=== PATIENT | female | born 1960 | race Caucasian/White ===

== ENCOUNTER 2022-11-21 13:12 | Outpatient (OUT) | payer MEDICARE, SELFPAY ==
--- NOTE | 2022-11-21 13:21 | XR_ITS ---
The [address] [address] Patient Name: MATTHEW ROLLINS MRN: [id number] date: 1960 Sex: F Assigned Patient Location: [facility] Current Patient Location: Accession/Order Number: [id number] Exam Date: 11/21/2022 13:35 Report Date: 11/22/2022 07:09 At the request of: EMERY BUCHANAN Procedure: XR cervical spine 2-3V EXAMINATION: XR cervical spine 2-3V HISTORY: CERVICAL PARASPINAL MUSCLE SPASM M62.838 BILAT ARM WEAKNESS COMPARISON: No relevant comparison available. FINDINGS: BONES: Prominent left convex curvature of the upper thoracic spine; no significant curvature of the cervical spine. No visible fracture or spondylolisthesis. Multilevel moderate degenerative facet arthropathy. DISC SPACES: Suspect mild narrowing C5-6, C6-7. PARASPINOUS: Negative. No paraspinous abnormality is seen. OTHER: Negative. XR/XR cervical spine 2-3V IMPRESSION: 1. Very limited evaluation of the C5-C6 through C7-T1 levels which are obscured by shoulder structures on the lateral view. 2. Suspect multilevel mild-moderate degenerative changes of cervical spine. Electronically authenticated by: IRENA LYNCH Date: 11/22/2022 07:09
== END 2022-11-21 13:13 | disposition home or self-care (01) ==
LOC: RAD 13:15
PROVIDERS: PCP Internal Medicine; Visit Provider Internal Medicine
DX: M62.838 Other muscle spasm (principal); R29.898 Other symptoms and signs involving the musculoskeletal system
CPT/HCPCS: 72040

== ENCOUNTER 2023-01-16 10:13 | Outpatient (OUT) | payer MEDICARE, SELFPAY ==
[2023-01-16 11:22] LABS: Estimated Average Glucose 105 mg/dL; Glycohemoglobin A1C 5.3 % (4.5-6.2)
[2023-01-17 11:12] LABS: Rapid Plasma Reagin, Quant Non Reactive titer (NonRea<1:1)
[2023-01-17 12:12] LABS: Ceruloplasmin 27.9 mg/dL (19.0-39.0); Complement C3, Serum 155 mg/dL (82-167); Complement C4, Serum 28 mg/dL (12-38); Homocyst(e)ine 8.7 umol/L (0.0-17.2)
[2023-01-17 14:08] LABS: Angiotensin-Converting Enzyme 43 U/L (14-82); Lyme Total Antibody CIA Negative (Negative)
[2023-01-17 15:08] LABS: Albumin 3.7 g/dL (2.9-4.4); Alpha-1-Globulin 0.2 g/dL (0.0-0.4); Alpha-2-Globulin 0.7 g/dL (0.4-1.0); Gamma Globulin 0.7 g/dL (0.4-1.8); Immunoglobulin A, Qn, Serum 69 mg/dL (87-352); Immunoglobulin G, Qn, Serum 682 mg/dL (586-1602); Immunoglobulin M, Qn, Serum 74 mg/dL (26-217); Protein, Total 6.2 g/dL (6.0-8.5)
[2023-01-18 13:12] LABS: Albumin, U 29.9 % (.); Alpha-1-Globulin, U 2.3 % (.); Beta Globulin, U 33.3 % (.); Gamma Globulin, U 19.5 % (.); M-Spike, % Not Observed % (Not Observed); Protein,Total,Urine 10.8 mg/dL (Not Estab.)
[2023-01-21 15:08] LABS: Methylmalonic Acid, Serum 174 nmol/L (0-378)
[2023-01-22 02:07] LABS: Vitamin B6, Plasma 6.7 ug/L (3.4-65.2)
[2023-01-22 14:10] LABS: West Nile Virus, IgG Negative (Negative); West Nile Virus, IgM Negative (Negative)
[2023-01-25 15:11] LABS: Copper Level 128 ug/dL (80-158); Zinc Level 99 ug/dL (44-115)
--- OUTSIDE RECORDS SUMMARY | 2023-02-26 13:38 | XMS_ITS | CCD ---
Author Name Unknown Address [address] [place] [address] Organization [facility] Care Team Providers Care Inspector Brake Lining Name Role Phone EFRAÍN BUCHANAN Primary Care Physician CECI AMIN Admitting Unavailable CECI AMIN Attending Unavailable CECI AMIN Attending Unavailable CECI AMIN Admitting Unavailable MANFRED ESPINOSA Attending Unavailable MANFRED ESPINOSA Consulting Unavailable MANFRED ESPINOSA Admitting Unavailable DR EFRAÍN BUCHANAN Primary Care Unavailable Robbin Mendez Admitting UnavailRobbin Koehler Attending UnavailEfraín Krishnamurthy Primary Care Unavailable ELINA BRANTLEY Attending Unavailable Medications Current Medications Medication Drug Class(es) Dates Sig (Normalized) Sig (Original) escitalopram 20 mg oral tablet (2 sources) Serotonin Reuptake Inhibitor Start: 05-21-2016 take 1 tablet by mouth once daily Lexapro 20 mg Tab 20 mg = 1 tab(s), Oral, Daily, Refills(s) 0 Start Date: 05/21/16 Status: Ordered haloperidol 5 mg oral tablet (2 sources) Typical Antipsychotic Start: 01-08-2018 take 5 mg by mouth once daily in the evening Haldol 5 mg, Oral, qPM, Refills(s) 0 Start Date: 01/08/18 Status: Ordered Problems Problem Classification Problem Date Documented Da te Episodic/Chronic Mood disorders (2 sources) Depression 01-08-2018 Chronic Results Test Name Value Interpretation Reference Range Facil ity MG MAMM SCREEN 3D MARCEL CADon 08-08-2022 MG MAMM SCREEN 3D MARCEL CAD Patient: MATTHEW ROLLINS. 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 MG MAMM SCREEN MARCEL W CAD, 07/07/2018. MG MAMM MARCEL SCRN W CAD DIG, 11/16/2015. DIGITIZED_MAMMO, 11/18/2008. INDICATIONS: Screening mammography Calculator Name NCI Breast Cancer Risk Assessment Tool 5 Year Breast Cancer Risk 1.30% Lifetime Breast Cancer Risk 5.70% Personal Breast Cancer No Personal Ovarian Cancer No Treatments None Family Cancers None LOCATION: [facility] BREAST COMPOSITION: Extremely dense, which lowers the sensitivity of mammography. FINDINGS: DIAGNOSTIC CATEGORY 1--NEGATIVE. RIGHT BREAST: No significant suspicious finding. No significant change has occurred. LEFT BREAST: No significant suspicious finding. No significant change has occurred. RECOMMENDATIONS: ROUTINE MAMMOGRAM AND CLINICAL EVALUATION IN 12 MONTHS. PLEASE NOTE: A NORMAL MAMMOGRAM DOES NOT EXCLUDE THE POSSIBILITY OF BREAST CANCER. A CLINICALLY SUSPICIOUS PALPABLE LUMP SHOULD BE BIOPSIED. Dictated by: Stevie Whelan M.D. on 08/08/2022 at 14:06 Approved by: Stevie Whelan M.D. on 08/08/2022 at 14:09 Normal [facility] Physician Orderon 07-18-2022 Physician Order [id number]#1.00CD:[address] [facility] Coding Summary.on 07-11-2022 Coding Summary. CD:[id number] [file] [id number] (more content not included)... Normal [facility] Bili Directon 07-06-2022 Bilirubin.direct [Mass/Vol] 0.1 mg/dL Normal 0.1-0.4 [facility] Comment on above: Performed By: #### 2 865161, 326115105, 5828741, 316877380, 7891413, 07968978, 0956384, 6591487 ####[facility] [address] [place] [address] CBC w/Indiceson 07-06-2022 Erythrocyte distribution wid th (RBC) [Ratio] 13.2 % Normal 10.9-14.2 [facility] Comment on above: Performed By: #### 2 316750, 876193658, 6812712, 630906771, 4537827, 67357058, 6869492, 0291216 #### [facility] [address] [place] [address] Hematocrit (Bld) [Volume fraction] 40.1 % Normal 34.0-46.0 [facility] Comment on above: Performed By: #### 2 744044, 689398218, 8898343, 945369733, 9282093, 39671808, 5685825, 8960464 #### [facility] [address] [place] [address] Hemoglobin (Bld) [Mass/Vol] 13.4 g/dL Normal 12.0-16. 0 [facility] Comment on above: Performed By: #### 2 277357, 552141994, 0054219, 161350394, 0945923, 67114169, 5882361, 8270741 #### [facility] [address] [place] [address] MCH (RBC) [Entitic mass] 30.5 pg Normal 27.0-34.0 [facility] Comment on above: Performed By: #### 2 145126, 137705462, 5516465, 658409759, 6840489, 50868572, 5689429, 7479302 #### [facility] [address] [place] [address] MCHC (RBC) [Mass/Vol] 33.4 g/dL Normal 31.4-36.0 [facility] Comment on above: Performed By: #### 2 556509, 821263843, 5470567, 726612359, 3724362, 48045114, 5993955, 7998499 #### [facility] [address] [place] [address] MCV (RBC) [Entitic vol] 91.2 fL Normal 80.0-100.0 F [facility] Comment on above: Performed By: #### 2 917087, 563254649, 0359394, 966745996, 5780492, 20585082, 6735507, 7971210 #### [facility] [address] [place] [address] Platelet mean volume (Bld) [Entitic vol] 9.8 fL Normal 6.4-10.8 [facility] Comment on above: Performed By: #### 2 461204, 627162175, 0114343, 568653970, 0984123, 54489561, 1133137, 1700416 #### [facility] [address] [place] [address] Platelets (Bld) [#/Vol] 201.0 E9/L Normal 150.0-500.0 [facility] Comment on above: Performed By: #### 2 788173, 483334499, 2247938, 366041642, 2396308, 29526229, 8459543, 0227832 #### [facility] [address] [place] [address] RBC (Bld) [#/Vol] 4.4 E12/L Normal 4.3-5.9 [facility] Comment on above: Performed By: #### 2 720778, 511869483, 3989147, 216219241, 7812719, 04165551, 8772809, 6812205 #### [facility] [address] [place] [address] WBC corrected for nucl RBC A uto (Bld) [#/Vol] 6.5 E9/L Normal 4.0-11.0 [facility] Comment on above: Performed By: #### 2 035705, 645152672, 8140087, 338644979, 0932030, 45919490, 6873887, 5162795 #### [facility] [address] [place] [address] CMPon 07-06-2022 Albumin [Mass/Vol] 4.3 g/dL Normal 3.3-5.0 [facility] Comment on above: Performed By: #### 2 552205, 884594961, 4895000, 199031165, 6785063, 76469790, 1829589, 5635889 #### [facility] [address] [place] [address] Albumin/Globulin (S) [Mass conc ratio] 1.5 Normal 1.1-2.2 [facility] Comment on above: Performed By: #### 2 268586, 437609316, 9705095, 737138276, 9907383, 77165140, 0561868, 9737433 #### [facility] [address] [place] [address] ALP [Catalytic activity/Vol] 73 Int._Unit/L Normal 21- 98 [facility] Comment on above: Performed By: #### 2 531740, 139328865, 9112764, 011016339, 1923110, 48197429, 9282832, 3037857 #### [facility] [address] [place] [address] ALT No additional P-5'-P [Catalytic activity/Vol] 15 Int._Unit/L Normal 6-46 [facility] Comment on above: Performed By: #### 2 583142, 757368379, 6861701, 495893686, 0675883, 80627506, 0061029, 2428191 #### [facility] [address] [place] [address] Anion gap [Moles/Vol] 12 mmol/L Normal 6-16 [facility] Comment on above: Performed By: #### 2 051120, 560800282, 5037113, 873404644, 3048189, 33079927, 4145706, 1603741 #### [facility] [address] [place] [address] AST [Catalytic activity/Vol] 15 Int._Unit/L Normal 5-[address] [facility] Comment on above: Performed By: #### 2 278963, 448320262, 2022682, 790173052, 8279754, 64485132, 5141670, 5830710 #### [facility] [address] [place] [address] Bilirubin [Mass/Vol] 1.4 mg/dL High 0.0-1.1 [facility] Comment on above: Performed By: #### 2 971917, 794382193, 8368222, 547640489, 4746610, 16434414, 4427524, 0122244 #### [facility] [address] [place] [address] Calcium [Mass/Vol] 9.4 mg/dL Normal 8.9-11.1 [facility] Comment on above: Performed By: #### 2 445339, 043956669, 3964800, 651972101, 5272461, 72532588, 4196137, 7204323 #### [facility] [address] [place] [address] Chloride [Moles/Vol] 105 mmol/L Normal 101-111 [facility] Comment on above: Performed By: #### 2 750866, 553278409, 8854468, 275331695, 8762160, 94316230, 1439321, 9983915 #### [facility] [address] [place] [address] CO2 [Moles/Vol] 25 mmol/L Normal 21-31 [facility] Comment on above: Performed By: #### 2 088925, 020761034, 0350015, 671068788, 6907826, 92573226, 0891925, 3509061 #### [facility] [address] [place] [address] Creatinine [Mass/Vol] 1.2 mg/dL Normal 0.5-1.3 [facility] Comment on above: Performed By: #### 2 705490, 754541192, 0465822, 580121989, 5969018, 92071700, 7527346, 0231801 #### [facility] [address] [place] [address] Globulin (S) [Mass/Vol] 2.8 g/dL Normal 1.4-4.0 F [facility] Comment on above: Performed By: #### 2 250572, 943075316, 4941416, 619163265, 9784535, 51264018, 4031282, 1098223 #### [facility] [address] [place] [address] Glucose [Mass/Vol] 90 mg/dL Normal 55-199 [facility] Comment on above: Result Comment: If t his glucose result represents a fasting glucose, interpretation should refer to the following reference range: 55-99 mg/dL Performed By: #### 2 359316, 370184132, 4679876, 147597788, 3665061, 73246456, 0603683, 2236773 #### [facility] [address] [place] [address] Potassium [Moles/Vol] 4.2 mmol/L Normal 3.5-5.3 [facility] Comment on above: Performed By: #### 2 680610, 154075933, 6496894, 820138944, 7296280, 65882880, 1579493, 9296565 #### [facility] [address] [place] [address] Protein [Mass/Vol] 7.1 g/dL Normal 6.0-7.8 [facility] Comment on above: Performed By: #### 2 431542, 642138410, 3376047, 899629212, 9111128, 11543023, 1849801, 2829135 #### [facility] [address] [place] [address] Sodium [Moles/Vol] 138 mmol/L Normal 135-145 [facility] Comment on above: Performed By: #### 2 653160, 017471857, 0647784, 135268559, 1358903, 67762285, 2261229, 7321709 #### [facility] [address] [place] [address] Urea nitrogen [Mass/Vol] 20 mg/dL Normal 5-21 [facility] Comment on above: Performed By: #### 2 755034, 760170588, 0407233, 217468550, 7289079, 26145346, 4331487, 6913616 #### [facility] [address] [place] [address] Urea nitrogen/Creatinine [Ma ss ratio] 17 No Units Normal 10-20 [facility] Comment on above: Performed By: #### 2 679808, 974402920, 7669608, 146051183, 2475145, 21920018, 9132777, 0539353 #### [facility] [address] [place] [address] Consent for Treatmenton 06-10 Consent for Treatment [id number]#[id number]:[address] [facility] PtkV7pue 07-06-2022 HbA1c (Bld) [Mass fraction] 5.3 % Normal <=5.9 [facility] Comment on above: Performed By: #### 2 013311, 011065885, 9070034, 356539886, 7840923, 39373617, 0608068, 7748412 ####[facility] [address] [place] [address] Lipid Panelon 07-06-2022 Cholesterol [Mass/Vol] 210 mg/dL High 120-200 [facility] Comment on above: Performed By: #### 2 578864, 946330893, 3341288, 387360558, 9847205, 03045569, 8756505, 9410350 ####[facility] [address] [facility] [place] [address] Cholesterol in HDL [Mass/Vol] 53 mg/dL Invalid Interpretation Code [facility] Comment on above: Result Comment: HDL > or equal to 60 mg/dL: Low cardiovascular risk HDL < 40 mg/dL : High cardiovascular risk Performed By: #### 2 768593, 018952450, 7401819, 962608008, 4746028, 96300279, 3958896, 5699086 ####[facility] [address] [place] [address] Cholesterol in LDL [Mass/Vol] 123 mg/dL Normal <=129 [facility] Comment on above: Performed By: #### 2 969752, 824258927, 5210327, 229574521, 2129003, 18654587, 2230911, 1966156 ####[facility] [address] [place] [address] Cholesterol in VLDL [Mass/Vol] 34 mg/dL Normal 7-40 [facility] Comment on above: Performed By: #### 2 100374, 053070050, 1052279, 799514545, 2220573, 93389325, 7360805, 8330037 ####[facility] [address] [place] [address] Triglyceride [Mass/Vol] 170 mg/dL High <=149 [facility] Comment on above: Performed By: #### 2 139732, 402435899, 0595658, 141674510, 5614466, 75426896, 6188504, 6150267 ####[facility] [address] [place] [address] Physician Orderon 07-06-2022 Physician Order [id number]#[id number]:[address] [facility] TSHon 07-06-2022 TSH Qn 1.50 m[IU]/L Normal 0.34-5.60 [facility] Comment on above: Performed By: #### 2 541886, 698021639, 2441924, 524372706, 1101264, 54459403, 9462477, 0286725 ####[facility] [address] [place] [address] Vitamin D 25 Hydroxyon 07-06 25-hydroxyvitamin D3 [Mass/Vol] 60.9 ng/mL Normal 30.0 -100.0 [facility] Comment on above: Result Comment: Vit ulrich D deficiency has been defined as a level of serum 25-OH vitamin D less than 20 ng/mL (1,2) by the [place] of [employer] and an Endocrine Society practice guideline. The Endocrine Society further defined vitamin D insufficiency as a level between 21 and 29 ng/mL (2). 1. IOM ([place] of [employer]). 2010. Dietary reference intakes for calcium and D. [place]: The National Academies Press. 2. Jacqueline MF, Geraldine NC, Soraida YAO, et al. Evaluation, treatment, and prevention of vitamin D deficiency: an Endocrine Society clinical practice guideline. JCEM. 2010; 96 (7):1911-30. Performed By: #### 2 340048, 120297196, 8664861, 350017299, 2371740, 90082560, 2004625, 4876736 ####[facility] [address] [place] [address] eGFRon 07-06-2022 GFR/1.73 sq M.predicted paul g non-blacks MDRD (S/P/Bld) [Vol rate/Area] 51 mL/min/1.73 m2 Low >=59 [facility] Comment on above: Order Comment: Order added by Discern Expert. Result Comment: Minister Of Religion jie kidney disease could be indicated at eGFR's of less than 60 mL/min/1.73m2. Kidney failure is indicated at less than 15 mL/min/1.73m2. Performed By: #### 2 815655, 885219404, 7830873, 721428270, 0013369, 30167413, 0369950, 3972030 ####[facility] [address] [place] [address] CBC w/Indiceson 02-09-2022 Erythrocyte distribution wid th (RBC) [Ratio] 13.4 % Normal 10.9-14.2 [facility] Comment on above: Performed By: #### 1 0835513, 7672295, 0625079, 585874023, 6790291, 8123932 #### [facility] [address] [place] [address] Hematocrit (Bld) [Volume fraction] 39.4 % Normal 34.0-46.0 [facility] Comment on above: Performed By: #### 1 8069311, 1171899, 8654392, 033959189, 2564384, 7311431 #### [facility] [address] [place] [address] Hemoglobin (Bld) [Mass/Vol] 13.8 g/dL Normal 12.0-16. 0 [facility] Comment on above: Performed By: #### 1 1430726, 7237396, 1272828, 782890583, 6698939, 6219109 #### [facility] [address] [place] [address] MCH (RBC) [Entitic mass] 30.3 pg Normal 27.0-34.0 [facility] Comment on above: Performed By: #### 1 8694603, 8292203, 8736067, 011272561, 2072893, 1672050 #### [facility] [address] [place] [address] MCHC (RBC) [Mass/Vol] 34.9 g/dL Normal 31.4-36.0 [facility] Comment on above: Performed By: #### 1 8832013, 2450897, 0015135, 844764266, 2994858, 5341574 #### [facility] [address] [place] [address] MCV (RBC) [Entitic vol] 86.8 fL Normal 80.0-100.0 [facility] Comment on above: Performed By: #### 1 0345493, 2669705, 1554475, 504926925, 8631605, 2479521 #### [facility] [address] [place] [address] Platelet mean volume (Bld) [Entitic vol] 9.2 fL Normal 6.4-10.8 [facility] Comment on above: Performed By: #### 1 9988531, 2812361, 9932791, 509841427, 5229926, 2291741 #### [facility] [address] [place] [address] Platelets (Bld) [#/Vol] 215.0 E9/L Normal 150.0-500.0 [facility] Comment on above: Performed By: #### 1 1229447, 0042988, 3050866, 548667373, 2083478, 7334020 #### [facility] [address] [place] [address] RBC (Bld) [#/Vol] 4.5 E12/L Normal 4.3-5.9 [facility] Comment on above: Performed By: #### 1 2971084, 8894542, 1298525, 229899088, 4245440, 4772720 #### [facility] [address] [place] [address] WBC corrected for nucl RBC A uto (Bld) [#/Vol] 5.9 E9/L Normal 4.0-11.0 [facility] Comment on above: Performed By: #### 1 2955333, 8689648, 1812154, 438351364, 1000141, 7800082 #### [facility] [address] [place] [address] CHEMISTRYOrdered By: SYSTEM SYSTEM on 02-09-2022 Albumin [Mass/Vol] 4.5 g/dL Normal 3.3 - 5.0 gm/dL [facility] Albumin/Globulin [Mass ratio] 1.7 {ratio} Normal 1.1 - 2.2 [facility] ALP [Catalytic activity/Vol] 59 [iU]/d Normal 21 - 98 Int._Unit/L [facility] ALT No additional P-5'-P [Catalytic activity/Vol] 14 [iU]/d Normal 6 - 46 Int._Unit/L [facility] Anion gap [Moles/Vol] 11 mmol/L Normal 6 - 16 mEq/L [facility] AST [Catalytic activity/Vol] 14 [iU]/d Normal 5 - 43 Int._Unit/L [facility] Bilirubin [Mass/Vol] 1.3 mg/dL High 0.0 - 1 .1 mg/dL [facility] Calcium [Mass/Vol] 9.7 mg/dL Normal 8.9 - 11. 1 mg/dL [facility] Chloride [Moles/Vol] 104 mmol/L Normal 101 - 1 11 mmol/L [facility] Cholesterol [Mass/Vol] 194 mg/dL Normal 120 - 200 mg/dL [facility] Cholesterol in HDL [Mass/Vol] 48 mg/dL Invalid Interpretation Code [facility] Cholesterol in LDL [Mass/Vol] 116 mg/dL Normal <=129mg/dL [facility] Cholesterol in VLDL [Mass/Vol] 23 mg/dL Normal 7 - 40 mg/dL [facility] CO2 [Moles/Vol] 26 mmol/L Normal 21 - 31 mmol/L [facility] Creatinine [Mass/Vol] 1.2 mg/dL Normal 0.5 - 1.3 mg/dL [facility] GFR/1.73 sq M.predicted among blacks MDRD (S/P/Bld) [Vol rate/Area] 55 mL/min/1.73 m2 Low >=59mL/min/1.7 3 m2 [facility] S GFR/1.73 sq M.predicted among non-blacks MDRD (S/P/Bld) [Vol rate/Area] 45 mL/min/1.73 m2 Low >=59mL/min/1.7 3 m2 [facility] S Globulin (S) [Mass/Vol] 2.7 g/dL Normal 1.4 - 4.0 gm/dL [facility] Glucose [Mass/Vol] 87 mg/dL Normal 55 - 199 mg/dL [facility] Potassium [Moles/Vol] 4.0 mmol/L Normal 3.5 - 5.3 mmol/L [facility] Protein [Mass/Vol] 7.2 g/dL Normal 6.0 - 7.8 gm/dL [facility] Sodium [Moles/Vol] 137 mmol/L Normal 135 - 145 mmol/L [facility] Triglyceride [Mass/Vol] 116 mg/dL Normal <=149mg/dL [facility] TSH Qn 1.43 m[IU]/L Normal 0.34 - 5.60 mcIU/mL [facility] Urea nitrogen [Mass/Vol] 19 mg/dL Normal 5 - 21 mg/dL [facility] Urea nitrogen/Creatinine [Mass ratio] 16 mg/mg Normal 10 - 20 [facility] Remisol CHEMISTRYOrdered By: Kwasi Richardson on 02-09-2022 HbA1c (Bld) [Mass fraction] 5.2 % Normal <=5.9% [facility] ChemAutoSS CMPon 02-09-2022 Albumin [Mass/Vol] 4.5 g/dL Normal 3.3-5.0 [facility] Comment on above: Performed By: #### 1 6148015, 9979139, 6401633, 163545249, 1288492, 6193213 #### [facility] [address] [place] [address] Albumin/Globulin (S) [Mass conc ratio] 1.7 Normal 1.1-2.2 [facility] Comment on above: Performed By: #### 1 3432488, 4896450, 1313894, 268473403, 3768639, 3552555 #### [facility] [address] [place] [address] ALP [Catalytic activity/Vol] 59 Int._Unit/L Normal 21- 98 [facility] Comment on above: Performed By: #### 1 4244034, 5676868, 4316588, 068653408, 8850835, 6722442 #### [facility] [address] [place] [address] ALT No additional P-5'-P [Catalytic activity/Vol] 14 Int._Unit/L Normal 6-46 [facility] Comment on above: Performed By: #### 1 4309559, 4810945, 1770175, 526394751, 7030808, 6720617 #### [facility] [address] [place] [address] Anion gap [Moles/Vol] 11 mmol/L Normal 6-16 [facility] Comment on above: Performed By: #### 1 2342975, 6191280, 5838396, 688812271, 3552982, 8515807 #### [facility] [address] [place] [address] AST [Catalytic activity/Vol] 14 Int._Unit/L Normal 5-[address] [facility] Comment on above: Performed By: #### 1 5439387, 1879816, 6936936, 292227009, 1445741, 2894531 #### [facility] [address] [place] [address] Bilirubin [Mass/Vol] 1.3 mg/dL High 0.0-1.1 [facility] Comment on above: Performed By: #### 1 2618231, 5032562, 8518404, 100403491, 4889028, 0616917 #### [facility] [address] [place] [address] Calcium [Mass/Vol] 9.7 mg/dL Normal 8.9-11.1 [facility] Comment on above: Performed By: #### 1 3930866, 3140349, 2167498, 113725559, 6423838, 3876607 #### [facility] [address] [place] [address] Chloride [Moles/Vol] 104 mmol/L Normal 101-111 [facility] Comment on above: Performed By: #### 1 7288844, 2568641, 2647535, 902577787, 2661751, 5649253 #### [facility] [address] [place] [address] CO2 [Moles/Vol] 26 mmol/L Normal 21-31 [facility] Comment on above: Performed By: #### 1 3732335, 5352496, 6490641, 835917899, 7230210, 0146008 #### [facility] [address] [place] [address] Creatinine [Mass/Vol] 1.2 mg/dL Normal 0.5-1.3 [facility] Comment on above: Performed By: #### 1 8769147, 9219474, 0680464, 616869452, 1594874, 4602682 #### [facility] [address] [place] [address] Globulin (S) [Mass/Vol] 2.7 g/dL Normal 1.4-4.0 F [facility] Comment on above: Performed By: #### 1 9914987, 6689773, 8574195, 236934472, 5537766, 3784545 #### [facility] [address] [place] [address] Glucose [Mass/Vol] 87 mg/dL Normal 55-199 [facility] Comment on above: Result Comment: If t his glucose result represents a fasting glucose, interpretation should refer to the following reference range: 55-99 mg/dL Performed By: #### 1 8070824, 3318450, 9441603, 968022101, 6574544, 1477904 #### [facility] [address] [place] [address] Potassium [Moles/Vol] 4.0 mmol/L Normal 3.5-5.3 [facility] Comment on above: Performed By: #### 1 3558932, 3690291, 1533119, 147702981, 6403956, 6364224 #### [facility] [address] [place] [address] Protein [Mass/Vol] 7.2 g/dL Normal 6.0-7.8 [facility] Comment on above: Performed By: #### 1 1199042, 5975891, 8875595, 179705205, 2195499, 0166585 #### [facility] [address] [place] [address] Sodium [Moles/Vol] 137 mmol/L Normal 135-145 [facility] Comment on above: Performed By: #### 1 5096738, 4930817, 8753349, 695953204, 8347787, 5125979 #### [facility] [address] [place] [address] Urea nitrogen [Mass/Vol] 19 mg/dL Normal 5-21 [facility] Comment on above: Performed By: #### 1 2623816, 2680617, 6227788, 966777056, 4807211, 7560470 #### [facility] [address] [place] [address] Urea nitrogen/Creatinine [Ma ss ratio] 16 No Units Normal 10-20 [facility] Comment on above: Performed By: #### 1 6257651, 4485245, 8281979, 196395569, 8403215, 0406270 #### [facility] [address] [place] [address] Consent for Treatmenton Consent for Treatment [id number]:[address] [facility] HEMATOLOGYOrdered By: Dalton Ann on 02-09-2022 Erythrocyte distribution wid th (RBC) [Ratio] 13.4 % Normal 10.9 - 14.2 % [facility] HemeAutoSS Hematocrit (Bld) [Volume fraction] 39.4 % Normal 34.0 - 46.0 % [facility] HemeAutoSS Hemoglobin (Bld) [Mass/Vol] 13.8 g/dL Normal 12.0 - 1 6.0 gm/dL [facility] HemeAutoSS MCH (RBC) [Entitic mass] 30.3 pg Normal 27.0 - 34.0 pg FT [facility] MCHC (RBC) [Mass/Vol] 34.9 g/dL Normal 31.4 - 36.0 gm /dL [facility] MCV (RBC) [Entitic vol] 86.8 fL Normal 80.0 - 100.0 fL [facility] Platelet mean volume (Bld) [Entitic vol] 9.2 fL Normal 6.4 - 10.8 fL [facility] Platelets (Bld) [#/Vol] 215.0 E9/L Normal 150.0 - 500. 0 E9/L [facility] HemeAutoSS RBC (Bld) [#/Vol] 4.5 E12/L Normal 4.3 - 5.9 E12/L [facility] HemeAutoSS WBC corrected for nucl RBC A uto (Bld) [#/Vol] 5.9 E9/L Normal 4.0 - 11.0 E9/L [facility] HemeAutoSS [id number] 02-09-2022 HbA1c (Bld) [Mass fraction] 5.2 % Normal <=5.9 [facility] Comment on above: Performed By: #### 1 [id number], [id number], 8417638, [id number], 9325578, 5875267 #### [facility] [address] [place] [address] Lipid Panelon 02-09-2022 Cholesterol [Mass/Vol] 194 mg/dL Normal 120-200 [facility] Comment on above: Performed By: #### 1 [id number], 1184487, 5376733, 198787914, 4096217, 2432467 #### [facility] [address] [place] [address] Cholesterol in HDL [Mass/Vol] 48 mg/dL Invalid Interpretation Code [facility] Comment on above: Result Comment: HDL > or equal to 60 mg/dL: Low cardiovascular risk HDL < 40 mg/dL : High cardiovascular risk Performed By: #### 1 [id number], 4212077, 0601427, [id number], 9256930, 7580947 #### [facility] [address] [place] [address] Cholesterol in LDL [Mass/Vol] 116 mg/dL Normal <=129 [facility] Comment on above: Performed By: #### 1 [id number], 8406828, 4262439, 779462749, 1883425, 3295081 #### [facility] [address] [place] [address] Cholesterol in VLDL [Mass/Vol] 23 mg/dL Normal 7-40 [facility] Comment on above: Performed By: #### 1 [id number], 8505318, 3718070, [id number], 2473461, 2755054 #### [facility] [address] [place] [address] Triglyceride [Mass/Vol] 116 mg/dL Normal <=149 [facility] above: Performed By: #### 1 7143171, 1775929, 9700447, 837421557, 0672967, 5272831 #### [facility] [address] [place] [address] Physician Orderon 02-09-2022 Physician Order [id number] [facility] TSHon 02-09-2022 TSH Qn 1.43 m[IU]/L Normal 0.34-5.60 [facility] Comment on above: Performed By: #### 1 [id number], 1296278, 7614265, [id number], 9874519, 3609092 #### [facility] [address] [place] [address] eGFRon 02-09-2022 GFR/1.73 sq M.predicted paul g blacks MDRD (S/P/Bld) [Vol rate/Area] 55 mL/min/1.73 m2 Low >=59 [facility] Comment on above: Order Comment: Order added by Discern Expert. Result Comment: eGFR is race adjusted. AA=. Performed By: #### 1 [id number], 5941537, 2145001, [id number], 8254063, 0765172 #### [facility] [address] [place] [address] GFR/1.73 sq M.predicted paul g non-blacks MDRD (S/P/Bld) [Vol rate/Area] 45 mL/min/1.73 m2 Low >=59 [facility] Comment on above: Order Comment: Order added by Discern Expert. Result Comment: Minister Of Religion jie kidney disease could be indicated at eGFR's of less than 60 mL/min/1.73m2. Kidney failure is indicated at less than 15 mL/min/1.73m2. Performed By: #### 1 [id number], 1256136, 4028531, [id number], 0732381, 9161995 #### [facility] [address] [place] [address] [facility] Metabolic Pane [facility] 07-24-2021 Albumin [Mass/Vol] 4.7 g/dL Normal 3.6-5.1 [facility] Comment on above: Performed By: #### C MP, TSH reflex FT4, LIPD #### [facility] [address] [place], [place] [id number] Albumin/Globulin [Mass ratio] 2.4 {ratio} Normal 1.0-2 .5 [facility] Comment on above: Performed By: #### C MP, TSH reflex FT4, LIPD #### [facility] [address] [place], [place] [id number] ALP [Catalytic activity/Vol] 129 U/L High 35-119 [facility] Comment on above: Performed By: #### C MP, TSH reflex FT4, LIPD #### [facility] [address] [place], [place] [id number] ALT [Catalytic activity/Vol] 11 U/L Normal 6-33 [facility] Comment on above: Result Comment: 02/08 Female reference range changed. Performed By: #### C MP, TSH reflex FT4, LIPD #### [facility] [address] [facility] [place] [id number] Anion gap [Moles/Vol] 18 mmol/L Normal 12-20 [facility] Comment on above: Result Comment: Effe ctive 03/16/2019 reference range changed. Performed By: #### C MP, TSH reflex FT4, LIPD #### [facility] [address] [facility] [place] [id number] AST [Catalytic activity/Vol] 12 U/L Normal 9-34 [facility] Comment on above: Performed By: #### C MP, TSH reflex FT4, LIPD #### [facility] [address] [facility] [place] [id number] Bilirubin [Mass/Vol] 1.09 mg/dL Normal 0.30-1.20 [facility] Comment on above: Performed By: #### C MP, TSH reflex FT4, LIPD #### [facility] [address] [place], [place] [id number] BUN/CREA 14 Ratio Normal 6-22 [facility] Comment on above: Performed By: #### C MP, TSH reflex FT4, LIPD #### [facility] [address] [place], [place] [id number] Calcium [Mass/Vol] 10.1 mg/dL Normal 8.6-10.2 [facility] Comment on above: Performed By: #### C MP, TSH reflex FT4, LIPD #### [facility] [address] [place], [place] [id number] Chloride [Moles/Vol] 104 mmol/L Normal 98-107 [facility] Comment on above: Performed By: #### C MP, TSH reflex FT4, LIPD #### [facility] [address] [place], [place] [id number] CO2 [Moles/Vol] 23 mmol/L Normal 20-31 [facility] Comment on above: Performed By: #### C MP, TSH reflex FT4, LIPD #### [facility] [address] [place], [place] [id number] Creatinine [Mass/Vol] 1.1 mg/dL Normal 0.6-1.4 [facility] Comment on above: Performed By: #### C MP, TSH reflex FT4, LIPD #### [facility] [address] [place], [place] [id number] eGFRAA 61 mL/min/1.73m2 Normal >60 [facility] Specialist Comment on above: Performed By: #### C MP, TSH reflex FT4, LIPD #### [facility] [address] [place], [place] [id number] eGFRNAA 50 mL/min/1.73m2 Low >60 [facility] Specialist Comment on above: Performed By: #### C MP, TSH reflex FT4, LIPD #### [facility] [address] [place], [place] [id number] Globulin (S) [Mass/Vol] 2.0 g/dL Normal 1.9-3.7 [facility] Specialist Comment on above: Performed By: #### C MP, TSH reflex FT4, LIPD #### [facility] [address] [place], [place] [id number] Glucose [Mass/Vol] 90 mg/dL Normal 65-99 [facility] Client Support Coordinator Comment on above: Result Comment: For FASTING Glucose --- ADA reference ranges: Normal 65-99 mg/dl Prediabetes 100-125 Diabetes >/= 126 Performed By: #### C MP, TSH reflex FT4, LIPD #### [facility] [address] [place], [place] [id number] Potassium [Moles/Vol] 4.3 mmol/L Normal 3.5-5.5 [facility] Specialist Comment on above: Performed By: #### C MP, TSH reflex FT4, LIPD #### [facility] [address] [place], [place] [id number] Protein [Mass/Vol] 6.7 g/dL Normal 6.1-8.1 [facility] Client Support Coordinator Comment on above: Performed By: #### C MP, TSH reflex FT4, LIPD #### [facility] [address] [place], [place] [id number] Sodium [Moles/Vol] 140 mmol/L Normal 135-146 [facility] Client Support Coordinator Comment on above: Performed By: #### C MP, TSH reflex FT4, LIPD #### [facility] [address] [place], [place] [id number] Urea nitrogen [Mass/Vol] 16 mg/dL Normal 7-25 [facility] Specialist Comment on above: Performed By: #### C MP, TSH reflex FT4, LIPD #### [facility] [address] [place], [place] [id number] Lipid Panelon 07-24-2021 Cholesterol [Mass/Vol] 175 mg/dL Normal 125-200 No [facility] Client Support Coordinator Comment on above: Result Comment: Low risk < 200mg/dL Borderline risk 201-239 mg/dl High risk > or equal to 240 Performed By: #### C MP, TSH reflex FT4, LIPD #### [facility] [address] [place], [place] [id number] Cholesterol in HDL [Mass/Vol] 48 mg/dL Normal >40 [facility] Specialist Comment on above: Result Comment: High Cardiovascular Risk HDL <40 mg/dL Low Cardiovascular Risk HDL > or equal to 60 mg/dl Performed By: #### C MP, TSH reflex FT4, LIPD #### [facility] [address] [place], [place] [id number] Cholesterol in LDL [Mass/Vol] 97 mg/dL Normal [facility] Comment on above: Result Comment: LDL ATP III CLASSIFICATION LDL less than 100 mg/dl Optimal LDL 100-129 mg/dl Near or above optimal LDL 130-159 Borderline high LDL 160-189 High LDL greater than 189 mg/dl Very High Performed By: #### C MP, TSH reflex FT4, LIPD #### [facility] [address] [place], [place] [id number] Cholesterol in VLDL [Mass/Vol] 30 mg/dL Normal [facility] Specialist Comment on above: Performed By: #### C MP, TSH reflex FT4, LIPD #### [facility] [address] [place], [place] [id number] Cholesterol.total/Cholestero l in HDL [Mass ratio] 4 {ratio} Normal [facility] Specialist Comment on above: Performed By: #### C MP, TSH reflex FT4, LIPD #### [facility] [address] [place], [place] [id number] Triglyceride [Mass/Vol] 152 mg/dL High 30-150 [facility] Comment on above: Result Comment: TRIG ATPIII CLASSIFICATIONS TRIG less than 150 mg/dl Normal TRIG 150-199 mg/dl Borderline High TRIG 200-500 mg/dl High TRIG greather than 500 mg/dl Very High Performed By: #### C MP, TSH reflex FT4, LIPD #### [facility] [address] [place], [place] [id number] Q - HEPATITIS C ANTIBODY W/R EFLEX TO HCV RNA,QUANT,RT-PCRon 07-24-2021 HEPATITIS C ANTIBODY Non-Reactive Normal NON-REACTIVE [facility] Specialist Comment on above: Order Comment: [facility] performed at: [place] [employer] [facility], [address], [address] [place], [address], Screw Driver Operator: Mitch Shirley MD [facility] Date/Time: [facility] Results Received Date/Time: [facility] Reported Date/Time: Performed By: #### 8 472 #### [facility] [address] [place] [address] SIGNAL TO CUT-OFF 0.01 Normal <1.00 [facility] Client Support Coordinator Comment on above: Order Comment: [facility] performed at: [place], [employer] [facility], [address], [address] [place], [address], Screw Driver Operator: Mitch Shirley MD [facility] Date/Time: [facility] Results Received Date/Time: [facility] Reported Date/Time: Result Comment: HCV antibody was non-reactive. There is no laboratory evidence of HCV infection. In most cases, no further action is required. However, if recent HCV exposure is suspected, a test for HCV RNA (test code 63514) is suggested. For additional information please refer to http://education.Neoprospecta/faq/YPW63c7 (This link is being provided for informational/ educational purposes only.) Performed By: #### 8 472 #### [facility] [address] [place] [address] TSH w/ Reflex to Free T4on 0 07-24-2021 TSH 1.120 uIU/mL Normal 0.400-4.500 [facility] Client Support Coordinator Comment on above: Performed By: #### C MP, TSH reflex FT4, LIPD #### [facility] [address] [place], [place] [id number] Coding Summary.on 07-20-2021 Coding Summary. [id number] [file] [id number] (more content not included)... Normal [facility] CHEMISTRYOrdered By: SYSTEM SYSTEM on 07-11-2021 Albumin [Mass/Vol] 4.4 g/dL Normal 3.3 - 5.0 gm/dL [facility] Albumin/Globulin [Mass ratio] 1.7 {ratio} Normal 1.1 - 2.2 [facility] ALP [Catalytic activity/Vol] 108 [iU]/d High 21 - 98 Int._Unit/L [facility] ALT No additional P-5'-P [Catalytic activity/Vol] 18 [iU]/d Normal 6 - 46 Int._Unit/L [facility] Anion gap [Moles/Vol] 12 mmol/L Normal 6 - 16 mEq/L [facility] AST [Catalytic activity/Vol] 15 [iU]/d Normal 5 - 43 Int._Unit/L [facility] Bilirubin [Mass/Vol] 1.2 mg/dL High 0.0 - 1 .1 mg/dL [facility] Calcium [Mass/Vol] 9.7 mg/dL Normal 8.9 - 11. 1 mg/dL [facility] Chloride [Moles/Vol] 104 mmol/L Normal 101 - 1 11 mmol/L [facility] Cholesterol [Mass/Vol] 185 mg/dL Normal 120 - 200 mg/dL [facility] Cholesterol in HDL [Mass/Vol] 47 mg/dL Invalid Interpretation Code [facility] Cholesterol in LDL [Mass/Vol] 99 mg/dL Normal <=129mg/dL [facility] Cholesterol in VLDL [Mass/Vol] 29 mg/dL Normal 7 - 40 mg/dL [facility] CO2 [Moles/Vol] 27 mmol/L Normal 21 - 31 mmol/L [facility] Creatinine [Mass/Vol] 1.2 mg/dL Normal 0.5 - 1.3 mg/dL [facility] GFR/1.73 sq M.predicted among blacks MDRD (S/P/Bld) [Vol rate/Area] 55 mL/min/1.73 m2 Low >=59mL/min/1.7 3 m2 [facility] Chem S GFR/1.73 sq M.predicted among non-blacks MDRD (S/P/Bld) [Vol rate/Area] 46 mL/min/1.73 m2 Low >=59mL/min/1.7 3 m2 [facility] S Globulin (S) [Mass/Vol] 2.6 g/dL Normal 1.4 - 4.0 gm/dL [facility] Glucose [Mass/Vol] 96 mg/dL Normal 55 - 199 mg/dL [facility] Potassium [Moles/Vol] 4.2 mmol/L Normal 3.5 - 5.3 mmol/L [facility] Protein [Mass/Vol] 7.0 g/dL Normal 6.0 - 7.8 gm/dL [facility] Sodium [Moles/Vol] 139 mmol/L Normal 135 - 145 mmol/L [facility] Triglyceride [Mass/Vol] 143 mg/dL Normal <=149mg/dL [facility] TSH Qn 1.44 m[IU]/L Normal 0.34 - 5.60 mcIU/mL [facility] Urea nitrogen [Mass/Vol] 16 mg/dL Normal 5 - 21 mg/dL [facility] Urea nitrogen/Creatinine [Mass ratio] 13 mg/mg Normal 10 - 20 [facility] CHEMISTRYOrdered By: Aurora Suresh on 07-11-2021 HbA1c (Bld) [Mass fraction] 5.3 % Normal <=5.9% [facility] ChemAutoSS HEMATOLOGYOrdered By: Mady Zayas on 07-11-2021 Erythrocyte distribution wid th (RBC) [Ratio] 13.0 % Normal 10.9 - 14.2 % [facility] Hematocrit (Bld) [Volume fraction] 40.5 % Normal 34.0 - 46.0 % [facility] Hemoglobin (Bld) [Mass/Vol] 13.8 g/dL Normal 12.0 - 1 6.0 gm/dL [facility] MCH (RBC) [Entitic mass] 30.6 pg Normal 27.0 - 34.0 pg [facility] MCHC (RBC) [Mass/Vol] 34.1 g/dL Normal 31.4 - 36.0 gm /dL [facility] MCV (RBC) [Entitic vol] 89.7 fL Normal 80.0 - 100.0 fL [facility] Platelet mean volume (Bld) [Entitic vol] 10.2 fL Normal 6.4 - 10.8 fL [facility] HemeAutoSS Platelets (Bld) [#/Vol] 230.0 E9/L Normal 150.0 - 500. 0 E9/L [facility] HemeAutoSS RBC (Bld) [#/Vol] 4.5 E12/L Normal 4.3 - 5.9 E12/L [facility] HemeAutoSS WBC corrected for nucl RBC A uto (Bld) [#/Vol] 5.7 E9/L Normal 4.0 - 11.0 E9/L [facility] HemeAutoSS Encounters Encounter Date Encounter Type Care Provider Facility Start: 02-12-2023 End: 02-12-2023 ambulatory ELINA Louise BEJ Not Available Start: 08-08-2022 ambulatory MANFRED ESPINOSA Facility : Start: 08-01-2022 ambulatory Robbin hermosilloty:[facility] Start: 07-06-2022 End: 07-07-2022 ambulatory SHURA S BRENNAN Facility:[facility] Start: 02-09-2022 End: 02-10-2022 ambulatory SHURA S BRENNAN Facility:[facility] Start: 02-09-2022 End: 02-09-2022 Patient encounter procedure SHURA S BRENNAN [facility] Start: 07-11-2021 End: 07-11-2021 Patient encounter procedure SHURA S BRENNAN [facility] Procedures Date Procedure Procedure Detail Performing Clinician Abdominal hysterectomy SHURA BRENNAN Appendectomy SHURA BRENNAN Cholecystectomy SHURA BRENNAN Tonsillectomy SHURA BRENNAN Immunizations Immunization Date Immunization Notes Care Provider Vidhya sims 05-22-2016 influenza, seasonal, injectable SHURA BRENNAN [facility] Comment on above: Early/Late Reason: N ew Med Order Payers Date Payer Category Payer Self-pay 2022 Medicare [id number] 2022 Unknown 1961 Private Health Insurance [id number] 1960 Unknown [id number] 2.16.8 [id number] 1960 Unknown [id number] 2.16.8 [id number] 1958 Unknown [id number] 2.16.84 [id number] 1958 Unknown [id number] Unknown [id number] 2.16.8 [id number] Social History Date Type Detail Facility Tobacco [facility] Comment on above: denies. Sex Assigned At Female [facility] Tobacco smoking status No Smoking Status Entered [facility] Evaluation + Plan note Note Date & Type Note Facility Evaluation + Plan note No data available for this section [facility] Discharge instructions Note Date & Type Note Facility Hospital Discharge instructions No data available for this section [facility] Progress note Note Date & Type Note Facility Progress note No data available for this section [facility] Summary Purpose Family History No Family History Records FoundNo Family History Records FoundNo Family History Records FoundNo Family History Records FoundNo Family History Records Found Advance Directives No Advanced Directives Records FoundNo Advanced Directives Records FoundNo Advanced Directives Records FoundNo Advanced Directives Records FoundNo Advanced Directives Records Found Additional Source Comments INFORMATION SOURCE (unrecogn ized section and content) DATE CREATED AUTHOR 07/28/2021 [facility] dical Specialist DATE CREATED AUTHOR AUTHOR'S ORGANIZ ATION 07/19/2022 [facility] DATE CREATED AUTHOR AUTHOR'S ORGANIZ ATION 08/17/2022 [facility] DATE CREATED AUTHOR AUTHOR'S ORGANIZ ATION 09/20/2022 [facility] DATE CREATED AUTHOR AUTHOR'S ORGANIZ ATION 02/14/2023 [facility] dical Specialists EPIC Patient Care team informatio n (unrecognized section and content) Personnel Name: EFRAÍN BUCHANAN MD Address: Address: [address] [place] [address] FOR RECORDS PERTAINING TO PATIENTS WHO ARE OR HAVE BEEN ENROLLED IN A CHEMICAL DEPENDENCY/SUBSTANCEABUSE PROGRAM, SOME INFORMATION MAY BE OMITTED. This clinical summary was aggregated from multiple sources. Caution should be exercised in using it in the provision of clinical care. This summary normalizes information from multiple sources, and as a consequence, information in this document may materially change the coding, format and clinical context of patient data. In addition, data may be omitted in some cases. CLINICAL DECISIONS SHOULD BE BASED ON THE PRIMARY CLINICAL RECORDS. [facility] [employer] [facility]. provides no warranty or guarantee of the accuracy or completeness of information in this document.
== END 2023-01-16 10:14 | disposition home or self-care (01) ==
LOC: LAB 10:14
PROVIDERS: PCP Internal Medicine; Visit Provider Psychiatry & Neurology Neurology
DX: G62.9 Polyneuropathy, unspecified (principal)
CPT/HCPCS: 36415; 82164; 82390; 82525; 82607; 82746; 82784; 83036; 83090; 83921; 84155; 84156; 84165; 84166; 84207; 84630; 86160; 86334; 86335; 86592; 86618; 86788; 86789

== ENCOUNTER 2023-03-14 08:59 | Outpatient (OUT) | payer MEDICARE, SELFPAY ==
--- OUTSIDE RECORDS SUMMARY | 2023-03-14 09:13 | XMS_ITS | CCD ---
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 Bags Name Role Phone EFRAÍN BUCHANAN Primary Care Physician [phone] CECI AMIN Admitting Unavailable CECI AMIN Attending Unavailable CECI AMIN Attending Unavailable CECI AMIN Admitting Unavailable MANFRED ESPINOSA Attending Unavailable MANFRED ESPINOSA Consulting Unavailable MANFRED ESPINOSA Admitting Unavailable DR EFRAÍN BUCHANAN Primary Care Unavailable ELINA BRANTLEY Attending Unavailable Salvador Mendez Attending Unavailab Salvador Thomas Admitting Unavailab Efraín Akins Primary Care Unavailable Medications Current Medications Medication Drug Class(es) [...] Results Test Name Value Interpretation Reference Range Facility [facility] MAMM SCREEN 3D MARCEL CADon 08-08-2022 [facility] SCREEN 3D MARCEL CAD Patient: MATTHEW ROLLINS. 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 on 08/08/2022 at 14:09 Normal [facility] Physician Orderon 07-18-2022 Physician Order [id number]#1.00CD:127 Normal [facility] Coding Summary.on 07-11-2022 Coding Summary. CD:[id number] bWw+PGhlYWQ+VC9NVST xD64xlPGgoU3cZ4QORB lOSywgQVBQTElOSyIgb kKhVG1dnSWeYKLb IC8+LH9pOWZkPedcqHE tz9N9xWZ7N76fsd6bRY ahdBI4CRZaGzTwcwmfh 4otiOk4TWnrVrdeWzLf PXVzuG17WIQ6bC42Gz9 3bMEqlZAbj6cctSb4Km DlGJNxIEO1tHrbLHndv 9OlMMPyQ30wvJUhs7C5 IGNvbGxhcHNlOyBlbXB 4pG9tOPxfmavej1rdkh iwEzm8sf69iNLni3I6a IZ3Q5ZyalU9MVKumQMr SmothPWXkO8cpcayg5u kgmnsMaLsTXCbJEb8XI g1GYYniJyxPiPpYM11X FL5XDQhciKvW3SwEGCy mRvvMdR9g6L2To5NT6D NOojsH1EQUCOREGmarS Q+GV99en25B2RkPeugC jn5KFPbTBO0zIF4vY2b ZQXcVYukd8E4cKH1J2X rgtQgsg9ee4tsZGJdZT uoC97raGQlp2I9WYTiv HP3OALxjXefWbNntB87 Oyc+FANxnFdba3OyGuf vj4rts1uatGu1OgzqOT FeosKbaCpmTDT7a9AcK q4uXSGnaVU6pVC1lX0y TgOeEeI4CYkiG044DeL toWStMjgrD67tI0VrxQ A+OWQjMuh6SPDvrDwhJ V8tG5JiODKqobdvgBEo wGkfUO6jMRMihoevMKC lhW0eRHTyP5b8OvGaYh Y2YEjwZ4FcXWKsimrsW x08jX6sDkRhLnC0GCkw T3VbmsZ4GNCfiIGxNZn vLSM4M66gi7Y1CPCpMQ KnBNG2nGM7rX2gkIhxz jogbGVmdDsgdmVydGlj BNshAPbmP535UKOsiUk nPkNvZGluZyBEYXRlOi AgMDUvMDMvMjAyMzwvd GQ+JHMgPPD5uIpbLUDx uCLyWXhjAk9fvBdacHl lHW0rPCEocuwlGAPtiC 9dTPZcnWElhNhbYY5tQ WIwznbev909PlUbTGN9 WIKszRMnT8IerW3hGeD wVIAiJLXwW2KrmMBvFV zyV241XXqsFyG6HMXes fQoH8YpLJIjzUdqTtE0 b0X7Fc5Or5EstvcmE1O rjISgRnFgQaskSRb9G2 RkPjwvdHI+CA40FUNwZ A05QCx1LEE8fRebOWsy NMWgV3BjhW7vElPnPUQ kZGRkOyc+PHRhYmxlIH dpZHRoPScxMDAlJyBzd QizPA3iGs1uHXZiRWVa mCrihPNmPiEqs9jxIFX cJTvtLK7yhKwuI4OnrS H5KCUis3q8Gc19A99dZ 3JvdXA+PMUviPD0mQU9 nS7uNxQpWhJ4DHjcT29 8IqFbpSSxIyyii2ixr9 dptKt4NwZ5YJYmjgNzg JkrQAR7t8VgUv32F12i IHdpZHRoPSIxNSUiIHZ xmZrkzy1uzZ2pUy3+PG AlzMS2yGD0fJ9jRaTxB jP9GOaxY526KcHagYMu Fwidr2diy8gevKz7NxS uJLDttaLtaKwpTIL2p6 IxTi79E2JooGhpk6CnZ vp5ip14rQLaz8P5hUV5 C5OvSPEfumnmsXVcnFu fWN7hHXLewhnlALLqwK 7lLZLqI8i0BkNmSoK1L KslB9DtizN7BKJdlHSf JPAnqVJHvU8xmgenm1p zglvyNhZkMBFlSSd8DZ w7MLNxaWuqMvNoZQR6L qC9ZQD9pYLyaD9lvJhu pxmzqU6xVsv+XWD7sXH qzZQJYD6uPzijvLG+PH XfOTA2gBieLUnuELWyp C8lXKUfZ7m8BaYqXdY1 RZlbD8TrvrH5YNCnhFF xXTPwuDGLrS9uzunwg3 voownzInYwDNCtWXy8Y Cb7DRCchIsvCaUnOCK4 WdA8SJL6fQDikP4ulQc pmqfhvG7mItg+QmlydG aaVIA3XIp6L0UgXaq2W JGtdWptBN0qgSIcABmp Ez7efEycoGqxXO0qYVS cmcbsc148LxSux6cxFE FkeOMxUKeyJQB9I91fx 1Y3FTQzQXVjHAO5dHM3 iH0hrFrepgfrcQVrqJz gdmVydGljYWwtYWxpZ2 60AFJtcVveEaUrDZa3L 4StIlt5TPHqeRobPV6g nIYwEYphHb3gvVpapXt pMO8pCVTldhaio343Og Sas5ewLEMkwVEiWDhbW IJ9K04np9W6IICdWJGe WWG6eWK8kF4iyYozxua gbGVmdDsgdmVydGljYW zwQFawY848TZEfuAbjO aTojEk6F6ZeFdh8ZCZa jPceBV9arYRtBKkqNo4 ufToesHjoYT0xMYAuof qpd483VfZng0rcFZWii SOpZTbcQMU6J79bl0C8 LGHsBZDaMNX0lHX1wE8 hbGlnbjogbGVmdDsgdm KigRxsOIvyJQlaY762Q HRvcDsnPlBhdGllbnQg TKnjZTz6O3CnIxunwVB +UR31ISFuKL41vUUamF Qun2rtnNp8VeCzIJDhD DG7bZsmNIxlt7OwIVSx K97mfVFhk1O8LSJrqVi lyKZzFoBsmTO0zM9hIO xgvwtjd0mizfioVissp 4tond53sK68G94vZFus ZHRoPSIzMCUiIHZhbGl qlf9gsH7tQg2+PGNvbC Y2eTK6nW2tGLTiHgE2O XpqH407EuHstUShNcsb a7rwh4ygoDm6BwN0VSJ rarOoaYadGFN8x4UiVy 13W21rFEwlSUTtYWBjQ CVvJJMzhUandi7jrS0f Ii8+ITChqXC2bNP4eT8 bIaYrEeW6AZrgK967Ku RhoZZsMgzaP50eR8Arm XA+KXCbGcq4TXDfwIrk QO6yaBFjMVvxVk2eKZW 9ElClCnNyDRyzU2CdUW LpzumvyxwhhTX4ETQoY SKfkV57Gc1ruRitNLSi lKVVdZ9kdnjgo3qomyl rMyEyKCThZEs7XZl7XR RdwFtuUaLkLXT3TgY2N OM2fHOhkM9aeCivicnb cU8qJ0OlYRSfqrdwKk8 4eU9bAmFuTkM5KLcqUh c+UkFUSEJVTiwgTElOR QN5W8UvWal4PREouAyj LB4hkSKyKDasUj9kyHu mwKebJL4cJDWewwgsBO UgqT0qDGSkpCSldSdkS G6mAGZwzsufz623TuDj JNJ7DAQrxCEzH0IedR3 uBkUhCGWyGTSnJ9ZziV YnTRwgC871MYadDyV8Z GSzosNgC9ImQQWvrNjw AtO0e0R8Nv0jNw1bAG7 wIUC1YU20YO96kUIfg9 G2oCL2B7DiILJoopnfk qpelQB8FBSfPJFzwX76 iYUoTCdnHr4yi9I2e20 3WUHvJVVruX23Dl1ehL jvBIXfjRCLiJ1niamwe 7uxljniOlFbHYLgGGt8 AAc7EXCnqWnlVsJgYDG 6EvV9JMM3rNBorZ2eoI ipxqexjN5eIxo+NjMgW VVxxeC6X0JcLja0GBWm eJiiSR9nxEBlRTrhIv0 diKbyfTmqCQ5xOLEazv cjLPRmeF2wETOgaCExv KdaKS0zDEHugblui838 PsHxKFZ8IJItnNSlJ3A suV9lRlFrIKYlTGZuA7 KslVUwYCmpU925GAiuB aB6HNZjdiFrD1YlEREi hKhgBrV2w7P3Ki5YKX8 bfTU8R8QgAyc5OTNbfI hxEN3wwPIpINxoHu5ek IrksLvmXL3lHVOfrmam XHEckK9qGKKsxAClsLv dKB7hDLSktkxmw836Ut VuGNQ3DWNkrTQkL1Bqw I1nRbHcNCFdDSRgP0Nc sTJaYAkpT328XOqvNbC 6JOHdqzCgU5WlXOUexS mzEtL9t4Q0Gc1QaTQbY QAwGR64NH77WB10E8Ck PjwvdGFibGU+PHRhYmx lIHdpZHRoPScxMDAlJy GalFjyAW0dAr3mRMFlR OOtfSrhrSQxYpDxp4ch FUAvSKgrJA0gtCrxZ7H cxVX9XNZmc8t1Qc07M1 9iB1KsvVK+AOPsbLQ7n LJ3iQ5bOnFnQnV3MQve G955ZcFniHTaTittg2e yt0jhgAo2WiHzAETzst VlkNkzKKL5c4HvHx13E 29sIHdpZHRoPSIyMCUi WDCrdXkvvb7inU2cSj7 +QPKocTR1bFZ0oW7hYl KiYoO5UZeoE296RpEfj WOaWvijN74nY4ArsKC+ WMKkGyt1XXZkkYsiKB2 hhLUnTVskKm5bTOD4Bl AdBpUyCQyrO8WuDGPnk mxizsfsyZP6EKSjLMUp iF42Ta9tuTelFc2zRQV tJBV9KZFxmJLuN5YyaU 9uBlZvRZJgRHGxE4Jps CKtAMikK676KVtyFrD5 RJVkwhPoX0CfBDZlkFe cFxQ7k2U9Kr6DeAzbrF VjLE9rWlQaWRh6G6RtZ dm1JYWijVmfES2yyDXt QXbtLn2uqPwfmAupXT8 jPWQwdzrzp602AbDfb3 rmMZPksWMpJZuwZTF1V 33rc2L3GOXhFOLcMYN8 nOB1oN1ivCbqmlmhrXE mdDsgdmVydGljYWwtYW vwV848RCDazGusNmBBK ng1P8ZfLop1WXFhaOph AV0tfQGtZEjdWt9gsTq rcHqcIM3fUKUokfaxf2 95MwDzn5pyYMMisWGfA YxePYT1W45bh8Z7XBDq QLBmRKJ8aSL8nG9lwKf nbjogbGVmdDsgdmVydG spQLwiHIfmE230TNEyf JypUg6NZup2N3FqXjw8 GGTnnQhyKY7tvSTaAPi iMm1caWgsdQinXD4eYQ Nchrtqj973NvGpw8hsT VTepMDlHTdmMNX3L49p j4W4XBGbBQHqBXH0tZB 1yP4caSsqnaoubGQhtQ sgdmVydGljYWwtYWxpZ 246IHRvcDsnPlBheWVy OjwvdGQ+GS80js33D1Q kPswsEny4NRIyMGM6vQ V5gC1mGTTlKJzzl7T6x SY5J6GbniOmsn1dl1vw YXBzZTog (more content not included)... Normal [facility] Bili Directon 07-06-2022 Bilirubin.direct [Mass/Vol] 0.1 mg/dL Normal 0.1-0.4 [facility] Comment on above: Performed By: #### 2 251597, [id number], 7435215, 888710525, 6944697, 06061515, 6391476, 3512523 ####[facility] [address] [place] [address] CBC w/Indiceson 07-06-2022 Erythrocyte distribution width (RBC) [Ratio] 13.2 % Normal 10.9-14.2 [facility] Comment on above: Performed By: #### 2 733359, 405224070, 1859512, 636748787, 6510481, 11593397, 9493217, 0396983 #### [facility] [address] [place] [address] Hematocrit (Bld) [Volume fraction] 40.1 % Normal 34.0-46.0 [facility] Comment on above: Performed By: #### 2 249338, 199498250, 2234422, 245816827, 2720248, 62868742, 1267741, 1201738 #### [facility] [address] [place] [address] Hemoglobin (Bld) [Mass/Vol] 13.4 g/dL Normal 12.0-16.0 [facility] Comment on above: Performed By: #### 2 235632, 422470215, 4220035, 369020950, 6462231, 93333925, 5121911, 1687110 #### [facility] [address] [place] [address] MCH (RBC) [Entitic mass] 30.5 pg Normal 27.0-34.0 [facility] Comment on above: Performed By: #### 2 497439, 375996146, 3838118, 190656277, 9861444, 90774794, 8978278, 5471033 #### [facility] [address] [place] [address] MCHC (RBC) [Mass/Vol] 33.4 g/dL Normal 31.4-36.0 [facility] Comment on above: Performed By: #### 2 039918, 407490357, 1375395, 823860655, 6584579, 77227900, 7276512, 1442912 #### [facility] [address] [place] [address] MCV (RBC) [Entitic vol] 91.2 fL Normal 80.0-100.0 [facility] Comment on above: Performed By: #### 2 438351, 186271300, 6733747, 041387763, 1952419, 73269204, 0993192, 8633054 #### [facility] [address] [place] [address] Platelet mean volume (Bld) [Entitic vol] 9.8 fL Normal 6.4-10.8 [facility] Comment on above: Performed By: #### 2 817440, 910468456, 3400985, 904507122, 1551004, 61429295, 2261956, 8027426 #### [facility] Laboratory [address] [place] [address] Platelets (Bld) [#/Vol] 201.0 E9/L Normal 150.0-500.0 [facility] Comment on above: Performed By: #### 2 533070, 800677108, 8541252, 379781886, 0201342, 31530690, 6452055, 2629542 #### [facility] Laboratory [address] [place] [address] RBC (Bld) [#/Vol] 4.4 E12/L Normal 4.3-5.9 [facility] Comment on above: Performed By: #### 2 761759, 275861105, 6711434, 680833579, 2794222, 26853445, 6352496, 9990743 #### [facility] Laboratory [address] [place] [address] WBC corrected for nucl RBC Auto (Bld) [#/Vol] 6.5 E9/L Normal 4.0-11.0 [facility] Comment on above: Performed By: #### 2 333830, 031394402, 3393041, 446683303, 0861508, 07178298, 5898116, 0299762 #### [facility] Laboratory [address] [place] [address] CMPon 07-06-2022 Albumin [Mass/Vol] 4.3 g/dL Normal 3.3-5.0 [facility] Comment on above: Performed By: #### 2 908307, 767573902, 6847935, 994855148, 9731570, 76587193, 5560995, 1403772 #### [facility] Laboratory [address] [place] [address] Albumin/Globulin (S) [Mass conc ratio] 1.5 Normal 1.1-2.2 [facility] Comment on above: Performed By: #### 2 578838, 562179223, 5038375, 620664709, 2151721, 20955483, 0088414, 8677405 #### [facility] Laboratory [address] [place] [address] ALP [Catalytic activity/Vol] 73 Int._Unit/L Normal 21-98 [facility] Comment on above: Performed By: #### 2 123410, 763771307, 9333905, 198746756, 6691131, 95921954, 9880614, 7836259 #### [facility] Laboratory [address] [place] [address] ALT No additional P-5'-P [Catalytic activity/Vol] 15 Int._Unit/L Normal 6-46 [facility] Comment on above: Performed By: #### 2 535566, 426201721, 0115220, 123911082, 5897109, 95199147, 2846245, 6759538 #### [facility] Laboratory [address] [place] [address] Anion gap [Moles/Vol] 12 mmol/L Normal 6-16 [facility] Comment on above: Performed By: #### 2 700543, 664409610, 7332099, 312121670, 7470165, 72652528, 4599327, 9845919 #### [facility] [address] [place] [address] AST [Catalytic activity/Vol] 15 Int._Unit/L Normal 5-43 [facility] Comment on above: Performed By: #### 2 996803, 240434384, 2399136, 694445734, 7984763, 55698580, 1298778, 6987376 #### [facility] Laboratory [address] [place] [address] Bilirubin [Mass/Vol] 1.4 mg/dL High 0.0-1.1 [facility] Comment on above: Performed By: #### 2 779552, 381483415, 4830832, 980832007, 2251019, 85547709, 6753418, 1444741 #### [facility] Laboratory [address] [place] [address] Calcium [Mass/Vol] 9.4 mg/dL Normal 8.9-11.1 [facility] Comment on above: Performed By: #### 2 310968, 164602372, 6976900, 883868104, 6483735, 40061400, 2128627, 2497544 #### [facility] Laboratory [address] [place] [address] Chloride [Moles/Vol] 105 mmol/L Normal 101-111 [facility] Comment on above: Performed By: #### 2 797857, 864747092, 3252592, 541047314, 9959710, 80330340, 4579633, 5290582 #### [facility] Laboratory [address] [place] [address] CO2 [Moles/Vol] 25 mmol/L Normal 21-31 [facility] Comment on above: Performed By: #### 2 140822, 341843834, 4926124, 427204807, 6702689, 08047910, 1969318, 6312836 #### [facility] Laboratory [address] [place] [address] Creatinine [Mass/Vol] 1.2 mg/dL Normal 0.5-1.3 [facility] Comment on above: Performed By: #### 2 327937, 001572935, 0609941, 032680236, 0097689, 73222266, 7222753, 1900959 #### [facility] [address] [place] [address] Globulin (S) [Mass/Vol] 2.8 g/dL Normal 1.4-4.0 [facility] Comment on above: Performed By: #### 2 999062, 013790099, 7755862, 669427390, 9707972, 84733544, 5592928, 7878711 #### [facility] Laboratory [address] [place] [address] Glucose [Mass/Vol] 90 mg/dL Normal 55-199 [facility] Comment on above: Result Comment: If t his glucose result represents a fasting glucose, interpretation should refer to the following reference range: 55-99 mg/dL Performed By: #### 2 706074, 768023288, 2395035, 480288588, 9011914, 94801135, 8273118, 4040022 #### [facility] Laboratory [address] [place] [address] Potassium [Moles/Vol] 4.2 mmol/L Normal 3.5-5.3 [facility] Comment on above: Performed By: #### 2 192240, 462879988, 1762646, 395903396, 1753804, 42206928, 2601982, 6787798 #### [facility] Laboratory [address] [place] [address] Protein [Mass/Vol] 7.1 g/dL Normal 6.0-7.8 [facility] Comment on above: Performed By: #### 2 826239, 225268093, 1013799, 072503861, 0477831, 54543462, 8140954, 9359059 #### [facility] Laboratory [address] [place] [address] Sodium [Moles/Vol] 138 mmol/L Normal 135-145 [facility] Comment on above: Performed By: #### 2 369674, 277300036, 2503636, 960568448, 3953892, 53142422, 4062553, 6589084 #### [facility] Laboratory [address] [place] [address] Urea nitrogen [Mass/Vol] 20 mg/dL Normal 5-21 [facility] Comment on above: Performed By: #### 2 265425, 163996980, 9007149, 004818438, 8445932, 05566355, 5349414, 6331342 #### [facility] [address] [place] [address] Urea nitrogen/Creatinine [Mass ratio] 17 No Units Normal 10-20 [facility] Comment on above: Performed By: #### 2 198118, 962913180, 6972717, 016215430, 0701031, 09108783, 4594670, 0253724 #### [facility] Laboratory [address] [place] [address] Consent for Treatmenton 06-10 Consent for Treatment [id number] A2#1.00CD:127 Normal [facility] [id number] 07-06-2022 HbA1c (Bld) [Mass fraction] 5.3 % Normal <=5.9 [facility] Comment on above: Performed By: #### 2 130565, 713798642, 1715840, 577752417, 3716066, 48863036, 6777307, 8108371 ####[facility] [address] [place] [address] Lipid Panelon 07-06-2022 Cholesterol [Mass/Vol] 210 mg/dL High 120-200 [facility] Comment on above: Performed By: #### 2 741172, 839933333, 5650205, 466484603, 8168500, 08842971, 1130439, 8333669 ####[facility] [address] [place] [address] Cholesterol in HDL [Mass/Vol] 53 mg/dL Invalid Interpretation Code [facility] Comment on above: Result Comment: HDL > or equal to 60 mg/dL: Low cardiovascular risk HDL < 40 mg/dL : High cardiovascular risk Performed By: #### 2 162000, 926153510, 3562613, 849771127, 2547790, 17112779, 5489881, 4359837 ####[facility] [address] [place] [address] Cholesterol in LDL [Mass/Vol] 123 mg/dL Normal <=129 [facility] Comment on above: Performed By: #### 2 844535, 155120239, 3685860, 931445979, 9577992, 08656545, 5409320, 0558714 ####[facility] [address] [place] [address] Cholesterol in VLDL [Mass/Vol] 34 mg/dL Normal 7-40 [facility] Comment on above: Performed By: #### 2 343616, 840182316, 3000887, 268834370, 5525956, 75662206, 9846170, 6516008 ####[facility] [address] [place] [address] Triglyceride [Mass/Vol] 170 mg/dL High <=149 [facility] Comment on above: Performed By: #### 2 876809, 077358380, 7273228, 257269384, 1196924, 92073331, 1937675, 6507173 ####[facility] [address] [place] [address] Physician Orderon 07-06-2022 Physician Order [id number]:127 Normal [facility] TSHon 07-06-2022 TSH Qn 1.50 m[IU]/L Normal 0.34-5.60 [facility] Comment on above: Performed By: #### 2 069128, 271586459, 6084080, 423834928, 8918579, 43678390, 7781174, 3206699 ####[facility] [address] [place] [address] Vitamin D 25 Hydroxyon 07-06 25-hydroxyvitamin D3 [Mass/Vol] 60.9 ng/mL Normal 30.0-100.0 [facility] Comment on above: Result Comment: Vit ulrich D deficiency has been defined as a level of serum 25-OH vitamin D less than 20 ng/mL (1,2) by the [place] [employer] and an Endocrine Society practice guideline. The Endocrine Society further defined vitamin D insufficiency as a level between 21 and 29 ng/mL (2). 1. IOM ([place] [employer]). 2010. Dietary reference intakes for calcium and D. [place]: The National Academies Press. 2. Jacqueline MF, Geraldine RIOJAS, Soraida YAO, et al. Evaluation, treatment, and prevention of vitamin D deficiency: an Endocrine Society clinical practice guideline. JCEM. 2010; 96 (7):1911-30. Performed By: #### 2 356430, 584947392, 2594874, 101561087, 9126076, 84922649, 5191052, 7766071 ####[facility] [address] [place] [address] eGFRon 07-06-2022 GFR/1.73 sq M.predicted among non-blacks MDRD (S/P/Bld) [Vol rate/Area] 51 mL/min/1.73 m2 Low >=59 [facility] Comment on above: Order Comment: Order added by Discern Expert. Result Comment: Income Tax Investigator jie kidney disease could be indicated at eGFR's of less than 60 mL/min/1.73m2. Kidney failure is indicated at less than 15 mL/min/1.73m2. Performed By: #### 2 [id number], [id number], [id number], [id number], [id number], [id number], [id number], [id number] ####[facility] [place] [id number] [place] [address] CBC w/Indiceson 02-09-2022 Erythrocyte distribution width (RBC) [Ratio] 13.4 % Normal 10.9-14.2 [facility] [place] Comment on above: Performed By: #### 1 [id number], [id number], [id number], [id number], 4932127, [id number] #### [facility] [address] [place] [address] Hematocrit (Bld) [Volume fraction] 39.4 % Normal 34.0-46.0 [facility] [place] Comment on above: Performed By: #### 1 [id number], [id number], 7045106, [id number], 6923352, 2334632 #### [facility] [place] [address] [place] [address] Hemoglobin (Bld) [Mass/Vol] 13.8 g/dL Normal 12.0-16.0 [facility] [place] Comment on above: Performed By: #### 1 [id number], 4268349, 1530551, [id number], [id number], [id number] #### [facility] [place] [address] [place] [address] MCH (RBC) [Entitic mass] 30.3 pg Normal 27.0-34.0 [facility] [place] Comment on above: Performed By: #### 1 [id number], 4000445, 5641442, [id number], 2342092, 5812845 #### [facility] [address] [place] [address] MCHC (RBC) [Mass/Vol] 34.9 g/dL Normal 31.4-36.0 [facility] Comment on above: Performed By: #### 1 [id number], 2724924, 9552760, [id number], 9269688, 5463576 #### [facility] [address] [place] [address] MCV (RBC) [Entitic vol] 86.8 fL Normal 80.0-100.0 [facility] [place] Comment on above: Performed By: #### 1 [id number], 9936233, 5197898, [id number], 7902814, 2173746 #### [facility] [place] [address] [place] [address] Platelet mean volume (Bld) [Entitic vol] 9.2 fL Normal 6.4-10.8 [facility] [place] Comment on above: Performed By: #### 1 [id number], 6455123, 2016784, [id number], 3224857, 9904654 #### [facility] [address] [place] [address] Platelets (Bld) [#/Vol] 215.0 E9/L Normal 150.0-500.0 [facility] [place] Comment on above: Performed By: #### 1 [id number], 9843644, 8715109, [id number], 5808876, 1375506 #### [facility] [address] [place], [place] [id number] RBC (Bld) [#/Vol] 4.5 E12/L Normal 4.3-5.9 [facility] [place] Comment on above: Performed By: #### 1 [id number], 6143708, 6171976, [id number], 7208976, 2604621 #### [facility] [place] Laboratory [address] [place], [place] [address] WBC corrected for nucl RBC Auto (Bld) [#/Vol] 5.9 E9/L Normal 4.0-11.0 [facility] [place] Comment on above: Performed By: #### 1 [id number], 6538219, 4434630, [id number], 3094392, 8994982 #### [facility] Laboratory [address] [place], [place] [address] CHEMISTRYOrdered By: SYSTEM SYSTEM on 02-09-2022 Albumin [...] (S/P/Bld) [Vol rate/Area] 55 mL/min/1.73 m2 Low >=59mL/min/1. 73 m2 FT Chem S GFR/1.73 sq M.predicted among non-blacks MDRD (S/P/Bld) [Vol rate/Area] 45 mL/min/1.73 m2 Low >=59mL/min/1. 73 m2 FT Chem S Globulin (S) [Mass/Vol] 2.7 g/dL Normal 1.4 - 4.0 gm/dL [facility] Glucose [Mass/Vol] 87 mg/dL Normal 55 - 199 mg/dL [facility] Potassium [Moles/Vol] 4.0 mmol/L Normal 3.5 - 5.3 mmol/L [facility] Protein [Mass/Vol] 7.2 g/dL Normal 6.0 - 7.8 gm/dL [facility] Sodium [Moles/Vol] 137 mmol/L Normal 135 - 145 mmol/L [facility] Triglyceride [Mass/Vol] 116 mg/dL Normal <=149mg/dL [facility] TSH Qn 1.43 m[IU]/L Normal 0.34 - 5.60 mcIU/mL [facility] Urea nitrogen [Mass/Vol] 19 mg/dL Normal 5 - 21 mg/dL [facility] [place]isol Urea nitrogen/Creatinine [Mass ratio] 16 mg/mg Normal 10 - 20 [facility] [place] Remisol CHEMISTRYOrdered By: Kwasi Richardson on 02-09-2022 HbA1c (Bld) [Mass fraction] 5.2 % Normal <=5.9% [facility] [place] ChemAutoSS CMPon 02-09-2022 Albumin [Mass/Vol] 4.5 g/dL Normal 3.3-5.0 [facility] [place] Comment on above: Performed By: #### 1 [id number], 3169053, 7784666, [id number], 4189764, 7003882 #### [facility] Laboratory [address] [place] [address] Albumin/Globulin (S) [Mass conc ratio] 1.7 Normal 1.1-2.2 [facility] Comment on above: Performed By: #### 1 8581614, 7285091, 0066093, [id number], 2834800, 9500689 #### [facility] Laboratory [address] [place] [address] ALP [Catalytic activity/Vol] 59 Int._Unit/L Normal 21-98 [facility] [place] Comment on above: Performed By: #### 1 [id number], 2270388, 5016651, [id number], 9469028, 1754468 #### [facility] Laboratory [address] [place] [address] ALT No additional P-5'-P [Catalytic activity/Vol] 14 Int._Unit/L Normal 6-46 [facility] [place] Comment on above: Performed By: #### 1 4689835, 4998103, 9395976, 111406031, 7438727, 9739086 #### [facility] Laboratory [address] [place] [address] Anion gap [Moles/Vol] 11 mmol/L Normal 6-16 [facility] Comment on above: Performed By: #### 1 6693635, 7017411, 0353579, 928363181, 4546049, 2271163 #### [facility] Laboratory [address] [place] [address] AST [Catalytic activity/Vol] 14 Int._Unit/L Normal 5-43 [facility] Comment on above: Performed By: #### 1 7846484, 3608094, 1129708, 637382469, 0812611, 4959917 #### [facility] Laboratory [address] [place] [address] Bilirubin [Mass/Vol] 1.3 mg/dL High 0.0-1.1 [facility] Comment on above: Performed By: #### 1 5795314, 0794180, 0471925, 186350079, 6214220, 0310615 #### [facility] Laboratory [address] [place] [address] Calcium [Mass/Vol] 9.7 mg/dL Normal 8.9-11.1 [facility] Comment on above: Performed By: #### 1 9668797, 7181722, 8066863, 372032609, 9203859, 8792346 #### [facility] Laboratory [address] [place] [address] Chloride [Moles/Vol] 104 mmol/L Normal 101-111 [facility] Comment on above: Performed By: #### 1 2468325, 1978935, 4243688, 536275816, 5601514, 5978423 #### [facility] Laboratory [address] [place] [address] CO2 [Moles/Vol] 26 mmol/L Normal 21-31 [facility] Comment on above: Performed By: #### 1 0588331, 2235249, 9079647, 364625997, 5409257, 5001297 #### [facility] Laboratory [address] [place] [address] Creatinine [Mass/Vol] 1.2 mg/dL Normal 0.5-1.3 [facility] Comment on above: Performed By: #### 1 9400154, 9385664, 2294836, 759279850, 0027670, 2230925 #### [facility] Laboratory [address] [place] [address] Globulin (S) [Mass/Vol] 2.7 g/dL Normal 1.4-4.0 [facility] Comment on above: Performed By: #### 1 7355853, 2436170, 7670390, 466953465, 1108504, 1587301 #### [facility] Laboratory [address] [place] [address] Glucose [Mass/Vol] 87 mg/dL Normal 55-199 [facility] [place] Comment on above: Result Comment: If t his glucose result represents a fasting glucose, interpretation should refer to the following reference range: 55-99 mg/dL Performed By: #### 1 6049331, 8808237, 0317340, 537695962, 8808994, 8327439 #### [facility] Laboratory [address] [place] [address] Potassium [Moles/Vol] 4.0 mmol/L Normal 3.5-5.3 [facility] Comment on above: Performed By: #### 1 2864215, 4561910, 6999465, 532258601, 2005290, 7517033 #### [facility] Laboratory [address] [place] [address] Protein [Mass/Vol] 7.2 g/dL Normal 6.0-7.8 [facility] Comment on above: Performed By: #### 1 3288836, 4619460, 6315382, 221763736, 5657231, 8816319 #### [facility] Laboratory [address] [place] [address] Sodium [Moles/Vol] 137 mmol/L Normal 135-145 [facility] [place] Comment on above: Performed By: #### 1 9085627, 7956752, 9088145, 125577113, 4869557, 3093686 #### [facility] Laboratory [address] [place] [address] Urea nitrogen [Mass/Vol] 19 mg/dL Normal 5-21 [facility] Comment on above: Performed By: #### 1 8241834, 4045218, 7551335, 564860575, 0642254, 5268144 #### [facility] Laboratory [address] [place] [address] Urea nitrogen/Creatinine [Mass ratio] 16 No Units Normal 10-20 [facility] Comment on above: Performed By: #### 1 7493523, 7485427, 8237035, 562563508, 9440760, 7212760 #### [facility] Laboratory [address] [place] [address] Consent for Treatmenton Consent for Treatment [id number] 17#1.00CD:127 Normal [facility] HEMATOLOGYOrdered By: Dalton Ann on 02-09-2022 Erythrocyte distribution width (RBC) [Ratio] 13.4 % Normal 10.9 - 14.2 % [facility] Hematocrit (Bld) [Volume fraction] 39.4 % Normal 34.0 - 46.0 % [facility]eAutoSS Hemoglobin (Bld) [Mass/Vol] 13.8 g/dL Normal 12.0 - 16.0 gm/dL [facility]eAutoSS MCH (RBC) [Entitic mass] 30.3 pg Normal 27.0 - 34.0 pg [facility]eAutoSS MCHC (RBC) [Mass/Vol] 34.9 g/dL Normal 31.4 - 36.0 gm/dL [facility]eAutoSS MCV (RBC) [Entitic vol] 86.8 fL Normal 80.0 - 100.0 fL [facility]eAutoSS Platelet mean volume (Bld) [Entitic vol] 9.2 fL Normal 6.4 - 10.8 fL [facility]eAutoSS Platelets (Bld) [#/Vol] 215.0 E9/L Normal 150.0 - 500.0 E9/L [facility]eAutoSS RBC (Bld) [#/Vol] 4.5 E12/L Normal 4.3 - 5.9 E12/L [facility] [place] HemeAutoSS WBC corrected for nucl RBC Auto (Bld) [#/Vol] 5.9 E9/L Normal 4.0 - 11.0 E9/L [facility]eAutoSS [id number] 02-09-2022 HbA1c (Bld) [Mass fraction] 5.2 % Normal <=5.9 [facility] [place] Comment on above: Performed By: #### 1 9264306, 3698212, 5317086, 308730240, 6901705, 9251808 #### [facility] Laboratory [address] [place] [address] Lipid Panelon 02-09-2022 Cholesterol [Mass/Vol] 194 mg/dL Normal 120-200 [facility] [place] Comment on above: Performed By: #### 1 6719912, 7525050, 4446065, 125398904, 3212584, 3100565 #### [facility] Laboratory [address] [place] [address] Cholesterol in HDL [Mass/Vol] 48 mg/dL Invalid Interpretation Code [facility] Comment on above: Result Comment: HDL > or equal to 60 mg/dL: Low cardiovascular risk HDL < 40 mg/dL : High cardiovascular risk Performed By: #### 1 2726200, 9093742, 0179871, 998241016, 8923011, 3577554 #### [facility] Laboratory [address] [place] [address] Cholesterol in LDL [Mass/Vol] 116 mg/dL Normal <=129 [facility] Comment on above: Performed By: #### 1 8912329, 3216076, 3323835, 091532957, 1137155, 2752316 #### [facility] Laboratory [address] [place] [address] Cholesterol in VLDL [Mass/Vol] 23 mg/dL Normal 7-40 [facility] Comment on above: Performed By: #### 1 6938507, 4628906, 4823947, 103737914, 8942214, 6085298 #### [facility] Laboratory [address] [place] [address] Triglyceride [Mass/Vol] 116 mg/dL Normal <=149 [facility] Comment on above: Performed By: #### 1 9815775, 0793165, 6622456, 345930298, 9896172, 6139024 #### [facility] Laboratory [address] [place] [address] Physician Orderon 02-09-2022 Physician Order [id number] 523#1.00CD:127 Normal [facility] TSHon 02-09-2022 TSH Qn 1.43 m[IU]/L Normal 0.34-5.60 [facility] [place] Comment on above: Performed By: #### 1 5709549, 6756432, 0573524, 335970392, 2999556, 6119473 #### [facility] Laboratory [address] [place] [address] eGFRon 02-09-2022 GFR/1.73 sq M.predicted among blacks MDRD (S/P/Bld) [Vol rate/Area] 55 mL/min/1.73 m2 Low >=59 [facility] Comment on above: Order Comment: Order added by Discern Expert. Result Comment: eGFR is race adjusted. AA=. Performed By: #### 1 1449884, 6685950, 5769340, 997731935, 4004177, 2116135 #### [facility] Laboratory [address] [place] [address] GFR/1.73 sq M.predicted among non-blacks MDRD (S/P/Bld) [Vol rate/Area] 45 mL/min/1.73 m2 Low >=59 [facility] Comment on above: Order Comment: Order added by Discern Expert. Result Comment: Income Tax Investigator jie kidney disease could be indicated at eGFR's of less than 60 mL/min/1.73m2. Kidney failure is indicated at less than 15 mL/min/1.73m2. Performed By: #### 1 8477563, 5285985, 9499581, 802267642, 8438732, 7490224 #### [facility] Laboratory [address] [place] [address] Comprehensive Metabolic Pane [facility] 07-24-2021 Albumin [Mass/Vol] 4.7 g/dL Normal 3.6-5.1 [facility] Comment on above: Performed By: #### C MP, TSH reflex FT4, LIPD #### [facility] [address] [place], [place] [id number] Albumin/Globulin [Mass ratio] 2.4 {ratio} Normal 1.0-2.5 [facility] Comment on above: Performed By: #### C MP, TSH reflex FT4, LIPD #### [facility] [address], [place] [id number] ALP [Catalytic activity/Vol] 129 U/L High 35-119 [facility] Comment on above: Performed By: #### C MP, TSH reflex FT4, LIPD #### [facility] [address], [place] [id number] ALT [Catalytic activity/Vol] 11 U/L Normal 6-33 [facility] Comment on above: Result Comment: 02/08 Female reference range changed. Performed By: #### C MP, TSH reflex FT4, LIPD #### [facility] [address] [place], [place] [id number] Anion gap [Moles/Vol] 18 mmol/L Normal 12-20 [facility] Comment on above: Result Comment: Effe ctive 03/16/2019 reference range changed. Performed By: #### C MP, TSH reflex FT4, LIPD #### [facility] [address] [place], [place] [id number] AST [Catalytic activity/Vol] 12 U/L Normal 9-34 [facility] Comment on above: Performed By: #### C MP, TSH reflex FT4, LIPD #### [facility] [address] [place], [place] [id number] Bilirubin [Mass/Vol] 1.09 mg/dL Normal 0.30-1.20 [facility] Comment on above: Performed By: #### C MP, TSH reflex FT4, LIPD #### [facility] [address], [place] [id number] BUN/CREA 14 Ratio Normal 6-22 [facility] Comment on above: Performed By: #### C MP, TSH reflex FT4, LIPD #### [facility] [address] [place], [place] [id number] Calcium [Mass/Vol] 10.1 mg/dL Normal 8.6-10.2 [facility] Comment on above: Performed By: #### C MP, TSH reflex FT4, LIPD #### [facility] [address] [place], [place] [id number] Chloride [Moles/Vol] 104 mmol/L Normal 98-107 [facility] Comment on above: Performed By: #### C MP, TSH reflex FT4, LIPD #### [facility] [address], [place] [id number] CO2 [Moles/Vol] 23 mmol/L Normal 20-31 [facility] Comment on above: Performed By: #### C MP, TSH reflex FT4, LIPD #### [facility] [address], [place] [id number] Creatinine [Mass/Vol] 1.1 mg/dL Normal 0.6-1.4 [facility] Comment on above: Performed By: #### C MP, TSH reflex FT4, LIPD #### [facility] [address] [place], [place] [id number] eGFRAA 61 mL/min/1.73m2 Normal >60 [facility] Comment on above: Performed By: #### C MP, TSH reflex FT4, LIPD #### [facility] [address] [place], [place] [id number] eGFRNAA 50 mL/min/1.73m2 Low >60 [facility] Comment on above: Performed By: #### C MP, TSH reflex FT4, LIPD #### [facility] [address] [place], [place] [id number] Globulin (S) [Mass/Vol] 2.0 g/dL Normal 1.9-3.7 [facility] Comment on above: Performed By: #### C MP, TSH reflex FT4, LIPD #### [facility] [address] [place], [place] [id number] Glucose [Mass/Vol] 90 mg/dL Normal 65-99 [facility] Associate Professor Of Musicology Comment on above: Result Comment: For FASTING Glucose --- ADA reference ranges: Normal 65-99 mg/dl Prediabetes 100-125 Diabetes >/= 126 Performed By: #### C MP, TSH reflex FT4, LIPD #### [facility] [address] [place], [place] [id number] Potassium [Moles/Vol] 4.3 mmol/L Normal 3.5-5.5 [facility] Comment on above: Performed By: #### C MP, TSH reflex FT4, LIPD #### [facility] [address] [place], [place] [id number] Protein [Mass/Vol] 6.7 g/dL Normal 6.1-8.1 Thuy bello [place] Associate Professor Of Musicology Comment on above: Performed By: #### C MP, TSH reflex FT4, LIPD #### [facility] [address] [place], [place] [id number] Sodium [Moles/Vol] 140 mmol/L Normal 135-146 [facility] Associate Professor Of Musicology Comment on above: Performed By: #### C MP, TSH reflex FT4, LIPD #### [facility] [address] [place], [place] [id number] Urea nitrogen [Mass/Vol] 16 mg/dL Normal 7-25 [facility] Associate Professor Of Musicology Comment on above: Performed By: #### C MP, TSH reflex FT4, LIPD #### [facility] [address] [place], [place] [id number] Lipid Panelon 07-24-2021 Cholesterol [Mass/Vol] 175 mg/dL Normal 125-200 [facility] Associate Professor Of Musicology Comment on above: Result Comment: Low risk < 200mg/dL Borderline risk 201-239 mg/dl High risk > or equal to 240 Performed By: #### C MP, TSH reflex FT4, LIPD #### [facility] [address] [place], [place] [id number] Cholesterol in HDL [Mass/Vol] 48 mg/dL Normal >40 [facility] Associate Professor Of Musicology Comment on above: Result Comment: High Cardiovascular Risk HDL <40 mg/dL Low Cardiovascular Risk HDL > or equal to 60 mg/dl Performed By: #### C MP, TSH reflex FT4, LIPD #### [facility] [address] [place], [place] [id number] Cholesterol in LDL [Mass/Vol] 97 mg/dL Normal [facility] Comment on above: Result Comment: LDL ATP III CLASSIFICATION LDL less than 100 mg/dl Optimal LDL 100-129 mg/dl Near or above optimal LDL 130-159 Borderline high LDL 160-189 High LDL greater than 189 mg/dl Very High Performed By: #### C MP, TSH reflex FT4, LIPD #### [facility] [address] [place], [place] [id number] Cholesterol in VLDL [Mass/Vol] 30 mg/dL Normal [facility] Comment on above: Performed By: #### C MP, TSH reflex FT4, LIPD #### [facility] [address] [place], [place] [id number] Cholesterol.total/Cho lesterol in HDL [Mass ratio] 4 {ratio} Normal [facility] Comment on above: Performed By: #### C MP, TSH reflex FT4, LIPD #### [facility] [address] [place], [place] [id number] Triglyceride [Mass/Vol] 152 mg/dL High 30-150 [facility] Comment on above: Result Comment: TRIG ATPIII CLASSIFICATIONS TRIG less than 150 mg/dl Normal TRIG 150-199 mg/dl Borderline High TRIG 200-500 mg/dl High TRIG greather than 500 mg/dl Very High Performed By: #### C MP, TSH reflex FT4, LIPD #### [facility] [address] [place], [place] [id number] Q - HEPATITIS C ANTIBODY W/R EFLEX TO HCV RNA,QUANT,RT-PCRon 07-24-2021 HEPATITIS C ANTIBODY Non-Reactive Normal NON-REACTIVE [facility] Comment on above: Order Comment: [facility] performed at: [employer] [facility], [address], [address] [place] [address], [address], Plating Tank Operator Apprentice: Mitch Shirley MD [facility] Date/Time: [id number] [facility] Results Received Date/Time: [facility] Reported Date/Time: Performed By: #### 8 472 #### [facility] Default [address] [place] [address] SIGNAL TO CUT-OFF 0.01 Normal <1.00 [facility] Associate Professor Of Musicology Comment on above: Order Comment: [facility] performed at: [facility] [employer] [facility], [address], [address] [facility], [place], [address], Plating Tank Operator Apprentice: Mitch Shirley MD [facility] Date/Time: [id number] [facility] Results Received Date/Time: [facility] Reported Date/Time: Result Comment: HCV antibody was non-reactive. There is no laboratory evidence of HCV infection. In most cases, no further action is required. However, if recent HCV exposure is suspected, a test for HCV RNA (test code 44510) is suggested. For additional information please refer to http://education.[employer]/faq/KGQ09u3 (This link is being provided for informational/ educational purposes only.) Performed By: #### 8 472 #### [facility] [address] [place] [address] TSH w/ Reflex to Free T4on 0 07-24-2021 TSH 1.120 uIU/mL Normal 0.400-4.500 [facility] Associate Professor Of Musicology Comment on above: Performed By: #### C MP, TSH reflex FT4, LIPD #### [facility] [address] [place], [place] [id number] Coding Summary.on 07-20-2021 Coding Summary. CD:[id number] SQz4tZw+PGhlYWQ+PE1 AWOIqM19csOFmlA1JR5 lDAD7AHMHWITRSYD4HQ D8wpBZ3AFwaH8HygtRq IcimkVUuZT29QQh7JTA 3vHcoLMiloI9beURoI7 n7RiSsEB06aD51LEeiZ WOeCmL7OnIyvctkmVQh Y2rfEpUpqIIsHho+PHR hYmxlIHdpZHRoPScxMD IfLjHrvLlnUL4aDv9vT GVyLWNvbGxhcHNlOiBj s2msTITwWXewQM8hsWa vS9YbgTG7DOSfx4b2Rr 48dHI+QBFnVLC8zGbvI Lsvd839VgUar6cwOCK3 yNBxAKczNWQ1H10zi9D 0DFKwHHAhEOG6fLC4jN 3smFzaotngG3JkvBFmS xS8PFR5nNTttO9xzEqi orkubH1nOdi+V66ZUC8 TIHXWEW8NBxz9S3IhXe wvdHI+ZU05FGNtVH36s YGelBTrt6gtuGv1RmSt XXIeVNO1lMhoLQkcr6D zSJCvM57itHOeh9Q8WI BfcZpcyEXkHkIyeQS2f O6kOAfzrpmxb0gzokoy Gzkln1knsc44dR11Z86 uUNmgDPQvNSD1BARqHR ZpiSmgoq7uyO2hVe4+I Ilaj8hro2xuqTu6FsSo FGPotxYkvXahKNW0h4O kJo51Z8LcbAsky8PdQz s1dl59pBUmj6M9zXV3D XqcDTTbvS6cWYxuRbI4 KCMqKwVfrZ17vSIkELh xEg7dxWvonDrdZL7jMC DeqpvuXADoxG2qTXSnp HOzkWbtCN5jIRSjrvus i534WoSbCFR7VZOljRC yJ3VcbB8gJyKuHQSoIN JsW5EtsCJcTBosX127I QcgChL2SBNerqMtW9Ly XIEvoKiuLsS7m3C1Iv3 Wl7KxsygkOAW6HRwzKE N0JpViEiVjBgE8S3TkF ca5ADAaoJicWC7lA8Gd KNMfzlncmrkyvBW6CNX dOHFgiU62wYGvLJgtZy 8qz5A0a353ELCmAYCvi D10Lr3dvWemERKbsQUE hK0msfffv7lwcunjUdJ pHFYfAOw3BYy9KDDjxM rmShFcKKN5XqN1KPW0g HPtoX0wzXabwxoyiP4x Oyc+K42ugC2lTCR6LQI 2avldKVVozgAaLV20RS 52A4RuZduvfMTlvQG+P ZXbpbHnbVswLU9cWgPs t9enk6SgYZhzA2VlIIY pSKtkLtb0SEVhDJN3jA Y4zM5eXCWjBUwgc5J5f SW1P8AroqSrjm9ip3pi HZHzCYswT21xaVMcj3B 7UHPtoRC8ABCboGheFm IpgE18Vkt+PGNvbGdyb 0ZcZyrzb4kxf3lvvWv2 IjMwJSIgdmFsaWduPSJ 6v3IbSo60X29qIZkhUQ RoPSIxNSUiIHZhbGlnb u9epU4zFp8+PGNvbCB3 rWR7oP9vBHUgKpD3FLb sU100BeUqtODxZazjr9 bek6vntQq0QiXnVAZwp wJpvWanCSW4b4OfKd78 I93lCIbgTRYoNGAqYOF xAKLbpMbuql1tuP1gAu 8+TR8ix7xwyl15kF68s HI+FXCvAFE5oAndYBmw IRSquL9nXGdjJmM7QLX dStVfuI97rWQzKAkpZv 8bhMadqFpzFL7rIGJhg lgcz368CfOad5ahOFRg sICyXCtkNAS7Z98sk1K 5UNIzNXWjMXM2mAP7bF 1hbGlnbjogbGVmdDsgd zEraThgRWxlNQxuM579 IHRvcDsnPlBhdGllbnQ qZnCjORf2G8HvIzs3XS DsdTtrHN8klMWjWGjbA i9mxZoteUksKW5pCHMl cpvef825NoGsn9neWDT ziSSjYHbbPII2E84ge6 S7DLMvEMIbXQT4lTX2j T3uaYcmjkvomYYdwKcw adUnxAqqNMjeYLnxN60 6IHRvcDsnPkJpcnRoIE SurXQ3UH32KS49sRLbv 2R0gDM2G6PyBFSbywkp suubiOX1SROtFJNhbS6 0Qp7sdHffNi9rEFXyBN F8CPLruGPnM1RunJ4nP zRfZJBpRGKiY2SgnDVz IJsqA490YZymTaF7SRX kvsUzO1OgLVPdbNbwIy A8w1H4Fn6FQ6E8CW40R R21jYZim7Y1tKS7O5Pq PJLrodemacdmaFE0YXP jPQFfgC32Kz9epFrbMb 1zCJRtGEV8NEZzfEJuO 1FttK3xJcZtYXGqBIYx J1SztEQcKPmqZ776KHf zKuF3GSFchbSxW0LdFS UuyLbfLmE8c1Q1Fj8JV Oa7VB92BE16rURvz4C8 tNR3J1KgNDJewwuatkl vjEC6VHIwUHNxqU24Bm 1xnYepAx5uODHcVXW7T BYgoWAbJ4FssS3qUlFq WGPhJNKrB9FdgIClECr rL394IVkfVhT9WHIswc YdZ0UhCXKetJcwUhF8p 1J7Ef5GIVUyII23BNT1 qZT4OL48OL33W7RlTzc vdGFibGU+PHRhYmxlIH dpZHRoPScxMDAlJyBzd GxwKK4cYl0tPMZiECNm dPwjnBYaPwMnk3isMRX gZCssGW6nrIteT0OifR E9JVZce4n9Im35I42pL 3JvdXA+EEBsuTX5zIZ9 gP1iGnMvHvL2DKuyU65 6FwOjxXLfThjzo9dmb8 bfnCn3QvY8CMPgzuQob DxjAHZ4n3DcHs40A62i IHdpZHRoPSIxNSUiIHZ ujBxmzm2jpE0eHg0+PG EhvZQ7zRC4iP5oMeAqG xN5NNsyI371EkSzhQIe Xlfam0rtu0mpqOe6OpY iVLZsovBawFhsYEE9u8 RzXw33F2RlqLqwg8JzE eb0qw92uBFwv8R9vQM8 X9NsOINaqhexjOPttGc rWC0sQLHskrrnJCXwmC 0jXSGvK3g5DnReIsL9L MlvX1MivzK8WXUphQOi IMwbPLL3S75cz0N8WUR wENBdRLO2bVE6nS3eiA lnbjogbGVmdDsgdmVyd IqgFZadMJapU505SPMg iVzwYMNlrC3dTKZjvMJ wlXhqZB9hCTEbyxblDh UTEYzPBF9uLDpYBsEQX A35YD26pOAtx1G1hFP2 I6CaJPZsvvwplxgzpCI 2ZANcKYCsvO42qYOcZW leSq5ia3Y0y923BUIxG NGyhR73Xt2ofGlfIJGt fDNOmX6hdojuc6oacyk pMwNjKVXzHBr7LEv2PN KxhOrnUzVaWOO2LtU8P BW3yUOocG3xdGoofglt bW7xRig+MDYvMDgvMTk 1OTwvdGQ+HAWoEQS5iM osMFntJATrxP5iJNZmU 7h4SqZoRkO2GXivE5Gb FYYghccwXu66hM1iYbW uBnE5ITerB9UiiaY3YB DtlHMjDKetXQB8V30or 4Q3WTZnBFAoXKN5vZT0 wW5aaMvgitglyEKveNz gdmVydGljYWwtYWxpZ2 46IHRvcDsnPjYyIFllY FDcHO75RO54eKNzl3V4 aHR8R3AeAGQahuutyxs wfXB0VFOlVXNknA02cJ FjOJwiBd2co0F6x448P FVuZFJtwW09Ev9ixPpp TJYgaLKQxO5bfrvco0m ugdnxVgTkORQqNPf0QG d0GZBsyWwgTdRrBNP1S kO7JIO4fFXzzJ0hhZkr vnihzT4eJmf+RmVtYWx qVU25TV98dXCct2Y0mN M3G5QiUFXkpszbenmpy NB9HEOfYPSwhY26jEIu JIvhOf1vj8X0l670KGW hBMHkpK73Yf5yyRicZY WwnOMVpR5qejkpc5dqs nqxJfEbCPEbRIu4MKd9 KMOfqBysUdIxZLP6AnJ 7XWN4kCQeqC9byPqmdk rdiY0aAun+M5U1fSS8z WVudDwvdGQ+LM16vd40 Y5TpBhaaAiw6SQFxNKN 4dIM6uR3aLRUaNOwjt9 N1dMW6E7VtgbZrzh7nb 9dgANRbMSihI99neNHf q5Q9FZNffAN3OCJkpTt vTdVwnM00Uha+PGNvbG lnj6XnTqojt8ipp5pqj Cs7WlNzRQZhjxIuwHjr HET9m1BqCw03X33rKLc pZHRoPSIzMCUiIHZhbG nysk8pjU1rZm5+PGNvb UN0dFE1tF4oEfZwHjI7 EXlpY237UoJsjZNpBer tw9ggs0wqeUr0WjYnFX FgpmDbkEtvRUX0b3KsI w79G4YzfNlvp0LoRbp2 zx16fDZfn9S0mHZ4K1S hZGRpbmctbGVmdDogMC 4qVORwhyzeSSYfzM6oD REjW1t2PzWwExC1CIxi R0ZexbN3EJGgpBZmVOF sfINKrX0sieorr3ohan prBtUvNEXfLAd7FXo7F BTfgLnlDmGhINP6BvK9 YGE8dEVenO2jrVxodws ofX2qXja+YSv1x9cpgB DdMG7dsCD0MZ66ND89j IPac2B7jIE1T6RiJFCa pyotpacqwVG8HGErXLF erE46Gm5hoVizNr3cUT BnEFH3LVOxmZJmH5Wnq A5bOgBlFPBrCSOdS0Eg wHKbLAqgY059CJplYqM 6WHGvowYkJ1CsPYZzgF ybOmE7v8O1Ts3TFJ02C H41MP84eBHdv8Q0dQQ9 K8AfXDCfoppfqzxplIJ 5SPFrWVCkfP52Ge6vfG vjJm6oADArYNG4ZRXvg MTvE1ZtxG1iMlCvDTZw FALzG7JmaGLkLFewQ91 9VStfIlT0ILAtfmLaB4 XrCECicLzqMzN5q2C1H h3RYs91MA93ZG99mQGb v7F1oLS7D8ZyZSZlbdx sjvgxuJF3HVBsMAIaeC 78Yl6epLdeGu7aRNHpA XN1EWKtqUBpK1PehB8z HnCeMCOiCOZcO9ZsjJK hFSuuP031CGeeVwL5VG HwbhGgW2TmAIKysHxxT qO6z8N1Pq9JKHipyzr6 Q7QuTpocyAE+KF13VNC vQA83dZNaoDBjo0emzI z4ClBrICOjVQW0yNnhR Sdrg1XsOIRwU98jdOEv c2U6 (more content not included)... Normal [facility] [place] CHEMISTRYOrdered By: SYSTEM SYSTEM on 07-11-2021 Albumin [Mass/Vol] 4.4 g/dL Normal 3.3 - 5.0 gm/dL [facility] [place] Albumin/Globulin [Mass ratio] 1.7 {ratio} Normal [...] (S/P/Bld) [Vol rate/Area] 55 mL/min/1.73 m2 Low >=59mL/min/1. 73 m2 [facility] Chem S GFR/1.73 sq M.predicted among non-blacks MDRD (S/P/Bld) [Vol rate/Area] 46 mL/min/1.73 m2 Low >=59mL/min/1. 73 m2 [facility] Chem S Globulin (S) [Mass/Vol] 2.6 g/dL Normal 1.4 - 4.0 gm/dL [facility] Remisol Glucose [Mass/Vol] 96 mg/dL Normal 55 - 199 mg/dL [facility] Remisol Potassium [Moles/Vol] 4.2 mmol/L Normal 3.5 - 5.3 mmol/L [facility] Remisol Protein [Mass/Vol] 7.0 g/dL Normal 6.0 - 7.8 gm/dL [facility] Remisol Sodium [Moles/Vol] 139 mmol/L Normal 135 - 145 mmol/L [facility] Remisol Triglyceride [Mass/Vol] 143 mg/dL Normal <=149mg/dL [facility] Rem[facility] TSH Qn 1.44 m[IU]/L Normal 0.34 - 5.60 mcIU/mL [facility] Rem[facility] Urea nitrogen [Mass/Vol] 16 mg/dL Normal 5 - 21 mg/dL [facility] Remisol Urea nitrogen/Creatinine [Mass ratio] 13 mg/mg Normal 10 - 20 [facility] Remisol CHEMISTRYOrdered By: Aurora Suresh on 07-11-2021 HbA1c (Bld) [Mass fraction] 5.3 % Normal <=5.9% [facility] ChemAutoSS HEMATOLOGYOrdered By: Mady Zayas on 07-11-2021 Erythrocyte distribution width (RBC) [Ratio] 13.0 % Normal 10.9 - 14.2 % [facility] HemeAutoSS Hematocrit (Bld) [Volume fraction] 40.5 % Normal 34.0 - 46.0 % [facility] HemeAutoSS Hemoglobin (Bld) [Mass/Vol] 13.8 g/dL Normal 12.0 - 16.0 gm/dL [facility] HemeAutoSS MCH (RBC) [Entitic mass] 30.6 pg Normal 27.0 - 34.0 pg [facility] HemeAutoSS MCHC (RBC) [Mass/Vol] 34.1 g/dL Normal 31.4 - 36.0 gm/dL [facility] HemeAutoSS MCV (RBC) [Entitic vol] 89.7 fL Normal 80.0 - 100.0 fL [facility] HemeAutoSS Platelet mean volume (Bld) [Entitic vol] 10.2 fL Normal 6.4 - 10.8 fL [facility] HemeAutoSS Platelets (Bld) [#/Vol] 230.0 E9/L Normal 150.0 - 500.0 E9/L [facility] HemeAutoSS RBC (Bld) [#/Vol] 4.5 E12/L Normal 4.3 - 5.9 E12/L [facility] HemeAutoSS WBC corrected for nucl RBC Auto (Bld) [#/Vol] 5.7 E9/L Normal 4.0 - 11.0 E9/L [facility] [place] [facility] Encounters Encounter Date Encounter Type Care Provider Facility Start: 02-12-2023 End: 02-12-2023 ambulatory ELINA BRANTLEY Not Available Start: 09-26-2022 ambulatory Salvador Schulte acility:[facility] Start: 08-08-2022 ambulatory MANFRED ESPINOSA Facility : Start: 07-06-2022 End: 07-07-2022 ambulatory SHURA S BRENNAN [place] [place] Start: 02-09-2022 End: 02-10-2022 ambulatory SHURA S BRENNAN [place] [place] Start: 02-09-2022 End: 02-09-2022 Patient encounter procedure SHURA S BRENNAN [facility] Start: 07-11-2021 End: 07-11-2021 Patient encounter procedure SHURA S BRENNAN [facility] Procedures Date Procedure Procedure Detail Performing Clinician Abdominal hysterectomy SHURA BRENNAN Appendectomy SHURA BRENNAN Cholecystectomy SHURA BRENNAN Tonsillectomy SHURA BRENNAN Immunizations Immunization Date Immunization Notes Care Provider Vidhya sims 05-22-2016 influenza, seasonal, injectable SHURA BRENNAN [facility] Comment on above: Early/Late Reason: N ew Med Order Payers Date Payer Category Payer Self-pay 2022 Medicare [id number] 2022 Unknown 1961 Private Health Insurance [id number] 1960 Unknown [id number] [id number] 1960 Unknown [id number] [id number] 1960 Unknown [id number] [id number] 1960 Unknown [id number] Unknown [id number] 2.16.8 [id number] Social History Date Type Detail Facility Tobacco [facility] Comment on above: denies. Sex Assigned At Female [facility] Tobacco smoking status No Smokin g Status Entered [facility] Evaluation + Plan note Note Date & Type Note Facility Evaluation + Plan note No data available for this section [facility] Hospital Discharge instructions Note Date & Type Note Facility Hospital Discharge instructions No data available for this section [facility] Progress note Note Date & Type Note Facility Progress note No data available for this section [facility] Summary Purpose Family History No Family History Records FoundNo Family History Records FoundNo Family History Records FoundNo Family History Records FoundNo Family History Records Found Advance Directives No Advanced Directives Records FoundNo Advanced Directives Records FoundNo Advanced Directives Records FoundNo Advanced Directives Records FoundNo Advanced Directives Records Found Additional Source Comments INFORMATION SOURCE (unrecogn ized section and content) DATE CREATED AUTHOR 07/28/2021 [facility] DATE CREATED AUTHOR AUTHOR'S ORGANIZ ATION 07/19/[address] [facility] DATE CREATED AUTHOR AUTHOR'S ORGANIZ ATION 08/17/2022 [facility] DATE CREATED AUTHOR AUTHOR'S ORGANIZ ATION 02/14/2023 [facility] EPIC DATE CREATED AUTHOR AUTHOR'S ORGANIZ ATION 03/09/2023 [facility] Patient Care team informatio n (unrecognized section and content) Personnel Name: EFRAÍN BUCHANAN MD Address: Address: [address] [place] [address] FOR RECORDS PERTAINING TO PATIENTS WHO ARE [...] BE BASED ON THE PRIMARY CLINICAL RECORDS. [facility] [employer] [facility] provides no warranty or guarantee of the accuracy or completeness of information in this document.
--- NOTE | 2023-03-14 09:14 | MR_ITS ---
The [address] [address] Patient Name: MATTHEW ROLLINS MRN: [facility]:[id number] date: 1960 Sex: F Assigned Patient Location: LAB Current Patient Location: LAB Accession/Order Number: [id number] Exam Date: 03/14/2023 09:40 Report Date: 03/14/2023 12:37 At the request of: ELINA BRANTLEY Procedure: MR cervical spine wo/w con EXAM: MR head/brain wo/w con, MR cervical spine wo/w con HISTORY: weakness of extremity R29.898, hyperreflexia R29.2 COMPARISON: Cervical spine radiographs 11/21/2022. TECHNIQUE: Multiplanar multisequence MR imaging of the brain and cervical spine was performed with and without intravenous contrast. FINDINGS: MR brain Calvarium/skull base: No focal marrow replacing lesion suggestive of neoplasm. Orbits: Grossly unremarkable. Paranasal sinuses: Imaged portions clear Brain: No restricted diffusion. No significant white matter disease. No abnormal intracranial enhancement. No mass effect, hemorrhage, or hydrocephalus. Grossly normal flow-related signal in the major intracranial arteries and dural sinuses. MR cervical spine Additional Comments: None Alignment: Straightening of the normal cervical lordosis. Vertebrae: p susceptibility artifact relating to anterior fixation hardware at C6-C7. There is apparent fusion across the disc space at this level. Vertebral body heights are maintained. No marrow signal abnormality to suggest neoplasm. Spinal cord: There is severe canal stenosis with AP diameter of the canal measuring less than 3 mm at the level of C3-C4 with associated abnormal STIR signal seen involving the spinal cord at this level. There is contour deformity with advanced canal stenosis is also noted at C4-C5 and C5-C6 without definite abnormal spinal cord signal seen at this location. No abnormal spinal cord enhancement is seen. Craniocervical junction: No focal abnormality. Degenerative changes: C2-C3: Small posterior disc osteophyte complex with mild bilateral uncovertebral facet arthropathy. Moderate to advanced canal stenosis. No substantial foraminal stenosis. C3-C4: Large central protrusion with small eccentric left posterior osteophytic spur. Moderate to advanced left and ygkj-yq-uxcetzur right uncovertebral arthropathy. Mild to moderate bilateral facet arthropathy. Advanced canal stenosis with AP diameter of the canal measuring approximately 2.5 mm. Advanced left and minimal right foraminal stenosis. C4-C5: Moderate eccentric left central protrusion superimposed on small posterior disc osteophyte complex with rein-bd-vfxzytqp bilateral vertebral arthropathy. Mild to moderate left facet arthropathy. Advanced canal stenosis with AP diameter canal measuring 4.5 mm. Moderate bilateral foraminal stenosis. C5-C6: Large diffuse disc bulge with mild osteophytic spurring. Moderate bilateral uncovertebral and mild to moderate bilateral facet arthropathy. Advanced canal stenosis with AP diameter of the canal measuring approximately 3.3 mm. Moderate to advanced left and moderate right foraminal stenosis. C6-C7: Postsurgical change of the disc at this level with fusion across the disc space. Mild posterior osteophytic spurring with persistent moderate canal stenosis. Moderate left and kmxd-qp-zmgjngut right foraminal stenosis. C7-T1: Tiny central protrusion. Moderate canal stenosis. Mild left foraminal stenosis. Right foramen is patent. Visualized portion of the thoracic spine: No high grade canal stenosis. Additional Comments: Soft tissues of the neck appear grossly unremarkable. MR/MR cervical spine wo/w con IMPRESSION: 1. No acute intracranial process. 2. There is severe canal stenosis at C3-C4 and to a slightly lesser extent C4-C5 and C5-C6 detailed above with canal measuring 2.5 mm at the level of C3-C4. 3. Abnormal spinal cord signal involving the severely deformed spinal cord at C3-C4. 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 4. No definite abnormal spinal cord signal seen at the remaining cervical spinal levels. No abnormal enhancement of the spinal cord. 5. Multilevel varying degrees of foraminal stenosis, moderate and/or advanced at multiple levels as detailed above. Report was submitted to the clinical operation support team for expedited review by the provider. Electronically authenticated by: ARIANNE HDZ Date: 03/14/2023 12:37
--- NOTE | 2023-03-14 09:40 | MR_ITS ---
The [address] [address] Patient Name: MATTHEW ROLLINS MRN: [facility]:[id number] date: 1960 Sex: F Assigned Patient Location: LAB Current Patient Location: LAB Accession/Order Number: [id number] Exam Date: 03/14/2023 09:40 Report Date: 03/14/2023 12:37 At the request of: ELINA BRANTLEY Procedure: MR head/brain wo/w con EXAM: MR head/brain wo/w con, MR cervical spine wo/w con HISTORY: weakness of extremity R29.898, hyperreflexia R29.2 COMPARISON: Cervical spine radiographs 11/21/2022. TECHNIQUE: Multiplanar multisequence MR imaging of the brain and cervical spine was performed with and without intravenous contrast. FINDINGS: MR brain Calvarium/skull base: No focal marrow replacing lesion suggestive of neoplasm. Orbits: Grossly unremarkable. Paranasal sinuses: Imaged portions clear Brain: No restricted diffusion. No significant white matter disease. No abnormal intracranial enhancement. No mass effect, hemorrhage, or hydrocephalus. Grossly normal flow-related signal in the major intracranial arteries and dural sinuses. MR cervical spine Additional Comments: None Alignment: Straightening of the normal cervical lordosis. Vertebrae: p susceptibility artifact relating to anterior fixation hardware at C6-C7. There is apparent fusion across the disc space at this level. Vertebral body heights are maintained. No marrow signal abnormality to suggest neoplasm. Spinal cord: There is severe canal stenosis with AP diameter of the canal measuring less than 3 mm at the level of C3-C4 with associated abnormal STIR signal seen involving the spinal cord at this level. There is contour deformity with advanced canal stenosis is also noted at C4-C5 and C5-C6 without definite abnormal spinal cord signal seen at this location. No abnormal spinal cord enhancement is seen. Craniocervical junction: No focal abnormality. Degenerative changes: C2-C3: Small posterior disc osteophyte complex with mild bilateral uncovertebral facet arthropathy. Moderate to advanced canal stenosis. No substantial foraminal stenosis. C3-C4: Large central protrusion with small eccentric left posterior osteophytic spur. Moderate to advanced left and uyki-pl-rjhnuhyt right uncovertebral arthropathy. Mild to moderate bilateral facet arthropathy. Advanced canal stenosis with AP diameter of the canal measuring approximately 2.5 mm. Advanced left and minimal right foraminal stenosis. C4-C5: Moderate eccentric left central protrusion superimposed on small posterior disc osteophyte complex with cmap-fk-npgiaknz bilateral vertebral arthropathy. Mild to moderate left facet arthropathy. Advanced canal stenosis with AP diameter canal measuring 4.5 mm. Moderate bilateral foraminal stenosis. C5-C6: Large diffuse disc bulge with mild osteophytic spurring. Moderate bilateral uncovertebral and mild to moderate bilateral facet arthropathy. Advanced canal stenosis with AP diameter of the canal measuring approximately 3.3 mm. Moderate to advanced left and moderate right foraminal stenosis. C6-C7: Postsurgical change of the disc at this level with fusion across the disc space. Mild posterior osteophytic spurring with persistent moderate canal stenosis. Moderate left and bjon-ng-torbbdka right foraminal stenosis. C7-T1: Tiny central protrusion. Moderate canal stenosis. Mild left foraminal stenosis. Right foramen is patent. Visualized portion of the thoracic spine: No high grade canal stenosis. Additional Comments: Soft tissues of the neck appear grossly unremarkable. MR/MR head/brain wo/w con IMPRESSION: 1. No acute intracranial process. 2. There is severe canal stenosis at C3-C4 and to a slightly lesser extent C4-C5 and C5-C6 detailed above with canal measuring 2.5 mm at the level of C3-C4. 3. Abnormal spinal cord signal involving the severely deformed spinal cord at C3-C4. 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 4. No definite abnormal spinal cord signal seen at the remaining cervical spinal levels. No abnormal enhancement of the spinal cord. 5. Multilevel varying degrees of foraminal stenosis, moderate and/or advanced at multiple levels as detailed above. Report was submitted to the clinical operation support team for expedited review by the provider. Electronically authenticated by: ARIANNE HDZ Date: 03/14/2023 12:37
[2023-03-14 10:06] LABS: Estimated GFR (African America 58 (>=60); Estimated GFR (Non-African Ame 48 (>=60)
== END 2023-03-14 09:00 | disposition home or self-care (01) ==
LOC: LAB 09:00
PROVIDERS: PCP Internal Medicine; Visit Provider Psychiatry & Neurology Neurology
DX: R29.898 Other symptoms and signs involving the musculoskeletal system (principal); R29.2 Abnormal reflex; G95.20 Unspecified cord compression; R94.130 Abnormal response to nerve stimulation, unspecified; R94.131 Abnormal electromyogram [EMG]; M48.02 Spinal stenosis, cervical region
CPT/HCPCS: 36415; 70553; 72156; 82565; 84520; A9575

== ENCOUNTER 2024-06-16 10:00 | Outpatient (OUT) | payer MEDICARE, SELFPAY ==
--- NOTE | 2024-06-16 10:10 | MM_ITS ---
Patient Name: MATTHEW ROLLINS MR#: [id number] : 1960 Exam Date: 06/16/2024 Ordering Doctor: DR ASIA MOORE RADIOLOGY REPORT PROCEDURE: MM TOMOSYNTHESIS SCREENING BI COMPARISON: MG MAMM SCREEN 3D MARCEL CAD, 08/08/2022. MG MAMM SCREEN 3D MARCEL CAD, 08/03/2021. MG MAMM SCREEN MARCEL W CAD, 07/07/2018. MG MAMM MARCEL SCRN W CAD DIG, 11/16/2015. INDICATIONS: Screening Calculator Name NCI Breast Cancer Risk Assessment Tool 5 Year Breast Cancer Risk 1.40% Lifetime Breast Cancer Risk 5.40% Personal Breast Cancer No Personal Ovarian Cancer No Treatments None Family Cancers None LOCATION: [facility] BREAST COMPOSITION: The breasts are extremely dense, which lowers the sensitivity of mammography. FINDINGS: RIGHT BREAST: No significant suspicious finding. LEFT BREAST: No significant suspicious finding. Left biopsy marking clip DIAGNOSTIC CATEGORY 1--NEGATIVE. RECOMMENDATIONS: ROUTINE MAMMOGRAM AND CLINICAL EVALUATION IN 12 MONTHS. PLEASE NOTE: A NORMAL MAMMOGRAM DOES NOT EXCLUDE THE POSSIBILITY OF BREAST CANCER. A CLINICALLY SUSPICIOUS PALPABLE LUMP SHOULD BE BIOPSIED. Dictated by: Braeden Prater DO on 06/16/2024 at 11:14 Approved by: Braeden Prater DO on 06/16/2024 at 11:21
--- OUTSIDE RECORDS SUMMARY | 2024-06-16 10:23 | XMS_ITS | CCD ---
Author Organization [facility] Team Providers Care Human Resources Administrator Name Role Phone EFRAÍN LI Primary Care Physician MANFRED ESPINOSA Attending Unavailable MANFRED ESPINOSA Consulting Unavailable MANFRED ESPINOSA Admitting Unavailable DR EFRAÍN LI Primary Care Unavailable Efraín Li MD Primary Care Provider JOE SCHILLING Admitting Unavailable JOE SCHILLING Attending Unavailable EFRAÍN LI Primary Care Unavailable CORTNEY REBOLLAR Consulting Unavailable DYLON ANTHONY Consulting Unavailable HECTOR CRUZ W Referring Unavailable EFRAÍN LI Primary Care Unavailable ERIKS, HECTOR W Referring Unavailable EFRAÍN LI Primary Care Unavailable ANTHONY, HECTOR W Referring Unavailable EFRAÍN LI Primary Care Unavailable BLESSINGMMAD, BEV Referring Unavailable EFRAÍN LI Primary Care Unavailable EFRAÍN LI Primary Care Unavailable AHAMMAD, BEV Referring Unavailable EFRAÍN LI Primary Care Unavailable ARID, BEV Referring Unavailable EFRAÍN LI Primary Care Unavailable AHAMMAD, BEV Admitting Unavailable ARID, BEV Attending Unavailable JOE SCHILLING Consulting Unavailable AHAMMAD, BEV Attending Unavailable AHAMMAD, BEV Referring Unavailable BRENNAN, SHURA S Attending Unavailable BRENNAN, SHURA S Admitting Unavailable BRENNAN, SHURA S Attending Unavailable BRENNAN, SHURA S Admitting Unavailable BRENNAN, SHURA S Admitting Unavailable BRENNAN, SHURA S Attending Unavailable Salvador Mendez Attending Unavailab Salvador Thomas Admitting Unavailab Efraín Akins Primary Care Unavailable BRENNAN, SHURA S Admitting Unavailable BRENNAN, SHURA S Attending Unavailable Efraín Li MD Unavailable [phone] Efraín Li MD Primary Care Provider [phone] SONYA DEWEY Attending Unavailable Medications Current Medications Medication Drug Class(es) Dates Sig (Normalized) Sig (Original) acetaminophen 325 mg oral tablet (4 sources) Start: 05-02-2023 take 2 tablets by mouth every six hours as needed for pain acetaminophen (TYLENOL) 325 MG tablet Take 2 tablets by mouth every 6 hours as needed for Pain 0 05/02/2023 Active Start: 04-16-2023 acetaminophen (TYLENOL) tablet 650 mg acetaminophen 325 mg / oxyCODONE hydrochloride 5 mg oral tablet (2 sources) Opioid Agonist Start: 05-02-2023 End: 05-09-2023 oxyCODONE-acetaminophen (PERCOCET) 5-325 MG per tablet Indications: 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) Take 2 tablets by mouth every 12 hours as needed for Pain for up to 7 days. Max Daily Amount: 4 tablets 28 tablet 0 05/02/2023 05/09/2023 Active Start: 04-22-2023 oxyCODONE-acet aminophen (PERCOCET) 5-325 MG per tablet 1 tablet baclofen 10 mg oral tablet (6 sources) gamma-Aminobutyric Acid-ergic Agonist Start: 04-17-2023 End: 05-03-2023 take 1 tablet by mouth three times daily baclofen (LIORESAL) 10 MG tablet Take 1 tablet by mouth 3 times daily 90 tablet 0 05/02/2023 Active bisacodyl 10 mg rectal suppository (2 sources) Stimulant Laxative Start: 04-21-2023 bisacodyl (DULCOLAX) suppository 10 mg 24 hr buPROPion hydrochloride 150 mg extended release oral tablet (11 sources) Aminoketone Start: 04-17-2023 End: 05-02-2023 take 1 tablet by mouth once daily in the morning buPROPion (WELLBUTRIN XL) 150 MG extended release tablet Take 1 tablet by mouth every morning 30 tablet 0 05/02/2023 Active Start: 11-18-2022 take 1 tablet by sylvia th every twenty-four hours in the morning buPROPion XL (Wellbutrin XL) 150 MG 24 hr tablet Take 150 mg by mouth in the morning. 11/18/2022 Active CALCIUM GUMMIES 250-100-500 MG-UNIT CHEW (3 sources) CALCIUM GUMMIES 250-100-500 MG-UNIT CHEW Take 3 gums by mouth daily 0 Active CALCIUM GUMMIES 250-100-500 MG-UNIT CHEW Take 3 gums by mouth daily 0 Suspended 0.4 ml enoxaparin sodium 100 mg/ml prefilled syringe (2 sources) Low Molecular Weight Heparin Start: 04-17-2023 enoxaparin (LOVENOX) injection 40 mg ergocalciferol 1.25 mg oral capsule (3 sources) Provitamin D2 Compound Start: 05-22-2022 take 1 capsule by mouth every week ergocalciferol (Vitamin D2) 1.25 MG (00058 UT) capsule Take 1 capsule by mouth 1 (one) time per week. 05/22/2022 Active escitalopram 20 mg oral tablet (15 sources) Serotonin Reuptake Inhibitor Start: 04-16-2023 escitalopram (LEXAPRO) tablet 20 mg Start: 05-21-2016 End: 05-02-2023 take 1 tablet by mouth once daily Lexapro 20 mg Tab 20 mg = 1 tab(s), Oral, Daily, Refills(s) 0 Start Date: 05/21/16 Status: Ordered Famotidine (1 source) Histamine-2 Receptor Antagonist Start: 04-16-2023 famotidine (PEPCID) tablet 20 mg glucagon (rdna) 1 mg injection (1 source) Antihypoglycemic Agent Start: 04-24-2023 glucago n injection 1 mg 1000 ml glucose 100 mg/ml injection (3 sources) Start: 04-24-2023 dextrose 10 % infusion Start: 04-24-2023 dextrose bolus 10% 125 mL Start: 04-24-2023 glucose chewab le tablet 16 g haloperidol 5 mg oral tablet (4 sources) Typical Antipsychotic Start: 01-08-2018 take 5 mg by mouth once daily in the evening Haldol 5 mg, Oral, qPM, Refills(s) 0 Start Date: 01/08/18 Status: Ordered lurasidone hydrochloride 80 mg oral tablet (11 sources) Atypical Antipsychotic Start: 04-23-2023 End: 05-02-2023 take 1 tablet by mouth once daily lurasidone (LATUDA) 80 MG TABS tablet Take 1 tablet by mouth Daily with supper 30 tablet 0 05/02/2023 Active Start: 04-16-2023 take 80 mg by mouth once daily at mealtime 80 mg, Oral, DAILY WITH DINNER, First dose on Sat04/16/23 at 2030, Until Discontinued Adiminister with food. Post-op magnesium hydroxide 80 mg/ml oral suspension (2 sources) Start: 04-21-2023 magnesium hydroxide (MILK OF MAGNESIA) 400 MG/5ML suspension 30 mL ondansetron (ZOFRAN-ODT) disintegrating tablet 4 mg (1 source) Start: 04-16-2023 ondansetron (ZOFRAN-ODT) disintegrating tablet 4 mg polyethylene glycol 3350 21609 mg powder for oral solution (4 sources) Osmotic Laxative Start: 04-16-2023 take 1 dose by mouth once daily as needed for constipation polyethylene glycol (GLYCOLAX) 17 g packet Take 1 packet by mouth daily as needed for Constipation 0 05/02/2023 Active sennosides, care home 8.6 mg oral tablet (1 source) Start: 04-22-2023 senna (SENOKOT) tablet 17.2 mg Completed/Discontinued Medications Medication Drug Class(es) Dates Sig (Normalized) Sig (Original) calcium chloride 0.0014 meq/ml / potassium chloride 0.004 meq/ml / sodium chloride 0.103 meq/ml / sodium lactate 0.028 meq/ml injectable solution (1 source) Start: 04-16-2023 End: 04-16-2023 lactated ringers IV soln infusion ceFAZolin (ANCEF) 2000 mg in sterile water 20 mL IV syringe (1 source) Start: 04-16-2023 End: 04-17-2023 2,000 mg, IntraVENous, EVERY 8 HOURS, 3 doses, First dose on Sat04/16/23 at 2030, Last dose on Sat04/17/23 at 1230 Antimicrobial Indications: Surgical Prophylaxis Administer over 5 mins. Post-op cyclobenzaprine hydrochloride 10 mg oral tablet (1 source) Muscle Relaxant Start: 04-16-2023 End: 04-17-2023 take 10 mg by mouth three times daily as needed for muscle spasms 10 mg, Oral, 3 TIMES DAILY PRN, Starting on Sat04/16/23 at 2003, Until Sat04/17/23 at 0652, Muscle spasms, Post-op 1 ml ketorolac tromethamine 30 mg/ml cartridge (1 source) Nonsteroidal Anti-inflammatory Drug, Cyclooxygenase Inhibitor Start: 04-19-2023 End: 04-19-2023 ketorolac (TORADOL) injection 15 mg oxyCODONE hydrochloride 5 mg oral tablet (3 sources) Opioid Agonist Start: 04-19-2023 End: 05-02-2023 oxyCODONE (ROXICODONE) 5 MG immediate release tablet Indications: Acute post-operative pain Take 1-2 tablets by mouth every 6 hours as needed for Pain for up to 7 days. Max Daily Amount: 40 mg 56 tablet 0 04/19/2023 05/02/2023 Discontinued (Stop Taking at Discharge) Start: 04-16-2023 oxyCODONE (PRINCE ICODONE) immediate release tablet 5 mg 72 hr scopolamine 0.0139 mg/hr transdermal system (1 source) Anticholinergic Start: 04-16-2023 End: 04-16-2023 scopolamine (TRANSDERM-SCOP) transdermal patch 1 patch 1000 ml sodium chloride 9 mg/ml injection (4 sources) Start: 04-16-2023 End: 04-17-2023 IntraVENous, at 100 mL/hr, CONTINUOUS, Starting on Sat04/16/23 at 2030, Post-op Start: 04-16-2023 IntraVENous, a t 5-250 mL/hr, PRN, if patient receiving piggyback infusions and maintenance fluids are not ordered OR KVO fluids to protect IV site / prevent frequent line interruptions/ long duration, Starting on Sat04/16/23 at 2002 For piggyback infusion, administer at same rate as piggyback for a total of 25 mL. Enter 25 mL into dose field and piggyback rate into rate field of order. If piggyback is infusing at a rate less than 100 mL/hr, enter 25 mL into dose field and 100 mL/hr into rate field of order. For KVO fluids, enter rate of 20 mL/hr or less into rate field of order. Post-op Start: 04-16-2023 take 1 dose intraven ously twice daily 5-40 mL, IntraVENous, EVERY 12 HOURS SCHEDULED (2 times per day), First dose on Sat04/16/23 at 2100, Until Discontinued For Line Patency: Peripheral IV = 5 mL; Midline or Central Line = 10 mL/lumen. If following IV push medication, administer flush at same rate as the IV push. Flush volume is determined by type of infusion therapy being given. For non-viscous solutions use: Peripheral IV = 5 mL Midline or Central Line = 10 mL/lumen For viscous solutions (i.e. blood components, parenteral nutrition, contrast media, or after obtaining blood sample) use: Peripheral IV = 10 mL Midline or Central Line = 20 mL/lumen Post-op Start: 04-16-2023 take 5-40 mL intrave nously once as needed 5-40 mL, IntraVENous, PRN, Starting on Sat04/16/23 at 2002, Until Discontinued, Line Care, After every IV line use For Line Patency: Peripheral IV = 5 mL; Midline or Central Line = 10 mL/lumen. If following IV push medication, administer flush at same rate as the IV push. Flush volume is determined by type of infusion therapy being given. For non-viscous solutions use: Peripheral IV = 5 mL Midline or Central Line = 10 mL/lumen For viscous solutions (i.e. blood components, parenteral nutrition, contrast media, or after obtaining blood sample) use: Peripheral IV = 10 mL Midline or Central Line = 20 mL/lumen Post-op sodium zirconium cyclosilica te 5000 mg powder for oral suspension (2 sources) Start: 04-23-2023 End: 04-24-2023 sodium zirconium cyclosilica te (LOKELMA) oral suspension 5 g Start: 04-23-2023 End: 04-23-2023 sodium zirconium cyclosilica te (LOKELMA) oral suspension 10 g Problems Active Problems Problem Classification Problem Date Documented Da te Episodic/Chronic Administrative/social admission (2 sources) Patient encounter status; Translations: [Other specified counseling] 06-08-2024 Episodic Anxiety disorders (8 sources) Agoraphobia; Translations: [Agoraphobia, unspecified] Onset: 04-16-2008 Resolved: 06-08-2024 11-21-2022 Chronic Deficiency and other anemia (5 sources) Iron deficiency anemia; Translations: [Iron deficiency anemia, unspecified] Onset: 12-27-2010 11-21-2022 Episodic Disorders of lipid metabolism (4 sources) Hypertriglyceridemia ; Translations: [Pure hyperglyceridemia] Onset: 06-08-2024 06-08-2024 Chronic Epilepsy; convulsions (5 sources) Idiopathic generalized epilepsy; Translations: [Generalized idiopathic epilepsy and epileptic syndromes, not intractable, without status epilepticus] Onset: 11-21-2022 11-21-2022 Chronic Genitourinary symptoms and ill-defined conditions (2 sources) Abnormal urinalysis; Translations: [Unspecified abnormal findings in urine] Onset: 04-05-2023 04-05-2023 Episodic Menopausal disorders (12 sources) Atrophic vaginitis; Translations: [Postmenopausal atrophic vaginitis] Onset: 11-21-2022 11-21-2022 Chronic Mood disorders (16 sources) Depression; Translations: [Depressive disorder] Onset: 04-16-2008 Resolved: 06-08-2024 01-08-2018 Chronic Nutritional deficiencies (5 sources) Vitamin B6 deficiency; Translations: [Pyridoxine deficiency] Onset: 02-12-2023 02-12-2023 Episodic Osteoporosis (5 sources) Senile osteoporosis; Translations: [Age-related osteoporosis without current pathological fracture] Onset: 11-21-2022 11-21-2022 Chronic Other connective tissue disease (3 sources) Arthrodesis status; Translations: [Arthrodesis status] Onset: 06-06-2023 Episodic Other gastrointestinal disorders (5 sources) 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; Translations: [Mixed irritable bowel syndrome] Onset: 12-27-2010 11-21-2022 Chronic Other hereditary and degenerative nervous system conditions (7 sources) Myelopathy in diseases classified elsewhere; Translations: [Myelopathy in diseases classified elsewhere] Onset: 04-16-2023 Chronic Other nervous system disorders (5 sources) Neuropathy; Translations: [Polyneuropathy, unspecified] Onset: 01-15-2023 01-15-2023 Chronic Other nervous system disorders (4 sources) Motor neuropathy with multiple conduction block; 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] Onset: 06-08-2024 06-08-2024 Chronic Other nervous system disorders (4 sources) Spinal cord compression; Translations: [Unspecified cord compression] Onset: 06-08-2024 06-08-2024 Chronic Other nervous system disorders (2 sources) Acute postoperative pain; Translations: [Other acute postprocedural pain] 04-19-2023 Episodic Other nervous system disorders (5 sources) Hyperreflexia; Translations: [Abnormal reflex] Onset: 01-15-2023 01-15-2023 Episodic Other screening for suspected conditions (not mental disorders or infectious disease) (14 sources) Abnormal findings diagnostic imaging of liver+biliary tract; Translations: [Abnormal findings on diagnostic imaging of liver and biliary tract] Onset: 12-17-2012 11-21-2022 Episodic Residual codes; unclassified (5 sources) History of bilateral salpingo-oophorectom y; Translations: [Acquired absence of ovaries, bilateral] Onset: 11-21-2022 11-21-2022 Episodic Spondylosis; intervertebral disc disorders; other back problems (9 sources) Cervical disc disorder with myelopathy, unspecified cervical region; Translations: [Intervertebral disc disorder of cervical region with myelopathy] Onset: 04-22-2023 05-02-2023 Chronic Spondylosis; intervertebral disc disorders; other back problems (20 sources) Spinal stenosis in cervical region; Translations: [Spinal stenosis, cervical region] Onset: 04-16-2008 04-16-2023 Episodic Syncope (5 sources) Syncope and collapse; Translations: [Syncope and collapse] Onset: 04-16-2008 11-21-2022 Episodic Past or Other Problems Problem Classification Problem Date Documented Date Episodic/Chronic Mood disorders (2 sources) Mood disorders Onset: 06-08-2024 06-08-2024 Other nervous system disorders (2 sources) Other acute postprocedural pain; Translations: [Other acute postprocedural pain] Onset: 04-16-2023 Episodic Results Test Name Value Interpretation Reference Range Facility CBC w/Indiceson 05-25-2024 Erythrocyte distribution width (RBC) [Ratio] 13.4 % Normal 10.9-14.[address] [facility] Comment on above: Performed By: #### 2 [id number] #### [facility] [address] [place] [address] Hematocrit (Bld) [Volume fraction] 43.7 % Normal 34.0-46.[address] [facility] Comment on above: Performed By: #### 2 [id number] #### [facility] [address] [place] [address] Hemoglobin (Bld) [Mass/Vol] 14.8 g/dL Normal 12.0-16.[address] [facility] Comment on above: Performed By: #### 2 [id number] #### [facility] [address] [place] [address] MCH (RBC) [Entitic mass] 30.6 pg Normal 27.0-34.[address] [facility] Comment on above: Performed By: #### 2 [id number] #### [facility] [address] [place] [address] MCHC (RBC) [Mass/Vol] 34.0 g/dL Normal 31.4-36.0 [facility] Comment on above: Performed By: #### 2 [id number] #### [facility] [address] [place] [address] MCV (RBC) [Entitic vol] 90.0 fL Normal 80.0-100.[address] [facility] Comment on above: Performed By: #### 2 [id number] #### [facility] [address] [place] [address] Platelet mean volume (Bld) [Entitic vol] 10.2 fL Normal 6.4-10.[address] [facility] Comment on above: Performed By: #### 2 [id number] #### [facility] [address] [place] [address] Platelets (Bld) [#/Vol] 249.0 E9/L Normal 150.0-500.[address] [facility] Comment on above: Performed By: #### 2 [id number] #### [facility] [address] [place] [address] RBC (Bld) [#/Vol] 4.8 E12/L Normal 4.3-5.[address] [facility] Comment on above: Performed By: #### 2 [id number] #### [facility] [address] [place] [address] RBC size Nom (Bld) NORMAL Invalid Interpretation Code [facility] Comment on above: Performed By: #### 2 [id number] #### [facility] [address] [place] [address] WBC corrected for nucl RBC Auto (Bld) [#/Vol] 8.3 E9/L Normal 4.0-11.[address] [facility] Comment on above: Performed By: #### 2 [id number] #### [facility] [address] [place] [address] CHEMISTRYOrdered By: SYSTEM SYSTEM on 05-25-2024 25-hydroxyvitamin D3 [Mass/Vol] 35.3 ng/mL Normal 30.0 - 100.0 ng/mL [facility] Albumin [Mass/Vol] 4.6 g/dL Normal 3.3 - 5.0 gm/dL [facility] Albumin/Globulin [Mass ratio] 1.8 {ratio} Normal 1.1 - 2.2 [facility] ALP [Catalytic activity/Vol] 103 [iU]/d High 21 - 98 Int._Unit/L [facility] ALT No additional P-5'-P [Catalytic activity/Vol] 10 [iU]/d Normal 6 - 46 Int._Unit/L [facility] Anion gap [Moles/Vol] 12 mmol/L Normal 6 - 16 mEq/L R emisol Chem AST [Catalytic activity/Vol] 12 [iU]/d Normal 5 - 43 Int._Unit/L [facility] Bilirubin [Mass/Vol] 1.0 mg/dL Normal 0.0 - 1 .1 mg/dL [facility] Calcium [Mass/Vol] 10.1 mg/dL Normal 8.9 - 11. 1 mg/dL [facility] Chloride [Moles/Vol] 106 mmol/L Normal 101 - 1 11 mmol/L [facility] Cholesterol [Mass/Vol] 169 mg/dL Normal 120 - 200 mg/dL [facility] Cholesterol in HDL [Mass/Vol] 43 mg/dL Invalid Interpretation Code [facility] Comment on above: Result Comment: '>= 60 LOW RISK' '<= 40 HIGH RISK' Cholesterol in LDL [Mass/Vol] 111 mg/dL Normal <=129mg/dL [facility] Cholesterol in VLDL [Mass/Vol] 34 mg/dL Normal 7 - 40 mg/dL [facility] CO2 [Moles/Vol] 25 mmol/L Normal 21 - 31 mmol/L [facility] Creatinine [Mass/Vol] 1.2 mg/dL Normal 0.5 - 1.3 mg/dL [facility] eGFR 50 mL/min/1.73 m2 Low >=59mL/min /1 .73 m2 [facility] Globulin (S) [Mass/Vol] 2.5 g/dL Normal 1.4 - 4.0 gm/dL [facility] Glucose [Mass/Vol] 87 mg/dL Normal 55 - 199 mg/dL [facility] Potassium [Moles/Vol] 4.2 mmol/L Normal 3.5 - 5.3 mmol/L [facility] Protein [Mass/Vol] 7.1 g/dL Normal 6.0 - 7.8 gm/dL [facility] Sodium [Moles/Vol] 139 mmol/L Normal 135 - 145 mmol/L [facility] Triglyceride [Mass/Vol] 172 mg/dL High <=149mg/dL [facility] TSH Qn 1.56 m[IU]/L Normal 0.34 - 5.60 mcIU/mL [facility] Urea nitrogen [Mass/Vol] 20 mg/dL Normal 5 - 21 mg/dL [facility] Urea nitrogen/Creatinine [Mass ratio] 17 mg/mg Normal 10 - 20 [facility] CHEMISTRYOrdered By: Divine Casillas on 05-25-2024 HbA1c (Bld) [Mass fraction] 5.2 % Normal <=5.9% [facility] ChemAutoSS CMPon 05-25-2024 Albumin [Mass/Vol] 4.6 g/dL Normal 3.3-5.[address] [facility] Comment on above: Performed By: #### 2 [id number] #### [facility] [address] [place] [address] Albumin/Globulin (S) [Mass conc ratio] 1.8 Normal 1.1-2.[address] [facility] Comment on above: Performed By: #### 2 [id number] #### [facility] [address] [place] [address] ALP [Catalytic activity/Vol] 103 Int._Unit/L High 21-[address] [facility] Comment on above: Performed By: #### 2 [id number] #### [facility] [address] [place] [address] ALT No additional P-5'-P [Catalytic activity/Vol] 10 Int._Unit/L Normal 6-[address] [facility] Comment on above: Performed By: #### 2 [id number] #### [facility] [address] [place] [address] Anion gap [Moles/Vol] 12 mmol/L Normal 6-16 [facility] Comment on above: Performed By: #### 2 [id number] #### [facility] [address] [place] [address] AST [Catalytic activity/Vol] 12 Int._Unit/L Normal 5-[address] [facility] Comment on above: Performed By: #### 2 [id number] #### [facility] [address] [place] [address] Bilirubin [Mass/Vol] 1.0 mg/dL Normal 0.0-1.1 [facility] Comment on above: Performed By: #### 2 [id number] #### [facility] [address] [place] [address] Calcium [Mass/Vol] 10.1 mg/dL Normal 8.9-11.[address] [facility] Comment on above: Performed By: #### 2 [id number] #### [facility] [address] [place] [address] Chloride [Moles/Vol] 106 mmol/L Normal 101-111 [facility] Comment on above: Performed By: #### 2 [id number] #### [facility] [address] [place] [address] CO2 [Moles/Vol] 25 mmol/L Normal 21-31 [facility] Comment on above: Performed By: #### 2 [id number] #### [facility] [address] [place] [address] Creatinine [Mass/Vol] 1.2 mg/dL Normal 0.5-1.3 [facility] Comment on above: Performed By: #### 2 [id number] #### [facility] [address] [place] [address] Globulin (S) [Mass/Vol] 2.5 g/dL Normal 1.4-4.[address] [facility] Comment on above: Performed By: #### 2 [id number] #### [facility] [address] [place] [address] Glucose [Mass/Vol] 87 mg/dL Normal 55-[address] [facility] Comment on above: Performed By: #### 2 [id number] #### [facility] [address] [place] [address] Potassium [Moles/Vol] 4.2 mmol/L Normal 3.5-5.3 [facility] Comment on above: Performed By: #### 2 [id number] #### [facility] [address] [place] [address] Protein [Mass/Vol] 7.1 g/dL Normal 6.0-7.[address] [facility] Comment on above: Performed By: #### 2 [id number] #### [facility] [address] [place] [address] Sodium [Moles/Vol] 139 mmol/L Normal 135-[address] [facility] Comment on above: Performed By: #### 2 [id number] #### [facility] [address] [place] [address] Urea nitrogen [Mass/Vol] 20 mg/dL Normal 5-[address] [facility] Comment on above: Performed By: #### 2 [id number] #### [facility] [address] [place] [address] Urea nitrogen/Creatinine [Mass ratio] 17 No Units Normal 10-[address] [facility] Comment on above: Performed By: #### 2 [id number] #### [facility] [address] [place] [address] HEMATOLOGYOrdered By: SYSTEM SYSTEM on 05-25-2024 Erythrocyte distribution width (RBC) [Ratio] 13.4 % Normal 10.9 - 14.2 % [facility] Hematocrit (Bld) [Volume fraction] 43.7 % Normal 34.0 - 46.0 % [facility] Hemoglobin (Bld) [Mass/Vol] 14.8 g/dL Normal 12.0 - 16.0 gm/dL [facility] MCH (RBC) [Entitic mass] 30.6 pg Normal 27.0 - 34.0 pg [facility] MCHC (RBC) [Mass/Vol] 34.0 g/dL Normal 31.4 - 36.0 gm/dL [facility] MCV (RBC) [Entitic vol] 90.0 fL Normal 80.0 - 100.0 fL [facility] Platelet mean volume (Bld) [Entitic vol] 10.2 fL Normal 6.4 - 10.8 fL [facility] Platelets (Bld) [#/Vol] 249.0 E9/L Normal 150.0 - 500.0 E9/L [facility] RBC (Bld) [#/Vol] 4.8 E12/L Normal 4.3 - 5.9 E12/L [facility] RBC size Nom (Bld) NORMAL *NA* (05/25/24 10:31 AM) Invalid Interpretation Code [facility] WBC corrected for nucl RBC Auto (Bld) [#/Vol] 8.3 E9/L Normal 4.0 - 11.0 E9/L [facility] [id number] 05-25-2024 HbA1c (Bld) [Mass fraction] 5.2 % Normal <=5.[address] [facility] Comment on above: Performed By: #### [id number] #### [facility] [facility] [address] [place] [address] Lipid Panelon 05-25-2024 Cholesterol [Mass/Vol] 169 mg/dL Normal 120-[address] [facility] Comment on above: Performed By: #### 2 [id number] #### [facility] [address] [place] [address] Cholesterol in HDL [Mass/Vol] 43 mg/dL Invalid Interpretation Code [facility] Comment on above: Result Comment: '>= 60 LOW RISK' '<= 40 HIGH RISK' Performed By: #### 2 [id number] #### [facility] [address] [place] [address] Cholesterol in LDL [Mass/Vol] 111 mg/dL Normal <=[address] [facility] Comment on above: Performed By: #### 2 [id number] #### [facility] [address] [place] [address] Cholesterol in VLDL [Mass/Vol] 34 mg/dL Normal 7-[address] [facility] Comment on above: Performed By: #### 2 [id number] #### [facility] [address] [place] [address] Triglyceride [Mass/Vol] 172 mg/dL High <=[address] [facility] Comment on above: Performed By: #### 2 [id number] #### [facility] [address] [place] [address] TSHon 05-25-2024 TSH Qn 1.56 m[IU]/L Normal 0.34-5.[address] [facility] Comment on above: Performed By: #### 2 [id number] #### [facility] [address] [place] [address] Vitamin D 25 Hydroxyon 05-25 25-hydroxyvitamin D3 [Mass/Vol] 35.3 ng/mL Normal 30.0-100.[address] [facility] Comment on above: Performed By: #### 5 [id number] #### [facility] [address] [place] [address] eGFRon 05-25-2024 eGFR 50 mL/min/1.73 m2 Low >=[address] [facility] Comment on above: Performed By: #### 1 [id number] #### [facility] [address] [place] [address] CBC w/Indiceson 09-06-2023 Erythrocyte distribution width (RBC) [Ratio] 14.8 % High 10.9-14.[address] [facility] Comment on above: Performed By: #### 2 [id number] #### [facility] [address] [place] [address] Hematocrit (Bld) [Volume fraction] 41.9 % Normal 34.0-46.[address] [facility] Comment on above: Performed By: #### 2 [id number] #### [facility] [address] [place] [address] Hemoglobin (Bld) [Mass/Vol] 14.0 g/dL Normal 12.0-16.[address] [facility] Comment on above: Performed By: #### 2 [id number] #### [facility] [address] [place] [address] MCH (RBC) [Entitic mass] 29.5 pg Normal 27.0-34.[address] [facility] Comment on above: Performed By: #### 2 [id number] #### [facility] [address] [place] [address] MCHC (RBC) [Mass/Vol] 33.4 g/dL Normal 31.4-36.0 [facility] Comment on above: Performed By: #### 2 [id number] #### [facility] [address] [place] [address] MCV (RBC) [Entitic vol] 88.2 fL Normal 80.0-100.[address] [facility] Comment on above: Performed By: #### 2 [id number] #### [facility] [address] [place] [address] Platelet mean volume (Bld) [Entitic vol] 9.9 fL Normal 6.4-10.[address] [facility] Comment on above: Performed By: #### 2 [id number] #### [facility] [address] [place] [address] Platelets (Bld) [#/Vol] 238.0 E9/L Normal 150.0-500.[address] [facility] Comment on above: Performed By: #### 2 [id number] #### [facility] [address] [place] [address] RBC (Bld) [#/Vol] 4.8 E12/L Normal 4.3-5.[address] [facility] Comment on above: Performed By: #### 2 [id number] #### [facility] [address] [place] [address] RBC size Nom (Bld) NORMAL Invalid Interpretation Code [facility] Comment on above: Performed By: #### 2 [id number] #### [facility] [address] [place] [address] WBC corrected for nucl RBC Auto (Bld) [#/Vol] 8.0 E9/L Normal 4.0-11.[address] [facility] Comment on above: Performed By: #### 2 [id number] #### [facility] [address] [place] [address] CHEMISTRYOrdered By: SYSTEM SYSTEM on 09-06-2023 25-hydroxyvitamin D3 [Mass/Vol] 47.6 ng/mL Normal 30.0 - 100.0 ng/mL [facility] Albumin [Mass/Vol] 4.5 g/dL Normal 3.3 - 5.0 gm/dL [facility] Albumin/Globulin [Mass ratio] 1.9 {ratio} Normal 1.1 - 2.2 [facility] ALP [Catalytic activity/Vol] 102 [iU]/d High 21 - 98 Int._Unit/L [facility] ALT No additional P-5'-P [Catalytic activity/Vol] 13 [iU]/d Normal 6 - 46 Int._Unit/L [facility] Anion gap [Moles/Vol] 14 mmol/L Normal 6 - 16 mEq/L R [facility] Chem AST [Catalytic activity/Vol] 13 [iU]/d Normal 5 - 43 Int._Unit/L [facility] Bilirubin [Mass/Vol] 1.1 mg/dL Normal 0.0 - 1 .1 mg/dL [facility] Calcium [Mass/Vol] 9.9 mg/dL Normal 8.9 - 11. 1 mg/dL [facility] Chloride [Moles/Vol] 106 mmol/L Normal 101 - 1 11 mmol/L [facility] Cholesterol [Mass/Vol] 204 mg/dL High 120 - 200 mg/dL [facility] Cholesterol in HDL [Mass/Vol] 51 mg/dL Invalid Interpretation Code [facility] Comment on above: Result Comment: '>= 60 LOW RISK' '<= 40 HIGH RISK' Cholesterol in LDL [Mass/Vol] 124 mg/dL Normal <=129mg/dL [facility] Cholesterol in VLDL [Mass/Vol] 39 mg/dL Normal 7 - 40 mg/dL [facility] CO2 [Moles/Vol] 24 mmol/L Normal 21 - 31 mmol/L [facility] Creatinine [Mass/Vol] 1.4 mg/dL High 0.5 - 1.3 mg/dL [facility] eGFR 42 mL/min/1.73 m2 Low >=59mL/min /1 .73 m2 [facility] Globulin (S) [Mass/Vol] 2.4 g/dL Normal 1.4 - 4.0 gm/dL [facility] Glucose [Mass/Vol] 95 mg/dL Normal 55 - 199 mg/dL [facility] Potassium [Moles/Vol] 4.4 mmol/L Normal 3.5 - 5.3 mmol/L [facility] Protein [Mass/Vol] 6.9 g/dL Normal 6.0 - 7.8 gm/dL [facility] Sodium [Moles/Vol] 140 mmol/L Normal 135 - 145 mmol/L [facility] Triglyceride [Mass/Vol] 195 mg/dL High <=149mg/dL [facility] TSH Qn 2.43 m[IU]/L Normal 0.34 - 5.60 mcIU/mL [facility] Urea nitrogen [Mass/Vol] 27 mg/dL High 5 - 21 mg/dL [facility] Urea nitrogen/Creatinine [Mass ratio] 19 mg/mg Normal 10 - 20 [facility] CHEMISTRYOrdered By: Elizabeth Ann on 09-06-2023 HbA1c (Bld) [Mass fraction] 5.5 % Normal <=5.9% [facility] ChemAutoSS CMPon 09-06-2023 Albumin [Mass/Vol] 4.5 g/dL Normal 3.3-5.[address] [facility] Comment on above: Performed By: #### 2 [id number] #### [facility] [address] [place] [address] Albumin/Globulin (S) [Mass conc ratio] 1.9 Normal 1.1-2.[address] [facility] Comment on above: Performed By: #### 2 [id number] #### [facility] [address] [place] [address] ALP [Catalytic activity/Vol] 102 Int._Unit/L High 21-[address] [facility] Comment on above: Performed By: #### 2 [id number] #### [facility] [address] [place] [address] ALT No additional P-5'-P [Catalytic activity/Vol] 13 Int._Unit/L Normal 6-[address] [facility] Comment on above: Performed By: #### 2 [id number] #### [facility] [address] [place] [address] Anion gap [Moles/Vol] 14 mmol/L Normal 6-16 [facility] Comment on above: Performed By: #### 2 [id number] #### [facility] [address] [place] [address] AST [Catalytic activity/Vol] 13 Int._Unit/L Normal 5-[address] [facility] Comment on above: Performed By: #### 2 [id number] #### [facility] [address] [place] [address] Bilirubin [Mass/Vol] 1.1 mg/dL Normal 0.0-1.1 [facility] Comment on above: Performed By: #### 2 [id number] #### [facility] [address] [place] [address] Calcium [Mass/Vol] 9.9 mg/dL Normal 8.9-11.[address] [facility] Comment on above: Performed By: #### 2 [id number] #### [facility] [address] [place] [address] Chloride [Moles/Vol] 106 mmol/L Normal 101-111 [facility] Comment on above: Performed By: #### 2 [id number] #### [facility] [address] [place] [address] CO2 [Moles/Vol] 24 mmol/L Normal 21-31 [facility] Comment on above: Performed By: #### 2 [id number] #### [facility] [address] [place] [address] Creatinine [Mass/Vol] 1.4 mg/dL High 0.5-1.3 [facility] Comment on above: Performed By: #### 2 [id number] #### [facility] [address] [place] [address] Globulin (S) [Mass/Vol] 2.4 g/dL Normal 1.4-4.[address] [facility] Comment on above: Performed By: #### 2 [id number] #### [facility] [address] [place] [address] Glucose [Mass/Vol] 95 mg/dL Normal 55-[address] [facility] Comment on above: Performed By: #### 2 [id number] #### [facility] [address] [place] [address] Potassium [Moles/Vol] 4.4 mmol/L Normal 3.5-5.3 [facility] Comment on above: Performed By: #### 2 [id number] #### [facility] [address] [place] [address] Protein [Mass/Vol] 6.9 g/dL Normal 6.0-7.[address] [facility] Comment on above: Performed By: #### 2 [id number] #### [facility] [address] [place] [address] Sodium [Moles/Vol] 140 mmol/L Normal 135-[address] [facility] Comment on above: Performed By: #### 2 [id number] #### [facility] [address] [place] [address] Urea nitrogen [Mass/Vol] 27 mg/dL High 5-[address] [facility] Comment on above: Performed By: #### 2 [id number] #### [facility] [address] [place] [address] Urea nitrogen/Creatinine [Mass ratio] 19 No Units Normal 10-[address] [facility] Comment on above: Performed By: #### 2 [id number] #### [facility] [address] [place] [address] HEMATOLOGYOrdered By: SYSTEM SYSTEM on 09-06-2023 Erythrocyte distribution width (RBC) [Ratio] 14.8 % High 10.9 - 14.2 % [facility] Hematocrit (Bld) [Volume fraction] 41.9 % Normal 34.0 - 46.0 % [facility] Hemoglobin (Bld) [Mass/Vol] 14.0 g/dL Normal 12.0 - 16.0 gm/dL [facility] MCH (RBC) [Entitic mass] 29.5 pg Normal 27.0 - 34.0 pg [facility] MCHC (RBC) [Mass/Vol] 33.4 g/dL Normal 31.4 - 36.0 gm/dL [facility] MCV (RBC) [Entitic vol] 88.2 fL Normal 80.0 - 100.0 fL [facility] Platelet mean volume (Bld) [Entitic vol] 9.9 fL Normal 6.4 - 10.8 fL [facility] Platelets (Bld) [#/Vol] 238.0 E9/L Normal 150.0 - 500.0 E9/L [facility] RBC (Bld) [#/Vol] 4.8 E12/L Normal 4.3 - 5.9 E12/L [facility] RBC size Nom (Bld) NORMAL *NA* (09/06/23 10:30 AM) Invalid Interpretation Code [facility] WBC corrected for nucl RBC Auto (Bld) [#/Vol] 8.0 E9/L Normal 4.0 - 11.0 E9/L [facility] [id number] 09-06-2023 HbA1c (Bld) [Mass fraction] 5.5 % Normal <=5.[address] [facility] Comment on above: Performed By: #### 7 [id number] #### [facility] [address] [place] [address] Lipid Panelon 09-06-2023 Cholesterol [Mass/Vol] 204 mg/dL High 120-[address] [facility] Comment on above: Performed By: #### 2 [id number] #### [facility] [address] [place] [address] Cholesterol in HDL [Mass/Vol] 51 mg/dL Invalid Interpretation Code [facility] Comment on above: Result Comment: '>= 60 LOW RISK' '<= 40 HIGH RISK' Performed By: #### 2 [id number] #### [facility] [address] [place] [address] Cholesterol in LDL [Mass/Vol] 124 mg/dL Normal <=[address] [facility] Comment on above: Performed By: #### 2 [id number] #### [facility] [address] [place] [address] Cholesterol in VLDL [Mass/Vol] 39 mg/dL Normal 7-[address] [facility] Comment on above: Performed By: #### 2 [id number] #### [facility] [address] [place] [address] Triglyceride [Mass/Vol] 195 mg/dL High <=[address] [facility] Comment on above: Performed By: #### 2 [id number] #### [facility] [address] [place] [address] TSHon 09-06-2023 TSH Qn 2.43 m[IU]/L Normal 0.34-5.[address] [facility] Comment on above: Performed By: #### 2 [id number] #### [facility] [address] [place] [address] Vitamin D 25 Hydroxyon 09-05 25-hydroxyvitamin D3 [Mass/Vol] 47.6 ng/mL Normal 30.0-100.[address] [facility] Comment on above: Performed By: #### 5 [id number] #### [facility] [address] [place] [address] eGFRon 09-06-2023 eGFR 42 mL/min/1.73 m2 Low >=[address] [facility] Comment on above: Order Comment: Order added by Discern Expert. Performed By: #### 1 [id number] #### [facility] [address] [place] [address] PT - Assessmentson 4 PT - Assessments [id number] 349#1.00TIFF Normal [facility] XR CERVICAL SPINE (2-3 VIEWS )on 08-13-2023 XR CERVICAL SPINE (2-3 VIEWS) EXAMINATION: 2 XRAY VIEWS OF THE CERVICAL SPINE 08/12/2023 10:27 am COMPARISON: 04/17/2023 HISTORY: ORDERING SYSTEM PROVIDED HISTORY: 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) TECHNOLOGIST PROVIDED HISTORY: standing AP and lateral Reason for Exam: Stenosis of cspine FINDINGS: Cervical spine is normally aligned. There is no fracture or bone erosion. There is no significant prevertebral soft tissue swelling. C3-6 transpedicular fusion hardware is stable and intact in appearance. Anterior interbody fusion hardware at C6-7 is also stable in appearance. There is anterior endplate spurring and bridging osteophyte at C4 and C5 levels, unchanged. IMPRESSION: No acute osseous abnormality post cervical fusion. Interpreted by: Roland Cerna MD Signed by: Roland Cerna MD 08/13/23 Final result Normal [facility] PT - Home Exercise Programon 08-06-2023 PT - Home Exercise Program [id number] 995#1.00TIFF [facility] PT - Assessmentson PT - Assessments [id number] 2572#1.00TIFF [facility] PT - Home Exercise Programon 07-18-2023 PT - Home Exercise Program [id number] 336#1.00TIFF [facility] PT - Home Exercise Programon 07-09-2023 PT - Home Exercise Program [id number] 418#1.00TIFF [facility] PT - [place] 07-02-2023 PT - Orders [id number] 814#1.00TIFF [facility] PT - Home Exercise Programon 06-28-2023 PT - Home Exercise Program [id number] 973#1.00TIFF [facility] Consent for Treatmenton 06-09 Consent for Treatment [id number] A8#1.00TIFF [facility] PT - Assessmentson PT - Assessments [id number] 190#1.00TIFF [facility] PT - Consentson 06-25-2023 PT - Consents [id number] 940#1.00TIFF [facility] PT - [place] 06-24-2023 PT - Orders [id number] 712#1.00TIFF [facility] Nonvisit Note - PTon 024 Nonvisit Note - PT Chart reviewed with eval prepped for scheduled eval. KK [facility] XR CERVICAL SPINE (2-3 VIEWS )on 06-07-2023 XR CERVICAL SPINE (2-3 VIEWS) EXAM: XR CERVICAL SPINE (2-3 VIEWS) HISTORY: 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) COMPARISON: [facility] MRI cervical spine 03/14/2023, plain films 11/21/2022. IMPRESSION: FINDINGS/IMPRESSION : 1. Prior anterior interbody fusion with plate and screw at C6-C7 is unchanged. 2. There has been interval posterior fusion at C3, C4, C5 and C6. 3. Anatomic alignment. Hardware intact. 4. Partially included upper thoracic scoliosis 21 degrees convex left, unchanged. Interpreted by: Guero Bullock Jr., MD Signed by: Guero Bullock Jr., MD 06/07/23 Final result Normal [facility] Basic Metab w/rfx MGon 04-30 Anion gap [Moles/Vol] 10 mmol/L Normal 9-17 [facility] Comment on above: Performed By: #### B MPX, CDP, LIVP #### [facility] [address] [place] [address] Field Support Engineer: Giovani Aden DO Calcium [Mass/Vol] 9.9 mg/dL Normal 8.6-10.4 [facility] Comment on above: Performed By: #### B MPX, CDP, LIVP #### [facility] [address] [facility] [place] [address] Field Support Engineer: Giovani Aden DO Chloride [Moles/Vol] 101 mmol/L Normal 98-107 [facility] Comment on above: Performed By: #### B MPX, CDP, LIVP #### [facility] [address] [facility] [place] [address] Field Support Engineer: Giovani Aden DO CO2 [Moles/Vol] 28 mmol/L Normal 20-31 [facility] Comment on above: Performed By: #### B MPX, CDP, LIVP #### [facility] [address] [facility] [place] [address] Field Support Engineer: Giovani Aden DO Creatinine [Mass/Vol] 1.1 mg/dL High 0.5-0.9 [facility] Comment on above: Performed By: #### B MPX, CDP, LIVP #### [facility] [address] [facility] [place] [address] Field Support Engineer: Giovani Aden DO GFR/1.73 sq M.predicted among non-blacks MDRD (S/P/Bld) [Vol rate/Area] 56 mL/min/{1.73_m2} Low >60 [facility] Comment on above: Result Comment: These results are not intended for use in patients <18 years of age. eGFR results are calculated without a race factor using the 2020 CKD-EPI equation. Careful clinical correlation is recommended, particularly when comparing to results calculated using previous equations. The CKD-EPI equation is less accurate in patients with extremes of muscle mass, extra-renal metabolism of creatine, excessive creatine ingestion, or following therapy that affects renal tubular secretion. Performed By: #### B MPX, CDP, LIVP #### [facility] [address] [facility] [place] [address] Field Support Engineer: Giovani Aden DO Glucose [Mass/Vol] 93 mg/dL Normal 70-99 [facility] Comment on above: Performed By: #### B MPX, CDP, LIVP #### [facility] [address] [facility] [place] [address] Field Support Engineer: Giovani Aden DO Potassium [Moles/Vol] 4.6 mmol/L Normal 3.7-5.3 [facility] Comment on above: Performed By: #### B MPX, CDP, LIVP #### [facility] [place] [address] Field Support Engineer: Giovani Aden DO Sodium [Moles/Vol] 139 mmol/L Normal 135-144 [facility] Comment on above: Performed By: #### B MPX, CDP, LIVP #### [facility] [place] [address] Field Support Engineer: Giovani Aden DO Urea nitrogen [Mass/Vol] 19 mg/dL Normal 8-23 [facility] Comment on above: Performed By: #### B MPX, CDP, LIVP #### [facility] [address] [place] [address]. [place] [address] Field Support Engineer: Giovani Aden DO Basic Metabolic Panel w/ Ref chon to MGon 04-30-2023 Anion gap [Moles/Vol] 10 mmol/L 9 - 17 mmol/L [facility] Calcium [Mass/Vol] 9.9 mg/dL 8.6 - 10. 4 mg/dL [facility] Chloride [Moles/Vol] 101 mmol/L 98 - 10 7 mmol/L [facility] CO2 [Moles/Vol] 28 mmol/L 20 - 31 mmol/L [facility] Creatinine [Mass/Vol] 1.1 mg/dL High 0.5 - 0.9 mg/dL [facility] GFR/1.73 sq M.predicted MDRD (S/P/Bld) [Vol rate/Area] 56 mL/min/{1.73_m2} Low - PINF [facility] Comment on above: These results are not intended for use in patients <18 years of age. eGFR results are calculated without a race factor using the 2020 CKD-EPI equation. Careful clinical correlation is recommended, particularly when comparing to results calculated using previous equations. The CKD-EPI equation is less accurate in patients with extremes of muscle mass, extra-renal metabolism of creatine, excessive creatine ingestion, or following therapy that affects renal tubular secretion. Glucose [Mass/Vol] 93 mg/dL 70 - 99 mg/dL [facility] Interpretation and review of laboratory results Abnormal [facility] Potassium [Moles/Vol] 4.6 mmol/L 3.7 - 5.3 mmol/L [facility] Sodium [Moles/Vol] 139 mmol/L 135 - 144 mmol/L [facility] Urea nitrogen [Mass/Vol] 19 mg/dL 8 - 23 mg/dL [facility] CBC auto differentialon 04-12 Basophils (Bld) [#/Vol] 0.10 10*3/uL [facility] Basophils/100 WBC (Bld) 1 % 0 - 2 % [facility] Eosinophils (Bld) [#/Vol] 0.20 10*3/uL [facility] Eosinophils/100 WBC (Bld) 3 % 0 - 4 % [facility] Erythrocyte distribution width (RBC) [Ratio] 14.1 % 11.5 - 14.9 % [facility] Hematocrit (Bld) [Volume fraction] 33.0 % Low 36 - 46 % [facility] Hemoglobin (Bld) [Mass/Vol] 11.0 g/dL Low 12.0 - 16.0 g/dL [facility] Interpretation and review of laboratory results Abnormal [facility] Lymphocytes/100 WBC (Bld) 24 % 24 - 44 % [facility] Lymphocytes/100 WBC (Bld) 1.80 % [facility] MCH (RBC) [Entitic mass] 31.0 pg 26 - 34 pg [facility] MCHC (RBC) [Mass/Vol] 33.2 g/dL 31 - 37 g/dL B ON [facility] MCV (RBC) [Entitic vol] 93.4 fL 80 - 100 fL [facility] Monocytes/100 WBC (Bld) 8 % High 1 - 7 % [facility] Monocytes/100 WBC (Bld) 0.60 % [facility] Neutrophils/100 WBC (Bld) 64 % 36 - 66 % [facility] Platelet mean volume (Bld) [Entitic vol] 7.9 fL 6.0 - 12.0 fL [facility] Platelets (Bld) [#/Vol] 328 10*3/uL [facility] RBC (Bld) [#/Vol] 3.53 10*6/uL Low 4.0 - 5.2 m/uL [facility] Segmented neutrophils/100 WBC (Bld) 4.90 % [facility] WBC other (Bld) [#/Vol] 7.5 [facility] CBC with Diffon 04-30-2023 Abs. Basophil 0.10 k/uL Normal 0.0-0.2 [facility] Comment on above: Performed By: #### B MPX, CDP, LIVP #### [facility] [place] [address] Field Support Engineer: Giovani Aden DO Abs.Neutrophil (Seg) 4.90 k/uL Normal 1.3-9.1 [facility] Comment on above: Performed By: #### B MPX, CDP, LIVP #### [facility] [address] [place] [address] Field Support Engineer: Giovani Aden DO Basophils/100 WBC (Bld) 1 % Normal 0-2 [facility] Comment on above: Performed By: #### B MPX, CDP, LIVP #### [facility] [address] [place] [address] Field Support Engineer: Giovani Aden DO Eosinophils (Bld) [#/Vol] 0.20 10*3/uL Normal 0.0-0.4 [facility] Comment on above: Performed By: #### B MPX, CDP, LIVP #### [facility] [address] [place] [address] Field Support Engineer: Giovani Aden DO Eosinophils/100 WBC (Bld) 3 % Normal 0-4 [facility] [facility] Comment on above: Performed By: #### B MPX, CDP, LIVP #### [facility] [place] [address] Field Support Engineer: Giovani Aden DO Erythrocyte distribution width (RBC) [Ratio] 14.1 % Normal 11.5-14.9 [facility] Comment on above: Performed By: #### B MPX, ANNETTE, LIVP #### [facility] [place] [address] Field Support Engineer: Giovani Aden DO Hematocrit (Bld) [Volume fraction] 33.0 % Low 36-46 [facility] Comment on above: Performed By: #### B ROCIO, ANNETTE, LIVP #### [facility] [facility] [place] [address] Field Support Engineer: Giovani Aden DO Hemoglobin (Bld) [Mass/Vol] 11.0 g/dL Low 12.0-16.0 [facility] Comment on above: Performed By: #### B MPX, CDP, LIVP #### [facility] [place] [address] Field Support Engineer: Giovani Aden DO Lymphocytes (Bld) [#/Vol] 1.80 10*3/uL Normal 1.0-4.8 [facility] Comment on above: Performed By: #### B MPX, CDP, LIVP #### [facility] [place] [address] Field Support Engineer: Givoani Aden DO Lymphocytes/100 WBC (Bld) 24 % Normal 24-44 [facility] Comment on above: Performed By: #### B MPX, CDP, LIVP #### [facility] [address] [place] [address] Field Support Engineer: Giovani Aden DO MCH (RBC) [Entitic mass] 31.0 pg Normal 26-34 [facility] Comment on above: Performed By: #### B MPX, CDP, LIVP #### [facility] [address] [place] [address] Field Support Engineer: Giovani Aden DO MCHC (RBC) [Mass/Vol] 33.2 g/dL Normal 31-37 [facility] Comment on above: Performed By: #### B MPKendra, CDP, LIVP #### [facility] [address] [place] [address] Field Support Engineer: Giovani Aden DO MCV (RBC) [Entitic vol] 93.4 fL Normal 80-100 [facility] Comment on above: Performed By: #### B MPX, CDP, LIVP #### [facility] [address] [place] [address] Field Support Engineer: Giovani Aden DO Monocytes (Bld) [#/Vol] 0.60 10*3/uL Normal 0.1-1.3 [facility] Comment on above: Performed By: #### B MPX, CDP, LIVP #### [facility] [address] [place] [address] Field Support Engineer: Giovani Aden DO Monocytes/100 WBC (Bld) 8 % High 1-7 [facility] Comment on above: Performed By: #### B MPX, CDP, LIVP #### [facility] [address] [place] [address] Field Support Engineer: Giovani Aden DO Neutrophil (Seg) 64 % Normal 36-66 [facility] Comment on above: Performed By: #### B MPX, CDP, LIVP #### [facility] [address] [place] [address] Field Support Engineer: Giovani Aden DO Platelet mean volume (Bld) [Entitic vol] 7.9 fL Normal 6.0-12.0 [facility] Comment on above: Performed By: #### B MPX, CDP, LIVP #### [facility] [place] [address] Field Support Engineer: Giovani Aden DO Platelets (Bld) [#/Vol] 328 10*3/uL Normal 150-450 [facility] Comment on above: Performed By: #### B MPX, CDP, LIVP #### [facility] [address] [place] [address] Field Support Engineer: Giovani Aden DO RBC (Bld) [#/Vol] 3.53 10*6/uL Low 4.0-5.2 [facility] Comment on above: Performed By: #### B MPX, CDP, LIVP #### [facility] [address] [place] [address] Field Support Engineer: Giovani Aden DO WBC (Bld) [#/Vol] 7.5 10*3/uL Normal 3.5-11.0 [facility] Comment on above: Performed By: #### B MPX, CDP, LIVP #### [facility] [place] [address] Field Support Engineer: Giovani Aden DO Hepatic Function Panelon Albumin [Mass/Vol] 3.6 g/dL 3.5 - 5.2 g/dL [facility] ALP [Catalytic activity/Vol] 128 U/L High 35 - 104 U/L [facility] ALT [Catalytic activity/Vol] 52 U/L High 5 - 33 U/L [facility] AST [Catalytic activity/Vol] 42 U/L High NINF - 32 U/L [facility] Bilirubin [Mass/Vol] 0.4 mg/dL 0.3 - 1 .2 mg/dL [facility] Bilirubin.direct [Mass/Vol] 0.1 mg/dL NINF - 0.3 mg/dL [facility] Bilirubin.indirect [Mass/Vol] 0.3 mg/dL 0.0 - 1.0 mg/dL [facility] Interpretation and review of laboratory results Abnormal [facility] Protein [Mass/Vol] 6.2 g/dL Low 6.4 - 8.3 g/dL [facility] Liver Profileon 04-30-2023 Albumin [Mass/Vol] 3.6 g/dL Normal 3.5-5.2 [facility] Comment on above: Performed By: #### C DP, LIVP, BMPX #### [facility] [address] [facility] [place] [address] Field Support Engineer: Giovani Aden DO Alkaline Phos 128 U/L High 35-104 [facility] Comment on above: Performed By: #### C DP, LIVP, BMPX #### [facility] [address] [place] [address] Field Support Engineer: Giovani Aden DO ALT [Catalytic activity/Vol] 52 U/L High 5-33 [facility] Comment on above: Performed By: #### C DP, LIVP, BMPX #### [facility] [address] [facility] [place] [address] Field Support Engineer: Giovani Aden DO AST [Catalytic activity/Vol] 42 U/L High <32 [facility] Comment on above: Performed By: #### C DP, LIVP, BMPX #### [facility] [address] [place] [address] Field Support Engineer: Giovani Aden DO Bilirubin [Mass/Vol] 0.4 mg/dL Normal 0.3-1.2 [facility] Comment on above: Performed By: #### C DP, LIVP, BMPX #### [facility] [facility] [place] [address] Field Support Engineer: Giovani Aden DO Bilirubin, Indirect 0.3 mg/dL Normal 0.0-1.0 [facility] Comment on above: Performed By: #### C DP, LIVP, BMPX #### [facility] [facility] [place] [address] Field Support Engineer: Giovani Aden DO Bilirubin.indirect [Mass/Vol] 0.1 mg/dL Normal <0.3 [facility] Comment on above: Performed By: #### C DP, LIVP, BMPX #### [facility] [place] [address] Field Support Engineer: Giovani Aden DO Protein [Mass/Vol] 6.2 g/dL Low 6.4-8.3 [facility] Comment on above: Performed By: #### C DP, LIVP, BMPX #### [facility] [address] [place] [address] Field Support Engineer: Giovani Aden DO XR HIP LEFT (2-3 VIEWS)on XR HIP LEFT (2-3 VIEWS) EXAMINATION: TWO XRAY VIEWS OF THE LEFT HIP 04/29/2023 5:42 pm COMPARISON: None. HISTORY: ORDERING SYSTEM PROVIDED HISTORY: Patient with left hip pain, has history of cervical myelopathy with left greater than right-sided weakness, has not had x-rays of the left hip before, please evaluate TECHNOLOGIST PROVIDED HISTORY: Patient with left hip pain, has history of cervical myelopathy with left greater than right-sided weakness, has not had x-rays of the left hip before, please evaluate Reason for Exam: left hip pain with lateral motion x5 months FINDINGS: The hip demonstrates normal alignment. No evidence of acute fracture. Mild degenerative changes left hip. No focal osseus lesion. Pelvis is intact. IMPRESSION: No acute abnormality of the hip. Mild degenerative changes. Interpreted by: Meredith Iqbal MD Signed by: Meredith Iqbal MD 04/30/23 Final result Normal [facility] XR Hip - left 3 Viewson 04-12 No acute abnormality of the hip. Mild degenerative changes. [facility] RIS CONSOLIDATED EXAMINATION: TWO XRAY VIEWS OF THE LEFT HIP 04/29/2023 5:42 pm COMPARISON: None. HISTORY: ORDERING SYSTEM PROVIDED HISTORY: Patient with left hip pain, has history of cervical myelopathy with left greater than right-sided weakness, has not had x-rays of the left hip before, please evaluate TECHNOLOGIST PROVIDED HISTORY: Patient with left hip pain, has history of cervical myelopathy with left greater than right-sided weakness, has not had x-rays of the left hip before, please evaluate Reason for Exam: left hip pain with lateral motion x5 months FINDINGS: The hip demonstrates normal alignment. No evidence of acute fracture. Mild degenerative changes left hip. No focal osseus lesion. Pelvis is intact. [facility] RIS CONSOLIDATED Meredith Iqbal MD - 04/30/2023 EXAMINATION: TWO XRAY VIEWS OF THE LEFT HIP 04/29/2023 5:42 pm COMPARISON: None. HISTORY: ORDERING SYSTEM PROVIDED HISTORY: Patient with left hip pain, has history of cervical myelopathy with left greater than right-sided weakness, has not had x-rays of the left hip before, please evaluate TECHNOLOGIST PROVIDED HISTORY: Patient with left hip pain, has history of cervical myelopathy with left greater than right-sided weakness, has not had x-rays of the left hip before, please evaluate Reason for Exam: left hip pain with lateral motion x5 months FINDINGS: The hip demonstrates normal alignment. No evidence of acute fracture. Mild degenerative changes left hip. No focal osseus lesion. Pelvis is intact. IMPRESSION: No acute abnormality of the hip. Mild degenerative changes. [facility] XR Hip - left 3 ViewsOrdered By: Meredith Iqbal on 04-30-2023 [facility] Work Phone: XR Hip - left 3 Viewson 04-11 Radiology Study observation (narrative) [facility] Microscopic Urinalysison Bacteria LM Ql (Urine sed) None None [facility] Casts LM.LPF (Urine sed) [#/Area] 0 TO 2 Abnormal None /LPF [facility] Epithelial cells LM.HPF (Urine sed) [#/Area] 0 TO 2 /HPF [facility] Interpretation and review of laboratory results Abnormal [facility] RBC LM.HPF (Urine sed) [#/Area] 0 TO 2 0 TO 2 /HPF [facility] WBC LM.HPF (Urine sed) [#/Area] 6 TO 9 Abnormal 0 TO 5 /HPF [facility] UA w/Reflex Cultureon 2023 Bilirubin, SemiQt,Ur Negative Normal NEG [facility] Comment on above: Performed By: #### C DP, LIVP, BMPX #### [facility] [address] [place] [address] Field Support Engineer: Giovani Aden DO Blood, Urine Negative Normal NEG [facility] Comment on above: Performed By: #### C DP, LIVP, BMPX #### [facility] [address] [place] [address] Field Support Engineer: Giovani Aden DO Clarity (U) Clear Normal CLEAR [facility] Comment on above: Performed By: #### C DP, LIVP, BMPX #### [facility] [address] [place] [address] Field Support Engineer: Fanelly, Giovani, DO Color (U) Yellow Normal YEL [facility] Comment on above: Performed By: #### C DP, LIVP, BMPX #### [facility] [place] [address] Field Support Engineer: Giovani Aden, DO Glucose Ql (U) Negative Normal NEG [facility] Comment on above: Performed By: #### C DP, LIVP, BMPX #### [facility] [address] [place] [address] Field Support Engineer: Giovani Aden, DO Ketones Ql (U) Negative Normal NEG [facility] Comment on above: Performed By: #### C DP, LIVP, BMPX #### [facility] [address] [place] [address] Field Support Engineer: Giovani Aden DO Leukocyte esterase Test strip Ql (U) TRACE Abnormal NEG [facility] Comment on above: Performed By: #### C DP, LIVP, BMPX #### [facility] [address] [place] [address] Field Support Engineer: Giovani Aden, DO Nitrite,Ur Negative Normal NEG [facility] Comment on above: Performed By: #### C DP, LIVP, BMPX #### [facility] [address] [place] [address] Field Support Engineer: Giovani Aden, DO PH,Ur 6.0 Normal 5.0-8.0 [facility] Comment on above: Performed By: #### C DP, LIVP, BMPX #### [facility] [address] [place] [address] Field Support Engineer: Giovani Aden DO Protein Ql (U) Negative Normal NEG [facility] Comment on above: Performed By: #### C DP, LIVP, BMPX #### [facility] [address] [place] [address] Field Support Engineer: Giovani Aden DO Spec. [place],Ur 1.009 Normal 1.000-1.030 [facility] Comment on above: Performed By: #### C DP, LIVP, BMPX #### [facility] [address] [place] [address] Field Support Engineer: Giovani Aden DO Urobilinogen,Ur Normal Normal 0.0-1.0 [facility] Comment on above: Performed By: #### C DP, LIVP, BMPX #### [facility] [address] [place] [address] Field Support Engineer: Giovani Aden DO Urinalysis with Reflex to Cu ltureon 04-28-2023 Bilirubin Ql (U) Negative NEGATIVE [facility] Clarity (U) Clear Clear [facility] Color (U) Yellow Yellow [facility] Glucose Test strip (U) [Mass/Vol] Negative NEGATIVE mg/dL [facility] Hemoglobin Auto test strip Ql (U) Negative NEGATIVE [facility] Interpretation and review of laboratory results Abnormal [facility] Ketones (U) [Mass/Vol] Negative NEGATIVE mg/dL [facility] Leukocyte esterase Test strip Ql (U) TRACE Abnormal NEGATIVE [facility] Nitrite Ql (U) Negative NEGATIVE [facility] pH (U) 6.0 [pH] 5.0 - 8.0 [facility] Protein (U) [Mass/Vol] Negative NEGATIVE mg/dL [facility] Specific gravity (U) [Rel density] 1.009 1.000 - 1.030 [facility] Urobilinogen Qn (U) Normal 0.0 - 1. 0 EU/dL [facility] Urinalysis,Microon 4 Bacteria None Normal NONE [facility] Comment on above: Performed By: #### C DP, LIVP, BMPX #### [facility] [address] [facility] [place] [address] Field Support Engineer: Giovani Aden DO Casts 0 TO 2 Abnormal NONE [facility] Comment on above: Performed By: #### C DP, LIVP, BMPX #### [facility] [address] [facility] [place] [address] Field Support Engineer: Giovani Aden DO Epithelial cells LM Ql (Urine sed) 0 TO 2 Normal [facility] Comment on above: Performed By: #### C DP, LIVP, BMPX #### [facility] [address] [facility] [place] [address] Field Support Engineer: Giovani Aden DO Urine RBC's 0 TO 2 Normal 2 [facility] Comment on above: Performed By: #### C DP, LIVP, BMPX #### [facility] [address] [facility] [place] [address] Field Support Engineer: Giovani Aden DO Urine WBC's 6 TO 9 Abnormal R05 [facility] Comment on above: Performed By: #### C DP, LIVP, BMPX #### [facility] [address] [facility] [place] [address] Field Support Engineer: Giovani Aden DO Hepatic Function Panelon Albumin [Mass/Vol] 3.5 g/dL 3.5 - 5.2 g/dL [facility] ALP [Catalytic activity/Vol] 122 U/L High 35 - 104 U/L [facility] ALT [Catalytic activity/Vol] 64 U/L High 5 - 33 U/L [facility] AST [Catalytic activity/Vol] 36 U/L High [facility] - 32 U/L [facility] Bilirubin [Mass/Vol] 0.5 mg/dL 0.3 - 1 .2 mg/dL [facility] Bilirubin.direct [Mass/Vol] 0.1 mg/dL NINF - 0.3 mg/dL [facility] Bilirubin.indirect [Mass/Vol] 0.4 mg/dL 0.0 - 1.0 mg/dL [facility] Protein [Mass/Vol] 6.0 g/dL Low 6.4 - 8.3 g/dL [facility] Lipid Panelon 04-26-2023 Cholesterol [Mass/Vol] 160 mg/dL NINF - 200 mg/dL [facility] Comment on above: Cholesterol Guidelines: <200 Desirable 200-240 Borderline >240 Undesirable Cholesterol in HDL [Mass/Vol] 37 mg/dL Low 40 - PINF mg/dL [facility] Comment on above: HDL Guidelines: <40 Undesirable 40-59 Borderline >59 Desirable Cholesterol in LDL [Mass/Vol] 95 mg/dL 0 - 130 mg/dL [facility] Comment on above: LDL Guidelines: <100 Desirable 100-129 Near to/above Desirable 130-159 Borderline >159 Undesirable Direct (measured) LDL and calculated LDL are not interchangeable tests. Cholesterol.total/Cho lesterol in HDL [Mass ratio] 4.3 {ratio} NINF - 5 [facility] Triglyceride [Mass/Vol] 140 mg/dL NINF - 150 mg/dL [facility] Comment on above: Triglyceride Guidelines: <150 Desirable 150-199 Borderline 200-499 High >499 Very high Based on AHA Guidelines for fasting triglyceride, December 2011. Lipid Profileon 04-26-2023 Cholesterol [Mass/Vol] 160 mg/dL Normal <200 [facility] Comment on above: Result Comment: Cholesterol Guidelines: <200 Desirable 200-240 Borderline >240 Undesirable Performed By: #### C DP, LIVP, BMPX #### [facility] [address] [facility] [place] [address] Field Support Engineer: Giovani Aden DO Cholesterol in HDL [Mass/Vol] 37 mg/dL Low >40 [facility] Comment on above: Result Comment: HDL Guidelines: <40 Undesirable 40-59 Borderline >59 Desirable Performed By: #### C DP, LIVP, BMPX #### [facility] [address] [facility] [place] [address] Field Support Engineer: Giovani Aden DO Cholesterol in LDL [Mass/Vol] 95 mg/dL Normal 0-130 [facility] Comment on above: Result Comment: LDL Guidelines: <100 Desirable 100-129 Near to/above Desirable 130-159 Borderline >159 Undesirable Direct (measured) LDL and calculated LDL are not interchangeable tests. Performed By: #### C DP, LIVP, BMPX #### [facility] [address] [place] [address] Field Support Engineer: Giovani Aden DO Cholesterol.total/Cho lesterol in HDL [Mass ratio] 4.3 {ratio} Normal <5 [facility] Comment on above: Performed By: #### C DP, LIVP, BMPX #### [facility] [address] [place] [address] Field Support Engineer: Giovani Aden DO Triglyceride [Mass/Vol] 140 mg/dL Normal <150 [facility] Comment on above: Result Comment: Triglyceride Guidelines: <150 Desirable 150-199 Borderline 200-499 High >499 Very high Based on AHA Guidelines for fasting triglyceride, December 2011. Performed By: #### C DP, LIVP, BMPX #### [facility] [place] [address] Field Support Engineer: Giovani Aden DO Liver Profileon 04-26-2023 Albumin [Mass/Vol] 3.5 g/dL Normal 3.5-5.2 [facility] Comment on above: Performed By: #### C DP, LIVP, BMPX #### [facility] [address] [place] [address] Field Support Engineer: Giovani Aden DO Alkaline Phos 122 U/L High 35-104 [facility] Comment on above: Performed By: #### C DP, LIVP, BMPX #### [facility] [address] [place] [address] Field Support Engineer: Giovani Aden DO ALT [Catalytic activity/Vol] 64 U/L High 5-33 [facility] Comment on above: Performed By: #### C DP, LIVP, BMPX #### [facility] [address] [place] [address] Field Support Engineer: Giovani Aden DO AST [Catalytic activity/Vol] 36 U/L High <32 [facility] Comment on above: Performed By: #### C DP, LIVP, BMPX #### [facility] [address] [place] [address] Field Support Engineer: Giovani Aden DO Bilirubin [Mass/Vol] 0.5 mg/dL Normal 0.3-1.2 [facility] Comment on above: Performed By: #### C DP, LIVP, BMPX #### [facility] [facility] [place] [address] Field Support Engineer: Giovani Aden DO Bilirubin, Indirect 0.4 mg/dL Normal 0.0-1.0 [facility] Comment on above: Performed By: #### C DP, LIVP, BMPX #### [facility] [facility] [place] [address] Field Support Engineer: Giovani Aden DO Bilirubin.indirect [Mass/Vol] 0.1 mg/dL Normal <0.3 [facility] Comment on above: Performed By: #### C DP, LIVP, BMPX #### [facility] [address] [facility] [place] [address] Field Support Engineer: Giovani Aden DO Protein [Mass/Vol] 6.0 g/dL Low 6.4-8.3 [facility] Comment on above: Performed By: #### C DP, LIVP, BMPX #### [facility] [facility] [place] [address] Field Support Engineer: Giovani Aden DO No Panel Informationon 04-26 Interpretation and review of laboratory results Abnormal [facility] Basic Metabolic Panelon 04-11 Anion gap [Moles/Vol] 7 mmol/L Low 9 - 17 mmol/L [facility] Calcium [Mass/Vol] 8.8 mg/dL 8.6 - 10. 4 mg/dL [facility] Chloride [Moles/Vol] 102 mmol/L 98 - 10 7 mmol/L [facility] CO2 [Moles/Vol] 28 mmol/L 20 - 31 mmol/L [facility] Creatinine [Mass/Vol] 0.9 mg/dL 0.5 - 0.9 mg/dL [facility] GFR/1.73 sq M.predicted MDRD (S/P/Bld) [Vol rate/Area] - PINF [facility] Comment on above: These results are not intended for use in patients <18 years of age. eGFR results are calculated without a race factor using the 2020 CKD-EPI equation. Careful clinical correlation is recommended, particularly when comparing to results calculated using previous equations. The CKD-EPI equation is less accurate in patients with extremes of muscle mass, extra-renal metabolism of creatine, excessive creatine ingestion, or following therapy that affects renal tubular secretion. Glucose [Mass/Vol] 124 mg/dL High 70 - 99 mg/dL [facility] Interpretation and review of laboratory results Abnormal [facility] Potassium [Moles/Vol] 4.1 mmol/L 3.7 - 5.3 mmol/L [facility] Sodium [Moles/Vol] 137 mmol/L 135 - 144 mmol/L [facility] Urea nitrogen [Mass/Vol] 18 mg/dL 8 - 23 mg/dL [facility] Basic Metabolic Profon 04-25 Anion gap [Moles/Vol] 7 mmol/L Low 9-17 Pema cy [facility] Comment on above: Performed By: #### B MP #### [facility] [address] [place] [address] Field Support Engineer: Giovani Aden DO Calcium [Mass/Vol] 8.8 mg/dL Normal 8.6-10.4 [facility] Comment on above: Performed By: #### B MP #### [facility] [address] [place] [address] Field Support Engineer: Giovani Aden DO Chloride [Moles/Vol] 102 mmol/L Normal 98-107 [facility] Comment on above: Performed By: #### B MP #### [facility] [address] [place] [address] Field Support Engineer: Giovani Aden DO CO2 [Moles/Vol] 28 mmol/L Normal 20-31 [facility] Comment on above: Performed By: #### B MP #### [facility] [place] [address] Field Support Engineer: Giovani Aden DO Creatinine [Mass/Vol] 0.9 mg/dL Normal 0.5-0.9 [facility] Comment on above: Performed By: #### B MP #### [facility] [place] [address] Field Support Engineer: Giovani Aden DO GFR/1.73 sq M.predicted among non-blacks MDRD (S/P/Bld) [Vol rate/Area] mL/min/{1.73_m2} Normal >60 [facility] Comment on above: Result Comment: These results are not intended for use in patients <18 years of age. eGFR results are calculated without a race factor using the 2020 CKD-EPI equation. Careful clinical correlation is recommended, particularly when comparing to results calculated using previous equations. The CKD-EPI equation is less accurate in patients with extremes of muscle mass, extra-renal metabolism of creatine, excessive creatine ingestion, or following therapy that affects renal tubular secretion. Performed By: #### B MP #### [facility] [address] [facility]. [place], [place] [id number] Field Support Engineer: Giovani Aden DO Glucose [Mass/Vol] 124 mg/dL High 70-99 [facility] Comment on above: Performed By: #### B MP #### [facility] [address] [facility] [place] [address] Field Support Engineer: Giovani Aden DO Potassium [Moles/Vol] 4.1 mmol/L Normal 3.7-5.3 [facility] Comment on above: Performed By: #### B MP #### [facility] [address] [place] [address] Field Support Engineer: Giovani Aden DO Sodium [Moles/Vol] 137 mmol/L Normal 135-144 [facility] Comment on above: Performed By: #### B MP #### [facility] [address] [facility] [place] [address] Field Support Engineer: Giovani Aden DO Urea nitrogen [Mass/Vol] 18 mg/dL Normal 8-23 [facility] Comment on above: Performed By: #### B MP #### [facility] [place] [address] Field Support Engineer: Giovani Aden DO Glucose,Whole Bloodon 2023 Glucose [Mass/Vol] 92 mg/dL Normal 65-105 [facility] Glucose [Mass/Vol] 102 mg/dL Normal 65-105 [facility] POC Glucose Fingerstickon Glucose [Mass/Vol] 92 mg/dL 65 - 105 mg/dL [facility] Glucose [Mass/Vol] 102 mg/dL 65 - 105 mg/dL [facility] Basic Metabolic Panelon 04-11 Anion gap [Moles/Vol] 11 mmol/L 9 - 17 mmol/L [facility] Calcium [Mass/Vol] 9.8 mg/dL 8.6 - 10. 4 mg/dL [facility] Chloride [Moles/Vol] 97 mmol/L Low 98 - 10 7 mmol/L [facility] CO2 [Moles/Vol] 28 mmol/L 20 - 31 mmol/L [facility] Creatinine [Mass/Vol] 1.2 mg/dL High 0.5 - 0.9 mg/dL [facility] GFR/1.73 sq M.predicted MDRD (S/P/Bld) [Vol rate/Area] 51 mL/min/{1.73_m2} Low - PINF [facility] Comment on above: These results are not intended for use in patients <18 years of age. eGFR results are calculated without a race factor using the 2020 CKD-EPI equation. Careful clinical correlation is recommended, particularly when comparing to results calculated using previous equations. The CKD-EPI equation is less accurate in patients with extremes of muscle mass, extra-renal metabolism of creatine, excessive creatine ingestion, or following therapy that affects renal tubular secretion. Glucose [Mass/Vol] 100 mg/dL High 70 - 99 mg/dL [facility] Interpretation and review of laboratory results Abnormal [facility] Potassium [Moles/Vol] 4.5 mmol/L 3.7 - 5.3 mmol/L [facility] Sodium [Moles/Vol] 136 mmol/L 135 - 144 mmol/L [facility] Urea nitrogen [Mass/Vol] 20 mg/dL 8 - 23 mg/dL [facility] Basic Metabolic Profon 04-24 Anion gap [Moles/Vol] 11 mmol/L Normal 9-17 [facility] Comment on above: Performed By: #### C DP, LIVP, BMPX #### [facility] [address] [facility] [place] [address] Field Support Engineer: Giovani Aden DO Calcium [Mass/Vol] 9.8 mg/dL Normal 8.6-10.4 [facility] Comment on above: Performed By: #### C DP, LIVP, BMPX #### [facility] [address] [facility] [place] [address] Field Support Engineer: Giovani Aden DO Chloride [Moles/Vol] 97 mmol/L Low 98-107 [facility] Comment on above: Performed By: #### C DP, LIVP, BMPX #### [facility] [address] [place] [address] Field Support Engineer: Giovani Aden DO CO2 [Moles/Vol] 28 mmol/L Normal 20-31 [facility] Comment on above: Performed By: #### C DP, LIVP, BMPX #### [facility] [address] [facility] [place] [address] Field Support Engineer: Giovani Aden DO Creatinine [Mass/Vol] 1.2 mg/dL High 0.5-0.9 [facility] Comment on above: Performed By: #### C DP, LIVP, BMPX #### [facility] [address] [facility] [place] [address] Field Support Engineer: Giovani Aden DO GFR/1.73 sq M.predicted among non-blacks MDRD (S/P/Bld) [Vol rate/Area] 51 mL/min/{1.73_m2} Low >60 [facility] Comment on above: Result Comment: These results are not intended for use in patients <18 years of age. eGFR results are calculated without a race factor using the 2020 CKD-EPI equation. Careful clinical correlation is recommended, particularly when comparing to results calculated using previous equations. The CKD-EPI equation is less accurate in patients with extremes of muscle mass, extra-renal metabolism of creatine, excessive creatine ingestion, or following therapy that affects renal tubular secretion. Performed By: #### C DP, LIVP, BMPX #### [facility] [address] [facility] [place] [address] Field Support Engineer: Giovani Aden DO Glucose [Mass/Vol] 100 mg/dL High 70-99 [facility] Comment on above: Performed By: #### C DP, LIVP, BMPX #### [facility] [address] [place] [address] Field Support Engineer: Giovani Aden DO Potassium [Moles/Vol] 4.5 mmol/L Normal 3.7-5.3 [facility] Comment on above: Performed By: #### C DP, LIVP, BMPX #### [facility] [address] [place] [address] Field Support Engineer: Giovani Aden DO Sodium [Moles/Vol] 136 mmol/L Normal 135-144 [facility] Comment on above: Performed By: #### C DP, LIVP, BMPX #### [facility] [place] [address] Field Support Engineer: Giovani Aden DO Urea nitrogen [Mass/Vol] 20 mg/dL Normal 8-23 [facility] Comment on above: Performed By: #### C DP, LIVP, BMPX #### [facility] [place] [address] Field Support Engineer: Giovani Aden DO Basic Metab w/rfx MGon 04-23 Anion gap [Moles/Vol] 8 mmol/L Low 9-17 [facility] Comment on above: Performed By: #### C DP, LIVP, BMPX #### [facility] [facility] [place] [address] Field Support Engineer: Giovani Aden DO Calcium [Mass/Vol] 9.6 mg/dL Normal 8.6-10.4 [facility] Comment on above: Performed By: #### C DP, LIVP, BMPX #### [facility] [place] [address] Field Support Engineer: Giovani Aden DO Chloride [Moles/Vol] 101 mmol/L Normal 98-107 [facility] Comment on above: Performed By: #### C DP, LIVP, BMPX #### [facility] [address] [facility] [place] [address] Field Support Engineer: Giovani Aden DO CO2 [Moles/Vol] 29 mmol/L Normal 20-31 [facility] Comment on above: Performed By: #### C DP, LIVP, BMPX #### [facility] [address] [facility] [place] [address] Field Support Engineer: Giovani Aden DO Creatinine [Mass/Vol] 1.1 mg/dL High 0.5-0.9 [facility] Comment on above: Performed By: #### C DP, LIVP, BMPX #### [facility] [place] [address] Field Support Engineer: Giovani Aden DO GFR/1.73 sq M.predicted among non-blacks MDRD (S/P/Bld) [Vol rate/Area] 56 mL/min/{1.73_m2} Low >60 [facility] Comment on above: Result Comment: These results are not intended for use in patients <18 years of age. eGFR results are calculated without a race factor using the 2020 CKD-EPI equation. Careful clinical correlation is recommended, particularly when comparing to results calculated using previous equations. The CKD-EPI equation is less accurate in patients with extremes of muscle mass, extra-renal metabolism of creatine, excessive creatine ingestion, or following therapy that affects renal tubular secretion. Performed By: #### C DP, LIVP, BMPX #### [facility] [address] [facility] [place] [address] Field Support Engineer: Giovani Aden DO Glucose [Mass/Vol] 114 mg/dL High 70-99 [facility] Comment on above: Performed By: #### C DP, LIVP, BMPX #### [facility] [address] [facility] [place] [address] Field Support Engineer: Giovani Aden DO Potassium [Moles/Vol] 5.5 mmol/L High 3.7-5.3 [facility] Comment on above: Performed By: #### C DP, LIVP, BMPX #### [facility] [address] [place] [address] Field Support Engineer: Giovani Aden DO Sodium [Moles/Vol] 138 mmol/L Normal 135-144 [facility] Comment on above: Performed By: #### C DP, LIVP, BMPX #### [facility] [address] [facility] [place] [address] Field Support Engineer: Giovani Aden DO Urea nitrogen [Mass/Vol] 21 mg/dL Normal 8-23 [facility] Comment on above: Performed By: #### C DP, LIVP, BMPX #### [facility] [address] [facility] [place] [address] Field Support Engineer: Giovani Aden DO Basic Metabolic Panel w/ Ref chon to MGon 04-23-2023 Anion gap [Moles/Vol] 8 mmol/L Low 9 - 17 mmol/L [facility] Calcium [Mass/Vol] 9.6 mg/dL 8.6 - 10. 4 mg/dL [facility] Chloride [Moles/Vol] 101 mmol/L 98 - 10 7 mmol/L [facility] CO2 [Moles/Vol] 29 mmol/L 20 - 31 mmol/L [facility] Creatinine [Mass/Vol] 1.1 mg/dL High 0.5 - 0.9 mg/dL [facility] [employer] GFR/1.73 sq M.predicted MDRD (S/P/Bld) [Vol rate/Area] 56 mL/min/{1.73_m2} Low - PINF [facility] Comment on above: These results are not intended for use in patients <18 years of age. eGFR results are calculated without a race factor using the 2020 CKD-EPI equation. Careful clinical correlation is recommended, particularly when comparing to results calculated using previous equations. The CKD-EPI equation is less accurate in patients with extremes of muscle mass, extra-renal metabolism of creatine, excessive creatine ingestion, or following therapy that affects renal tubular secretion. Glucose [Mass/Vol] 114 mg/dL High 70 - 99 mg/dL [facility] Potassium [Moles/Vol] 5.5 mmol/L High 3.7 - 5.3 mmol/L [facility] Sodium [Moles/Vol] 138 mmol/L 135 - 144 mmol/L [facility] Urea nitrogen [Mass/Vol] 21 mg/dL 8 - 23 mg/dL [facility] CBC auto differentialon 04-11 Basophils (Bld) [#/Vol] 0.10 10*3/uL [facility] Basophils/100 WBC (Bld) 1 % 0 - 2 % [facility] Eosinophils (Bld) [#/Vol] 0.30 10*3/uL [facility] Eosinophils/100 WBC (Bld) 4 % 0 - 4 % [facility] Erythrocyte distribution width (RBC) [Ratio] 13.5 % 11.5 - 14.9 % [facility] Hematocrit (Bld) [Volume fraction] 34.1 % Low 36 - 46 % [facility] Hemoglobin (Bld) [Mass/Vol] 11.2 g/dL Low 12.0 - 16.0 g/dL [facility] Interpretation and review of laboratory results Abnormal [facility] Lymphocytes/100 WBC (Bld) 25 % 24 - 44 % [facility] Lymphocytes/100 WBC (Bld) 2.00 % [facility] MCH (RBC) [Entitic mass] 30.3 pg 26 - 34 pg [facility] MCHC (RBC) [Mass/Vol] 32.9 g/dL 31 - 37 g/dL [facility] MCV (RBC) [Entitic vol] 92.3 fL 80 - 100 fL [facility] Monocytes/100 WBC (Bld) 14 % High 1 - 7 % [facility] Monocytes/100 WBC (Bld) 1.20 % [facility] Neutrophils/100 WBC (Bld) 56 % 36 - 66 % [facility] Platelet mean volume (Bld) [Entitic vol] 8.2 fL 6.0 - 12.0 fL [facility] Platelets (Bld) [#/Vol] 276 10*3/uL [facility] RBC (Bld) [#/Vol] 3.70 10*6/uL Low 4.0 - 5.2 m/uL [facility] Segmented neutrophils/100 WBC (Bld) 4.50 % [facility] WBC other (Bld) [#/Vol] 8.1 [facility] CBC with Diffon 04-23-2023 Abs. Basophil 0.10 k/uL Normal 0.0-0.2 [facility] Comment on above: Performed By: #### C DP, LIVP, BMPX #### [facility] [address] [place] [address] Field Support Engineer: Giovani Aden DO Abs.Neutrophil (Seg) 4.50 k/uL Normal 1.3-9.1 [facility] Comment on above: Performed By: #### C DP, LIVP, BMPX #### [facility] [address] [place] [address] Field Support Engineer: Giovani Aden DO Basophils/100 WBC (Bld) 1 % Normal 0-2 [facility] Comment on above: Performed By: #### C DP, LIVP, BMPX #### [facility] [address] [place] [address] Field Support Engineer: Giovani Aden DO Eosinophils (Bld) [#/Vol] 0.30 10*3/uL Normal 0.0-0.4 [facility] Comment on above: Performed By: #### C DP, LIVP, BMPX #### [facility] [address] [place] [address] Field Support Engineer: Giovani Aden DO Eosinophils/100 WBC (Bld) 4 % Normal 0-4 [facility] Comment on above: Performed By: #### C DP, LIVP, BMPX #### [facility] [address] [place] [address] Field Support Engineer: Giovani Aden DO Erythrocyte distribution width (RBC) [Ratio] 13.5 % Normal 11.5-14.9 [facility] Comment on above: Performed By: #### C DP, LIVP, BMPX #### [facility] [address] [place] [address] Field Support Engineer: Giovani Aden DO Hematocrit (Bld) [Volume fraction] 34.1 % Low 36-46 [facility] Comment on above: Performed By: #### C DP, LIVP, BMPX #### [facility] [place] [address] Field Support Engineer: Giovani Aden DO Hemoglobin (Bld) [Mass/Vol] 11.2 g/dL Low 12.0-16.0 [facility] Comment on above: Performed By: #### C DP, LIVP, BMPX #### [facility] [place] [address] Field Support Engineer: Giovani Aden DO Lymphocytes (Bld) [#/Vol] 2.00 10*3/uL Normal 1.0-4.8 [facility] Comment on above: Performed By: #### C DP, LIVP, BMPX #### [facility] [place] [address] Field Support Engineer: Giovani Aden DO Lymphocytes/100 WBC (Bld) 25 % Normal 24-44 [facility] Comment on above: Performed By: #### C DP, LIVP, BMPX #### [facility] [address] [place] [address] Field Support Engineer: Giovani Aden DO MCH (RBC) [Entitic mass] 30.3 pg Normal 26-34 [facility] Comment on above: Performed By: #### C DP, LIVP, BMPX #### [facility] [address] [place] [address] Field Support Engineer: Giovani Aden DO MCHC (RBC) [Mass/Vol] 32.9 g/dL Normal 31-37 [facility] Comment on above: Performed By: #### C DP, LIVP, BMPX #### [facility] [place] [address] Field Support Engineer: Giovani Aden DO MCV (RBC) [Entitic vol] 92.3 fL Normal 80-100 [facility] Comment on above: Performed By: #### C DP, LIVP, BMPX #### [facility] [address] [place] [address] Field Support Engineer: Giovani Aden DO Monocytes (Bld) [#/Vol] 1.20 10*3/uL Normal 0.1-1.3 [facility] Comment on above: Performed By: #### C DP, LIVP, BMPX #### [facility] [address] [place] [address] Field Support Engineer: Giovani Aden DO Monocytes/100 WBC (Bld) 14 % High 1-7 [facility] Comment on above: Performed By: #### C DP, LIVP, BMPX #### [facility] [address] [place] [address] Field Support Engineer: Giovani Aden DO Neutrophil (Seg) 56 % Normal 36-66 [facility] Comment on above: Performed By: #### C DP, LIVP, BMPX #### [facility] [address] [place] [address] Field Support Engineer: Giovani Aden DO Platelet mean volume (Bld) [Entitic vol] 8.2 fL Normal 6.0-12.0 [facility] Comment on above: Performed By: #### C DP, LIVP, BMPX #### [facility] [address] [place] [address] Field Support Engineer: Giovani Aden DO Platelets (Bld) [#/Vol] 276 10*3/uL Normal 150-450 [facility] Comment on above: Performed By: #### C DP, LIVP, BMPX #### [facility] [address] [place] [address] Field Support Engineer: Giovani Aden DO RBC (Bld) [#/Vol] 3.70 10*6/uL Low 4.0-5.2 [facility] Comment on above: Performed By: #### C DP, LIVP, BMPX #### [facility] [address] [place] [address] Field Support Engineer: Giovani Aden DO WBC (Bld) [#/Vol] 8.1 10*3/uL Normal 3.5-11.0 [facility] Comment on above: Performed By: #### C DP, LIVP, BMPX #### [facility] [address] [place] [address] Field Support Engineer: Giovani Aden DO Glucose,Whole Bloodon 2023 Glucose [Mass/Vol] 138 mg/dL High 65-105 [facility] Hepatic Function Panelon Albumin [Mass/Vol] 3.5 g/dL 3.5 - 5.2 g/dL [facility] ALP [Catalytic activity/Vol] 122 U/L High 35 - 104 U/L [facility] ALT [Catalytic activity/Vol] 100 U/L High 5 - 33 U/L [facility] AST [Catalytic activity/Vol] 72 U/L High NINF - 32 U/L [facility] Bilirubin [Mass/Vol] 0.4 mg/dL 0.3 - 1 .2 mg/dL [facility] Bilirubin.direct [Mass/Vol] 0.1 mg/dL NINF - 0.3 mg/dL [facility] Bilirubin.indirect [Mass/Vol] 0.3 mg/dL 0.0 - 1.0 mg/dL [facility] Protein [Mass/Vol] 6.1 g/dL Low 6.4 - 8.3 g/dL [facility] Liver Profileon 04-23-2023 Albumin [Mass/Vol] 3.5 g/dL Normal 3.5-5.2 [facility] Comment on above: Performed By: #### C DP, LIVP, BMPX #### [facility] [address] [place] [address] Field Support Engineer: Giovani Aden DO Alkaline Phos 122 U/L High 35-104 [facility] Comment on above: Performed By: #### C DP, LIVP, BMPX #### [facility] [address] [place] [address] Field Support Engineer: Giovani Aden DO ALT [Catalytic activity/Vol] 100 U/L High 5-33 [facility] Comment on above: Performed By: #### C DP, LIVP, BMPX #### [facility] [address] [place] [address] Field Support Engineer: Giovani Aden DO AST [Catalytic activity/Vol] 72 U/L High <32 [facility] Comment on above: Performed By: #### C DP, LIVP, BMPX #### [facility] [address] [place] [address] Field Support Engineer: Giovani Aden DO Bilirubin [Mass/Vol] 0.4 mg/dL Normal 0.3-1.2 [facility] Comment on above: Performed By: #### C DP, LIVP, BMPX #### [facility] [address] [facility] [place] [address] Field Support Engineer: Giovani Aden DO Bilirubin, Indirect 0.3 mg/dL Normal 0.0-1.0 [facility] Comment on above: Performed By: #### C DP, LIVP, BMPX #### [facility] [address] [place] [address] Field Support Engineer: Giovani Aden DO Bilirubin.indirect [Mass/Vol] 0.1 mg/dL Normal <0.3 [facility] Comment on above: Performed By: #### C DP, LIVP, BMPX #### [facility] [address] [place] [address] Field Support Engineer: Giovani Aden DO Protein [Mass/Vol] 6.1 g/dL Low 6.4-8.3 [facility] Comment on above: Performed By: #### C ALEX, LIVP, BMPX #### [facility] [address] [place] [address] Field Support Engineer: Giovani Aden DO No Panel Informationon 04-23 Interpretation and review of laboratory results Abnormal [facility] POC Glucose Fingerstickon Glucose [Mass/Vol] 138 mg/dL High 65 - 105 mg/dL [facility] Interpretation and review of laboratory results Abnormal [facility] Basic Metab w/rfx MGon 04-17 Anion gap [Moles/Vol] 10 mmol/L Normal 9-17 [facility] Comment on above: Performed By: #### C DP, BMPX #### [address] [address] Field Support Engineer: Mark Hinds MD Calcium [Mass/Vol] 8.3 mg/dL Low 8.6-10.4 [facility] Comment on above: Performed By: #### C DP, BMPX #### [address] [address] Field Support Engineer: Mark Hinds MD Chloride [Moles/Vol] 106 mmol/L Normal 98-107 [facility] Comment on above: Performed By: #### C DP, BMPX #### [facility] [address] [place] [address] Field Support Engineer: Mark Hinds MD CO2 [Moles/Vol] 19 mmol/L Low 20-31 [facility] Comment on above: Performed By: #### C DP, BMPX #### [address] [address] Field Support Engineer: Mark Hinds MD Creatinine [Mass/Vol] 0.7 mg/dL Normal 0.5-0.9 [facility] Comment on above: Performed By: #### C DP, BMPX #### [address] [address] Field Support Engineer: Mark Hinds MD GFR/1.73 sq M.predicted among non-blacks MDRD (S/P/Bld) [Vol rate/Area] mL/min/{1.73_m2} Normal >60 [facility] Comment on above: Result Comment: These results are not intended for use in patients <18 years of age. eGFR results are calculated without a race factor using the 2020 CKD-EPI equation. Careful clinical correlation is recommended, particularly when comparing to results calculated using previous equations. The CKD-EPI equation is less accurate in patients with extremes of muscle mass, extra-renal metabolism of creatine, excessive creatine ingestion, or following therapy that affects renal tubular secretion. Performed By: #### C DP, BMPX #### [address] [id number] Field Support Engineer: Mark Hinds MD Glucose [Mass/Vol] 152 mg/dL High 70-99 [facility] Comment on above: Performed By: #### C DP, BMPX #### [facility] [place] [address] Field Support Engineer: Mark Hinds MD Potassium [Moles/Vol] 4.6 mmol/L Normal 3.7-5.3 [facility] Comment on above: Performed By: #### C DP, BMPX #### [facility] [address] [place] [address] Field Support Engineer: Mark Hinds MD Sodium [Moles/Vol] 135 mmol/L Normal 135-144 [facility] Comment on above: Performed By: #### C DP, BMPX #### [facility] [address] [place] [address] Field Support Engineer: Mark Hinds MD Urea nitrogen [Mass/Vol] 16 mg/dL Normal 8-23 [facility] Comment on above: Performed By: #### C DP, BMPX #### [facility] [address] [place] [address] Field Support Engineer: Mark Hinds MD Basic Metabolic Panel w/ Ref chon to MGon 04-17-2023 Anion gap [Moles/Vol] 10 mmol/L 9 - 17 mmol/L [facility] [employer] Calcium [Mass/Vol] 8.3 mg/dL Low 8.6 - 10. 4 mg/dL [facility] Chloride [Moles/Vol] 106 mmol/L 98 - 10 7 mmol/L [facility] CO2 [Moles/Vol] 19 mmol/L Low 20 - 31 mmol/L [facility] Creatinine [Mass/Vol] 0.7 mg/dL 0.5 - 0.9 mg/dL [facility] GFR/1.73 sq M.predicted MDRD (S/P/Bld) [Vol rate/Area] - PINF [facility] [employer] Comment on above: These results are not intended for use in patients <18 years of age. eGFR results are calculated without a race factor using the 2020 CKD-EPI equation. Careful clinical correlation is recommended, particularly when comparing to results calculated using previous equations. The CKD-EPI equation is less accurate in patients with extremes of muscle mass, extra-renal metabolism of creatine, excessive creatine ingestion, or following therapy that affects renal tubular secretion. Glucose [Mass/Vol] 152 mg/dL High 70 - 99 mg/dL [facility] Interpretation and review of laboratory results Abnormal [facility] Potassium [Moles/Vol] 4.6 mmol/L 3.7 - 5.3 mmol/L [facility] Sodium [Moles/Vol] 135 mmol/L 135 - 144 mmol/L [facility] Urea nitrogen [Mass/Vol] 16 mg/dL 8 - 23 mg/dL [facility] CBC with Auto Differentialon 04-17-2023 Basophils (Bld) [#/Vol] [facility] Basophils/100 WBC (Bld) 0 % 0 - 2 % [facility] Eosinophils (Bld) [#/Vol] [facility] Eosinophils/100 WBC (Bld) 0 % Low 1 - 4 % [facility] Erythrocyte distribution width (RBC) [Ratio] 12.6 % 11.8 - 14.4 % [facility] Hematocrit (Bld) [Volume fraction] 37.9 % 36.3 - 47.1 % [facility] Hemoglobin (Bld) [Mass/Vol] 12.4 g/dL 11.9 - 15.1 g/dL [facility] Immature granulocytes (Bld) [#/Vol] 0.11 10*3/uL [facility] Immature granulocytes/100 WBC (Bld) 1 % High 0 [facility] Interpretation and review of laboratory results Abnormal [facility] Lymphocytes/100 WBC (Bld) 11 % Low 24 - 43 % [facility] Lymphocytes/100 WBC (Bld) 1.15 % [facility] MCH (RBC) [Entitic mass] 30.6 pg 25.2 - 33.5 pg [facility] MCHC (RBC) [Mass/Vol] 32.7 g/dL 28.4 - 34.8 g/dL [facility] [employer] MCV (RBC) [Entitic vol] 93.6 fL 82.6 - 102.9 fL [facility] Monocytes/100 WBC (Bld) 3 % 3 - 12 % [email or web address] Monocytes/100 WBC (Bld) 0.29 % [facility] Neutrophils/100 WBC (Bld) 85 % High 36 - 65 % [facility] Nucleated RBC/100 WBC (Bld) [Ratio] 0.0 % 0.0 per 100 WBC [facility] SECLRN Platelet mean volume (Bld) [Entitic vol] 10.8 fL 8.1 - 13.5 fL [facility] SECLRN Platelets (Bld) [#/Vol] 206 10*3/uL [email or web address] RBC (Bld) [#/Vol] 4.05 10*6/uL 3.95 - 5.1 1 m/uL [facility] Segmented neutrophils/100 WBC (Bld) 8.85 % High [facility] WBC other (Bld) [#/Vol] 10.4 [facility] CBC with Diffon 04-17-2023 Abs. Basophil <0.03 Normal 0.00-0.20 [facility] Comment on above: Performed By: #### C DP, BMPX #### [facility] [address] [place] [address] Field Support Engineer: Mark Hinds MD Abs. Eosinophil <0.03 Normal 0.00-0.44 [facility] Comment on above: Performed By: #### C DP, BMPX #### [facility] [place] [address] Field Support Engineer: Mark Hinds MD Abs.Imm.Granulocyte 0.11 k/uL Normal 0.00-0.30 [facility] Comment on above: Performed By: #### C DP, BMPX #### [employer] [address] [place] [address] [phone] Field Support Engineer: Mark Hinds MD Abs.Neutrophil (Seg) 8.85 k/uL High 1.50-8.10 [facility] Comment on above: Performed By: #### C DP, BMPX #### [address] [address] Field Support Engineer: Mark Hinds MD Basophils/100 WBC (Bld) 0 % Normal 0-2 [facility] Comment on above: Performed By: #### C DP, BMPX #### [place] [address] Field Support Engineer: Mark Hinds MD Eosinophils/100 WBC (Bld) 0 % Low 1-4 [facility] Comment on above: Performed By: #### C DP, BMPX #### [place] [address] Field Support Engineer: Mark Hinds MD Erythrocyte distribution width (RBC) [Ratio] 12.6 % Normal 11.8-14.4 [facility] Comment on above: Performed By: #### C DP, BMPX #### [address] [address] Field Support Engineer: Mark Hinds MD Hematocrit (Bld) [Volume fraction] 37.9 % Normal 36.3-47.1 [facility] Comment on above: Performed By: #### C DP, BMPX #### [place] [address] Field Support Engineer: Mark Hinds MD Hemoglobin (Bld) [Mass/Vol] 12.4 g/dL Normal 11.9-15.1 [facility] Comment on above: Performed By: #### C DP, BMPX #### [facility] [address] [place] [address] Field Support Engineer: Mark Hinds MD Immature granulocytes/100 WBC (Bld) 1 % High 0 [facility] Comment on above: Performed By: #### C DP, BMPX #### [place] [address] Field Support Engineer: Mark Hinds MD Lymphocytes (Bld) [#/Vol] 1.15 10*3/uL Normal 1.10-3.70 [facility] Comment on above: Performed By: #### C DP, BMPX #### [place] [address] Field Support Engineer: Mark Hinds MD Lymphocytes/100 WBC (Bld) 11 % Low 24-43 [facility] Comment on above: Performed By: #### C DP, BMPX #### [place] [address] Field Support Engineer: Mark Hinds MD MCH (RBC) [Entitic mass] 30.6 pg Normal 25.2-33.5 [facility] Comment on above: Performed By: #### C DP, BMPX #### [place] [address] Field Support Engineer: Mark Hinds MD MCHC (RBC) [Mass/Vol] 32.7 g/dL Normal 28.4-34.8 [facility] Comment on above: Performed By: #### C DP, BMPX #### [place] [address] Field Support Engineer: Mark Hinds MD MCV (RBC) [Entitic vol] 93.6 fL Normal 82.6-102.9 [facility] Comment on above: Performed By: #### C DP, BMPX #### [place] [address] Field Support Engineer: Mark Hinds MD Monocytes (Bld) [#/Vol] 0.29 10*3/uL Normal 0.10-1.20 [facility] Comment on above: Performed By: #### C DP, BMPX #### [address] [address] Field Support Engineer: Mark Hinds MD Monocytes/100 WBC (Bld) 3 % Normal 3-12 [facility] Comment on above: Performed By: #### C DP, BMPX #### [address] [address] Field Support Engineer: Mark Hinds MD Neutrophil (Seg) 85 % High 36-65 [facility] Comment on above: Performed By: #### C DP, BMPX #### [address] [address] Field Support Engineer: Mark Hinds MD NRBC Automated 0.0 per 100 WBC Normal 0.0 [facility] Comment on above: Performed By: #### C DP, BMPX #### [address] [address] Field Support Engineer: Mark Hinds MD Platelet mean volume (Bld) [Entitic vol] 10.8 fL Normal 8.1-13.5 [facility] Comment on above: Performed By: #### C DP, BMPX #### [address] [address] Field Support Engineer: Mark Hinds MD Platelets (Bld) [#/Vol] 206 10*3/uL Normal 138-453 [facility] Comment on above: Performed By: #### C DP, BMPX #### [address] [address] Field Support Engineer: Mark Hinds MD RBC (Bld) [#/Vol] 4.05 10*6/uL Normal 3.95-5.11 [facility] Comment on above: Performed By: #### C DP, BMPX #### [address] [address] Field Support Engineer: Mark Hinds MD WBC (Bld) [#/Vol] 10.4 10*3/uL Normal 3.5-11.3 [facility] Comment on above: Performed By: #### C DP, BMPX #### [facility] [address] [place] [address] Field Support Engineer: Mark Hinds MD XR CERVICAL SPINE (2-3 VIEWS )on 04-17-2023 XR CERVICAL SPINE (2-3 VIEWS) EXAMINATION: 3 XRAY VIEWS OF THE CERVICAL SPINE 04/17/2023 9:40 am COMPARISON: None. HISTORY: ORDERING SYSTEM PROVIDED HISTORY: followup postop; [employer]PR[employer] AP AND LATERAL TECHNOLOGIST PROVIDED HISTORY: followup postop; [employer] AP [employer] LATER[employer] followup postop; [employer] Status post C3-6 decompression/fusio n Reason for Exam: aap and left lateral sitting uprt on stretcher FINDINGS: Posterior fixation extending from the C3 to the C6 level. Anterior cervical spine fixation extending from the C6 to the C7 level. Laminectomy defects at the C3 through C6 levels. There is reversal the normal cervical spine lordosis. Bridging osteophytes at multiple levels in the cervical spine. Vertebral body heights are maintained. Prevertebral soft tissues are within normal limits. IMPRESSION: Postsurgical change. No complication. Interpreted by: Jarad Villatoro MD Signed by: Jarad Villatoro MD 04/17/23 Final result Normal [facility] XR Cervical spine 2 or 3 Vie wson 04-17-2023 Postsurgical change. No complication. [facility] EXAMINATION: 3 XRAY VIEWS OF THE CERVICAL SPINE 04/17/2023 9:40 am COMPARISON: None. HISTORY: ORDERING SYSTEM PROVIDED HISTORY: followup postop; UPR[employer] AP AND LATERAL TECHNOLOGIST PROVIDED HISTORY: followup postop; [employer] AP [employer] LATER[employer] followup postop; [employer] LATER[employer] Status post C3-6 decompression/fusio n Reason for Exam: aap and left lateral sitting uprt on stretcher FINDINGS: Posterior fixation extending from the C3 to the C6 level. Anterior cervical spine fixation extending from the C6 to the C7 level. Laminectomy defects at the C3 through C6 levels. There is reversal the normal cervical spine lordosis. Bridging osteophytes at multiple levels in the cervical spine. Vertebral body heights are maintained. Prevertebral soft tissues are within normal limits. [facility] Jarad Villatoro MD - 04/17/2023 EXAMINATION: 3 XRAY VIEWS OF THE CERVICAL SPINE 04/17/2023 9:40 am COMPARISON: None. HISTORY: ORDERING SYSTEM PROVIDED HISTORY: followup postop; UPRIGHT AP AND LATERAL TECHNOLOGIST PROVIDED HISTORY: followup postop; [employer] AP [employer] LATERAL followup postop; [employer] AP [employer] LATERAL Status post C3-6 decompression/fusio n Reason for Exam: aap and left lateral sitting uprt on stretcher FINDINGS: Posterior fixation extending from the C3 to the C6 level. Anterior cervical spine fixation extending from the C6 to the C7 level. Laminectomy defects at the C3 through C6 levels. There is reversal the normal cervical spine lordosis. Bridging osteophytes at multiple levels in the cervical spine. Vertebral body heights are maintained. Prevertebral soft tissues are within normal limits. IMPRESSION: Postsurgical change. No complication. [facility] Radiology Study observation (narrative) [facility] [employer] XR Cervical spine 2 or 3 Vie wsOrdered By: Jarad Villatoro on 04-17-2023 [email or web address] [employer] Work Phone: [employer] SURGICAL PROCEDUR ESon 04-16-2023 [facility] Radiology exam is complete. No Radiologist dictation. Please follow up with ordering provider. Final result Normal [facility] Guidance-- during surgeryon 04-16-2023 Radiology exam is complete. No Radiologist dictation. Please follow up with ordering provider. [facility] Cult,Urineon 04-06-2023 Cult,Urine Specimen Description .CLEAN CATCH URINE Culture NO SIGNIFICANT GROWTH Report Status FINAL 04/06/2023 Normal [facility] Comment on above: Performed By: #### U RC #### [facility] [address] [place] [address] Field Support Engineer: Mark Hinds MD [facility] [address] [place] [address] Field Support Engineer: John Parkinson MD EKG 12 LeadOrdered By: Leonardo West on 04-05-2023 Atrial Rate 74 BPM [employer] [facility] Work Phone: P [place] 67 degrees [facility] [employer] Work Phone: P-R Interval 122 ms [place] [employer] Work Phone: Q-T Interval 420 ms [place] [employer] Work Phone: QRS Duration 102 ms [facility] [employer] Work Phone: QTc Calculation (Bazett) 466 ms [facility] [employer] Work Phone: R [place] -61 degrees [facility] [employer] Work Phone: T [place] 36 degrees [place] Work Phone: Ventricular Rate 74 BPM [facility] [employer] Work Phone: [facility] [employer] Work Phone: EKG 12 Leadon 04-05-2023 Normal sinus rhythm Left axis deviation Incomplete right bundle branch block Abnormal ECG No previous ECGs available [facility] Jem Erickson MD / Leonardo West MD - 04/05/2023 Normal sinus rhythm Left axis deviation Incomplete right bundle branch block Abnormal ECG No previous ECGs available [facility] [employer] APTTon 04-03-2023 aPTT Coag (Bld) [Time] 28.0 s [facility] Comment on above: IV Heparin Therapy Range: 66.0-92.0 sec aPTT Coag (Bld) [Time] 28.0 s Normal 23.0-36.5 [facility] Comment on above: Result Comment: IV Heparin Therapy Range: 66.0-92.0 sec Performed By: #### P TT, PT, CDP, BMP #### [employer] [place], [place] [phone] Field Support Engineer: Mark Hinds MD Basic Metabolic Panelon 03-12 Anion gap [Moles/Vol] 12 mmol/L 9 - 16 mmol/L [facility] [employer] Calcium [Mass/Vol] 9.7 mg/dL 8.6 - 10. 4 mg/dL [facility] Chloride [Moles/Vol] 105 mmol/L 98 - 10 7 mmol/L [facility] CO2 [Moles/Vol] 23 mmol/L 20 - 31 mmol/L [facility] Creatinine [Mass/Vol] 1.2 mg/dL High 0.50 - 0.90 mg/dL [facility] GFR/1.73 sq M.predicted MDRD (S/P/Bld) [Vol rate/Area] 53 mL/min/{1.73_m2} Low - PINF [facility] Comment on above: These results are not intended for use in patients <18 years of age. eGFR results are calculated without a race factor using the 2020 CKD-EPI equation. Careful clinical correlation is recommended, particularly when comparing to results calculated using previous equations. The CKD-EPI equation is less accurate in patients with extremes of muscle mass, extra-renal metabolism of creatine, excessive creatine ingestion, or following therapy that affects renal tubular secretion. Glucose [Mass/Vol] 90 mg/dL 74 - 99 mg/dL [facility] Interpretation and review of laboratory results Abnormal [facility] Potassium [Moles/Vol] 4.2 mmol/L 3.7 - 5.3 mmol/L [facility] Sodium [Moles/Vol] 140 mmol/L 136 - 145 mmol/L [facility] Urea nitrogen [Mass/Vol] 20 mg/dL 8 - 23 mg/dL [facility] Basic Metabolic Profon 04-03 Anion gap [Moles/Vol] 12 mmol/L Normal 9-16 [facility] Comment on above: Performed By: #### P TT, PT, CDP, BMP #### [employer] [address] [place] [address] Field Support Engineer: Mark Hinds MD Calcium [Mass/Vol] 9.7 mg/dL Normal 8.6-10.4 [facility] Comment on above: Performed By: #### P TT, PT, CDP, BMP #### [employer] [address] [place] [address] Field Support Engineer: Mark Hinds MD Chloride [Moles/Vol] 105 mmol/L Normal 98-107 [facility] Comment on above: Performed By: #### P TT, PT, CDP, BMP #### [facility] [address] [place] [address] Field Support Engineer: Mark Hinds MD CO2 [Moles/Vol] 23 mmol/L Normal 20-31 [facility] Comment on above: Performed By: #### P TT, PT, CDP, BMP #### [facility] [address] [place] [address] Field Support Engineer: Mark Hinds MD Creatinine [Mass/Vol] 1.2 mg/dL High 0.50-0.90 [facility] Comment on above: Performed By: #### P TT, PT, CDP, BMP #### [address] [address] Field Support Engineer: Mark Hinds MD GFR/1.73 sq M.predicted among non-blacks MDRD (S/P/Bld) [Vol rate/Area] 53 mL/min/{1.73_m2} Low >60 [facility] Comment on above: Result Comment: These results are not intended for use in patients <18 years of age. eGFR results are calculated without a race factor using the 2020 CKD-EPI equation. Careful clinical correlation is recommended, particularly when comparing to results calculated using previous equations. The CKD-EPI equation is less accurate in patients with extremes of muscle mass, extra-renal metabolism of creatine, excessive creatine ingestion, or following therapy that affects renal tubular secretion. Performed By: #### P TT, PT, CDP, BMP #### [facility] [address] [place] [address] Field Support Engineer: Mark Hinds MD Glucose [Mass/Vol] 90 mg/dL Normal 74-99 [facility] Comment on above: Performed By: #### P TT, PT, CDP, BMP #### [employer] [address] [place], [place] [phone] Field Support Engineer: Mark Hinds MD Potassium [Moles/Vol] 4.2 mmol/L Normal 3.7-5.3 [facility] Comment on above: Performed By: #### P TT, PT, CDP, BMP #### [employer] [address] [place] [phone] Field Support Engineer: Mark Hinds MD Sodium [Moles/Vol] 140 mmol/L Normal 136-145 [facility] Comment on above: Performed By: #### P TT, PT, CDP, BMP #### [employer] [address] [place] [address] Field Support Engineer: Mark Hinds MD Urea nitrogen [Mass/Vol] 20 mg/dL Normal 8-23 [facility] Comment on above: Performed By: #### P TT, PT, CDP, BMP #### [employer] [address] [place] [address] Field Support Engineer: Mark Hinds MD CBC with Auto Differentialon 04-03-2023 Basophils (Bld) [#/Vol] 0.06 10*3/uL [facility] Basophils/100 WBC (Bld) 1 % 0 - 2 % [facility] Eosinophils (Bld) [#/Vol] 0.19 10*3/uL [facility] Eosinophils/100 WBC (Bld) 2 % 1 - 4 % [facility] Erythrocyte distribution width (RBC) [Ratio] 12.8 % 11.8 - 14.4 % [facility] Hematocrit (Bld) [Volume fraction] 41.0 % 36.3 - 47.1 % [facility] Hemoglobin (Bld) [Mass/Vol] 13.9 g/dL 11.9 - 15.1 g/dL [facility] Immature granulocytes (Bld) [#/Vol] 0.06 10*3/uL [facility] Immature granulocytes/100 WBC (Bld) 1 % High 0 [facility] Interpretation and review of laboratory results Abnormal [facility] Lymphocytes/100 WBC (Bld) 28 % 24 - 43 % [facility] Lymphocytes/100 WBC (Bld) 2.19 % [facility] MCH (RBC) [Entitic mass] 30.1 pg 25.2 - 33.5 pg [facility] MCHC (RBC) [Mass/Vol] 33.9 g/dL 28.4 - 34.8 g/dL [facility] MCV (RBC) [Entitic vol] 88.7 fL 82.6 - 102.9 fL [facility] Monocytes/100 WBC (Bld) 9 % 3 - 12 % [facility] Monocytes/100 WBC (Bld) 0.71 % [facility] Neutrophils/100 WBC (Bld) 59 % 36 - 65 % [facility] Nucleated RBC/100 WBC (Bld) [Ratio] 0.0 % 0.0 per 100 WBC [facility] Platelet mean volume (Bld) [Entitic vol] 10.6 fL 8.1 - 13.5 fL [facility] Platelets (Bld) [#/Vol] 244 10*3/uL [facility] RBC (Bld) [#/Vol] 4.62 10*6/uL 3.95 - 5.1 1 m/uL [facility] Segmented neutrophils/100 WBC (Bld) 4.75 % [facility] WBC other (Bld) [#/Vol] 8.0 [facility] CBC with Diffon 04-03-2023 Abs. Basophil 0.06 k/uL Normal 0.00-0.20 [facility] Comment on above: Performed By: #### P TT, PT, CDP, BMP #### [employer] [address] [place] [address] Field Support Engineer: Mark Hinds MD Abs.Imm.Granulocyte 0.06 k/uL Normal 0.00-0.30 [facility] Comment on above: Performed By: #### P TT, PT, CDP, BMP #### [employer] [address] [place] [address] Field Support Engineer: Mark Hinds MD Abs.Neutrophil (Seg) 4.75 k/uL Normal 1.50-8.10 [facility] Comment on above: Performed By: #### P TT, PT, CDP, BMP #### [address] [address] Field Support Engineer: Mark Hinds MD Basophils/100 WBC (Bld) 1 % Normal 0-2 [facility] Comment on above: Performed By: #### P TT, PT, CDP, BMP #### [address] [address] Field Support Engineer: Mark Hinds MD Eosinophils (Bld) [#/Vol] 0.19 10*3/uL Normal 0.00-0.44 [facility] Comment on above: Performed By: #### P TT, PT, CDP, BMP #### [address] [address] Field Support Engineer: Mark Hinds MD Eosinophils/100 WBC (Bld) 2 % Normal 1-4 [facility] Comment on above: Performed By: #### P TT, PT, CDP, BMP #### [facility] [address] [place] [phone] Field Support Engineer: Mark Hinds MD Erythrocyte distribution width (RBC) [Ratio] 12.8 % Normal 11.8-14.4 [facility] Comment on above: Performed By: #### P TT, PT, CDP, BMP #### [facility] [address] [place] [phone] Field Support Engineer: Mark Hinds MD Hematocrit (Bld) [Volume fraction] 41.0 % Normal 36.3-47.1 [facility] Comment on above: Performed By: #### P TT, PT, CDP, BMP #### [facility] [address] [place] [address] Field Support Engineer: Mark Hinds MD Hemoglobin (Bld) [Mass/Vol] 13.9 g/dL Normal 11.9-15.1 [facility] Comment on above: Performed By: #### P TT, PT, CDP, BMP #### [address] [address] Field Support Engineer: Mark Hinds MD Immature granulocytes/100 WBC (Bld) 1 % High 0 [facility] Comment on above: Performed By: #### P TT, PT, CDP, BMP #### [address] [address] Field Support Engineer: Mark Hinds MD Lymphocytes (Bld) [#/Vol] 2.19 10*3/uL Normal 1.10-3.70 [facility] Comment on above: Performed By: #### P TT, PT, CDP, BMP #### [address] [address] Field Support Engineer: Mark Hinds MD Lymphocytes/100 WBC (Bld) 28 % Normal 24-43 [facility] Comment on above: Performed By: #### P TT, PT, CDP, BMP #### [address] [address] Field Support Engineer: Mark Hinds MD MCH (RBC) [Entitic mass] 30.1 pg Normal 25.2-33.5 [facility] Comment on above: Performed By: #### P TT, PT, CDP, BMP #### [address] [address] Field Support Engineer: Mark Hinds MD MCHC (RBC) [Mass/Vol] 33.9 g/dL Normal 28.4-34.8 [facility] Comment on above: Performed By: #### P TT, PT, CDP, BMP #### [facility] [address] [place] [address] Field Support Engineer: Mark Hinds MD MCV (RBC) [Entitic vol] 88.7 fL Normal 82.6-102.9 [facility] Comment on above: Performed By: #### P TT, PT, CDP, BMP #### [address] [address] Field Support Engineer: Mark Hinds MD Monocytes (Bld) [#/Vol] 0.71 10*3/uL Normal 0.10-1.20 [facility] Comment on above: Performed By: #### P TT, PT, CDP, BMP #### [address] [address] Field Support Engineer: Mark Hinds MD Monocytes/100 WBC (Bld) 9 % Normal 3-12 [facility] Comment on above: Performed By: #### P TT, PT, CDP, BMP #### [address] [address] Field Support Engineer: Mark Hinds MD Neutrophil (Seg) 59 % Normal 36-65 [facility] Comment on above: Performed By: #### P TT, PT, CDP, BMP #### [address] [address] Field Support Engineer: Mark Hinds MD NRBC Automated 0.0 per 100 WBC Normal 0.0 [facility] Comment on above: Performed By: #### P TT, PT, CDP, BMP #### [address] [address] Field Support Engineer: Mark Hinds MD Platelet mean volume (Bld) [Entitic vol] 10.6 fL Normal 8.1-13.5 [facility] Comment on above: Performed By: #### P TT, PT, CDP, BMP #### [address] [address] Field Support Engineer: Mark Hinds MD Platelets (Bld) [#/Vol] 244 10*3/uL Normal 138-453 [facility] Comment on above: Performed By: #### P TT, PT, CDP, BMP #### [facility] [place] [address] Field Support Engineer: Mark Hinds MD RBC (Bld) [#/Vol] 4.62 10*6/uL Normal 3.95-5.11 [facility] Comment on above: Performed By: #### P TT, PT, CDP, BMP #### [employer] [address] [place] [phone] Field Support Engineer: Mark Hinds MD WBC (Bld) [#/Vol] 8.0 10*3/uL Normal 3.5-11.3 [facility] Comment on above: Performed By: #### P TT, PT, CDP, BMP #### [employer] [address] [place] [address] Field Support Engineer: Mark Hinds MD Microscopic Urinalysison Epithelial cells LM.HPF (Urine sed) [#/Area] 0 TO 2 [facility] [employer] RBC LM.HPF (Urine sed) [#/Area] 0 TO 2 [facility] [employer] WBC LM.HPF (Urine sed) [#/Area] 20 TO 50 [facility] [employer] [email or web address]ERSinos[facility] Technology No Panel Informationon 04-03 [facility] [email or web address] [facility] PTon 04-03-2023 INR Coag (PPP) [Relative time] 1.1 {INR} Normal [facility] Comment on above: Result Comment: Therapeutic Range: Moderate Anticoagulant Intensity: INR = 2.0-3.0 High Anticoagulant Intensity: INR = 2.5-3.5 Performed By: #### P TT, PT, CDP, BMP #### [employer] [address] [place] [address] [phone] Field Support Engineer: Mark iHnds MD PT Coag (PPP) [Time] 13.8 s Normal 11.7-14.9 [facility] Comment on above: Performed By: #### P TT, PT, CDP, BMP #### [employer] [address] [id number] Field Support Engineer: Mark Hinds MD Protime-INRon 04-03-2023 INR Coag (PPP) [Relative time] 1.1 {INR} [facility] Comment on above: Therapeutic Range: Moderate Anticoagulant Intensity: INR = 2.0-3.0 High Anticoagulant Intensity: INR = 2.5-3.5 PT Coag (PPP) [Time] 13.8 s [facility] TYPE AND SCREENon 04-03-2023 ABO and Rh group Nom (Bld) Blood group A Rh(D) positive [facility] Arm Band Number BE [id number] [facility] Blood Bank Sample Expiration 04/19/2023,2359 [facility] Blood group antibodies identified Nom Negative [facility] Type + Screenon 04-03-2023 Type + Screen Sample Expiration 04/19/2023,2359 Arm Band Number BE [id number] ABO/Rh(D) A POSITIVE Antibody Screen NEGATIVE Normal [facility] Comment on above: Performed By: #### T YS ####[employer] [id number] [place], [place] [id number] Lab Director: Mark Hinds MD Urinalysison 04-03-2023 Bilirubin Ql (U) Negative NEGATIVE [facility] Clarity (U) Cloudy Abnormal Clear [facility] Color (U) Yellow Yellow [facility] Glucose Test strip (U) [Mass/Vol] Negative NEGATIVE mg/dL [facility] Hemoglobin Auto test strip Ql (U) TRACE Abnormal NEGATIVE [facility] Interpretation and review of laboratory results Abnormal [facility] Ketones (U) [Mass/Vol] TRACE Abnormal NEGATIVE mg/dL [facility] Leukocyte esterase Test strip Ql (U) MODERATE Abnormal NEGATIVE [facility] Nitrite Ql (U) Negative NEGATIVE [facility] pH (U) 5.5 [pH] 5.0 - 8.0 [facility] Protein (U) [Mass/Vol] Negative NEGATIVE mg/dL [facility] Specific gravity (U) [Rel density] 1.021 1.005 - 1.030 [facility] Urobilinogen Qn (U) Normal 0.0 - 1. 0 EU/dL [facility] Urinalysis, Routineon 2023 Bilirubin, SemiQt,Ur Negative Normal NEG [facility] Comment on above: Performed By: #### U A, UMICAO #### [facility] [address] [place] [address] Field Support Engineer: Mark Hinds MD Blood, Urine TRACE Abnormal NEG [facility] Comment on above: Performed By: #### U A, UMICAO #### [facility] [address] [place] [address] Field Support Engineer: Mark Hinds MD Clarity (U) Cloudy Abnormal CLEAR [facility] Comment on above: Performed By: #### U A, UMICAO #### [facility] [address] [place] [address] Field Support Engineer: Mark Hinds MD Color (U) Yellow Normal YEL [facility] Comment on above: Performed By: #### U A, UMICAO #### [facility] [address] [place] [address] Field Support Engineer: Mark Hinds MD Glucose Ql (U) Negative Normal NEG [facility] Comment on above: Performed By: #### U A, UMICAO #### [facility] [address] [place] [address]07 Field Support Engineer: Mark Hinds MD Ketones Ql (U) TRACE Abnormal NEG [facility] Comment on above: Performed By: #### U A, UMICAO #### [facility] [address] [place] [phone] Field Support Engineer: Mark Hinds MD Leukocyte esterase Test strip Ql (U) MODERATE Abnormal NEG [facility] Comment on above: Performed By: #### U AYULISSAO #### [address] [address] Field Support Engineer: Mark Hinds MD Nitrite,Ur Negative Normal NEG [facility] Comment on above: Performed By: #### U AYULISSAO #### [address] [address] Field Support Engineer: Mark Hinds MD PH,Ur 5.5 Normal 5.0-8.0 [facility] Comment on above: Performed By: #### YULISSA VelazquezO #### [address] [address] Field Support Engineer: Mark Hinds MD Protein Ql (U) Negative Normal NEG [facility] Comment on above: Performed By: #### YULISSA VelazquezO #### [address] [address] Field Support Engineer: Mark Hinds MD Spec. [place],Ur 1.021 Normal 1.005-1.030 [facility] Comment on above: Performed By: #### MARQUITA VelazquezICARosi #### [address] [address] Field Support Engineer: Mark Hinds MD Urobilinogen,Ur Normal Normal 0.0-1.0 [facility] Comment on above: Performed By: #### YULISSA VelazquezO #### [address] [address] Field Support Engineer: Mark Hinds MD Urinalysis,Microon 4 Epithelial cells LM Ql (Urine sed) 0 TO 2 Normal 0-5 [facility] Comment on above: Performed By: #### U A, UMICAO #### [facility] [address] [place], [place] [phone] Field Support Engineer: Mark Hinds MD Urine RBC's 0 TO 2 Normal 0-2 [facility] Comment on above: Performed By: #### U A, UMICAO #### [facility] [address] [place], [place] [phone] Field Support Engineer: Mark Hinds MD Urine WBC's 20 TO 50 Normal 0-5 [facility] Comment on above: Performed By: #### U A, UMICAO #### [facility] [address] [place], [place] [phone] Field Support Engineer: Mark Hinds MD MG MAMM SCREEN 3D MARCEL CADon 08-08-2022 MG MAMM SCREEN 3D MARCEL CAD Patient: MEDINA SENA Exam Date: 08/08/2022 : 1960 Gender:F 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 Dictated by: Steive Whelan M.D. on 08/08/2022 at 14:06 Approved by: Stevie Whelan M.D. on 08/08/2022 at 14:09 Normal [facility] CHEMISTRYOrdered By: SYSTEM SYSTEM on 02-09-2022 Albumin [...] (S/P/Bld) [Vol rate/Area] 55 mL/min/1.73 m2 Low >=59mL/min/1 .73 m2 [facility] Chem S GFR/1.73 sq M.predicted among non-blacks MDRD (S/P/Bld) [Vol rate/Area] 45 mL/min/1.73 m2 Low >=59mL/min/1 .73 m2 [facility] S Globulin (S) [Mass/Vol] 2.7 g/dL Normal 1.4 - 4.0 gm/dL [facility] Remisol Glucose [Mass/Vol] 87 mg/dL Normal 55 - 199 mg/dL [facility] Potassium [Moles/Vol] 4.0 mmol/L Normal 3.5 - 5.3 mmol/L [facility] Protein [Mass/Vol] 7.2 g/dL Normal 6.0 - 7.8 gm/dL [facility] Sodium [Moles/Vol] 137 mmol/L Normal 135 - 145 mmol/L [facility] Triglyceride [Mass/Vol] 116 mg/dL Normal <=149mg/dL [facility] TSH Qn 1.43 m[IU]/L Normal 0.34 - 5.60 mcIU/mL [facility] Urea nitrogen [Mass/Vol] 19 mg/dL Normal 5 - 21 mg/dL [facility] Urea nitrogen/Creatinine [Mass ratio] 16 mg/mg Normal 10 - 20 [facility] CHEMISTRYOrdered By: Kwasi Richardson on 02-09-2022 HbA1c (Bld) [Mass fraction] 5.2 % Normal <=5.9% [facility] HEMATOLOGYOrdered By: Dalton Ann on 02-09-2022 Erythrocyte distribution width (RBC) [Ratio] 13.4 % Normal 10.9 - 14.2 % [facility] HemeAutoSS Hematocrit (Bld) [Volume fraction] 39.4 % [...] 215.0 E9/L Normal 150.0 - 500.0 E9/L [facility]eAutoSS RBC (Bld) [#/Vol] 4.5 E12/L Normal 4.3 - 5.9 E12/L [facility] HemeAutoSS WBC corrected for nucl RBC Auto (Bld) [#/Vol] 5.9 E9/L Normal 4.0 - 11.0 E9/L [facility] HemeAutoSS Comprehensive Metabolic Pane molly 07-24-2021 Albumin [Mass/Vol] 4.7 g/dL Normal 3.6-5.1 [facility] Comment on above: Performed By: #### C MP, TSH reflex FT4, LIPD #### [facility] [address] [place], [place] [id number] Albumin/Globulin [Mass ratio] 2.4 {ratio} Normal 1.0-2.5 [facility] Comment on above: Performed By: #### C MP, TSH reflex FT4, LIPD #### [facility] [address], [place] [id number] ALP [Catalytic activity/Vol] 129 U/L High 35-119 [facility] Comment on above: Performed By: #### C MP, TSH reflex FT4, LIPD #### [facility] [address], [place] [id number] ALT [Catalytic activity/Vol] 11 U/L Normal 6-33 [facility] Comment on above: Result Comment: 02/08 Female reference range changed. Performed By: #### C MP, TSH reflex FT4, LIPD #### [facility] [address], [place] [id number] Anion gap [Moles/Vol] 18 mmol/L Normal 12-20 [facility] Specialist Comment on above: Result Comment: Effe ctive 03/16/2019 reference range changed. Performed By: #### C MP, TSH reflex FT4, LIPD #### [facility] [address], [place] [id number] AST [Catalytic activity/Vol] 12 U/L Normal 9-34 [facility] Comment on above: Performed By: #### C MP, TSH reflex FT4, LIPD #### [facility] [address], [place] [id number] Bilirubin [Mass/Vol] 1.09 mg/dL Normal 0.30-1.20 [facility] Comment on above: Performed By: #### C MP, TSH reflex FT4, LIPD #### [facility] [address], [place] [id number] BUN/CREA 14 Ratio Normal 6-22 [facility] Comment on above: Performed By: #### C MP, TSH reflex FT4, LIPD #### [facility] [address], [place] [id number] Calcium [Mass/Vol] 10.1 mg/dL Normal 8.6-10.2 [facility] Comment on above: Performed By: #### C MP, TSH reflex FT4, LIPD #### [facility] [address], [place] [id number] Chloride [Moles/Vol] 104 mmol/L Normal 98-107 [facility] Comment on above: Performed By: #### C MP, TSH reflex FT4, LIPD #### [facility] [address], [place] [id number] CO2 [Moles/Vol] 23 mmol/L Normal 20-31 [facility] Comment on above: Performed By: #### C MP, TSH reflex FT4, LIPD #### [facility] [address], [place] [id number] Creatinine [Mass/Vol] 1.1 mg/dL Normal 0.6-1.4 [facility] Comment on above: Performed By: #### C MP, TSH reflex FT4, LIPD #### [facility] [address], [place] [id number] eGFRAA 61 mL/min/1.73m2 Normal >60 [facility] Comment on above: Performed By: #### C MP, TSH reflex FT4, LIPD #### [facility] [address], [place] [id number] eGFRNAA 50 mL/min/1.73m2 Low >60 [facility] Veterinary Technician Comment on above: Performed By: #### C MP, TSH reflex FT4, LIPD #### [facility] [address], [place] [id number] Globulin (S) [Mass/Vol] 2.0 g/dL Normal 1.9-3.7 [facility] Veterinary Technician Comment on above: Performed By: #### C MP, TSH reflex FT4, LIPD #### [facility] [address], [place] [id number] Glucose [Mass/Vol] 90 mg/dL Normal 65-99 [facility] Veterinary Technician Comment on above: Result Comment: For FASTING Glucose --- ADA reference ranges: Normal 65-99 mg/dl Prediabetes 100-125 Diabetes >/= 126 Performed By: #### C MP, TSH reflex FT4, LIPD #### [facility] [address], [place] [id number] Potassium [Moles/Vol] 4.3 mmol/L Normal 3.5-5.5 [facility] Comment on above: Performed By: #### C MP, TSH reflex FT4, LIPD #### [facility] [address], [place] [id number] Protein [Mass/Vol] 6.7 g/dL Normal 6.1-8.1 [facility] Veterinary Technician Comment on above: Performed By: #### C MP, TSH reflex FT4, LIPD #### [facility] [address], [place] [id number] Sodium [Moles/Vol] 140 mmol/L Normal 135-146 [facility] Veterinary Technician Comment on above: Performed By: #### C MP, TSH reflex FT4, LIPD #### [facility] [address], [place] [id number] Urea nitrogen [Mass/Vol] 16 mg/dL Normal 7-25 [facility] Medicine Veterinary Technician Comment on above: Performed By: #### C MP, TSH reflex FT4, LIPD #### [facility] [address], [place] [id number] Lipid Panelon 07-24-2021 Cholesterol [Mass/Vol] 175 mg/dL Normal 125-200 [facility] Comment on above: Result Comment: Low risk < 200mg/dL Borderline risk 201-239 mg/dl High risk > or equal to 240 Performed By: #### C MP, TSH reflex FT4, LIPD #### [facility] [address], [place] [id number] Cholesterol in HDL [Mass/Vol] 48 mg/dL Normal >40 [facility] Comment on above: Result Comment: High Cardiovascular Risk HDL <40 mg/dL Low Cardiovascular Risk HDL > or equal to 60 mg/dl Performed By: #### C MP, TSH reflex FT4, LIPD #### [facility] [address], [place] [id number] Cholesterol in LDL [Mass/Vol] 97 mg/dL Normal [facility] Comment on above: Result Comment: LDL ATP III CLASSIFICATION LDL less than 100 mg/dl Optimal LDL 100-129 mg/dl Near or above optimal LDL 130-159 Borderline high LDL 160-189 High LDL greater than 189 mg/dl Very High Performed By: #### C MP, TSH reflex FT4, LIPD #### [facility] [address], [place] [id number] Cholesterol in VLDL [Mass/Vol] 30 mg/dL Normal [facility] Comment on above: Performed By: #### C MP, TSH reflex FT4, LIPD #### [facility] [address], [place] [id number] Cholesterol.total/Cho lesterol in HDL [Mass ratio] 4 {ratio} Normal [facility] Comment on above: Performed By: #### C MP, TSH reflex FT4, LIPD #### [facility] [address], [place] [id number] Triglyceride [Mass/Vol] 152 mg/dL High 30-150 [facility] Comment on above: Result Comment: TRIG ATPIII CLASSIFICATIONS TRIG less than 150 mg/dl Normal TRIG 150-199 mg/dl Borderline High TRIG 200-500 mg/dl High TRIG greather than 500 mg/dl Very High Performed By: #### C MP, TSH reflex FT4, LIPD #### [facility] [address] [facility] [place] [id number] Q - HEPATITIS C ANTIBODY W/R EFLEX TO HCV RNA,QUANT,RT-PCRon 07-24-2021 HEPATITIS C ANTIBODY Non-Reactive Normal NON-REACTIVE [facility] Comment on above: Order Comment: [facility] performed at: [employer], [facility], [address] [facility], [address] [place] [address], [phone], Neck Skewer: Mitch Shirley MD [facility] Date/Time: [facility] Results Received Date/Time: [facility] Reported Date/Time: Performed By: #### [id number] #### [facility] [address] [place] [address] SIGNAL TO CUT-OFF 0.01 Normal <1.00 [facility] Comment on above: Order Comment: [facility] performed at: [place], [facility], [address] [facility], [address] [place] [address], [address] [place] [address], Neck Skewer: Mitch Shirley MD [facility] Date/Time: [facility] Results Received Date/Time: [facility] Reported Date/Time: Result Comment: HCV antibody was non-reactive. There is no laboratory evidence of HCV infection. In most cases, no further action is required. However, if recent HCV exposure is suspected, a test for HCV RNA (test code 51275) is suggested. For additional information please refer to http://education.Forgame/faq/GTK43x4 (This link is being provided for informational/ educational purposes only.) Performed By: #### 8 [id number] #### [facility] [address] [place] [address] TSH w/ Reflex to Free T4on 0 07-24-2021 TSH 1.120 uIU/mL Normal 0.400-4.500 [facility] Medicine Veterinary Technician Comment on above: Performed By: #### C MP, TSH reflex FT4, LIPD #### [facility] [address] [place], [place] [id number] CHEMISTRYOrdered By: SYSTEM SYSTEM on 07-11-2021 Albumin [...] (S/P/Bld) [Vol rate/Area] 55 mL/min/1.73 m2 Low >=59mL/min/1 .73 m2 [facility] Chem S GFR/1.73 sq M.predicted among non-blacks MDRD (S/P/Bld) [Vol rate/Area] 46 mL/min/1.73 m2 Low >=59mL/min/1 .73 m2 [facility] Globulin (S) [Mass/Vol] [...] 230.0 E9/L Normal 150.0 - 500.0 E9/L [facility] HemeAutoSS RBC (Bld) [#/Vol] 4.5 E12/L Normal 4.3 - 5.9 E12/L [facility] HemeAutoSS WBC corrected for nucl RBC Auto (Bld) [#/Vol] 5.7 E9/L Normal 4.0 - 11.0 E9/L [facility] Vital Signs Date Time Vital Sign Value Performing Clinician Facility 06-08-2024 09:34-0400 Body height 157.5 cm Sonya Hemmer PA Work Phone: [facility] 06-08-2024 09:34-0400 Body mass index (BMI) [Ratio] 24 kg/m2 Sonya Hemmer PA Work Phone: [facility] 06-08-2024 09:34-0400 Body weight 59.51 kg Sonya Hemmer PA Work Phone: [facility] 06-08-2024 09:34-0400 Diastolic blood pressure 62 mm[Hg] Sonya Hemmer PA Work Phone: [facility] 06-08-2024 09:34-0400 Heart rate 73 /min Sonya Hemmer PA Work Phone: [facility] 06-08-2024 09:34-0400 Respiratory rate 16 /min Sonya Hemmer PA Work Phone: [facility] 06-08-2024 09:34-0400 SaO2% (BldA) [Mass fraction] 99 % Sonya Hemmer PA Work Phone: [facility] 06-08-2024 09:34-0400 Systolic blood pressure 96 mm[Hg] Sonya Hemmer PA Work Phone: [facility] 05-03-2023 11:45-0500 Body temperature 97.7 [degF] Joe Schilling MD Work Phone: [facility] 05-03-2023 11:45-0500 Diastolic blood pressure 66 mm[Hg] Joe Schilling MD Work Phone: [facility] 05-03-2023 11:45-0500 Heart rate 84 /min Joe Schilling MD Work Phone: [facility] [employer] 05-03-2023 11:45-0500 Respiratory rate 20 /min Joe Schilling MD Work Phone: [facility] [employer] 05-03-2023 11:45-0500 Systolic blood pressure 122 mm[Hg] Joe Schilling MD Work Phone: [facility] [employer] 05-02-2023 19:19-0500 SaO2% (BldA) [Mass fraction] 99 % Joe Schilling MD Work Phone: [facility] [employer] 04-23-2023 09:06-0500 Body height 157.5 cm Joe Schilling MD Work Phone: [facility] [employer] 04-22-2023 21:46-0500 Body mass index (BMI) [Ratio] 25.23 kg/m2 Joe Schilling MD Work Phone: [facility] [employer] 04-22-2023 21:46-0500 Body weight 62.6 kg Joe Schilling MD Work Phone: [facility] [employer] 04-22-2023 16:48-0500 Respiratory rate 20 /min Bev Ahammad DO Work Phone: [facility] [employer] 04-22-2023 12:00-0500 Heart rate 93 /min Bev Ahammad DO Work Phone: [facility] [employer] 04-22-2023 08:13-0500 Body temperature 98.6 [degF] Bev Ahammad DO Work Phone: [facility] [employer] 04-22-2023 08:13-0500 Diastolic blood pressure 78 mm[Hg] Bev Ahammad DO Work Phone: [facility] [employer] 04-22-2023 08:13-0500 SaO2% (BldA) [Mass fraction] 99 % Bev Ahammad DO Work Phone: [employer] 04-22-2023 08:13-0500 Systolic blood pressure 141 mm[Hg] Bev Ahammad DO Work Phone: [employer] 04-16-2023 09:02-0500 Body height 157.5 cm Bev Ahammad DO Work Phone: [employer] 04-16-2023 09:02-0500 Body mass index (BMI) [Ratio] 23.78 kg/m2 Bev Ahammad DO Work Phone: [employer] 04-16-2023 09:02-0500 Body weight 58.97 kg Bev Ahammad DO Work Phone: [employer] 04-03-2023 08:39-0500 Body height 157.5 cm [facility] [employer] 04-03-2023 08:39-0500 Body mass index (BMI) [Ratio] 23.78 kg/m2 [facility] [employer] 04-03-2023 08:39-0500 Body temperature 98.1 [degF] [facility] [employer] 04-03-2023 08:39-0500 Body weight 58.97 kg [facility]vz 1 [employer] 04-03-2023 08:39-0500 Diastolic blood pressure 77 mm[Hg] [facility] 1 [employer] 04-03-2023 08:39-0500 Heart rate 85 /min [facility] 1 [employer] 04-03-2023 08:39-0500 Respiratory rate 18 /min [facility] 1 [employer] 04-03-2023 08:39-0500 SaO2% (BldA) [Mass fraction] 98 % [facility] 1 [employer] 04-03-2023 08:39-0500 Systolic blood pressure 121 mm[Hg] Stvz 1 [employer] Encounters Encounter Date Encounter Type Care Provider Facility Start: 06-08-2024 End: 06-08-2024 Bamboo flowsheet Sonya MOORE Work Phone: [facility] Start: 06-08-2024 End: 06-08-2024 Bamboo flowsheet Sonya MOORE Work Phone: [facility] Start: 06-08-2024 End: 06-08-2024 Patient encounter procedure Sonya MOORE Work Phone: [facility] Comment on above: Medicare annual [facility] visit, subsequent (Primary Dx); ACP (advance care planning); Screening for malignant neoplasm of colon; Estrogen deficiency; Vitamin B6 deficiency; Other iron deficiency anemia; Abnormal findings on diagnostic imaging of liver and biliary tract; Hypertriglyceridemia (CMS/HCC); Neuropathy; Cervical disc disease with myelopathy; Hyperreflexia; Nonintractable 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 status epilepticus (CMS/HCC); Stenosis of cervical spine with myelopathy (CMS/HCC); Irritable bowel syndrome with alternating bowel habits; Atrophic vaginitis; Age-related osteoporosis without current pathological fracture (CMS/HCC); Narrowing of intervertebral disc space; Abnormal mammogram; Decreased estrogen level; History of hysterectomy; Major depressive disorder with single episode, in full remission (CMS/HCC); Panic disorder with agoraphobia (CMS/HCC); Status post bilateral salpingo-oophorectomy (BSO); Syncope and collapse; Encounter for screening mammogram for malignant neoplasm of breast; Bipolar disorder, current episode mixed, severe, with psychotic features (CMS/HCC); Multifocal motor neuropathy (CMS/HCC); Unspecified cord compression (CMS/HCC) Start: 06-08-2024 End: 06-08-2024 ambulatory SONYA DEWEY Not Available Start: 05-27-2024 ambulatory Salvador Schulte acility:[facility] Start: 05-25-2024 End: 05-25-2024 ambulatory CECI AMIN Facility:[facility] Start: 05-25-2024 End: 05-25-2024 Patient encounter procedure CECI AMIN [facility] Start: 09-06-2023 End: 09-06-2023 ambulatory CECI AMIN Facility:[facility] Start: 09-06-2023 End: 09-06-2023 Patient encounter procedure CECI AMIN [facility] Start: 08-12-2023 End: 08-14-2023 ambulatory BEV CECILIA [facility] Start: 06-25-2023 End: 11-09-2023 ambulatory BEV BROOKS Facility:[facility] Start: 06-06-2023 End: 06-09-2023 ambulatory [facility] Start: 06-06-2023 End: 06-08-2023 Subsequent hospital visit by physician Efraín Li MD Work Phone: [facility] Start: 04-22-2023 End: 05-03-2023 Evaluation and management of inpatient JOEREN SCHILLING [facility] Start: 04-22-2023 End: 05-03-2023 Evaluation and management of inpatient Joe Schilling MD Work Phone: [facility] Acute Rehab Comment on above: Cervical disc diseas e with myelopathy (Primary Dx); Acute post-operative pain; 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) Start: 04-16-2023 End: 04-22-2023 Evaluation and management of inpatient Bev Brooks DO Work Phone: [address] Neuro ICU Comment on above: Acute post-operative pain (Primary Dx) Start: 04-05-2023 End: 04-06-2023 [facility] Start: 04-05-2023 End: 04-05-2023 Subsequent hospital visit by physician Efraín Li MD Work Phone: [facility] Comment on above: Abnormal urinalysis Start: 04-03-2023 End: 04-07-2023 ambulatory EFRAÍN LI [facility] Start: 04-03-2023 End: 04-07-2023 Encounter for other preprocedural examination EFRAÍN LI [facility] Start: 04-03-2023 End: 04-07-2023 Subsequent hospital visit by physician Simi Pat Rm 1 SIMI Pre-Admit Testing Start: 08-08-2022 ambulatory MANFRED ESPINOSA Facility : Start: 02-09-2022 End: 02-09-2022 Patient encounter procedure [facility] Start: 07-11-2021 End: 07-11-2021 Patient encounter procedure [facility] Procedures Date Procedure Procedure Detail Performing Clinician Start: 04-30-2023 BASIC METABOLIC PANEL W/ REFLEX TO MG FOR LOW K Qamar Blackman MD Work Phone: Start: 04-30-2023 Blood count complete auto&auto difrntl wbc Qamar Blackman MD Work Phone: Start: 04-30-2023 Hepatic function panel Joe Schilling MD Work Phone: Start: 04-29-2023 Radex hip unilateral with pelvis 2-3 views Genny Meng MD Work Phone: Start: 04-28-2023 Urinalysis microscopic only Cortney Rebollar MD Work Phone: Start: 04-28-2023 Urnls dip stick/tablet rgnt auto w/o microscopy Cortney Rebollar MD Work Phone: Start: 04-26-2023 Lipid panel Joe Schilling MD Work Phone: Start: 04-25-2023 Glucose blood reagent strip Joe Schilling MD Work Phone: Start: 04-25-2023 Basic metabolic panel calcium total Dylon Anthony MD Work Phone: Start: 04-24-2023 End: 04-24-2023 Basic metabolic panel calcium total Dylon Anthony MD Work Phone: Start: 04-23-2023 Glucose blood reagent strip Joe Schilling MD Work Phone: Start: 04-23-2023 BASIC METABOLIC PANEL W/ REFLEX TO MG FOR LOW K Qamar Blackman MD Work Phone: Start: 04-23-2023 Blood count complete auto&auto difrntl wbc Qamar Blackman MD Work Phone: Start: 04-23-2023 Hepatic function panel Qamar Blackman MD Work Phone: Start: 04-17-2023 Radex spine cervical 2 or 3 views Aurelio Mason PA-C Work Phone: Start: 04-17-2023 BASIC METABOLIC PANEL W/ REFLEX TO MG FOR LOW K Bev Ahammad DO Work Phone: Start: 04-17-2023 Blood count complete auto&auto difrntl wbc Bev Ahammad DO Work Phone: Start: 04-16-2023 Fluoroscopy during operation Bev Ahammad DO Work Phone: Start: 04-16-2023 End: 04-16-2023 Arthrodesis pst/pstlat cervical belw c2 sgm Bev Ahammad DO Work Phone: Start: 04-03-2023 Ecg routine ecg w/least 12 lds i&r only Milo Hernandez MD Work Phone: Start: 04-03-2023 Urinalysis microscopic only Bev Ahammad DO Work Phone: Start: 04-03-2023 Urnls dip stick/tablet rgnt auto w/o microscopy Bev Ahammad DO Work Phone: Start: 04-03-2023 Basic metabolic panel calcium total Bev Ahammad DO Work Phone: Start: 04-03-2023 Blood typing serologic abo Bev Ahamma d DO Work Phone: Start: 11-21-2022 H/O: hysterectomy History of hysterectomy Sonya Dewey PA Work Phone: Start: 08-08-2022 Mammography Sonya Dewey PA Work Phone: Abdominal hysterectomy SHURA BRENNAN Appendectomy SHURA BRENNAN Cholecystectomy SHURA BRENNAN H/O: hysterectomy History of hysterectomy Sonya Dewey PA Work Phone: Neck structure (body structure) SHURA BRENNAN Tonsillectomy SHURA BRENNAN Plan of Treatment Date Care Activity Detail Author Start: 04-26-2028 Lipid panel Lipids [facility] Start: 06-08-2025 Medicare Annual Wellness (AWV) Medicare Annual Wellness (AWV) [facility] Start: 08-14-2024 Screening for malignant neoplasm of colon [facility] Start: 06-08-2024 End: 08-08-2025 DBT Breast - bilateral screening Bilateral screening mammogram with tomosynthesis Imaging Routine Encounter for screening mammogram for malignant neoplasm of breast Expected: 06/08/2024, Expires: 08/08/2025 [facility] Comment on above: Expected: 06/08/2024, Expires: Start: 06-08-2024 End: 06-08-2025 DXA Skeletal system Views for bone density DEXA bone density Imaging Routine Estrogen deficiency Expected: 06/08/2024, Expires: 06/08/2025 [facility] Comment on above: Expected: 06/08/2024, Expires: Start: 06-08-2024 End: 06-08-2025 Noninvasive colorectal cancer DNA and occult blood screening [Presence] in Stool Cologuard colon cancer screening Lab Routine Screening for malignant neoplasm of colon Expected: 06/08/2024 (Approximate), Expires: 06/08/2025 [facility] [employer] Work Phone: Comment on above: Expected: 06/08/2024 (Approximate), Expi res: 06/08/2025 Start: 06-08-2024 End: 06-08-2025 Vitamin B6 Vitamin B6 Lab Routine Medicare annual wellness visit, subsequent Vitamin B6 deficiency Expected: 06/08/2024 (Approximate), Expires: 06/08/2025 [facility] Comment on above: Expected: 06/08/2024 (Approximate), Expi res: 06/08/2025 Start: 06-08-2024 End: 06-08-2024 Patient encounter procedure 06/08/2024 9:30 AM EDT Office Visit [facility] [address] [facility] [address] [place] [address] Sonya Dewey PA [address] [facility] [address] [place] [address] Arrived [facility] Comment on above: Arrived Start: 04-30-2024 GFR test (Diabetes, CKD 3-4, OR last GFR 15-59) GFR test (Diabetes, CKD 3-4, OR last GFR 15-59) [facility] Start: 04-03-2024 GFR test (Diabetes, CKD 3-4, OR last GFR 15-59) GFR test (Diabetes, CKD 3-4, OR last GFR 15-59) [facility] Start: 11-10-2023 Influenza vaccination Influenza Vaccine (#1) [facility] Start: 08-17-2023 Pneumococcal Vaccine: 65+ Years (1 of 1 - PCV) Pneumococcal Vaccine: 65+ Years (1 of 1 - PCV) [facility] Start: 08-09-2023 Screening for malignant neoplasm of breast Mammogram [facility] Start: 08-04-2023 Screening for malignant neoplasm of breast Breast cancer screen [facility] Start: 06-26-2023 End: 06-26-2023 Patient encounter procedure 06/26/2023 3:00 PM EDT Office Visit [facility] [address] [place] [id number] Genny Meng MD [address] [place] [id number] [facility] Start: 06-12-2023 End: 06-12-2023 Patient encounter procedure 06/12/2023 10:00 AM EDT Office Visit [facility] [place] [address], [address] [place] [phone] Bev Brooks DO [address] [place] [phone] 8 wk post op [facility] Comment on above: 8 wk post op Start: 05-06-2023 End: 05-06-2023 Patient encounter procedure 05/06/2023 10:30 AM EST Office Visit [facility] [place] [address], [address] [place] [phone] Hector Cruz, MEDIA EXECUTIVE - OBSTETRICS SCRUB NURSE [address] [place] [address] 2 wk post op-ahammad [facility] Comment on above: 2 wk post op-ahammad Start: 05-03-2023 End: 05-03-2023 Patient encounter procedure 05/03/2023 9:00 AM EST Office Visit [facility] [place] [address], [address] [place] [phone] Hector Cruz, MEDIA EXECUTIVE - OBSTETRICS SCRUB NURSE [address] [place] [address] 2 wk post op-ahammad [facility] Comment on above: 2 wk post op-ahammad Start: 04-16-2023 End: 04-16-2023 Admission to same day surgery center 04/16/2023 10:40 AM EST - 04/16/2023 1:50 PM EST Surgery [facility] [address] [place], [place] [id number] Bev Brooks, DO [address] [facility] [address] [place] [address] C3-7 POSTERIOR CERVICAL DECOMPRESSION FUSION ( DEBORA SPINE TABLE, PRONE, PRABHAKAR HEADHOLDER, C-ARM, SYNTHES) [facility] Comment on above: C3-7 POSTERIOR CERVICAL DECOMPRESSION FU EVARISTO ( DEBORA SPINE TABLE, PRONE, PRABHAKAR HEADHOLDER, C-ARM, SYNTHES) Start: 04-16-2023 End: 04-16-2023 Arthrodesis pst/pstlat cervical belw c2 sgm CERVICAL LAMINECTOMY FUSION 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) 04/16/2023 10:40 AM [facility] Start: 04-16-2023 Subsequent hospital visit by physician 04/16/2023 10:40 AM [facility] Hospital Encounter [facility] [address] [place] [address] Bev Brooks, [address] [facility] [address] [place] [phone] [facility] Start: 03-11-2023 Annual Wellness Visit (Medicare Advantage) Annual Wellness Visit (Medicare Advantage) [facility] Start: 11-09-2022 COVID-19 Vaccine ( season) COVID-19 Vaccine ( season) [facility] Start: 10-09-2022 Influenza vaccination Flu vaccine (#1) [facility] Start: 2018 Respiratory Syncytial Virus (RSV) or age 60 yrs+ (1 - 1-dose 60+ series) Respiratory Syncytial Virus (RSV) or age 60 yrs+ (1 - 1-dose 60+ series) [facility] Start: 03-11-2007 DTaP/Tdap/Td vaccine (2 - Td or Tdap) DTaP/Tdap/Td vaccine (2 - Td or Tdap) [facility] Start: 08-17-2003 Screening for malignant neoplasm of colon [facility] Start: 1998 Lipid panel Lipids [facility] Start: 1976 Hepatitis C screening Hepatitis C screen [employer] Start: 1973 HIV screening HIV screen [facility] Start: 1970 Depression Screen Depression Screen [facility] Start: 1958 Medicare Annual Wellness (AWV) Medicare Annual Wellness (AWV) [facility] Start: 1958 Screening for malignant neoplasm of colon [facility] End: 05-14-2023 Basic Metabolic Panel w/ Reflex to MG Basic Metabolic Panel w/ Reflex to MG Lab Routine Weekly for 4 Occurrences starting 04/23/2023 until 05/14/2023, 2 completed [employer] Comment on above: Weekly for 4 Occurrences starting 2023 until 05/14/2023, 2 completed End: 05-14-2023 CBC W Auto Differential panel - Blood CBC auto differential Lab Routine Weekly for 4 Occurrences starting 04/23/2023 until 05/14/2023, 2 completed [employer] Comment on above: Weekly for 4 Occurrences starting 2023 until 05/14/2023, 2 completed CBC W Auto Differential panel - Blood CBC and differential Lab Routine Medicare annual wellness visit, subsequent Vitamin B6 deficiency Other iron deficiency anemia Ordered: 06/08/2024 [facility] Comment on above: Ordered: 06/08/2024 Comprehensive metabolic 2000 panel - Serum or Plasma Comprehensive metabolic panel Lab Routine Medicare annual wellness visit, subsequent Abnormal findings on diagnostic imaging of liver and biliary tract Hypertriglyceridemia (CMS/HCC) Ordered: 06/08/2024 [facility] Comment on above: Ordered: 06/08/2024 End: 04-05-2023 Culture, Urine [employer] Work Phone: Comment on above: 1 Occurrences starting 04/05/2023 until 04/05/2023 Intermittent pulse oximetry Pulse Oximetry Spot Check Respiratory Care Routine As Needed until discontinued starting 04/22/2023 [employer] Comment on above: As Needed until discontinued starting Iron + transferrin + TIBC Iron + transferrin + TIBC Lab Routine Medicare annual wellness visit, subsequent Other iron deficiency anemia Ordered: 06/08/2024 [facility] Comment on above: Ordered: 06/08/2024 Lipid 1996 panel - Serum or Plasma Lipid panel Lab Routine Medicare annual wellness visit, subsequent Abnormal findings on diagnostic imaging of liver and biliary tract Hypertriglyceridemia (CMS/HCC) Ordered: 06/08/2024 [facility] Comment on above: Ordered: 06/08/2024 Nasal Cannula oxygen Nasal Cannu la oxygen Respiratory Care Routine As Needed until discontinued starting 04/22/2023 [employer] Comment on above: As Needed until discontinued starting Oxygen therapy [Minimum Data Set] Initiate Oxygen Therapy Protocol Respiratory Care Routine As Needed until discontinued starting 04/16/2023 [employer] Comment on above: As Needed until discontinued starting Oxygen therapy [Minimum Data Set] Initiate Oxygen Therapy Protocol Respiratory Care Routine Daily until discontinued starting 04/22/2023 [employer] Comment on above: Daily until discontinued starting 2023 Spirometry panel Incentive fox metry Respiratory Care Routine Every 2hr while awake until discontinued starting 04/16/2023 [employer] Comment on above: Every 2hr while awake until discontinued starting 04/16/2023 Spirometry panel Incentive fox metry Respiratory Care Routine Every 2hr while awake until discontinued starting 04/22/2023 [employer] Comment on above: Every 2hr while awake until discontinued starting 04/22/2023 Immunizations Immunization Date Immunization Notes Care Provider Vidhya sims 10-10-2022 zoster vaccine recombinant Sonya Hemmer PA Work Phone: [facility] 08-15-2022 zoster vaccine recombinant Sonya Hemmer PA Work Phone: [facility] 01-06-2019 influenza, injectabl e, quadrivalent, contains preservative Sonya Hemmer PA Work Phone: [facility] 01-06-2019 influenza virus vaccine, unspecified formulation Sonya Hemmer PA Work Phone: [facility] 01-10-2018 influenza, injectabl e, quadrivalent, preservative free Sonya Hemmer PA Work Phone: [facility] 12-05-2016 seasonal influenza, intradermal, preservative free Sonya Hemmer PA Work Phone: [facility] 05-22-2016 influenza, seasonal, injectable SHURA BRENNAN [facility] Comment on above: Early/Late Reason: N ew Med Order 12-09-2014 influenza, seasonal, injectable, preservative free Sonya Hempema PA Work Phone: [facility] 03-23-2014 influenza, injectabl e, quadrivalent, contains preservative Sonya Hemmer PA Work Phone: [facility] 03-25-2013 influenza, seasonal, injectable Sonya Hemmer PA Work Phone: [facility] 03-11-1997 tetanus toxoid, redu akua diphtheria toxoid, and acellular pertussis vaccine, adsorbed Sonya Hemmer PA Work Phone: [facility] Payers Date Payer Category Payer Unknown 2022 Self-pay 2022 Medicare (Managed Care) [employer] [id number] 1959 Medicare [id number] 1958 Unknown [id number]. 2.593 1958 Unknown [id number] [id number]. 2.176 1958 Unknown [id number] [id number]. 2.174 1958 Unknown [id number] [id number]. 2.174 1958 Unknown [id number] 2.16.840.1.511546.3.579. 2.174 1958 Unknown [id number] 2.16.840.1.876105.3.579. 2.175 1958 Unknown [id number] 2.16.840.1.005778.3.579. 2.175 1958 Unknown [id number] 2.16.840.1.233752.3.579. 2.175 1958 Unknown [id number] 2.16.840.1.525930.3.579. 2.175 1958 Unknown [id number] 2.16.840.1.829691.3.579. 2.727 1958 Unknown [id number] 2.16.840.1.447961.3.579. 2.727 1958 Unknown [id number] 2.16.840.1.087924.3.579. 2.727 1958 Unknown [id number] 2.16.840.1.660503.3.579. 2.1259 Unknown [id number] [id number]. 2.531 Social History Date Type Detail Facility Tobacco Never smoker [facility] Comment on above: [employer] Start: 12-16-2022 End: 04-03-2023 Sex Assigned At Female [facility] Tobacco smoking status No Smokin g Status Entered [facility] Start: 11-21-2022 End: 04-03-2023 Tobacco smoking status NHIS Never smoked tobacco [employer] Start: 11-21-2022 End: 04-03-2023 Tobacco use and exposure Smokeless tobacco non-user [employer] Start: 04-03-2023 End: 05-06-2023 Alcohol intake Ex-drinker (finding) [employer] Start: 12-16-2022 End: 04-03-2023 History of Social function [employer] [facility] Start: 04-03-2023 Alcohol Comment rare [facility] Start: 1960 Sex Assigned At Not on file B ON [employer] Has the [employer], [employer], [employer], or water company threatened to shut off services in your home in past 12Mo No [employer] How often to you hav e a drink containing alcohol? Monthly or less [employer] How many standard dr inks containing alcohol do you have on a typical day? 1 or 2 [employer] How often do you hav e 6 or more drinks on 1 occasion? Less than monthly [employer] (I/We) worried wheelio er (my/our) food would run out before (I/we) got money to buy more. Never true [employer] In the past 12 month s, has lack of transportation kept you from medical appointments or from getting medications? No [employer] Start: 04-18-2023 End: 06-08-2024 Alcoholic beverage intake Lifetime non-drinker (finding) [facility] Are you now , , , , never or living with a partner? [facility] How often do you hav e 6 or more drinks on 1 occasion? Never [facility] How hard is it for y ou to pay for the very basics like food, housing, medical care, and heating Not very hard [facility] Do you feel stress - tense, restless, nervous, or anxious, or unable to sleep at night because your mind is troubled all the time - these days [OSQ] Only a little [facility] Medical Equipment Procedure Code Equipment Code Equipment Origin al Text Equipment Identifier Dates Vikash Spnl Lordoti c 4x55mm Ti Alloy Non-Sterile Symphony - [id number] Start: 04-16-2023 Graft Bne Sub Sm 1ml Cryopreserved Viable Alden Canc Bne - [id number] Start: 04-16-2023 Screw Spnl 3.5x1 4mm Symphony - [id number] Start: 04-16-2023 Screw Spinal F/Symphony Oct System - [id number] Start: 04-16-2023 Clinical Notes 03-27-2023 to 06-08-2024 SonyaOSCAR Hurt - 06/08/2024 9:30 AM Leonie Dee, [employer]ED LUMBER GRADER - 05/03/2023 11:54 AM Jose Gutiérrez - 05/02/2023 4:48 PM Eunice Ibarra PTA - 05/02/2023 3:14 PM Raquel Bowman [facility] Note Date & Type Note Facility 06-08-2024 History of Present illness Narrative Images from the original note were not included. Subjective Patient ID: Medina Sena is a 63 y.o. female who presents for Medicare Annual Wellness Visit Subsequent. HPI Medicare Wellness Over the past 2 weeks, how often have you been bothered by any of the following problems? Little interest or pleasure in doing things: Not at all (currently on medication) Feeling down, depressed, or hopeless: Not at all Patient Health Questionnaire-2 Score: 0 Over the past 2 weeks, how often have you been bothered by any of the following problems? Trouble falling or staying asleep, or sleeping too much: Not at all Feeling tired or having little energy: Not at all Poor appetite or overeating: Not at all Feeling bad about yourself - or that you are a failure or have let yourself or your family down: Not at all Trouble concentrating on things, such as reading the newspaper or watching television: Not at all Moving or speaking so slowly that other people could have noticed? Or the opposite - being so fidgety or restless that you have been moving around a lot more than usual.: Not at all Thoughts that you would be better off or hurting yourself in some way: Not at all Patient Health Questionnaire-9 Score: 0 Valdes Fall Risk History of Falling, Immediate or Within 3 Months: No Health Risk Assessment Form Do you need help eating, bathing, using the toilet, dressing, or getting around your home?: No Can you prepare your own meals?: Yes Can you do your own housework without help?: Yes Can you shop for groceries or clothes without help?: Yes Do you exercise for about 20 minutes 3 or more days a week?: Yes How confident are you that you can control and manage most of your health problems?: Very confident Can you mange your money, credit cards and accounts, pay bills and taxes?: Yes Vision Screening: Yes, no gross abnormalities Hearing Screening: Yes, no gross abnormalities Cognitive Screening Self Assessment: No overt cognitive deficiency is apparent by direct observation Three Word Registration: Village, Kitchen, Baby Clock Drawing: Normal Clock - 2 Three Word Recall: 1/3 words correct - 1 Total Score (0-5 Points): 3 Pain Assessment Pain Score: 0 - No pain Advance Care Planning Do you have a living will?: Yes Do you have a medical power of corporate attorney?: Yes Current Outpatient Medications on File Prior to Visit Medication Sig Dispense Refill buPROPion XL (Wellbutrin XL) 150 MG 24 hr tablet Take 150 mg by mouth in the morning. ergocalciferol (Vitamin D2) 1.25 MG (45473 UT) capsule Take 1 capsule by mouth 1 (one) time per week. escitalopram (Lexapro) 20 MG tablet Take 20 mg by mouth in the morning. Latuda 80 MG tablet Take 80 mg by mouth in the evening. Take with meals. No current facility-administered medications on file prior to visit. I have reviewed and reconciled the history and medication list with the patient today. No Known Allergies Social History Tobacco Use Smoking status: Never Smokeless tobacco: Never Vaping Use Vaping status: Never Used Substance Use Topics Alcohol use: Never Family History Problem Relation Name Age of Onset Hypertension Father Diabetes Father Past Medical History: Diagnosis Date Anxiety Breast lump Depression (CMS/HCC) Diverticulosis Gallbladder disease Inflammatory bowel disease Migraine Past Surgical History: Procedure Laterality Date APPENDECTOMY BREAST BIOPSY Left 2009 CERVICAL FUSION 04/16/2023 C3-C6 Decompession & Fusion CHOLECYSTECTOMY COLONOSCOPY 2011 diverticulosis HYSTERECTOMY SPINE SURGERY TONSILLECTOMY Visit Vitals BP 96/62 Pulse 73 Resp 16 Ht 5' 2 Wt 131 lb 3.2 oz SpO2 99% BMI 24.00 kg/m Smoking Status Never BSA 1.61 m Review of Systems Constitutional: Negative for chills, fatigue and fever. HENT: Negative for congestion, ear pain, rhinorrhea and sore throat. Eyes: Negative for pain, discharge and visual disturbance. Respiratory: Negative for cough, shortness of breath and wheezing. Cardiovascular: Negative for chest pain, palpitations and leg swelling. Gastrointestinal: Negative for abdominal pain, constipation, diarrhea, nausea and vomiting. Genitourinary: Negative for difficulty urinating, dysuria and frequency. Musculoskeletal: Negative for arthralgias and back pain. Skin: Negative for rash. Neurological: Negative for dizziness and numbness. Psychiatric/Behavioral: Negative for sleep disturbance. The patient is not nervous/anxious. Objective Physical Exam Constitutional: General: She is not in acute distress. Appearance: Normal appearance. She is well-developed. HENT: Head: Normocephalic and atraumatic. Right Ear: Tympanic membrane and ear canal normal. Left Ear: Tympanic membrane and ear canal normal. Nose: Nose normal. Mouth/Throat: Mouth: Mucous membranes are moist. Pharynx: No posterior oropharyngeal erythema. Eyes: General: No scleral icterus. Extraocular Movements: Extraocular movements intact. Conjunctiva/sclera: Conjunctivae normal. Pupils: Pupils are equal, round, and reactive to light. Neck: Vascular: No carotid bruit. Cardiovascular: Rate and Rhythm: Normal rate and regular rhythm. Heart sounds: Normal heart sounds. No murmur heard. Pulmonary: Effort: Pulmonary effort is normal. No respiratory distress. Breath sounds: Normal breath sounds. No wheezing, rhonchi or rales. Abdominal: General: Bowel sounds are normal. There is no distension. Palpations: Abdomen is soft. Tenderness: There is no abdominal tenderness. There is no guarding. Musculoskeletal: General: No swelling or deformity. Normal range of motion. Cervical back: Normal range of motion and neck supple. No tenderness. Skin: General: Skin is warm and dry. Capillary Refill: Capillary refill takes less than 2 seconds. Findings: No rash. Neurological: General: No focal deficit present. Mental Status: She is alert and oriented to person, place, and time. Cranial Nerves: No cranial nerve deficit. Sensory: No sensory deficit. Motor: No weakness. Gait: Gait normal. Deep Tendon Reflexes: Reflexes normal. Psychiatric: Mood and Affect: Mood normal. Behavior: Behavior normal. Thought Content: Thought content normal. Judgment: Judgment normal. Assessment & Plan 1. Medicare annual wellness visit, subsequent (Primary) Reviewed all relevant preventative screenings with the patient in detail. Medicare Wellness form completed and will be scanned into patient's chart. All needed testing was ordered. Will continue with yearly Medicare Wellness exams. - CBC and differential - Comprehensive metabolic panel - Iron + transferrin + TIBC - Lipid panel - Vitamin B6 2. ACP (advance care planning) Patient willing to discuss ACP. Pt has Living Will and DPOA in place. 3. Screening for malignant neoplasm of colon ,Provided patient with order to complete Cologuard testing as a screening for colon cancer. If results are negative, will plan to recheck a Cologuard in 3 years. If results are positive, would need to provide patient with referral for a screening Colonoscopy for further evaluation. - Cologuard colon cancer screening 4. Estrogen deficiency This is a chronic medical condition that is stable since last assessment. Will continue to monitor with routine screenings. - DEXA bone density; Future 5. Vitamin B6 deficiency This is a chronic medical condition that is stable since last assessment. Will continue to monitor with routine labs. - CBC and differential - Vitamin B6 6. Other iron deficiency anemia This is a chronic medical condition that is stable since last assessment. Will continue to monitor with routine labs. - CBC and differential - Iron + transferrin + TIBC 7. Abnormal findings on diagnostic imaging of liver and biliary tract This is a chronic medical condition that is stable since last assessment. Will continue to monitor with routine labs. - Comprehensive metabolic panel - Lipid panel 8. Hypertriglyceridemia (CMS/HCC) This is a chronic medical condition that is stable since last assessment. Will continue to monitor with routine labs. - Comprehensive metabolic panel - Lipid panel 9. Neuropathy The patient is seeing a medical practice assistant for this condition, treatment is deferred to that specialist. Correspondence from that specialist and any available testing were reviewed during today's visit. 10. Cervical disc disease with myelopathy The patient is seeing a medical practice assistant for this condition, treatment is deferred to that specialist. Correspondence from that specialist and any available testing were reviewed during today's visit. 11. Hyperreflexia The patient is seeing a medical practice assistant for this condition, treatment is deferred to that specialist. Correspondence from that specialist and any available testing were reviewed during today's visit. 12. Nonintractable 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 status epilepticus (CMS/HCC) The patient is seeing a medical practice assistant for this condition, treatment is deferred to that specialist. Correspondence from that specialist and any available testing were reviewed during today's visit. 13. Stenosis of cervical spine with myelopathy (CMS/HCC) The patient is seeing a medical practice assistant for this condition, treatment is deferred to that specialist. Correspondence from that specialist and any available testing were reviewed during today's visit. 14. Irritable bowel syndrome with alternating bowel habits This is a chronic medical condition that is stable since last assessment. No medication needed at this time. Will monitor. 15. Atrophic vaginitis This is a chronic medical condition that is stable since last assessment. No medication needed at this time. Will monitor. 16. Age-related osteoporosis without current pathological fracture ([facility]/HCC) This is a chronic medical condition that is stable since last assessment. Will continue to monitor with routine screenings. 17. Narrowing of intervertebral disc space The patient is seeing a medical practice assistant for this condition, treatment is deferred to that specialist. Correspondence from that specialist and any available testing were reviewed during today's visit. 18. Abnormal mammogram 08/08/2022 Mammogram was negative/benign. Will continue to monitor with routine mammograms. 19. Decreased estrogen level This is a chronic medical condition that is stable since last assessment. Will continue to monitor with routine screenings. 20. History of hysterectomy Patient is s/p hysterectomy. Denies concerns at this time. 21. Major depressive disorder with single episode, in full remission ([facility]) The patient is seeing a medical practice assistant for this condition, treatment is deferred to that specialist. Correspondence from that specialist and any available testing were reviewed during today's visit. 22. Panic disorder with agoraphobia ([facility]) The patient is seeing a medical practice assistant for this condition, treatment is deferred to that specialist. Correspondence from that specialist and any available testing were reviewed during today's visit. 23. Status post bilateral salpingo-oophorectomy (BSO) Patient is s/p BSO. Denies concerns at this time. 24. Syncope and collapse The patient is seeing a medical practice assistant for this condition, treatment is deferred to that specialist. Correspondence from that specialist and any available testing were reviewed during today's visit. 25. Encounter for screening mammogram for malignant neoplasm of breast Provided patient with an order for an updated Mammogram. If results are negative/normal, will plan to continue with routine yearly screenings. - Bilateral screening mammogram with tomosynthesis; Future 26. Bipolar disorder, current episode mixed, severe, with psychotic features ([facility]) The patient is seeing a medical practice assistant for this condition, treatment is deferred to that specialist. Correspondence from that specialist and any available testing were reviewed during today's visit. 27. Multifocal motor neuropathy ([facility]) The patient is seeing a medical practice assistant for this condition, treatment is deferred to that specialist. Correspondence from that specialist and any available testing were reviewed during today's visit. 28. Unspecified cord compression (CMS/HCC) The patient is seeing a medical practice assistant for this condition, treatment is deferred to that specialist. Correspondence from that specialist and any available testing were reviewed during today's visit. Follow up in about 1 year (around 06/08/2025) for Medicare Wellness Visit, Fasting Labs. Sonya OLSEN PA-C documented in this encounter [facility] 05-03-2023 History of Present illness Narrative Images from the original note were not included. ACUTE INPATIENT REHABILITATION DISCHARGE [facility] Patient Name: Medina Sena Patient discharged in stable condition as per order of attending physician. AVS provided by nurse at time of discharge, which includes all necessary medical information pertaining to the patients current course of illness, treatment, medications, post-discharge goals of care, and treatment preferences. Provision of Current Reconciled Medication List to Patient at Discharge Indicate the route(s) of transmission of the current reconciled medication list to the patient/family/caregiver. Paper Based (e.g. fax, copies, print outs) Availability of My Chart offered to patient as a tool for updated health record. Steps for activation discussed with patient as mentioned on AVS. Patient/responsible democrat verbalize understanding of discharge plan and are in agreement with goal/plan/treatment preferences. Belongings including Glasses sent with patient/responsible democrat. Home medications sent home with patient/responsible democrat NA Car Transfer Level of assistance required for patient transfer into vehicle: INDEPENDENT: Patient completes the activity by him/herself with no assistance from a helper High-Risk Drug Classes: Use and Indication Check if the patient is taking any medications by pharmacological classification If yes, check if there is an indication noted for all meds in the drug class Antipsychotic No If yes: indication noted? [] If no indication noted, follow up with provider for order clarification Anticoagulant Yes If yes: indication noted? [] Antibiotic No If yes: indication noted? [] Opioid Yes If yes: indication noted? [] Antiplatelet No If yes: indication noted? [] Hypoglycemic (Including Insulin) No If yes: indication noted? [] Pain Assessment Over the past 5 days, how much of the time has pain made it hard for you to sleep at night? Rarely or not at all Over the past 5 days, how often have you limited your participation in rehabilitation therapy sessions due to pain? Rarely or not at all Over the past 5 days, how often have you limited your day-to-day activities (excluding rehabilitation therapy session)? Rarely or not at all Special Treatments, Procedures, and Programs Check all of the following treatments, procedures, and programs that apply on admission. Cancer Treatments Chemotherapy No If Yes, Check All That Apply []IV Chemotherapy []Oral Chemotherapy [] Chemotherapy Radiation No Respiratory Therapies Oxygen Therapy No If Yes, Check All That Apply []Continuous []Intermittent []High-Concentration Suctioning No If Yes, Check All That Apply []Scheduled []As Needed Tracheostomy Care No Invasive Mechanical Ventilator (Ventilator or Respirator) No If Yes, Check All That Apply [] Non-invasive Mechanical Ventilator []BiPAP []CPAP Other IV Medications No If Yes, Check All That Apply [] IV Vasoactive Medications []IV Antibiotics []IV Anticoagulation [] IV Medications Transfusions No Dialysis No If Yes, Check All That Apply []Hemodialysis [] Dialysis IV Access No If Yes, Check All That Apply []Peripheral []Midline [] (PICC, tunneled, port) 05/02/23 1648 Encounter Summary Encounter Overview/Reason Volunteer Encounter Service Provided For: Patient Referral/Consult From: Gage Last Encounter 05/02/23 Complexity of Encounter Low Spiritual/Emotional needs Type Spiritual Support Rituals, Rites and Sacraments Type Protestant Communion Assessment/Intervention/Outcome Intervention Prayer (assurance of)/[place] [facility] Facility/Department: [facility] NAME: Medina Sena : 1960 (62 y.o.) CODE STATUS: Full Code Date of Service: 05/02/23 Past Medical History: Diagnosis Date Agoraphobia Depression Diverticular disease IBS (irritable bowel syndrome) SEEMA (iron deficiency anemia) Neuropathy Osteoporosis Panic disorder Spastic quadriparesis (HCC) 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) Under care of service provider 04/03/2023 pcp-efraín hamm-last visit nov 2022 Under care of service provider 04/03/2023 eevoy-ausgf-aokqfzd-last visit feb 2023 Under care of service provider 04/03/2023 neurologist- Dr. Conti- last visit feb 2023 Wears glasses Past Surgical History: Procedure Laterality Date APPENDECTOMY BREAST BIOPSY BREAST SURGERY Left CERVICAL FUSION N/A 04/16/2023 C3-6 POSTERIOR CERVICAL DECOMPRESSION FUSION performed by Bev Brooks DO at [facility] OR CERVICAL SPINE SURGERY [facility] CERVICAL SPINE SURGERY 04/16/2023 C3-6 POSTERIOR CERVICAL DECOMPRESSION FUSION CHOLECYSTECTOMY COLONOSCOPY HYSTERECTOMY (CERVIX STATUS UNKNOWN) BSO TONSILLECTOMY AND ADENOIDECTOMY Chart Reviewed: Yes Additional Pertinent Hx: Medina Sena is a 62 y.o. right-handed female with history of cervical stenosis, IBS, depression, panic disorder admitted to [facility] on 04/16/2023. She initially presented for elective surgical intervention for cervical stenosis with myelopathy. She underwent C3-C6 posterior decompression and fusion on 04/16/23 (Dr. Brooks). She has a c-collar when out of bed. She reports ongoing posterior neck pain. She also notes continued numbness in all limbs. She feels weakest in the right upper limb and left lower limb. She states that she has ongoing shaking/muscle spasms in the bilateral lower limbs, sometimes at rest and sometimes with activity. She declines having any home or outpatient therapies previously for her condition. Admitted to [facility] 04/22/23 Family / Caregiver Present: No Referring Practitioner: Qamar Blackman MD Diagnosis: stenosis of cervical spine Restrictions: Restrictions/Precautions: General Precautions;Fall Risk Required Braces or Orthoses Cervical: c-collar Position Activity Restriction Spinal Precautions: No Lifting Spinal Precautions: Cervical Precautions. Other position/activity restrictions: 04/16/23 - C3-6 POSTERIOR CERVICAL DECOMPRESSION FUSION. activity as tolerated, no lifting over 5 lbs SUBJECTIVE Subjective: Pt in bed in AM and up in bathroom in PM upon headline writer arrival. Pt agreeablre to therapy OBJECTIVE Functional Mobility Bed mobility Rolling to Right: Stand by assistance Supine to Sit: Supervision Scooting: Supervision Transfers Sit to Stand: Contact guard assistance Stand to Sit: Contact guard assistance Environmental Mobility Ambulation Surface: Level tile Device: Rolling Walker Other Apparatus: (headline writer pulling wheelchair behind) Assistance: Stand by assistance Quality of Gait: Slow to flex at hip/knee during amb, scuffing floor. Narrow base of support. Gait Deviations: Slow Nati;Decreased step length Distance: 152' AM and PM x2 Comments: Increased L knee/hip flexion to reinforce foot clearance. F/fleeting return to cues for moderate REJI. Ambulation 2 Surface - 2: uneven Device 2: Rolling Walker Assistance 2: Stand by assistance Quality of Gait 2: As above Gait Deviations: Slow Nati;Decreased step length;Decreased step height Distance: 20ft Stairs/Curb Stairs?: Yes Stairs # Steps : 12 Stairs Height: (4 /6 ) Rails: Right ascending Curbs: 6 Device: Rolling walker Assistance: Stand by assistance Comment: Pt perfromed lateral ascent & decent c R HR per home entry, c G performance; Wheelchair Activities Propulsion: Yes Propulsion 1 Propulsion: Manual Level: Level Tile Method: RLE;LLE Level of Assistance: Independent Description/ Details: pt completed with 2 turns IND Distance: 150ft PT Exercises Exercise Treatment: Donned compression stockings, shoes AM. Resistive Exercises: Seated in wheelchair, bilateral LEs, 2#: may, long-arc quads, ankle pumps; hip adduction vs ball; hip abduction & hamstring curls, each vs blue resistance band. Functional Mobility Circuit Training: picking up object from floor with taxation inspector SBA Disease-specific Exercises: floor transfer perfromed. Pt with pain going from WC to floor in B knees and thighs. Pt stating she is unable to kneel in order to get back into her WC. Area Operations Manager educated in bump up method with a step stool and then in WC. Pt staing she is unable to complete d/t shoulder pain. Area Operations Manager has 2nd assist come and assist pt from floor to chair with arm under arm technique. Pt able to complete floor trasnfer with Max A x2 Exercise Equipment: Nuep, LEs only, workload 3, 15 min. 470 steps. Seat 5. ASSESSMENT Activity Tolerance Activity Tolerance: Patient tolerated treatment well Assessment Treatment Diagnosis: impaired functional mobility 2* weakness Discharge Recommendations: Patient would benefit from continued therapy after discharge PT D/C Equipment Walker: Rolling (ordered, per Ashley) Other: TBD PT Equipment Recommendations Walker: Rolling (ordered, per Ashley) Other: TBD GOALS Patient Goals Patient Goals : To walk Short Term Goals Time Frame for Short Term Goals: 5-7 days Short Term Goal 1: Pt to demo mobility min to mod x1 with safe technique. Short Term Goal 2: Pt to perform transfers STS/pivots min to mod x1 with good technique using RW. Short Term Goal 3: Pt to amb 10'-20' with min to mod x1 and wheelchair follow. Short Term Goal 4: Pt to improve posture to GOOD. Short Term Goal 5: Pt to improve static/dynamic sitting balance to GOOD with 0-1 UE support. Personal Fitness Manager Goals Time Frame for Personal Fitness Manager Goals : by DC Group Home Goal 1: Pt to improve bed mobility to SBA to CGA with head of bed elevated and good technique. Group Home Goal 2: Pt to perform all transfers with least restrictive device CGA x1. Group Home Goal 3: Pt to amb 25' min to mod x1 on level surfaces and varied terrain. Group Home Goal 4: Pt to propel w/c 50' on level surfaces with BLE only, min x1. Group Home Goal 5: Pt to improve BLE strength by 1 MMG. Additional Goals?: Yes nursing home goal 6: Pt to improve standing balance to FAIR+/GOOD- to reduce fall risk for functional mobility. intermission coordinator goal 7: Pt to demo HEP with good technique intermission coordinator goal 8: Pt to complete family training, including floor transfer with min assist of 1. intermission coordinator goal 9: Pt to tolerate standing up to 5 minutes (static/dynamic) assist of 1. PLAN OF CARE Physical Therapy Plan General Plan: 60-120 minutes of therapy at least 5 out of 7 days a week Specific Instructions for Next Treatment: standing tolerance, transfers, therex Current Treatment Recommendations: Strengthening;Balance training;Functional mobility training;Transfer training;Endurance training;Neuromuscular re-education;Home exercise program;Safety education & training;Patient/Caregiver education & training;Equipment evaluation, education, & procurement;Therapeutic activities;Gait training;Wheelchair mobility training;ROM;Positioning Safety Devices Type of Devices: All fall risk precautions in place;Call light within reach;Gait belt;Left in chair;All ysabel prominences offloaded;Heels elevated for pressure relief;Chair alarm in place;Patient at risk for falls Restraints Restraints Initially in Place: No 05/02/23 1022 05/02/23 1325 PT Individual Minutes Time In 0904 1258 Time Out 1005 1331 Minutes 61 33 Eunice Levin, MANAGER PMO, 05/02/23 at 3:14 PM Images from the original note were not included. [facility] Internal Medicine Agustin Frausto MD; Seven Connor MD; Mariano Han MD; MD Мария Chand MD; Dylon Anthony MD [facility] Internal Medicine IN-PATIENT SERVICE [facility] CONSULTATION / HISTORY AND PHYSICAL EXAMINATION Date: 05/02/2023 Patient name: Medina Sena Date of admission: 04/22/2023 7:51 PM Account: [id number] Date of : 1960 PCP: Efraín Li MD Room: [address] [place] [address] Code Status: Full Code Physician Requesting Consult: Joe Schilling MD Reason for Consult: Medical management Chief Complaint: No chief complaint on file. Cervical stenosis with myelopathy, status post surgery History Obtained From: 62-year-old female with underlying history of anemia, neuropathy, osteoporosis, major depression, was admitted to [place] in April 16 for cervical stenosis with myelopathy, treated with dose increased to C6 posterior surgical decompression and fusion by Dr. Brooks. Patient will be wearing the c-collar when she is out of the bed, admitted to inpatient rehab for further strengthening and mobility History of Present Illness: Past Medical History: Past Medical History: Diagnosis Date Agoraphobia Depression Diverticular disease IBS (irritable bowel syndrome) SEEMA (iron deficiency anemia) Neuropathy Osteoporosis Panic disorder Spastic quadriparesis (HCC) 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) Under care of service provider 04/03/2023 pcp-efraín [place]-last visit nov 2022 Under care of service provider 04/03/2023 cjpar-hlrcc-cdtgypn-last visit feb 2023 Under care of service provider 04/03/2023 neurologist- Dr. Conti- last visit feb 2023 Wears glasses Past Surgical History: Past Surgical History: Procedure Laterality Date APPENDECTOMY BREAST BIOPSY BREAST SURGERY Left CERVICAL FUSION N/A 04/16/2023 C3-6 POSTERIOR CERVICAL DECOMPRESSION FUSION performed by Bev Brooks DO at [facility] OR CERVICAL SPINE SURGERY [facility] CERVICAL SPINE SURGERY 04/16/2023 C3-6 POSTERIOR CERVICAL DECOMPRESSION FUSION CHOLECYSTECTOMY COLONOSCOPY HYSTERECTOMY (CERVIX STATUS UNKNOWN) BSO TONSILLECTOMY AND ADENOIDECTOMY Medications Prior to Admission: Prior to Admission medications Medication Sig Start Date End Date Taking? Authorizing Provider baclofen (LIORESAL) 10 MG tablet Take 1 tablet by mouth 3 times daily for 14 days 04/19/23 05/03/23 Oscar Marie, MEDIA EXECUTIVE - OBSTETRICS SCRUB NURSE CALCIUM GUMMIES 250-100-500 MG-UNIT CHEW Take 3 gums by mouth daily ProviderAbdi MD escitalopram (LEXAPRO) 20 MG tablet Take 1 tablet by mouth daily ProviderAbdi MD buPROPion (WELLBUTRIN XL) 150 MG extended release tablet Take 1 tablet by mouth every morning ProviderAbdi MD lurasidone (LATUDA) 80 MG TABS tablet Take 1 tablet by mouth Daily with supper ProviderAbdi MD Allergies: Patient has no known allergies. Social History: Tobacco: reports that she has never smoked. She has never used smokeless tobacco. Alcohol: reports that she does not currently use alcohol. Drug Use: reports that she does not currently use drugs. Family History: Family History Problem Relation Age of Onset Heart Disease Mother Diabetes Father Review of Systems: Positive and Negative as described in HPI. Physical Exam: BP 132/62 Pulse 85 Temp 98.4 F (36.9 C) (Oral) Resp 16 Ht 1.575 m (5' 2.01 ) Wt 62.6 kg (138 lb) SpO2 99% BMI 25.23 kg/m Temp (24hrs), Av.3 F (36.8 C), Min:98.1 F (36.7 C), Max:98.4 F (36.9 C) No results for input(s): POCGLU in the last 72 hours. No intake or output data in the 24 hours ending 05/02/23 1508 General Appearance: alert, well appearing, and in no acute distress Mental status: oriented to person, place, and time with normal affect Cervical collar in place Mouth: mucous membranes moist Neck: supple, no carotid bruits, thyroid not palpable Lungs: Bilateral equal air entry, clear to ausculation, no wheezing, rales or rhonchi, normal effort Cardiovascular: normal rate, regular rhythm, no murmur, gallop, rub. Abdomen: Soft, nontender, nondistended, normal bowel sounds, no hepatomegaly or splenomegaly Neurologic: Mild weakness in the lower extremity Skin: No gross lesions, rashes, bruising or bleeding on exposed skin area Extremities: peripheral pulses palpable, no pedal edema or calf pain with palpation Investigations: Laboratory Testing: No results found for this or any previous visit (from the past 24 hour(s)). Imaging/Diagonstics: XR CERVICAL SPINE (2-3 VIEWS) Result Date: 04/17/2023 Postsurgical change. No complication. Assessment : Hospital Problems Last Modified POA * (Principal) Cervical disc disease with myelopathy 04/22/2023 Yes Plan: 63-year-old female acute inpatient rehab for cervical stenosis with myelopathy status post C 3 through 6 posterior decompression fusion done by Dr. Brooks on April 16. Admitted for further strengthening and mobility, Spasticity, on baclofen Major depression, on Lexapro and Latuda, Panic disorder, home medications, Labs, radiology, medications, vitals reviewed, DVT prophylaxis with Lovenox, Full CODE STATUS, Thank you for consultation 05/02 Seen examined [id number], Labs, radiology, medications, vitals reviewed, Blood pressure much better today Lipid profile reviewed, low HDL Abnormal LFTs, improving Anemia, hemoglobin 11.2 no active bleeding Working with physical therapy UA - negative for UTI Xray Hip - negative Consultations: IP CONSULT TO DIETITIAN IP CONSULT TO SOCIAL WORK IP CONSULT TO INTERNAL MEDICINE Cortney Rebollar MD 05/02/2023 3:08 PM Copy sent to Efraín Hammer MD Please note that this chart was generated using voice recognition [employer] dictation software. Although every effort was made to ensure the accuracy of this automated cashier credit, some errors in cashier credit may have occurred. Physical Medicine & Rehabilitation Progress Note Subjective: Medina Sena is a 62 y.o. female with cervical myelopathy s/p C3-C6 posterior decompression and fusion. She reports doing well today. She is looking forward to going home tomorrow. She denies any acute concerns. ROS: Denies fevers, chills, sweats. No chest pain, palpitations, lightheadedness. Denies coughing, wheezing or shortness of breath. Denies abdominal pain, nausea, diarrhea or constipation. No new areas of joint pain. Denies new areas of numbness or weakness. Denies new anxiety or depression issues. No new skin problems. Rehabilitation: Physical Therapy Restrictions/Precautions: General Precautions, Fall Risk Implants present? : Metal implants Spinal Precautions: Cervical Precautions. Other position/activity restrictions: 04/16/23 - C3-6 POSTERIOR CERVICAL DECOMPRESSION FUSION. activity as tolerated, no lifting over 5 lbs Required Braces or Orthoses Cervical: c-collar Bed mobility Bridging: Contact guard assistance Rolling to Left: Minimal assistance Rolling to Right: Stand by assistance Supine to Sit: Supervision Sit to Supine: Moderate assistance Scooting: Supervision Bed Mobility Comments: Caution to be aware of neck position/posture if moving to EOB to don cervical collar; HEP includes instructions for supine donning of collar c caregiver; education also offered to spouse for alignment, support/comfort, hygiene. Transfers Sit to Stand: Contact guard assistance Stand to Sit: Contact guard assistance Bed to Chair: Contact guard assistance Stand Pivot Transfers: Contact guard assistance (SO providing hands-on A) Squat Pivot Transfers: Minimal Assistance (slight posterior lean as pt's right foot slips fwd) Car Transfer: Minimal Assistance (SO hands-on A in sim of truck c 12 running board (seat 32 ) using car simulator passenger side. Pt using frame, door, dash, seat for appropriate UE support; satisfied c results. Spouse states demo'd technique is easier than what they'd previously done.) Comment: Rolling walker. Ambulation Surface: Level tile Device: Rolling Walker Other Apparatus: (headline writer pulling wheelchair behind) Assistance: Stand by assistance Quality of Gait: Slow to flex at hip/knee during amb, scuffing floor. Narrow base of support. Gait Deviations: Slow Nati, Decreased step length Distance: 152' AM and PM x2 Comments: Increased L knee/hip flexion to reinforce foot clearance. F/fleeting return to cues for moderate REJI. More Ambulation?: Yes Occupational Therapy ADL Feeding Assistance Level: Set-up Skilled Clinical Factors: per pt report Grooming/Oral Hygiene Assistance Level: Supervision Skilled Clinical Factors: SUP provided while patient standing at sink for oral hygiene. Upper Extremity Bathing Assistance Level: Set-up Skilled Clinical Factors: Completed while seated on shower bench. Lower Extremity Bathing Assistance Level: Stand by assist Skilled Clinical Factors: Able to wash BLE with figure 4 positioning and yuko area/buttocks while standing with GB Upper Extremity Dressing Assistance Level: Stand by assist Skilled Clinical Factors: Pt. able to doff/greg c-collar with intermittent CGA and verbal cuing. Pt. able to doff and greg overhead clothing items with increased time. Lower Extremity Dressing Assistance Level: Stand by assist Skilled Clinical Factors: Pt. able to thread B LE through pull up and pants with increased time while seated- min verbal cuing at times. While standing pt was able to complete clothing management while standing unsupported without LOB. Putting On/Taking Off Footwear Assistance Level: Minimal assistance Skilled Clinical Factors: Assist with TEDs. Pt. can greg/doff her slip on shoes with BECERRIL. Toileting Assistance Level: Stand by assist Skilled Clinical Factors: SBA during clothing management. Completes hygiene after voiding and BM with SUP. Completed during AM and PM sessions. Toilet Transfers Technique: (Ambulating with rw.) Equipment: Standard toilet;Grab bars Assistance Level: Stand by assist Skilled Clinical Factors: Uses grab bar. Demonstrates good controlled descend. Completed during AM and PM sessions. Tub/Shower Transfers Type: Shower Transfer From: Rolling walker Transfer To: Tub transfer bench Assistance Level: Stand by assist Speech Therapy Current Medications: Current Facility-Administered Medications: glucose chewable tablet 16 g, 4 tablet, Oral, PRN dextrose bolus 10% 125 mL, 125 mL, IntraVENous, PRN OR dextrose bolus 10% 250 mL, 250 mL, IntraVENous, PRN glucagon injection 1 mg, 1 mg, SubCUTAneous, PRN dextrose 10 % infusion, , IntraVENous, Continuous PRN baclofen (LIORESAL) tablet 10 mg, 10 mg, Oral, TID buPROPion (WELLBUTRIN XL) extended release tablet 150 mg, 150 mg, Oral, QAM enoxaparin (LOVENOX) injection 40 mg, 40 mg, SubCUTAneous, Daily escitalopram (LEXAPRO) tablet 20 mg, 20 mg, Oral, Daily lurasidone (LATUDA) tablet 80 mg, 80 mg, Oral, Dinner oxyCODONE-acetaminophen (PERCOCET) 5-325 MG per tablet 1 tablet, 1 tablet, Oral, Q6H PRN OR oxyCODONE-acetaminophen (PERCOCET) 5-325 MG per tablet 2 tablet, 2 tablet, Oral, Q6H PRN polyethylene glycol (GLYCOLAX) packet 17 g, 17 g, Oral, Daily magnesium hydroxide (MILK OF MAGNESIA) 400 MG/5ML suspension 30 mL, 30 mL, Oral, Daily PRN acetaminophen (TYLENOL) tablet 650 mg, 650 mg, Oral, Q4H PRN senna (SENOKOT) tablet 17.2 mg, 2 tablet, Oral, Daily PRN bisacodyl (DULCOLAX) suppository 10 mg, 10 mg, Rectal, Daily PRN Objective: BP 132/66 Pulse 86 Temp 98.6 F (37 C) Resp 18 Ht 1.575 m (5' 2.01 ) Wt 62.6 kg (138 lb) SpO2 99% BMI 25.23 kg/m GEN: Well developed, well nourished, no acute distress HEENT: Normocephalic, atraumatic. EOM grossly intact. Hearing grossly intact. Mucous membranes pink and moist. RESP: Normal breath sounds with no wheezing, rales, or rhonchi. Respirations WNL and unlabored. CV: Regular rate and rhythm. No murmurs, rubs, or gallops. ABD: Soft, non-distended, bowel sounds present and equal. NEURO: Alert. Speech fluent. Sensation to light touch intact in all limbs. MSK: Muscle bulk is normal bilaterally. Strength 5/5 in the right upper limb. Strength 4+/5 in the left upper limb. Strength 4+/5 in with bilateral ankle dorsiflexion and plantarflexion. LIMBS: No edema in bilateral lower limbs. SKIN: Warm and dry with good turgor. PSYCH: Mood WNL. Affect WNL. Appropriately interactive. Diagnostics: CBC: Recent Labs 04/30/23 0716 WBC 7.5 RBC 3.53* HGB 11.0* HCT 33.0* MCV 93.4 RDW 14.1 PLT 328 BMP: Recent Labs 04/30/23 0716 NA 139 K 4.6 CL 101 CO2 28 BUN 19 CREATININE 1.1* GLUCOSE 93 BNP: No results for input(s): BNP in the last 72 hours. PT/INR: No results for input(s): PROTIME , INR in the last 72 hours. APTT: No results for input(s): APTT in the last 72 hours. CARDIAC ENZYMES: No results for input(s): CKMB , CKMBINDEX , TROPONINT in the last 72 hours. Invalid input(s): CKTOTAL;3 FASTING LIPID PANEL: Lab Results Component Value Date CHOL 160 04/26/2023 HDL 37 (L) 04/26/2023 TRIG 140 04/26/2023 LIVER PROFILE: Recent Labs 04/30/23 0716 AST 42* ALT 52* BILIDIR 0.1 BILITOT 0.4 ALKPHOS 128* Reviewed notes from internal medicine, PT, OT. Impression/Plan: Impaired ADLs, gait, and mobility due to: Cervical stenosis with myelopathy: S/p C3-C6 posterior decompression and fusion on 04/16/23 (Dr. Brooks). Cervical collar when out of bed, okay to remove for hygiene and when eating/drinking. PT/OT for gait, mobility, strengthening, endurance, ADLs, and self care. Pain control with scheduled baclofen, as-needed tylenol, as-needed percocet. Stacey removed on 04/30/[address] Brooks. Spasticity: On baclofen TID Chronic left hip pain: X-rays showed mild arthritis. Transaminitis: AST 42, ALT 52 on 04/30, improved/stable. Monitoring. Hyperkalemia: Resolved after 4 doses of lokelma. Monitoring. HTN: Not currently on antihypertensive medications - blood pressure control adequate. Depression, panic disorder: On wellbutrin, lexapro, latuda Bowel Management: Miralax daily, senokot prn, dulcolax prn. DVT prophylaxis: [facility] Internal Medicine for medical management Follow up PCP 1-2 weeks, Neurosurgery - Dr. Brooks, PM&R Physical Therapy Facility/Department: [facility] Treatment note NAME: Medina Sena : 1960 (62 y.o.) CODE STATUS: Full Code Date of Service: 05/01/23 Past Medical History: Diagnosis Date Agoraphobia Depression Diverticular disease IBS (irritable bowel syndrome) SEEMA (iron deficiency anemia) Neuropathy Osteoporosis Panic disorder Spastic quadriparesis (HCC) 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) Under care of service provider 04/03/2023 pcp-efraín hamm-last visit nov 2022 Under care of service provider 04/03/2023 ilxgn-fgcpz-pawicny-last visit feb 2023 Under care of service provider 04/03/2023 neurologist- Dr. Conti- last visit feb 2023 Wears glasses Past Surgical History: Procedure Laterality Date APPENDECTOMY BREAST BIOPSY BREAST SURGERY Left CERVICAL FUSION N/A 04/16/2023 C3-6 POSTERIOR CERVICAL DECOMPRESSION FUSION performed by Bev Brooks DO at [facility] OR CERVICAL SPINE SURGERY [address] [place] [address] CERVICAL SPINE SURGERY 04/16/2023 C3-6 POSTERIOR CERVICAL DECOMPRESSION FUSION CHOLECYSTECTOMY COLONOSCOPY HYSTERECTOMY (CERVIX STATUS UNKNOWN) BSO TONSILLECTOMY AND ADENOIDECTOMY Family / Caregiver Present: Yes (spouse John for family trg) General Comment Comments: Reviewed donning cervical collar c Pt, spouse. Restrictions: Restrictions/Precautions: General Precautions;Fall Risk Required Braces or Orthoses Cervical: c-collar Position Activity Restriction Spinal Precautions: No Lifting Spinal Precautions: Cervical Precautions. Other position/activity restrictions: 04/16/23 - C3-6 POSTERIOR CERVICAL DECOMPRESSION FUSION. activity as tolerated, no lifting over 5 lbs SUBJECTIVE Subjective: Pt states she slept well, but had to get up in the night to use bathroom. Pain: Neck, 7/10 OBJECTIVE Functional Mobility Bed mobility Supine to Sit: Supervision Scooting: Supervision Bed Mobility Comments: Caution to be aware of neck position/posture if moving to EOB to don cervical collar; HEP includes instructions for supine donning of collar c caregiver; education also offered to spouse for alignment, support/comfort, hygiene. Transfers Sit to Stand: Contact guard assistance (SO providing hands-on A) Stand to Sit: Contact guard assistance (SO providing hands-on A) Bed to Chair: Contact guard assistance Stand Pivot Transfers: Contact guard assistance (SO providing hands-on A) Car Transfer: Minimal Assistance (SO hands-on A in sim of truck c 12 running board (seat 32 ) using car simulator passenger side. Pt using frame, door, dash, seat for appropriate UE support; satisfied c results. Spouse states demo'd technique is easier than what they'd previously done.) Comment: Rolling walker. Balance Posture: Fair (Forward head, slightly stooped posture.) Sitting - Static: Good (EOB) Sitting - Dynamic: Good;- (EOB, donning shoes, compression stockings) Standing - Static: Fair (Rolling walker) Standing - Dynamic: Fair;- (Occasionally lightheaded during turns c bilateral UE support.) Environmental Mobility Ambulation Surface: Level tile Device: Rolling Walker Other Apparatus: (headline writer pulling wheelchair behind) Assistance: Stand by assistance Quality of Gait: Slow to flex at hip/knee during amb, scuffing floor. Narrow base of support. Gait Deviations: Slow Nati;Decreased step length Distance: 152' Comments: Increased L knee/hip flexion to reinforce foot clearance. F/fleeting return to cues for moderate REJI. Stairs/Curb Stairs?: Yes Stairs # Steps : 10 Stairs Height: (6 and 4 ) Rails: Left ascending;Right ascending Assistance: Stand by assistance Comment: Education on lateral ascent & decent c R HR per home entry, c G performance; also performed another round c L HR; G technique demonstrated; Pt indicating comfort c technique despite using weaker LE to ascend c R HR. PT Exercises Exercise Treatment: Donned compression stockings, shoes AM. Resistive Exercises: Seated in wheelchair, bilateral LEs, 2.5#: may, long-arc quads, ankle pumps; hip adduction vs ball; hip abduction & hamstring curls, each vs green/moderate resistance band. ASSESSMENT 05/01/23 0750 05/01/23 0751 Vitals Pulse 99 (p amb) -- BP (!) 144/70 (p amb, c/o lightheadedness) (!) 143/71 (during ex., c/o lightheadedness, relieved c seated rest) BP Location Right upper arm Right upper arm MAP (Calculated) 95 95 SpO2 96 % -- O2 Device None (Room air) -- Activity Tolerance Activity Tolerance: Patient tolerated treatment well PT D/C Equipment Walker: Rolling (ordered, per Ashley) PT Equipment Recommendations Walker: Rolling (ordered, per Ashley) GOALS Short Term Goals Time Frame for Short Term Goals: 5-7 days Short Term Goal 1: Pt to demo mobility min to mod x1 with safe technique. Short Term Goal 2: Pt to perform transfers STS/pivots min to mod x1 with good technique using RW. Short Term Goal 3: Pt to amb 10'-20' with min to mod x1 and wheelchair follow. Short Term Goal 4: Pt to improve posture to GOOD. Short Term Goal 5: Pt to improve static/dynamic sitting balance to GOOD with 0-1 UE support. Group Home Goals Time Frame for Personal Fitness Manager Goals : by DC Personal Fitness Manager Goal 1: Pt to improve bed mobility to SBA to CGA with head of bed elevated and good technique. Group Home Goal 2: Pt to perform all transfers with least restrictive device CGA x1. Group Home Goal 3: Pt to amb 25' min to mod x1 on level surfaces and varied terrain. Personal Fitness Manager Goal 4: Pt to propel w/c 50' on level surfaces with BLE only, min x1. Group Home Goal 5: Pt to improve BLE strength by 1 MMG. Additional Goals?: Yes nursing home goal 6: Pt to improve standing balance to FAIR+/GOOD- to reduce fall risk for functional mobility. intermission coordinator goal 7: Pt to demo HEP with good technique nursing home goal 8: Pt to complete family training, including floor transfer with min assist of 1. nursing home goal 9: Pt to tolerate standing up to 5 minutes (static/dynamic) assist of 1. PLAN OF CARE Frequency: 1-2 treatment sessions per day, 5-7 days per week Physical Therapy Plan General Plan: 60-120 minutes of therapy at least 5 out of 7 days a week Specific Instructions for Next Treatment: standing tolerance, transfers, therex Current Treatment Recommendations: Strengthening;Balance training;Functional mobility training;Transfer training;Endurance training;Neuromuscular re-education;Home exercise program;Safety education & training;Patient/Caregiver education & training;Equipment evaluation, education, & procurement;Therapeutic activities;Gait training;Wheelchair mobility training;ROM;Positioning Safety Devices Type of Devices: All fall risk precautions in place;Call light within reach;Gait belt;Left in chair;All ysabel prominences offloaded;Heels elevated for pressure relief;Chair alarm in place;Patient at risk for falls EDUCATION Education Education Given To: Patient;Family Education Provided: Role of Therapy;Plan of Care;Precautions;Safety;Transfer Training;Mobility Training;Family Education;Fall Prevention Strategies Education Provided Comments: Reviewed ambulation, transfers (car, sit <> stand), cervical collar, stair training c lateral technique using each HR x5. Education Method: Demonstration;Verbal;Printed Information/Hand-outs Education Outcome: Verbalized understanding;Demonstrated understanding Skilled Clinical Factors: HEP below Access Code: [email or web address] URL: [email or web address] Date: 05/01/2023 Prepared by: Roopa Arechiga Program Notes Do 1-2 sets (laying down, seated and/or standing) a day. If performing standing exercise set, use a kitchen counter for stability, making sure to turn so you don't stub your toes or hit your knees on the cabinets below. Exercises - Supine Ankle Dorsiflexion and Plantarflexion AROM - 1 x daily - 7 x weekly - 15-20 reps - Supine Heel Slide - 1 x daily - 7 x weekly - 15-20 reps - Supine Short Arc Quad - 1 x daily - 7 x weekly - 15-20 reps - Supine Bridge - 1 x daily - 7 x weekly - 10 reps - 1-5 hold - Supine Hip Abduction - 1 x daily - 7 x weekly - 15-20 reps - Supine March - 1 x daily - 7 x weekly - 3 sets - 10 reps - Seated Long Arc Quad - 1 x daily - 7 x weekly - 15-20 reps - 1-5 hold - Seated March - 1 x daily - 7 x weekly - 15-20 reps - Seated Hip Adduction Squeeze with Ball - 1 x daily - 7 x weekly - 15-20 reps - 3-5 hold - Seated Hip Abduction with Resistance - 1 x daily - 7 x weekly - 15-20 reps - Seated Hamstring Stretch - 1 x daily - 7 x weekly - 3 sets - 10 reps - Heel Toe Raises with Counter Support - 1 x daily - 7 x weekly - 15-20 reps - March in Place - 1 x daily - 7 x weekly - 15-20 reps - Standing Knee Flexion - 1 x daily - 7 x weekly - 15-20 reps - Standing 3-way Hip with Walker - 1 x daily - 7 x weekly - 15-20 reps Patient Education - Cervical Precautions - Putting On and Taking Off a Cervical Collar (Assisted in Supine) Therapy Time 05/01/23 0750 05/01/23 0751 PT Individual Minutes Time In 0810 1605 Time Out 0937 1620 Minutes 87 15 Roopa Arechiga, MANAGER PMO, 05/01/23 at 5:53 PM Images from the original note were not included. [facility] Internal Medicine Augstin Frausto MD; Seven Connor MD; Mariano Han MD; MD Мария Chand MD; Dylon Anthony MD [facility] Internal Medicine IN-PATIENT SERVICE [facility] CONSULTATION / HISTORY AND PHYSICAL EXAMINATION Date: 05/01/2023 Patient name: Medina Sena Date of admission: 04/22/2023 7:51 PM Account: [id number] Date of : 1960 PCP: Efraín Li MD Room: [address] [place] [address] Code Status: Full Code Physician Requesting Consult: Joe Schilling MD Reason for Consult: Medical management Chief Complaint: No chief complaint on file. Cervical stenosis with myelopathy, status post surgery History Obtained From: 62-year-old female with underlying history of anemia, neuropathy, osteoporosis, major depression, was admitted to [place] in April 16 for cervical stenosis with myelopathy, treated with dose increased to C6 posterior surgical decompression and fusion by Dr. Brooks. Patient will be wearing the c-collar when she is out of the bed, admitted to inpatient rehab for further strengthening and mobility History of Present Illness: Past Medical History: Past Medical History: Diagnosis Date Agoraphobia Depression Diverticular disease IBS (irritable bowel syndrome) SEEMA (iron deficiency anemia) Neuropathy Osteoporosis Panic disorder Spastic quadriparesis (HCC) 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) Under care of service provider 04/03/2023 pcp-efraín hamm-last visit nov 2022 Under care of service provider 04/03/2023 xfdgj-xsqkc-cticucf-last visit feb 2023 Under care of service provider 04/03/2023 neurologist- Dr. Conti- last visit feb 2023 Wears glasses Past Surgical History: Past Surgical History: Procedure Laterality Date APPENDECTOMY BREAST BIOPSY BREAST SURGERY Left CERVICAL FUSION N/A 04/16/2023 C3-6 POSTERIOR CERVICAL DECOMPRESSION FUSION performed by Bev Brooks DO at [facility] OR CERVICAL SPINE SURGERY [facility] CERVICAL SPINE SURGERY 04/16/2023 C3-6 POSTERIOR CERVICAL DECOMPRESSION FUSION CHOLECYSTECTOMY COLONOSCOPY HYSTERECTOMY (CERVIX STATUS UNKNOWN) BSO TONSILLECTOMY AND ADENOIDECTOMY Medications Prior to Admission: Prior to Admission medications Medication Sig Start Date End Date Taking? Authorizing Provider baclofen (LIORESAL) 10 MG tablet Take 1 tablet by mouth 3 times daily for 14 days 04/19/23 05/03/23 Oscar Marie, MEDIA EXECUTIVE - OBSTETRICS SCRUB NURSE CALCIUM GUMMIES 250-100-500 MG-UNIT CHEW Take 3 gums by mouth daily ProviderAbdi MD escitalopram (LEXAPRO) 20 MG tablet Take 1 tablet by mouth daily ProviderAbdi MD buPROPion (WELLBUTRIN XL) 150 MG extended release tablet Take 1 tablet by mouth every morning ProviderAbdi MD lurasidone (LATUDA) 80 MG TABS tablet Take 1 tablet by mouth Daily with supper Provider, MD Abdi Allergies: Patient has no known allergies. Social History: Tobacco: reports that she has never smoked. She has never used smokeless tobacco. Alcohol: reports that she does not currently use alcohol. Drug Use: reports that she does not currently use drugs. Family History: Family History Problem Relation Age of Onset Heart Disease Mother Diabetes Father Review of Systems: Positive and Negative as described in HPI. Physical Exam: BP 120/67 Pulse 85 Temp 98.4 F (36.9 C) (Oral) Resp 18 Ht 1.575 m (5' 2.01 ) Wt 62.6 kg (138 lb) SpO2 97% BMI 25.23 kg/m Temp (24hrs), Av.4 F (36.9 C), Min:98.3 F (36.8 C), Max:98.4 F (36.9 C) No results for input(s): POCGLU in the last 72 hours. No intake or output data in the 24 hours ending 05/01/23 1433 General Appearance: alert, well appearing, and in no acute distress Mental status: oriented to person, place, and time with normal affect Cervical collar in place Mouth: mucous membranes moist Neck: supple, no carotid bruits, thyroid not palpable Lungs: Bilateral equal air entry, clear to ausculation, no wheezing, rales or rhonchi, normal effort Cardiovascular: normal rate, regular rhythm, no murmur, gallop, rub. Abdomen: Soft, nontender, nondistended, normal bowel sounds, no hepatomegaly or splenomegaly Neurologic: Mild weakness in the lower extremity Skin: No gross lesions, rashes, bruising or bleeding on exposed skin area Extremities: peripheral pulses palpable, no pedal edema or calf pain with palpation Investigations: Laboratory Testing: No results found for this or any previous visit (from the past 24 hour(s)). Imaging/Diagonstics: XR CERVICAL SPINE (2-3 VIEWS) Result Date: 04/17/2023 Postsurgical change. No complication. Assessment : Hospital Problems Last Modified POA * (Principal) Cervical disc disease with myelopathy 04/22/2023 Yes Plan: 63-year-old female acute inpatient rehab for cervical stenosis with myelopathy status post C 3 through 6 posterior decompression fusion done by Dr. Brooks on April 16. Admitted for further strengthening and mobility, Spasticity, on baclofen Major depression, on Lexapro and Latuda, Panic disorder, home medications, Labs, radiology, medications, vitals reviewed, DVT prophylaxis with Lovenox, Full CODE STATUS, Thank you for consultation 05/01 Seen examined [id number], Labs, radiology, medications, vitals reviewed, Blood pressure much better today Lipid profile reviewed, low HDL Abnormal LFTs, improving Anemia, hemoglobin 11.2 no active bleeding Working with physical therapy UA - negative for UTI Xray Hip - negative Consultations: IP CONSULT TO DIETITIAN IP CONSULT TO SOCIAL WORK IP CONSULT TO INTERNAL MEDICINE Cortney Rebollar MD 05/01/2023 2:33 PM Copy sent to Efraín Hammer MD Please note that this chart was generated using voice recognition [employer] dictation software. Although every effort was made to ensure the accuracy of this automated cashier credit, some errors in cashier credit may have occurred. Comprehensive Nutrition Assessment Type and Reason for Visit: Reassess Nutrition Recommendations/Plan: Continue current diet. Malnutrition Assessment: Malnutrition Status: No malnutrition (04/23/23 1629) Context: Acute Illness Findings of the 6 clinical characteristics of malnutrition: Energy Intake: No significant decrease in energy intake Weight Loss: No significant weight loss Body Fat Loss: No significant body fat loss Muscle Mass Loss: No significant muscle mass loss Fluid Accumulation: No significant fluid accumulation Manufacturing Analyst Strength: Not Performed Nutrition Assessment: Pt states she has been eating well. Nutrition Related Findings: No edema. K: 4.6 (04/30). Other labs and meds reviewed. Wound Type: Surgical Incision (04/16: C3-6 POSTERIOR CERVICAL DECOMPRESSION FUSION) Current Nutrition Intake & Therapies: Average Meal Intake: 51-75%, 76-100% ADULT DIET; Regular Anthropometric Measures: Height: 157.5 cm (5' 2.01 ) [place] Body Weight (IBW): 110 lbs (50 kg) Admission Body Weight: 62.6 kg (138 lb 0.1 oz) Current Body Weight: 62.6 kg (138 lb 0.1 oz), 125.5 % IBW. Weight Source: Bed Scale Current BMI (kg/m2): 25.2 Usual Body Weight: 61.2 kg (135 lb) % Weight Change (Calculated): 2.2 BMI Categories: Overweight (BMI 25.0-29.9) Estimated Daily Nutrient Needs: Energy Requirements Based On: Formula Weight Used for Energy Requirements: Admission Energy (kcal/day): 2479-8069 based on [place] with 1.2-1.3 factor Weight Used for Protein Requirements: [place] Protein (g/day): 60-70 based on 1.2-1.4 gm per kg Method Used for Fluid Requirements: 1 ml/kcal Nutrition Diagnosis: Increased nutrient needs related to (healing) as evidenced by wounds Nutrition Interventions: Food and/or Nutrient Delivery: Continue Current Diet Nutrition Education/Counseling: No recommendation at this time Goals: Previous Goal Met: Progressing toward Goal(s) Goals: PO intake 75% or greater Nutrition Monitoring and Evaluation: Food/Nutrient Intake Outcomes: Food and Nutrient Intake Physical Signs/Symptoms Outcomes: Biochemical Data, Fluid Status or Edema, Weight, Skin Discharge Planning: Continue current diet Melani Burgos RD, LD Contact: 05/01/23 1246 Encounter Summary Encounter Overview/Reason Volunteer Encounter Service Provided For: Patient Referral/Consult From: Rounding Last Encounter 05/01/23 Complexity of Encounter Low Spiritual/Emotional needs Type Spiritual Support Rituals, Rites and Sacraments Type Protestant Communion Physical Medicine & Rehabilitation Progress Note Subjective: Medina Sena is a 62 y.o. female with cervical myelopathy s/p C3-C6 posterior decompression and fusion. She reports doing well today. She is happy with her progress in therapy. She denies any acute concerns. ROS: Denies fevers, chills, sweats. No chest pain, palpitations, lightheadedness. Denies coughing, wheezing or shortness of breath. Denies abdominal pain, nausea, diarrhea or constipation. No new areas of joint pain. Denies new areas of numbness or weakness. Denies new anxiety or depression issues. No new skin problems. Rehabilitation: Physical Therapy Restrictions/Precautions: General Precautions, Fall Risk Implants present? : Metal implants Spinal Precautions: Cervical Precautions. Other position/activity restrictions: 04/16/23 - C3-6 POSTERIOR CERVICAL DECOMPRESSION FUSION. activity as tolerated, no lifting over 5 lbs Required Braces or Orthoses Cervical: c-collar Bed mobility Bridging: Contact guard assistance Rolling to Left: Minimal assistance Rolling to Right: Stand by assistance Supine to Sit: Supervision Sit to Supine: Moderate assistance Scooting: Supervision Bed Mobility Comments: Caution to be aware of neck position/posture if moving to EOB to don cervical collar; HEP includes instructions for supine donning of collar c caregiver; education also offered to spouse for alignment, support/comfort, hygiene. Transfers Sit to Stand: Contact guard assistance (SO providing hands-on A) Stand to Sit: Contact guard assistance (SO providing hands-on A) Bed to Chair: Contact guard assistance Stand Pivot Transfers: Contact guard assistance (SO providing hands-on A) Squat Pivot Transfers: Minimal Assistance (slight posterior lean as pt's right foot slips fwd) Car Transfer: Minimal Assistance (SO hands-on A in sim of truck c 12 running board (seat 32 ) using car simulator passenger side. Pt using frame, door, dash, seat for appropriate UE support; satisfied c results. Spouse states demo'd technique is easier than what they'd previously done.) Comment: Rolling walker. Ambulation Surface: Level tile Device: Rolling Walker Other Apparatus: (headline writer pulling wheelchair behind) Assistance: Stand by assistance Quality of Gait: Slow to flex at hip/knee during amb, scuffing floor. Narrow base of support. Gait Deviations: Slow Nati, Decreased step length Distance: 152' Comments: Increased L knee/hip flexion to reinforce foot clearance. F/fleeting return to cues for moderate REJI. More Ambulation?: Yes Occupational Therapy ADL Feeding Assistance Level: Set-up Skilled Clinical Factors: per pt report Grooming/Oral Hygiene Assistance Level: Supervision Skilled Clinical Factors: SUP provided while patient standing at sink for oral hygiene and face washing. Upper Extremity Bathing Assistance Level: Set-up Skilled Clinical Factors: Completed while seated in wheelchair at sink. Upper Extremity Dressing Assistance Level: Contact guard assist Skilled Clinical Factors: Pt. able to doff/greg c-collar with intermittent CGA and verbal cuing. Pt. able to doff and greg overhead clothing items with increased time. Lower Extremity Dressing Assistance Level: Stand by assist Skilled Clinical Factors: Pt. able to thread B LE through pull up and pants with increased time while seated- min verbal cuing at times. While standing pt was able to complete clothing management while standing unsupported without LOB. Putting On/Taking Off Footwear Assistance Level: Minimal assistance Skilled Clinical Factors: Assist with TEDs. Pt. can greg/doff her slip on shoes with BECERRIL. Toileting Assistance Level: Stand by assist Skilled Clinical Factors: SBA during clothing management. Completes hygiene after voiding and BM with SUP. Completed during AM and PM sessions. Toilet Transfers Technique: (Ambulating with rw.) Equipment: Standard toilet;Grab bars Assistance Level: Stand by assist Skilled Clinical Factors: Uses grab bar. Demonstrates good controlled descend. Completed during AM and PM sessions. Speech Therapy Current Medications: Current Facility-Administered Medications: glucose chewable tablet 16 g, 4 tablet, Oral, PRN dextrose bolus 10% 125 mL, 125 mL, IntraVENous, PRN OR dextrose bolus 10% 250 mL, 250 mL, IntraVENous, PRN glucagon injection 1 mg, 1 mg, SubCUTAneous, PRN dextrose 10 % infusion, , IntraVENous, Continuous PRN baclofen (LIORESAL) tablet 10 mg, 10 mg, Oral, TID buPROPion (WELLBUTRIN XL) extended release tablet 150 mg, 150 mg, Oral, QAM enoxaparin (LOVENOX) injection 40 mg, 40 mg, SubCUTAneous, Daily escitalopram (LEXAPRO) tablet 20 mg, 20 mg, Oral, Daily lurasidone (LATUDA) tablet 80 mg, 80 mg, Oral, Dinner oxyCODONE-acetaminophen (PERCOCET) 5-325 MG per tablet 1 tablet, 1 tablet, Oral, Q6H PRN OR oxyCODONE-acetaminophen (PERCOCET) 5-325 MG per tablet 2 tablet, 2 tablet, Oral, Q6H PRN polyethylene glycol (GLYCOLAX) packet 17 g, 17 g, Oral, Daily magnesium hydroxide (MILK OF MAGNESIA) 400 MG/5ML suspension 30 mL, 30 mL, Oral, Daily PRN acetaminophen (TYLENOL) tablet 650 mg, 650 mg, Oral, Q4H PRN senna (SENOKOT) tablet 17.2 mg, 2 tablet, Oral, Daily PRN bisacodyl (DULCOLAX) suppository 10 mg, 10 mg, Rectal, Daily PRN Objective: BP (!) 126/59 Pulse 86 Temp 98.1 F (36.7 C) Resp 18 Ht 1.575 m (5' 2.01 ) Wt 62.6 kg (138 lb) SpO2 98% BMI 25.23 kg/m GEN: Well developed, well nourished, no acute distress HEENT: Normocephalic, atraumatic. EOM grossly intact. Hearing grossly intact. Mucous membranes pink and moist. RESP: Normal breath sounds with no wheezing, rales, or rhonchi. Respirations WNL and unlabored. CV: Regular rate and rhythm. No murmurs, rubs, or gallops. ABD: Soft, non-distended, bowel sounds present and equal. NEURO: Alert. Speech fluent. Sensation to light touch decreased in the bilateral lower limbs. MSK: Muscle bulk is normal bilaterally. Strength 4+/5 in the right upper limb. Strength 4/5 in the left upper limb. Strength 4+/5 in the bilateral lower limbs. LIMBS: No edema in bilateral lower limbs. SKIN: Warm and dry with good turgor. Neck incision clean, dry, intact - stacey removed; mild yuko-incisional erythema present (improved from yesterday), no drainage. PSYCH: Mood WNL. Affect WNL. Appropriately interactive. Diagnostics: CBC: Recent Labs 04/30/23 0716 WBC 7.5 RBC 3.53* HGB 11.0* HCT 33.0* MCV 93.4 RDW 14.1 PLT 328 BMP: Recent Labs 04/30/23 0716 NA 139 K 4.6 CL 101 CO2 28 BUN 19 CREATININE 1.1* GLUCOSE 93 BNP: No results for input(s): BNP in the last 72 hours. PT/INR: No results for input(s): PROTIME , INR in the last 72 hours. APTT: No results for input(s): APTT in the last 72 hours. CARDIAC ENZYMES: No results for input(s): CKMB , CKMBINDEX , TROPONINT in the last 72 hours. Invalid input(s): CKTOTAL;3 FASTING LIPID PANEL: Lab Results Component Value Date CHOL 160 04/26/2023 HDL 37 (L) 04/26/2023 TRIG 140 04/26/2023 LIVER PROFILE: Recent Labs 04/30/23 0716 AST 42* ALT 52* BILIDIR 0.1 BILITOT 0.4 ALKPHOS 128* Reviewed notes from internal medicine, PT, OT. Impression/Plan: Impaired ADLs, gait, and mobility due to: Cervical stenosis with myelopathy: S/p C3-C6 posterior decompression and fusion on 04/16/23 (Dr. Brooks). Cervical collar when out of bed, okay to remove for hygiene and when eating/drinking. PT/OT for gait, mobility, strengthening, endurance, ADLs, and self care. Pain control with scheduled baclofen, as-needed tylenol, as-needed percocet. [place] removed on 04/30/[address] Brooks. Spasticity: On baclofen TID Chronic left hip pain: X-rays showed mild arthritis. Transaminitis: AST 42, ALT 52 on 04/30, improved/stable. Monitoring. Hyperkalemia: Resolved after 4 doses of lokelma. Monitoring. HTN: Not currently on antihypertensive medications - blood pressure control adequate. Depression, panic disorder: On wellbutrin, lexapro, latuda Bowel Management: Miralax daily, senokot prn, dulcolax prn. DVT prophylaxis: Lovenox Internal Medicine for medical management Follow up PCP 1-2 weeks, Neurosurgery - Dr. Brooks 04/30/23 1830 Encounter Summary Encounter Overview/Reason Volunteer Encounter Service Provided For: Patient Referral/Consult From: Rounding Last Encounter 04/30/23 Complexity of Encounter Low Spiritual/Emotional needs Type Spiritual Support Rituals, Rites and Sacraments Type Protestant Communion Images from the original note were not included. [facility] Internal Medicine Agustin Frausto MD; Seven Connor MD; Mariano Han MD; MD Мария Chand MD; Dylon Anthony MD [facility] Internal Medicine IN-PATIENT SERVICE [facility] CONSULTATION / HISTORY AND PHYSICAL EXAMINATION Date: 04/30/2023 Patient name: Medina Sena Date of admission: 04/22/2023 7:51 PM Account: [id number] Date of : 1960 PCP: Efraín Li MD Room: [address] [place] [address] Code Status: Full Code Physician Requesting Consult: Joe Schilling MD Reason for Consult: Medical management Chief Complaint: No chief complaint on file. Cervical stenosis with myelopathy, status post surgery History Obtained From: 62-year-old female with underlying history of anemia, neuropathy, osteoporosis, major depression, was admitted to [place] in April 16 for cervical stenosis with myelopathy, treated with dose increased to C6 posterior surgical decompression and fusion by Dr. Brooks. Patient will be wearing the c-collar when she is out of the bed, admitted to inpatient rehab for further strengthening and mobility History of Present Illness: Past Medical History: Past Medical History: Diagnosis Date Agoraphobia Depression Diverticular disease IBS (irritable bowel syndrome) SEEMA (iron deficiency anemia) Neuropathy Osteoporosis Panic disorder Spastic quadriparesis (HCC) 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) Under care of service provider 04/03/2023 pcp-efraín hamm-last visit nov 2022 Under care of service provider 04/03/2023 qocqs-qmdkh-zbgllml-last visit feb 2023 Under care of service provider 04/03/2023 neurologist- Dr. Conti- last visit feb 2023 Wears glasses Past Surgical History: Past Surgical History: Procedure Laterality Date APPENDECTOMY BREAST BIOPSY BREAST SURGERY Left CERVICAL FUSION N/A 04/16/2023 C3-6 POSTERIOR CERVICAL DECOMPRESSION FUSION performed by Bev Brooks DO at [facility] OR CERVICAL SPINE SURGERY [address] [place] [address] CERVICAL SPINE SURGERY 04/16/2023 C3-6 POSTERIOR CERVICAL DECOMPRESSION FUSION CHOLECYSTECTOMY COLONOSCOPY HYSTERECTOMY (CERVIX STATUS UNKNOWN) BSO TONSILLECTOMY AND ADENOIDECTOMY Medications Prior to Admission: Prior to Admission medications Medication Sig Start Date End Date Taking? Authorizing Provider baclofen (LIORESAL) 10 MG tablet Take 1 tablet by mouth 3 times daily for 14 days 04/19/23 05/03/23 Oscar Marie, MEDIA EXECUTIVE - OBSTETRICS SCRUB NURSE CALCIUM GUMMIES 250-100-500 MG-UNIT CHEW Take 3 gums by mouth daily Abdi Powers MD escitalopram (LEXAPRO) 20 MG tablet Take 1 tablet by mouth daily Abdi Powers MD buPROPion (WELLBUTRIN XL) 150 MG extended release tablet Take 1 tablet by mouth every morning Abdi Powers MD lurasidone (LATUDA) 80 MG TABS tablet Take 1 tablet by mouth Daily with supper ProviderAbdi MD Allergies: Patient has no known allergies. Social History: Tobacco: reports that she has never smoked. She has never used smokeless tobacco. Alcohol: reports that she does not currently use alcohol. Drug Use: reports that she does not currently use drugs. Family History: Family History Problem Relation Age of Onset Heart Disease Mother Diabetes Father Review of Systems: Positive and Negative as described in HPI. Physical Exam: BP 124/74 Pulse 86 Temp 99.3 F (37.4 C) (Oral) Resp 16 Ht 1.575 m (5' 2.01 ) Wt 62.6 kg (138 lb) SpO2 99% BMI 25.23 kg/m Temp (24hrs), Av.7 F (37.1 C), Min:98.1 F (36.7 C), Max:99.3 F (37.4 C) No results for input(s): POCGLU in the last 72 hours. No intake or output data in the 24 hours ending 04/30/23 1728 General Appearance: alert, well appearing, and in no acute distress Mental status: oriented to person, place, and time with normal affect Cervical collar in place Mouth: mucous membranes moist Neck: supple, no carotid bruits, thyroid not palpable Lungs: Bilateral equal air entry, clear to ausculation, no wheezing, rales or rhonchi, normal effort Cardiovascular: normal rate, regular rhythm, no murmur, gallop, rub. Abdomen: Soft, nontender, nondistended, normal bowel sounds, no hepatomegaly or splenomegaly Neurologic: Mild weakness in the lower extremity Skin: No gross lesions, rashes, bruising or bleeding on exposed skin area Extremities: peripheral pulses palpable, no pedal edema or calf pain with palpation Investigations: Laboratory Testing: Recent Results (from the past 24 hour(s)) Basic Metabolic Panel w/ Reflex to MG Collection Time: 04/30/23 7:16 AM Result Value Ref Range Sodium 139 135 - 144 mmol/L Potassium 4.6 3.7 - 5.3 mmol/L Chloride 101 98 - 107 mmol/L CO2 28 20 - 31 mmol/L Anion Gap 10 9 - 17 mmol/L Glucose 93 70 - 99 mg/dL BUN 19 8 - 23 mg/dL Creatinine 1.1 (H) 0.5 - 0.9 mg/dL Est, Glom Filt Rate 56 (L) >60 mL/min/1.73m2 Calcium 9.9 8.6 - 10.4 mg/dL CBC auto differential Collection Time: 04/30/23 7:16 AM Result Value Ref Range WBC 7.5 3.5 - 11.0 k/uL RBC 3.53 (L) 4.0 - 5.2 m/uL Hemoglobin 11.0 (L) 12.0 - 16.0 g/dL Hematocrit 33.0 (L) 36 - 46 % MCV 93.4 80 - 100 fL MCH 31.0 26 - 34 pg MCHC 33.2 31 - 37 g/dL RDW 14.1 11.5 - 14.9 % Platelets 328 150 - 450 k/uL MPV 7.9 6.0 - 12.0 fL Neutrophils % 64 36 - 66 % Lymphocytes % 24 24 - 44 % Monocytes % 8 (H) 1 - 7 % Eosinophils % 3 0 - 4 % Basophils % 1 0 - 2 % Neutrophils Absolute 4.90 1.3 - 9.1 k/uL Lymphocytes Absolute 1.80 1.0 - 4.8 k/uL Monocytes Absolute 0.60 0.1 - 1.3 k/uL Eosinophils Absolute 0.20 0.0 - 0.4 k/uL Basophils Absolute 0.10 0.0 - 0.2 k/uL Hepatic Function Panel Collection Time: 04/30/23 7:16 AM Result Value Ref Range Albumin 3.6 3.5 - 5.2 g/dL Alkaline Phosphatase 128 (H) 35 - 104 U/L ALT 52 (H) 5 - 33 U/L AST 42 (H) <32 U/L Total Bilirubin 0.4 0.3 - 1.2 mg/dL Bilirubin, Direct 0.1 <0.3 mg/dL Bilirubin, Indirect 0.3 0.0 - 1.0 mg/dL Total Protein 6.2 (L) 6.4 - 8.3 g/dL Imaging/Diagonstics: XR CERVICAL SPINE (2-3 VIEWS) Result Date: 04/17/2023 Postsurgical change. No complication. Assessment : Hospital Problems Last Modified POA * (Principal) Cervical disc disease with myelopathy 04/22/2023 Yes Plan: 63-year-old female acute inpatient rehab for cervical stenosis with myelopathy status post C 3 through 6 posterior decompression fusion done by Dr. Brooks on April 16. Admitted for further strengthening and mobility, Spasticity, on baclofen Major depression, on Lexapro and Latuda, Panic disorder, home medications, Labs, radiology, medications, vitals reviewed, DVT prophylaxis with Lovenox, Full CODE STATUS, Thank you for consultation 04/30 Seen examined [id number], Labs, radiology, medications, vitals reviewed, Blood pressure much better today Lipid profile reviewed, low HDL Abnormal LFTs, improving Anemia, hemoglobin 11.2 no active bleeding Working with physical therapy UA - negative for UTI Xray Hip - negative Consultations: IP CONSULT TO DIETITIAN IP CONSULT TO SOCIAL WORK IP CONSULT TO INTERNAL MEDICINE Cortney Rebollar MD 04/30/2023 5:28 PM Copy sent to Efraín Hammer MD Please note that this chart was generated using voice recognition [employer] dictation software. Although every effort was made to ensure the accuracy of this automated cashier credit, some errors in cashier credit may have occurred. Physical Therapy Facility/Department: [facility] Treatment note NAME: Medina Sena : 1960 (62 y.o.) CODE STATUS: Full Code Date of Service: 04/30/23 Past Medical History: Diagnosis Date Agoraphobia Depression Diverticular disease IBS (irritable bowel syndrome) SEEMA (iron deficiency anemia) Neuropathy Osteoporosis Panic disorder Spastic quadriparesis (HCC) 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) Under care of service provider 04/03[facility]20[facility] Under care of service provider 04/03/2023 ruemb-iqjqn-yplhjuz-last visit feb 2023 Under care of service provider 04/03/2023 neurologist- Dr. Conti- last visit feb 2023 Wears glasses Past Surgical History: Procedure Laterality Date APPENDECTOMY BREAST BIOPSY BREAST SURGERY Left CERVICAL FUSION N/A 04/16/2023 C3-6 POSTERIOR CERVICAL DECOMPRESSION FUSION performed by Bev Brooks DO at [facility] OR CERVICAL SPINE SURGERY [address] [place] [address]- [facility] CERVICAL SPINE SURGERY 04/16/2023 C3-6 POSTERIOR CERVICAL DECOMPRESSION FUSION CHOLECYSTECTOMY COLONOSCOPY HYSTERECTOMY (CERVIX STATUS UNKNOWN) BSO TONSILLECTOMY AND ADENOIDECTOMY Family / Caregiver Present: No General Comment Comments: Pt able to don cervical collar c supervision in PM. Restrictions: Restrictions/Precautions: General Precautions;Fall Risk Required Braces or Orthoses Cervical: c-collar Position Activity Restriction Spinal Precautions: No Lifting Spinal Precautions: Cervical Precautions. Other position/activity restrictions: 04/16/23 - C3-6 POSTERIOR CERVICAL DECOMPRESSION FUSION. activity as tolerated, no lifting over 5 lbs SUBJECTIVE Subjective: Pt states she has walker at home during morning session; clarifies c PT Ashley that she has Rollator. Pain: Neck OBJECTIVE Functional Mobility Bed mobility Bed Mobility Comments: Pt in recliner at start of AM, PM sessions. Transfers Sit to Stand: Stand by assistance Stand to Sit: Stand by assistance (Slight tactile cue for location of R armrest) Stand Pivot Transfers: Stand by assistance Comment: Rolling walker. Environmental Mobility Ambulation Surface: Level tile Device: Rolling Walker Other Apparatus: (headline writer pulling wheelchair behind) Assistance: Stand by assistance Quality of Gait: Slow to flex at hip/knee during amb, scuffing floor. Narrow base of support. Gait Deviations: Slow Nati;Decreased step length Distance: 152' Comments: Increased L knee/hip flexion to reinforce foot clearance. F/fleeting return to cues for moderate REJI. Ambulation 2 Surface - 2: level tile;ramp Device 2: Rolling Walker Assistance 2: Stand by assistance Quality of Gait 2: As above; shorter step length on incline. Gait Deviations: Slow Nati;Decreased step length;Decreased step height Distance: 152' Comments: Cues to lift L LE higher on incline, P return. Stairs/Curb Stairs?: Yes Stairs # Steps : 10 Stairs Height: (6 and 4 ) Rails: Bilateral Assistance: Stand by assistance Comment: Ascends & decends c R; G control. Discussed need to use R HR only at home, states she would prefer to attempt lateral ascent/descent rather than use AD on L + R HR. PT Exercises Exercise Treatment: Donned compression stockings AM. Resistive Exercises: Seated in wheelchair, bilateral LEs, 2#: may, long-arc quads, ankle pumps; hip adduction vs ball; hip abduction & hamstring curls, each vs green/moderate resistance band. (States heavier weight would be appropriate/tolerable; advance to 2.5# 2/21) Functional Mobility Circuit Training: Sit <> stand x5 c RW, x2 c // bars. Motor Control/Coordination: Terminal knee extension, 15x each LE, vs green/moderate resistance band; cone tap, 15x each LE, then 10x alternating each LE. Each c bilateral UE support in // bars; Standing Open/Closed Kinetic Chain Exercises: March, hamstring curls, 3-way hip, heel/toe raises, 15x each c bilateral UE support on RW or // bars. Exercise Equipment: NuStep, LEs only, workload 3, 15 min. 470 steps. Seat 5. ASSESSMENT Activity Tolerance Activity Tolerance: Patient tolerated treatment well PT Equipment Recommendations Walker: Rolling (ordered, per Ashley) GOALS Short Term Goals Time Frame for Short Term Goals: 5-7 days Short Term Goal 1: Pt to demo mobility min to mod x1 with safe technique. Short Term Goal 2: Pt to perform transfers STS/pivots min to mod x1 with good technique using RW. Short Term Goal 3: Pt to amb 10'-20' with min to mod x1 and wheelchair follow. Short Term Goal 4: Pt to improve posture to GOOD. Short Term Goal 5: Pt to improve static/dynamic sitting balance to GOOD with 0-1 UE support. Personal Fitness Manager Goals Time Frame for Group Home Goals : by DC Personal Fitness Manager Goal 1: Pt to improve bed mobility to SBA to CGA with head of bed elevated and good technique. Group Home Goal 2: Pt to perform all transfers with least restrictive device CGA x1. Personal Fitness Manager Goal 3: Pt to amb 25' min to mod x1 on level surfaces and varied terrain. Group Home Goal 4: Pt to propel w/c 50' on level surfaces with BLE only, min x1. Group Home Goal 5: Pt to improve BLE strength by 1 MMG. Additional Goals?: Yes intermission coordinator goal 6: Pt to improve standing balance to FAIR+/GOOD- to reduce fall risk for functional mobility. intermission coordinator goal 7: Pt to demo HEP with good technique nursing home goal 8: Pt to complete family training, including floor transfer with min assist of 1. nursing home goal 9: Pt to tolerate standing up to 5 minutes (static/dynamic) assist of 1. PLAN OF CARE Frequency: 1-2 treatment sessions per day, 5-7 days per week Physical Therapy Plan General Plan: 60-120 minutes of therapy at least 5 out of 7 days a week Specific Instructions for Next Treatment: standing tolerance, transfers, therex Current Treatment Recommendations: Strengthening;Balance training;Functional mobility training;Transfer training;Endurance training;Neuromuscular re-education;Home exercise program;Safety education & training;Patient/Caregiver education & training;Equipment evaluation, education, & procurement;Therapeutic activities;Gait training;Wheelchair mobility training;ROM;Positioning Safety Devices Type of Devices: All fall risk precautions in place;Call light within reach;Gait belt;Left in chair;All ysabel prominences offloaded;Heels elevated for pressure relief;Chair alarm in place;Patient at risk for falls (Transferred care to JIE Marrero in PM) Therapy Time 04/30/23 0908 04/30/23 0909 PT Individual Minutes Time In 0853 1302 Time Out 1004 1332 Minutes 71 30 Roopa Arechiga, MANAGER PMO, 04/30/23 at 4:40 PM Physical Medicine & Rehabilitation Progress Note Subjective: Medina Sena is a 62 y.o. female with cervical myelopathy s/p C3-C6 posterior decompression and fusion. She reports doing fine today. She feels like numbness in the limbs is improving, although not resolved at this time. She also notes feeling that she is getting stronger overall. Discussed results of left hip x-rays. She denies any other acute concerns. ROS: Denies fevers, chills, sweats. No chest pain, palpitations, lightheadedness. Denies coughing, wheezing or shortness of breath. Denies abdominal pain, nausea, diarrhea or constipation. No new areas of joint pain. Denies new areas of numbness or weakness. Denies new anxiety or depression issues. No new skin problems. Rehabilitation: Physical Therapy Restrictions/Precautions: General Precautions, Fall Risk Implants present? : Metal implants Spinal Precautions: Cervical Precautions. Other position/activity restrictions: 04/16/23 - C3-6 POSTERIOR CERVICAL DECOMPRESSION FUSION. activity as tolerated, no lifting over 5 lbs Required Braces or Orthoses Cervical: c-collar Bed mobility Bridging: Contact guard assistance Rolling to Left: Minimal assistance Rolling to Right: Stand by assistance Supine to Sit: Stand by assistance Sit to Supine: Moderate assistance Scooting: Stand by assistance Bed Mobility Comments: Pt in recliner at start of AM, PM sessions. Transfers Sit to Stand: Stand by assistance Stand to Sit: Stand by assistance (Slight tactile cue for location of R armrest) Bed to Chair: Minimal assistance (assist with turning to present to chair) Stand Pivot Transfers: Stand by assistance Squat Pivot Transfers: Minimal Assistance (slight posterior lean as pt's right foot slips fwd) Comment: Rolling walker. Ambulation Surface: Level tile Device: Rolling Walker Other Apparatus: (headline writer pulling wheelchair behind) Assistance: Stand by assistance Quality of Gait: Slow to flex at hip/knee during amb, scuffing floor. Narrow base of support. Gait Deviations: Slow Nati, Decreased step length Distance: 152' Comments: Increased L knee/hip flexion to reinforce foot clearance. F/fleeting return to cues for moderate REJI. More Ambulation?: Yes Occupational Therapy ADL Feeding Assistance Level: Set-up Skilled Clinical Factors: per pt report Grooming/Oral Hygiene Assistance Level: Supervision Skilled Clinical Factors: Pt completed oral hygiene while seated in w/c. Upper Extremity Bathing Assistance Level: Supervision Skilled Clinical Factors: completed UB bathing while seated on shower bench. Lower Extremity Bathing Assistance Level: Supervision Skilled Clinical Factors: Able to wash BLE with figure 4 positioning and yuko area/buttocks while standing with GB Upper Extremity Dressing Assistance Level: Minimal assistance Skilled Clinical Factors: Pt. was able to greg/doff c-collar, doff button up pajama top, additional time to greg shirt OH and thread UE. Assist in donning c-collar Lower Extremity Dressing Assistance Level: Contact guard assist Skilled Clinical Factors: able to doff/greg pants past hips to knees. figure 4 postioning to thread, slight touching assist for pants and brief in back Putting On/Taking Off Footwear Assistance Level: Minimal assistance Skilled Clinical Factors: Assist with TEDs. Pt. can greg/doff her slip on shoes with SUP. Toileting Assistance Level: Stand by assist Skilled Clinical Factors: Completed with close SBA Toilet Transfers Equipment: Standard toilet;Grab bars Assistance Level: Stand by assist Skilled Clinical Factors: Uses grab bar. Demonstrates good controlled descend. Tub/Shower Transfers Type: Shower Transfer From: Rolling walker Transfer To: Tub transfer bench Assistance Level: Contact guard assist Skilled Clinical Factors: CGA with verbal cuing for technique using rw to cross threshold. Speech Therapy Current Medications: Current Facility-Administered Medications: glucose chewable tablet 16 g, 4 tablet, Oral, PRN dextrose bolus 10% 125 mL, 125 mL, IntraVENous, PRN OR dextrose bolus 10% 250 mL, 250 mL, IntraVENous, PRN glucagon injection 1 mg, 1 mg, SubCUTAneous, PRN dextrose 10 % infusion, , IntraVENous, Continuous PRN baclofen (LIORESAL) tablet 10 mg, 10 mg, Oral, TID buPROPion (WELLBUTRIN XL) extended release tablet 150 mg, 150 mg, Oral, QAM enoxaparin (LOVENOX) injection 40 mg, 40 mg, SubCUTAneous, Daily escitalopram (LEXAPRO) tablet 20 mg, 20 mg, Oral, Daily lurasidone (LATUDA) tablet 80 mg, 80 mg, Oral, Dinner oxyCODONE-acetaminophen (PERCOCET) 5-325 MG per tablet 1 tablet, 1 tablet, Oral, Q6H PRN OR oxyCODONE-acetaminophen (PERCOCET) 5-325 MG per tablet 2 tablet, 2 tablet, Oral, Q6H PRN polyethylene glycol (GLYCOLAX) packet 17 g, 17 g, Oral, Daily magnesium hydroxide (MILK OF MAGNESIA) 400 MG/5ML suspension 30 mL, 30 mL, Oral, Daily PRN acetaminophen (TYLENOL) tablet 650 mg, 650 mg, Oral, Q4H PRN senna (SENOKOT) tablet 17.2 mg, 2 tablet, Oral, Daily PRN bisacodyl (DULCOLAX) suppository 10 mg, 10 mg, Rectal, Daily PRN Objective: BP (!) 121/58 Pulse 94 Temp 98.3 F (36.8 C) Resp 18 Ht 1.575 m (5' 2.01 ) Wt 62.6 kg (138 lb) SpO2 96% BMI 25.23 kg/m GEN: Well developed, well nourished, no acute distress HEENT: Normocephalic, atraumatic. EOM grossly intact. Hearing grossly intact. Mucous membranes pink and moist. RESP: Normal breath sounds with no wheezing, rales, or rhonchi. Respirations WNL and unlabored. CV: Regular rate and rhythm. No murmurs, rubs, or gallops. ABD: Soft, non-distended, bowel sounds present and equal. NEURO: Alert. Speech fluent. Sensation to light touch decreased in all limbs. MSK: Muscle bulk is normal bilaterally. Strength 4+/5 in the right upper limb. Strength 4/5 in the left upper limb. Strength 4+/5 in the bilateral lower limbs. LIMBS: No edema in bilateral lower limbs. SKIN: Warm and dry with good turgor. Neck incision clean, dry, intact with stacey in place; mild yuko-incisional erythema present, no drainage. PSYCH: Mood WNL. Affect WNL. Appropriately interactive. Diagnostics: CBC: Recent Labs 04/30/23 0716 WBC 7.5 RBC 3.53* HGB 11.0* HCT 33.0* MCV 93.4 RDW 14.1 PLT 328 BMP: Recent Labs 04/30/23 0716 NA 139 K 4.6 CL 101 CO2 28 BUN 19 CREATININE 1.1* GLUCOSE 93 BNP: No results for input(s): BNP in the last 72 hours. PT/INR: No results for input(s): PROTIME , INR in the last 72 hours. APTT: No results for input(s): APTT in the last 72 hours. CARDIAC ENZYMES: No results for input(s): CKMB , CKMBINDEX , TROPONINT in the last 72 hours. Invalid input(s): CKTOTAL;3 FASTING LIPID PANEL: Lab Results Component Value Date CHOL 160 04/26/2023 HDL 37 (L) 04/26/2023 TRIG 140 04/26/2023 LIVER PROFILE: Recent Labs 04/30/23 0716 AST 42* ALT 52* BILIDIR 0.1 BILITOT 0.4 ALKPHOS 128* Left hip x-rays, 04/29/23: IMPRESSION: No acute abnormality of the hip. Mild degenerative changes. Reviewed notes from internal medicine, PT, OT. Impression/Plan: Impaired ADLs, gait, and mobility due to: Cervical stenosis with myelopathy: S/p C3-C6 posterior decompression and fusion on 04/16/23 (Dr. Brooks). Cervical collar when out of bed, okay to remove for hygiene and when eating/drinking. PT/OT for gait, mobility, strengthening, endurance, ADLs, and self care. Pain control with scheduled baclofen, as-needed tylenol, as-needed percocet. [place] to be removed on 04/30/23 - discussed with Dr. Brooks. Spasticity: On baclofen TID Chronic left hip pain: Ordered left hip x-rays for evaluation, as she has not had previous x-rays - showed mild arthritis. Transaminitis: AST 42, ALT 52 on 04/30, stable. Monitoring. Hyperkalemia: Resolved after 4 doses of lokelma. Monitoring. HTN: Not currently on antihypertensive medications - blood pressure control adequate. Depression, panic disorder: On wellbutrin, lexapro, latuda Bowel Management: Miralax daily, senokot prn, dulcolax prn. DVT prophylaxis: Lovenox Internal Medicine for medical management Follow up PCP 1-2 weeks, Neurosurgery - Dr. Brooks Discussed discharge date of 05/03/23 at team meeting - discussed with patient and as well [facility] Occupational Therapy Daily Treatment Note Date: 04/29/23 Patient Name: Medina Sena Room: 2608/2608-01 Account: [id number] : 1960 (62 y.o.) Gender: female Referring Practitioner: Joe Schilling MD Diagnosis: Cervical disc disease with myelopathy Additional Pertinent Hx: Per PM&R consult: Medina Sena is a 62 y.o. right-handed female with history of cervical stenosis, IBS, depression, panic disorder admitted to [facility] on 04/16/2023. She initially presented for elective surgical intervention for cervical stenosis with myelopathy. She underwent C3-C6 posterior decompression and fusion on 04/16/23 (Dr. Brooks). She has a c-collar when out of bed. She reports ongoing posterior neck pain. She also notes continued numbness in all limbs. She feels weakest in the right upper limb and left lower limb. She states that she has ongoing shaking/muscle spasms in the bilateral lower limbs, sometimes at rest and sometimes with activity. She declines having any home or outpatient therapies previously for her condition. Treatment Diagnosis: impaired self care status Past Medical History: has a past medical history of Agoraphobia, Depression, Diverticular disease, IBS (irritable bowel syndrome), SEEMA (iron deficiency anemia), Neuropathy, Osteoporosis, Panic disorder, Spastic quadriparesis (HCC), 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), Under care of service provider, Under care of service provider, Under care of service provider, and Wears glasses. Past Surgical History: has a past surgical history that includes Appendectomy; Breast biopsy; Cervical spine surgery (2003); Colonoscopy; Cholecystectomy; Hysterectomy; Tonsillectomy and adenoidectomy; Breast surgery (Left); Cervical spine surgery (04/16/2023); and cervical fusion (N/A, 04/16/2023). Restrictions Restrictions/Precautions Restrictions/Precautions: General Precautions, Fall Risk Required Braces or Orthoses?: Yes Implants present? : Metal implants (cervical fusion) Required Braces or Orthoses Cervical: c-collar Position Activity Restriction Spinal Precautions: No Lifting Spinal Precautions: Cervical Precautions. Other position/activity restrictions: 04/16/23 - C3-6 POSTERIOR CERVICAL DECOMPRESSION FUSION. activity as tolerated, no lifting over 5 lbs Vitals Vital Signs BP Location: Right upper arm O2 Device: None (Room air) Subjective Subjective Subjective: AM: Pt requests fresh new pads for c-collar prior to starting. Declines ADLs except oral hygiene. PM: Pt agreeable to participating at therapy gym. Pain: Pt denies pain at this time Pain Assessment Response to Pain Intervention: Patient satisfied Objective Cognition Overall Orientation Status: Within Functional Limits Orientation Level: Oriented to person;Oriented to place;Oriented to situation;Oriented to time;Oriented X4 Cognition Overall Cognitive Status: Exceptions Arousal/Alertness: Delayed responses to stimuli Following Commands: Follows multistep commands with increased time;Follows multistep commands with repitition Attention Span: Appears intact Memory: Appears intact Safety Judgement: Decreased awareness of need for assistance;Decreased awareness of need for safety Problem Solving: Assistance required to generate solutions;Assistance required to identify errors made;Assistance required to correct errors made;Decreased awareness of errors Insights: Decreased awareness of deficits Initiation: Requires cues for some Sequencing: Requires cues for some Cognition Comment: Required increased time to process information this date. Activities of Daily Living Feeding Assistance Level: Set-up Skilled Clinical Factors: per pt report Grooming/Oral Hygiene Assistance Level: Stand by assist Skilled Clinical Factors: Pt stood at sink to wash face and brush teeth ~3-4 min of standing. Area Operations Manager providing SBA- w/c locked and placed behind her. While seated pt was able to remove braid from hair off to the L side of shoulder- then requested assist to brush through and re-braid. Toileting Assistance Level: Minimal assistance Skilled Clinical Factors: AM: CGA provided during management of clothing down past hips and back up over hips. No LOB. SBA/SUP provided during yuko hygiene. PM: Min A for clothing management Toilet Transfers Equipment: Standard toilet;Grab bars Assistance Level: Contact guard assist Skilled Clinical Factors: AM/PM: Uses grab bar. Demonstrates controlled descend. Mobility Sit to Stand Assistance Level: Contact guard assist Skilled Clinical Factors: Min verbal cuing for hand placement. Stand to Sit Assistance Level: Contact guard assist Skilled Clinical Factors: Min verbal cuing for hand placement. Demos controlled descend. Functional Mobility Device: Rolling walker Activity: (Small steps from w/c to recliner chair, guarded on L side) Assistance Level: Contact guard assist Skilled Clinical Factors: cues for safety and proper gait when amb with RW OT Exercises Dynamic Standing Balance Exercises: PM: Area Operations Manager engaged pt in dynamic standing exercises to promote standing tolerance and balance when weight shifting. Pt tolerated 5 min, then 10 minutes threading objects over an arch within cervical precautions. Pt c/o slight pulling on R side. 1 slight LOB noted when pt was encouraged to weight shift to L. Area Operations Manager maintained balance with CGA from gait belt. Assessment Assessment Activity Tolerance: Patient tolerated treatment well Discharge Recommendations: Continue to assess pending progress;Home with assist PRN Patient Education Education Education Given To: Patient Education Provided: Role of Therapy;Plan of Care;Equipment;Transfer Training;Fall Prevention Strategies;Energy Conservation Education Method: Verbal Barriers to Learning: Cognition Education Outcome: Verbalized understanding;Demonstrated understanding;Continued education needed OT Equipment Recommendations ADL Assistive Devices: Gait Belt Other: TBD Safety Devices Safety Devices in place: Yes Type of devices: All fall risk precautions in place;Call light within reach;Chair alarm in place;Gait belt;Left in chair Goals Patient Goals Patient goals : To walk Short Term Goals Time Frame for Short Term Goals: Within 7-10 days, pt will Short Term Goal 1: perform functional transfers/mobility during self care tasks with Mod A, least restrictive device, and Good safety Short Term Goal 2: perform upper body bathing/dressing tasks with Min A and Good adherence to cervical precautions Short Term Goal 3: perform lower body bathing/dressing/toileting tasks with Mod A and adaptive equipment as needed Short Term Goal 4: tolerate standing for 5+ minutes during self care/functional activity with Mod A Short Term Goal 5: actively participate in 30+ minutes of therapeutic exercise/functional activity to increase overall strength/endurance needed for ADLs/IADLs Group Home Goals Time Frame for Group Home Goals : By discharge, pt will Group Home Goal 1: perform functional transfers/mobility during self care tasks with CGA, least restrictive device, and Good safety Personal Fitness Manager Goal 2: perform upper body bathing/dressing tasks with SBA and Good adherence to cervical precautions Personal Fitness Manager Goal 3: perform lower body bathing/dressing/toileting tasks with CGA and adaptive equipment as needed Group Home Goal 4: tolerate standing for 10+ minutes during self care/functional activity with CGA Personal Fitness Manager Goal 5: OT to further assess service parts coordinator strength and fine motor coordination and notify OTR to update goal as appropriate Group Home Goal 6: perform self feeding task with Mod I Plan Occupational Therapy Plan Times Per Week: 5-7 Times Per Day: Twice a day Current Treatment Recommendations: Balance training, Functional mobility training, Wheelchair mobility training, Patient/Caregiver education & training, Safety education & training, Pain management, Self-Care / ADL, Equipment evaluation, education, & procurement, Home management training, Coordination training, Endurance training, Strengthening 04/29/23 1118 04/29/23 1216 OT Individual Minutes Time In 1118 1329 Time Out 1212 1408 Minutes 54 39 Physical Therapy Facility/Department: [facility] Rehabilitation Physical Therapy NAME: Medina Sena : 1960 (62 y.o.) CODE STATUS: Full Code Date of Service: 04/29/23 Past Medical History: Diagnosis Date Agoraphobia Depression Diverticular disease IBS (irritable bowel syndrome) SEEMA (iron deficiency anemia) Neuropathy Osteoporosis Panic disorder Spastic quadriparesis (HCC) 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) Under care of service provider 04/03/2023 pcp-efraín hamm-last visit nov 2022 Under care of service provider 04/03/2023 [id number]-last visit feb 2023 Under care of service provider 04/03/2023 neurologist- Dr. Conti- last visit feb 2023 Wears glasses Past Surgical History: Procedure Laterality Date APPENDECTOMY BREAST BIOPSY BREAST SURGERY Left CERVICAL FUSION N/A 04/16/2023 C3-6 POSTERIOR CERVICAL DECOMPRESSION FUSION performed by Bev Brooks DO at [facility] OR CERVICAL SPINE SURGERY [address] [place] [address] CERVICAL SPINE SURGERY 04/16/2023 C3-6 POSTERIOR CERVICAL DECOMPRESSION FUSION CHOLECYSTECTOMY COLONOSCOPY HYSTERECTOMY (CERVIX STATUS UNKNOWN) BSO TONSILLECTOMY AND ADENOIDECTOMY Chart Reviewed: Yes Patient assessed for rehabilitation services?: Yes Additional Pertinent Hx: Medina Sena is a 62 y.o. right-handed female with history of cervical stenosis, IBS, depression, panic disorder admitted to [facility] on 04/16/2023. She initially presented for elective surgical intervention for cervical stenosis with myelopathy. She underwent C3-C6 posterior decompression and fusion on 04/16/23 (Dr. Brooks). She has a c-collar when out of bed. She reports ongoing posterior neck pain. She also notes continued numbness in all limbs. She feels weakest in the right upper limb and left lower limb. She states that she has ongoing shaking/muscle spasms in the bilateral lower limbs, sometimes at rest and sometimes with activity. She declines having any home or outpatient therapies previously for her condition. Admitted to [facility] 04/22/23 Family / Caregiver Present: No Referring Practitioner: Qamar Blackman MD Referral Date : 04/22/23 Diagnosis: stenosis of cervical spine General Comment Comments: C-collar donned at begining of therapy session. Restrictions: Restrictions/Precautions: General Precautions;Fall Risk Required Braces or Orthoses Cervical: c-collar Position Activity Restriction Spinal Precautions: No Lifting Spinal Precautions: Cervical Precautions. Other position/activity restrictions: 04/16/23 - C3-6 POSTERIOR CERVICAL DECOMPRESSION FUSION. activity as tolerated, no lifting over 5 lbs SUBJECTIVE Subjective: patient c/o neck pain 8/10 but reported just received pain meds prior to therapy session. Patient reporting pain in LLE with mobility and exercises. Patient indicated left thigh hip area with hand. Stated having issue for about 5 months. Patient stated has not had testing or therapy for issue. Notified PT Ashley Burton regarding patient limited mobility and safety concerns with walking. OBJECTIVE Functional Mobility Bed mobility Bridging: Contact guard assistance Rolling to Left: Minimal assistance Rolling to Right: Stand by assistance Supine to Sit: Stand by assistance Sit to Supine: Moderate assistance Scooting: Stand by assistance Bed Mobility Comments: head of bed slightly elevated for comfort, no handrail. Patient reports has an adjustable bed at home but not handrail. Assisted BLE into bed for patient. Encouragement to actively use BLE independently for bed mobility. Educated on safe techniques. Transfers Sit to Stand: Contact guard assistance;Minimal Assistance (cues to not pull from walker, hand place on surface seated.) Stand to Sit: Contact guard assistance Bed to Chair: Minimal assistance (assist with turning to present to chair) Comment: Reinforced body positioning and technique for sit<>stand transfer. Cueing to scoot forward on egde of surface to allow feet to floor pushing. Environmental Mobility Ambulation Surface: Level tile Device: Rolling Walker Assistance: Contact guard assistance Quality of Gait: LLE presents with increase tone/like cogwheel motion. Slow to flex at hip/knee during amb scuffing floor. Gait Deviations: Shuffles;Decreased step height;Decreased step length (LLE) Distance: 152 feet once am; patient reported fatigue to returned to room. patient transported via . Comments: patient with high stepping to correct LLE weakness with reinforcement to continue during ambulation. patient with difficulty with lateral steps/turning to present to front of chair. Stairs # Steps : 10 Stairs Height: 6 (and 4 rise) Rails: Bilateral Assistance: Contact guard assistance Comment: step to sequencing Acends with R and decends with right with good control. Propulsion 1 Propulsion: Manual Level: Level Tile Method: RLE;LLE Level of Assistance: Stand by assistance Distance: 60 total PT Exercises Exercise Treatment: Pivots bed ->wc, wc<>nustep and mat, wc -> recliner and NuStep A/AROM Exercises: Supine and Seated at EOM: RLE x 15, LLE AROM x 15 Resistive Exercises: Supine and Seated at EOM: 2#RLE x 15, LLE AROM x 15 [place] band HS curls and hip abd x 15ea; alyx hip add against ball x 15 Circulation/Endurance Exercises: marching and heel/toe raises Pressure Relief Exercises: STS x5 from blue chair using arm rests-CGA Standing Open/Closed Kinetic Chain Exercises: standing at hallway HR:1.5#(B) BLE standing ex10x Exercise Equipment: L2 x 13 mins; patient mostly complete with BLE and took breaks with UE ASSESSMENT Activity Tolerance Activity Tolerance Comments: patient indicative to pain in thigh and hip with therex. including hip flexion with tactile cues for noted compensation of hip to externally rotate where patient feet are touching. GOALS Patient Goals Patient Goals : To walk Short Term Goals Time Frame for Short Term Goals: 5-7 days Short Term Goal 1: Pt to demo mobility min to mod x1 with safe technique. Short Term Goal 2: Pt to perform transfers STS/pivots min to mod x1 with good technique using RW. Short Term Goal 3: Pt to amb 10'-20' with min to mod x1 and wheelchair follow. Short Term Goal 4: Pt to improve posture to GOOD. Short Term Goal 5: Pt to improve static/dynamic sitting balance to GOOD with 0-1 UE support. Personal Fitness Manager Goals Time Frame for Group Home Goals : by DC Personal Fitness Manager Goal 1: Pt to improve bed mobility to SBA to CGA with head of bed elevated and good technique. Group Home Goal 2: Pt to perform all transfers with least restrictive device CGA x1. Group Home Goal 3: Pt to amb 25' min to mod x1 on level surfaces and varied terrain. Personal Fitness Manager Goal 4: Pt to propel w/c 50' on level surfaces with BLE only, min x1. Personal Fitness Manager Goal 5: Pt to improve BLE strength by 1 MMG. Additional Goals?: Yes intermission coordinator goal 6: Pt to improve standing balance to FAIR+/GOOD- to reduce fall risk for functional mobility. nursing home goal 7: Pt to demo HEP with good technique nursing home goal 8: Pt to complete family training, including floor transfer with min assist of 1. intermission coordinator goal 9: Pt to tolerate standing up to 5 minutes (static/dynamic) assist of 1. PLAN OF CARE Frequency: 1-2 treatment sessions per day, 5-7 days per week Safety Devices Type of Devices: All fall risk precautions in place;Call light within reach;Gait belt;Left in chair;All ysabel prominences offloaded EDUCATION Education Education Given To: Patient Education Provided: Transfer Training;Mobility Training;Equipment (C-collar) Education Provided Comments: LLE positioning with exercises; Education Method: Demonstration;Verbal Barriers to Learning: None Education Outcome: Verbalized understanding;Demonstrated understanding Therapy Time 04/29/23 0908 PT Individual Minutes Time In 0907 Time Out 1042 Minutes 95 Liliana Gant, MANAGER PMO, 04/29/23 at 3:36 PM Images from the original note were not included. [facility] Internal Medicine Agustin Frausto MD; Seven Connor MD; Mariano Han MD; MD Мария Chand MD; Dylon Anthony MD [facility] Internal Medicine IN-PATIENT SERVICE [facility] CONSULTATION / HISTORY AND PHYSICAL EXAMINATION Date: 04/29/2023 Patient name: Medina Sena Date of admission: 04/22/2023 7:51 PM Account: [id number] Date of : 1960 PCP: Efraín Li MD Room: [address] [place] [address] Code Status: Full Code Physician Requesting Consult: Joe Schilling MD Reason for Consult: Medical management Chief Complaint: No chief complaint on file. Cervical stenosis with myelopathy, status post surgery History Obtained From: 62-year-old female with underlying history of anemia, neuropathy, osteoporosis, major depression, was admitted to [place] in April 16 for cervical stenosis with myelopathy, treated with dose increased to C6 posterior surgical decompression and fusion by Dr. Brooks. Patient will be wearing the c-collar when she is out of the bed, admitted to inpatient rehab for further strengthening and mobility History of Present Illness: Past Medical History: Past Medical History: Diagnosis Date Agoraphobia Depression Diverticular disease IBS (irritable bowel syndrome) SEEMA (iron deficiency anemia) Neuropathy Osteoporosis Panic disorder Spastic quadriparesis (HCC) 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) Under care of service provider 04/03/2023 pcp-efraín hamm-last visit nov 2022 Under care of service provider 04/03/2023 [id number]-[id number]-zpiaksk-last visit feb 2023 Under care of service provider 04/03/2023 neurologist- Dr. Conti- last visit feb 2023 Wears glasses Past Surgical History: Past Surgical History: Procedure Laterality Date APPENDECTOMY BREAST BIOPSY BREAST SURGERY Left CERVICAL FUSION N/A 04/16/2023 C3-6 POSTERIOR CERVICAL DECOMPRESSION FUSION performed by Bev Brooks DO at [facility] OR CERVICAL SPINE SURGERY [facility] CERVICAL SPINE SURGERY 04/16/2023 C3-6 POSTERIOR CERVICAL DECOMPRESSION FUSION CHOLECYSTECTOMY COLONOSCOPY HYSTERECTOMY (CERVIX STATUS UNKNOWN) BSO TONSILLECTOMY AND ADENOIDECTOMY Medications Prior to Admission: Prior to Admission medications Medication Sig Start Date End Date Taking? Authorizing Provider baclofen (LIORESAL) 10 MG tablet Take 1 tablet by mouth 3 times daily for 14 days 04/19/23 05/03/23 Oscar Marie, MEDIA EXECUTIVE - OBSTETRICS SCRUB NURSE CALCIUM GUMMIES 250-100-500 MG-UNIT CHEW Take 3 gums by mouth daily ProviderAbdi MD escitalopram (LEXAPRO) 20 MG tablet Take 1 tablet by mouth daily ProviderAbdi MD buPROPion (WELLBUTRIN XL) 150 MG extended release tablet Take 1 tablet by mouth every morning ProviderAbdi MD lurasidone (LATUDA) 80 MG TABS tablet Take 1 tablet by mouth Daily with supper Provider, MD Abdi Allergies: Patient has no known allergies. Social History: Tobacco: reports that she has never smoked. She has never used smokeless tobacco. Alcohol: reports that she does not currently use alcohol. Drug Use: reports that she does not currently use drugs. Family History: Family History Problem Relation Age of Onset Heart Disease Mother Diabetes Father Review of Systems: Positive and Negative as described in HPI. Physical Exam: BP (!) 128/55 Pulse 91 Temp 98.2 F (36.8 C) Resp 16 Ht 1.575 m (5' 2.01 ) Wt 62.6 kg (138 lb) SpO2 98% BMI 25.23 kg/m Temp (24hrs), Av.4 F (36.9 C), Min:98.2 F (36.8 C), Max:98.5 F (36.9 C) No results for input(s): POCGLU in the last 72 hours. No intake or output data in the 24 hours ending 04/29/23 1330 General Appearance: alert, well appearing, and in no acute distress Mental status: oriented to person, place, and time with normal affect Cervical collar in place Mouth: mucous membranes moist Neck: supple, no carotid bruits, thyroid not palpable Lungs: Bilateral equal air entry, clear to ausculation, no wheezing, rales or rhonchi, normal effort Cardiovascular: normal rate, regular rhythm, no murmur, gallop, rub. Abdomen: Soft, nontender, nondistended, normal bowel sounds, no hepatomegaly or splenomegaly Neurologic: Mild weakness in the lower extremity Skin: No gross lesions, rashes, bruising or bleeding on exposed skin area Extremities: peripheral pulses palpable, no pedal edema or calf pain with palpation Investigations: Laboratory Testing: Recent Results (from the past 24 hour(s)) Urinalysis with Reflex to Culture Collection Time: 04/28/23 7:38 PM Specimen: Urine Result Value Ref Range Color, UA Yellow Yellow Turbidity UA Clear Clear Glucose, Ur NEGATIVE NEGATIVE mg/dL Bilirubin Urine NEGATIVE NEGATIVE Ketones, Urine NEGATIVE NEGATIVE mg/dL Specific [place], UA 1.009 1.000 - 1.030 Urine Hgb NEGATIVE NEGATIVE pH, UA 6.0 5.0 - 8.0 Protein, UA NEGATIVE NEGATIVE mg/dL Urobilinogen, Urine Normal 0.0 - 1.0 EU/dL Nitrite, Urine NEGATIVE NEGATIVE Leukocyte Esterase, Urine TRACE (A) NEGATIVE Microscopic Urinalysis Collection Time: 04/28/23 7:38 PM Result Value Ref Range WBC, UA 6 TO 9 (A) 0 TO 5 /HPF RBC, UA 0 TO 2 0 TO 2 /HPF Casts UA 0 TO 2 (A) None /LPF Epithelial Cells UA 0 TO 2 /HPF Bacteria, UA None None Imaging/Diagonstics: XR CERVICAL SPINE (2-3 VIEWS) Result Date: 04/17/2023 Postsurgical change. No complication. Assessment : Hospital Problems Last Modified POA * (Principal) Cervical disc disease with myelopathy 04/22/2023 Yes Plan: 63-year-old female acute inpatient rehab for cervical stenosis with myelopathy status post C 3 through 6 posterior decompression fusion done by Dr. Brooks on April 16. Admitted for further strengthening and mobility, Spasticity, on baclofen Major depression, on Lexapro and Latuda, Panic disorder, home medications, Labs, radiology, medications, vitals reviewed, DVT prophylaxis with Lovenox, Full CODE STATUS, Thank you for consultation 04/29 Seen examined [id number], Labs, radiology, medications, vitals reviewed, Blood pressure much better today Lipid profile reviewed, low HDL Abnormal LFTs, improving Anemia, hemoglobin 11.2 no active bleeding Working with physical therapy UA - negative for UTI Consultations: IP CONSULT TO DIETITIAN IP CONSULT TO SOCIAL WORK IP CONSULT TO INTERNAL MEDICINE Cortney Rebollar MD 04/29/2023 1:30 PM Copy sent to Efraín Hammer MD Please note that this chart was generated using voice recognition [employer] dictation software. Although every effort was made to ensure the accuracy of this automated cashier credit, some errors in cashier credit may have occurred. Physical Medicine & Rehabilitation Progress Note Subjective: Medina Sena is a 62 y.o. female with cervical myelopathy s/p C3-C6 posterior decompression and fusion. She reports doing okay today. She notes chronic left hip pain for about 5 months, which is increased with activity and prolonged sitting. Discussed obtaining left hip x-rays, as she has not had any x-rays previously. She reports ongoing left greater than right-sided weakness. She denies any other acute concerns. ROS: Denies fevers, chills, sweats. No chest pain, palpitations, lightheadedness. Denies coughing, wheezing or shortness of breath. Denies abdominal pain, nausea, diarrhea or constipation. No new areas of joint pain. Denies new areas of numbness or weakness. Denies new anxiety or depression issues. No new skin problems. Rehabilitation: Physical Therapy Restrictions/Precautions: General Precautions, Fall Risk Implants present? : Metal implants (cervical fusion) Spinal Precautions: Cervical Precautions. Other position/activity restrictions: 04/16/23 - C3-6 POSTERIOR CERVICAL DECOMPRESSION FUSION. activity as tolerated, no lifting over 5 lbs Required Braces or Orthoses Cervical: c-collar Bed mobility Bridging: Contact guard assistance Rolling to Left: Minimal assistance Rolling to Right: Stand by assistance Supine to Sit: Stand by assistance Sit to Supine: Moderate assistance Scooting: Stand by assistance Bed Mobility Comments: head of bed slightly elevated for comfort, no handrail. Patient reports has an adjustable bed at home but not handrail. Assisted BLE into bed for patient. Encouragement to actively use BLE independently for bed mobility. Educated on safe techniques. Transfers Sit to Stand: Contact guard assistance, Minimal Assistance (cues to not pull from walker, hand place on surface seated.) Stand to Sit: Contact guard assistance Bed to Chair: Minimal assistance (assist with turning to present to chair) Stand Pivot Transfers: Contact guard assistance (w/RW) Squat Pivot Transfers: Minimal Assistance (slight posterior lean as pt's right foot slips fwd) Comment: Reinforced body positioning and technique for sit<>stand transfer. Cueing to scoot forward on egde of surface to allow feet to floor pushing. Ambulation Surface: Level tile Device: Rolling Walker Other Apparatus: (headline writer pulling wheelchair behind) Assistance: Contact guard assistance Quality of Gait: LLE presents with increase tone/like cogwheel motion. Slow to flex at hip/knee during amb scuffing floor. Gait Deviations: Shuffles, Decreased step height, Decreased step length (LLE) Distance: 152 feet once am; patient reported fatigue to returned to room. patient transported via wc. Comments: patient with high stepping to correct LLE weakness with reinforcement to continue during ambulation. patient with difficulty with lateral steps/turning to present to front of chair. More Ambulation?: Yes Occupational Therapy ADL Feeding Assistance Level: Set-up Skilled Clinical Factors: per pt report Grooming/Oral Hygiene Assistance Level: Stand by assist Skilled Clinical Factors: Pt stood at sink to wash face and brush teeth ~3-4 min of standing. Area Operations Manager providing SBA- w/c locked and placed behind her. While seated pt was able to remove braid from hair off to the L side of shoulder- then requested assist to brush through and re-braid. Toileting Assistance Level: Minimal assistance Skilled Clinical Factors: AM: CGA provided during management of clothing down past hips and back up over hips. No LOB. SBA/SUP provided during yuko hygiene. PM: Min A for clothing management Toilet Transfers Equipment: Standard toilet;Grab bars Assistance Level: Contact guard assist Skilled Clinical Factors: AM/PM: Uses grab bar. Demonstrates controlled descend. Speech Therapy Current Medications: Current Facility-Administered Medications: glucose chewable tablet 16 g, 4 tablet, Oral, PRN dextrose bolus 10% 125 mL, 125 mL, IntraVENous, PRN OR dextrose bolus 10% 250 mL, 250 mL, IntraVENous, PRN glucagon injection 1 mg, 1 mg, SubCUTAneous, PRN dextrose 10 % infusion, , IntraVENous, Continuous PRN baclofen (LIORESAL) tablet 10 mg, 10 mg, Oral, TID buPROPion (WELLBUTRIN XL) extended release tablet 150 mg, 150 mg, Oral, QAM enoxaparin (LOVENOX) injection 40 mg, 40 mg, SubCUTAneous, Daily escitalopram (LEXAPRO) tablet 20 mg, 20 mg, Oral, Daily lurasidone (LATUDA) tablet 80 mg, 80 mg, Oral, Dinner oxyCODONE-acetaminophen (PERCOCET) 5-325 MG per tablet 1 tablet, 1 tablet, Oral, Q6H PRN OR oxyCODONE-acetaminophen (PERCOCET) 5-325 MG per tablet 2 tablet, 2 tablet, Oral, Q6H PRN polyethylene glycol (GLYCOLAX) packet 17 g, 17 g, Oral, Daily magnesium hydroxide (MILK OF MAGNESIA) 400 MG/5ML suspension 30 mL, 30 mL, Oral, Daily PRN acetaminophen (TYLENOL) tablet 650 mg, 650 mg, Oral, Q4H PRN senna (SENOKOT) tablet 17.2 mg, 2 tablet, Oral, Daily PRN bisacodyl (DULCOLAX) suppository 10 mg, 10 mg, Rectal, Daily PRN Objective: BP 117/61 Pulse 75 Temp 98.1 F (36.7 C) Resp 18 Ht 1.575 m (5' 2.01 ) Wt 62.6 kg (138 lb) SpO2 96% BMI 25.23 kg/m GEN: Well developed, well nourished, no acute distress HEENT: Normocephalic, atraumatic. EOM grossly intact. Hearing grossly intact. Mucous membranes pink and moist. Cervical collar in place. RESP: Normal breath sounds with no wheezing, rales, or rhonchi. Respirations WNL and unlabored. CV: Regular rate and rhythm. No murmurs, rubs, or gallops. ABD: Soft, non-distended, bowel sounds present and equal. NEURO: Alert. Speech fluent. Sensation to light touch intact. MSK: Muscle bulk is normal bilaterally. Strength 4+/5 in the right upper limb. Strength 4/5 in the left upper limb. Strength 4+/5 in the bilateral lower limbs. LIMBS: No edema in bilateral lower limbs. SKIN: Warm and dry with good turgor. PSYCH: Mood WNL. Affect WNL. Appropriately interactive. Diagnostics: CBC: No results for input(s): WBC , RBC , HGB , HCT , MCV , RDW , PLT in the last 72 hours. BMP: No results for input(s): NA , K , CL , CO2 , PHOS , BUN , CREATININE , CA , GLUCOSE in the last 72 hours. BNP: No results for input(s): BNP in the last 72 hours. PT/INR: No results for input(s): PROTIME , INR in the last 72 hours. APTT: No results for input(s): APTT in the last 72 hours. CARDIAC ENZYMES: No results for input(s): CKMB , CKMBINDEX , TROPONINT in the last 72 hours. Invalid input(s): CKTOTAL;3 FASTING LIPID PANEL: Lab Results Component Value Date CHOL 160 04/26/2023 HDL 37 (L) 04/26/2023 TRIG 140 04/26/2023 LIVER PROFILE: No results for input(s): AST , ALT , ALB , BILIDIR , BILITOT , ALKPHOS in the last 72 hours. Reviewed notes from internal medicine, PT, OT. Impression/Plan: Impaired ADLs, gait, and mobility due to: Cervical stenosis with myelopathy: S/p C3-C6 posterior decompression and fusion on 04/16/23 (Dr. Brooks). Cervical collar when out of bed, okay to remove for hygiene and when eating/drinking. PT/OT for gait, mobility, strengthening, endurance, ADLs, and self care. Pain control with scheduled baclofen, as-needed tylenol, as-needed percocet. Stacey may be removed on 04/30/23, per neurosurgery. Spasticity: On baclofen TID Chronic left hip pain: Ordered left hip x-rays for evaluation, as she has not had previous x-rays. Transaminitis: AST 36, ALT 64 on 04/26, improving. Monitoring - recheck planned for tomorrow. Hyperkalemia: Resolved after 4 doses of lokelma. Monitoring. HTN: Not currently on antihypertensive medications - blood pressure control adequate. Depression, panic disorder: On wellbutrin, lexapro, latuda Bowel Management: Miralax daily, senokot prn, dulcolax prn. DVT prophylaxis: [facility] Internal Medicine for medical management Follow up PCP 1-2 weeks, Dr. Brooks Medina Sena was evaluated today and a DME order was entered for a wheeled walker because she requires this to successfully complete daily living tasks of personal cares and ambulating. A wheeled walker is necessary due to the patient's unsteady gait, upper body weakness, and inability to slate picker an ambulation device; and she can ambulate only by pushing a walker instead of a lesser assistive device such as a cane, crutch, or standard walker. The need for this equipment was discussed with the patient and she understands and is in agreement. Per Mary MOORE neurosurgery clear to DC stacey 04/30. Physical Therapy Facility/Department: [facility] Physical Therapy NAME: Medina Sena : 1960 (62 y.o.) CODE STATUS: Full Code Date of Service: 04/28/23 Past Medical History: Diagnosis Date Agoraphobia Depression Diverticular disease IBS (irritable bowel syndrome) SEEMA (iron deficiency anemia) Neuropathy Osteoporosis Panic disorder Spastic quadriparesis (HCC) 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) Under care of service provider 04/03/2023 pcp-efraín levy [place]-last visit nov 2022 Under care of service provider 04/03/2023 vjacq-piekf-cldoqpf-last visit feb 2023 Under care of service provider 04/03/2023 neurologist- Dr. Conti- last visit feb 2023 Wears glasses Past Surgical History: Procedure Laterality Date APPENDECTOMY BREAST BIOPSY BREAST SURGERY Left CERVICAL FUSION N/A 04/16/2023 C3-6 POSTERIOR CERVICAL DECOMPRESSION FUSION performed by Bev Brooks DO at [facility] OR CERVICAL SPINE SURGERY [facility] CERVICAL SPINE SURGERY 04/16/2023 C3-6 POSTERIOR CERVICAL DECOMPRESSION FUSION CHOLECYSTECTOMY COLONOSCOPY HYSTERECTOMY (CERVIX STATUS UNKNOWN) BSO TONSILLECTOMY AND ADENOIDECTOMY Chart Reviewed: Yes Patient assessed for rehabilitation services?: Yes Additional Pertinent Hx: Medina Sena is a 62 y.o. right-handed female with history of cervical stenosis, IBS, depression, panic disorder admitted to [facility] on 04/16/2023. She initially presented for elective surgical intervention for cervical stenosis with myelopathy. She underwent C3-C6 posterior decompression and fusion on 04/16/23 (Dr. Brooks). She has a c-collar when out of bed. She reports ongoing posterior neck pain. She also notes continued numbness in all limbs. She feels weakest in the right upper limb and left lower limb. She states that she has ongoing shaking/muscle spasms in the bilateral lower limbs, sometimes at rest and sometimes with activity. She declines having any home or outpatient therapies previously for her condition. Admitted to [facility] 04/22/23 Family / Caregiver Present: No (spouse present in pm) Referring Practitioner: Qamar Blakcman MD Referral Date : 04/22/23 Diagnosis: stenosis of cervical spine General Comment Comments: C-collar donned at begining of therapy session. Restrictions: Restrictions/Precautions: General Precautions;Fall Risk Required Braces or Orthoses Cervical: c-collar Position Activity Restriction Spinal Precautions: No Lifting Spinal Precautions: Cervical Precautions. Other position/activity restrictions: 04/16/23 - C3-6 POSTERIOR CERVICAL DECOMPRESSION FUSION. activity as tolerated, no lifting over 5 lbs SUBJECTIVE Pain: 7/10 neck pain(surgery site) Functional Mobility Bed mobility Supine to Sit: Stand by assistance (HOB elevated as pt has an adjustable bed at home. No HR's.) Sit to Supine: Unable to assess (pt left up in recliner at end of morning session and left in w/c working with OT at end of pm session) Scooting: Stand by assistance Transfers Sit to Stand: Contact guard assistance;Minimal Assistance (intermittent min A-only when pt's right foot slips fwd) Stand to Sit: Contact guard assistance Stand Pivot Transfers: Contact guard assistance (w/RW) Squat Pivot Transfers: Minimal Assistance (slight posterior lean as pt's right foot slips fwd) Comment: Reinforced body positioning and technique for sit<>stand transfer. Pt improving and is CGA >90% of the time. Stress to push down through RLE especially to prevent it from slipping. Area Operations Manager did not block feet today. Environmental Mobility Ambulation Surface: Level tile Device: Rolling Walker Other Apparatus: (headline writer pulling wheelchair behind) Assistance: Contact guard assistance Quality of Gait: LLE presents with increase tone. Slow to flex at hip/knee during amb scuffing floor. Distance: 152t Comments: cues for increase hip/knee flexion with good but fleeting return Ambulation 2 Surface - 2: level tile Device 2: Rolling Walker Assistance 2: Contact guard assistance Quality of Gait 2: same as above Gait Deviations: Slow Nati;Decreased step length;Decreased step height Distance: 152ft Comments: cues for increase hip flexion Stairs/Curb Stairs?: Yes Stairs # Steps : 10 Stairs Height: 6 (and 4 ) Rails: Bilateral Assistance: Contact guard assistance Comment: step to sequencing Acends with R and decends with right with good control. (completed in am/pm) Propulsion 1 Propulsion: Manual Level: Level Tile Method: RLE;LLE Level of Assistance: Stand by assistance Description/ Details: completed for LE strengthening 30ft fwd and then 30ft retro Distance: 60 total PT Exercises A/AROM Exercises: Seated at EOM: 2# RLE x 15, LLE AROM x 15 Resistive Exercises: organge t-band HS curls and hip abd x 15ea; alyx hip add against ball x 15 Pressure Relief Exercises: STS x5 from blue chair using arm rests-CGA Multiple STS from w/c throughout am/pm session. STS from EOM Dynamic Sitting Balance Exercises: sitting EOM x 10mins Static Standing Balance Exercises: single LE elevated on cone while pt completed graded clothespins with single UE support on HR-Min A in addition to vc's to maintain TKE on L knee Dynamic Standing Balance Exercises: cone tap R/L LE x 10ea, cone tap alt LE's x 10 (single UE support on grab bar only) Motor Control/Coordination: amb at hallway HR: RUE support only F/R x 1lap, side stepping (B) UE support on HR against orange t-band at distal thighs, Marching x 1 lap Standing Open/Closed Kinetic Chain Exercises: standing at hallway HR:1.5#(B) BLE standing ex10x (noted with fatigue pt starts to lean when standing on LLE) Exercise Equipment: L3 x 10 mins Activity Tolerance Activity Tolerance: Patient tolerated treatment well Assessment Discharge Recommendations: Patient would benefit from continued therapy after discharge PT D/C Equipment Other: TBD PT Equipment Recommendations Other: TBD GOALS Patient Goals Patient Goals : To walk Short Term Goals Time Frame for Short Term Goals: 5-7 days Short Term Goal 1: Pt to demo mobility min to mod x1 with safe technique. Short Term Goal 2: Pt to perform transfers STS/pivots min to mod x1 with good technique using RW. Short Term Goal 3: Pt to amb 10'-20' with min to mod x1 and wheelchair follow. Short Term Goal 4: Pt to improve posture to GOOD. Short Term Goal 5: Pt to improve static/dynamic sitting balance to GOOD with 0-1 UE support. Group Home Goals Time Frame for Personal Fitness Manager Goals : by DC Group Home Goal 1: Pt to improve bed mobility to SBA to CGA with head of bed elevated and good technique. Personal Fitness Manager Goal 2: Pt to perform all transfers with least restrictive device CGA x1. Group Home Goal 3: Pt to amb 25' min to mod x1 on level surfaces and varied terrain. Group Home Goal 4: Pt to propel w/c 50' on level surfaces with BLE only, min x1. Personal Fitness Manager Goal 5: Pt to improve BLE strength by 1 MMG. Additional Goals?: Yes nursing home goal 6: Pt to improve standing balance to FAIR+/GOOD- to reduce fall risk for functional mobility. nursing home goal 7: Pt to demo HEP with good technique intermission coordinator goal 8: Pt to complete family training, including floor transfer with min assist of 1. nursing home goal 9: Pt to tolerate standing up to 5 minutes (static/dynamic) assist of 1. PLAN OF CARE Frequency: 1-2 treatment sessions per day, 5-7 days per week Physical Therapy Plan General Plan: 60-120 minutes of therapy at least 5 out of 7 days a week Specific Instructions for Next Treatment: standing tolerance, transfers, therex Current Treatment Recommendations: Strengthening;Balance training;Functional mobility training;Transfer training;Endurance training;Neuromuscular re-education;Home exercise program;Safety education & training;Patient/Caregiver education & training;Equipment evaluation, education, & procurement;Therapeutic activities;Gait training;Wheelchair mobility training;ROM;Positioning Safety Devices Type of Devices: All fall risk precautions in place;Call light within reach;Gait belt;Left in chair;All ysabel prominences offloaded Therapy Time 04/28/23 1004 04/28/23 1637 PT Individual Minutes Time In 0915 1408 Time Out 1021 1444 Minutes 66 36 Sonja Roman PTA, 04/28/23 at 4:46 PM [facility] Occupational Therapy Daily Treatment Note Date: 04/28/23 Patient Name: Medina Sena Room: 2608/2608-01 Account: [id number] : 1960 (62 y.o.) Gender: female Referring Practitioner: Joe Schilling MD Diagnosis: Cervical disc disease with myelopathy Additional Pertinent Hx: Per PM&R consult: Medina Sena is a 62 y.o. right-handed female with history of cervical stenosis, IBS, depression, panic disorder admitted to [facility] on 04/16/2023. She initially presented for elective surgical intervention for cervical stenosis with myelopathy. She underwent C3-C6 posterior decompression and fusion on 04/16/23 (Dr. Brooks). She has a c-collar when out of bed. She reports ongoing posterior neck pain. She also notes continued numbness in all limbs. She feels weakest in the right upper limb and left lower limb. She states that she has ongoing shaking/muscle spasms in the bilateral lower limbs, sometimes at rest and sometimes with activity. She declines having any home or outpatient therapies previously for her condition. Treatment Diagnosis: impaired self care status Past Medical History: has a past medical history of Agoraphobia, Depression, Diverticular disease, IBS (irritable bowel syndrome), SEEMA (iron deficiency anemia), Neuropathy, Osteoporosis, Panic disorder, Spastic quadriparesis (HCC), 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), Under care of service provider, Under care of service provider, Under care of service provider, and Wears glasses. Past Surgical History: has a past surgical history that includes Appendectomy; Breast biopsy; Cervical spine surgery (2003); Colonoscopy; Cholecystectomy; Hysterectomy; Tonsillectomy and adenoidectomy; Breast surgery (Left); Cervical spine surgery (04/16/2023); and cervical fusion (N/A, 04/16/2023). Restrictions Restrictions/Precautions Restrictions/Precautions: General Precautions, Fall Risk Required Braces or Orthoses?: Yes Implants present? : Metal implants (cervical fusion) Required Braces or Orthoses Cervical: c-collar Position Activity Restriction Spinal Precautions: No Lifting Spinal Precautions: Cervical Precautions. Other position/activity restrictions: 04/16/23 - C3-6 POSTERIOR CERVICAL DECOMPRESSION FUSION. activity as tolerated, no lifting over 5 lbs Vitals Vital Signs O2 Device: None (Room air) Subjective Subjective Subjective: I haven't taken a pain pill since this morning. Pt was pleasant and agreeable to OT Pain: Pt denies pain at this time Pain Assessment Pain Level: 0 Objective Cognition Overall Orientation Status: Within Functional Limits Orientation Level: Oriented to person;Oriented to place;Oriented to situation;Oriented to time;Oriented X4 Cognition Overall Cognitive Status: Exceptions Arousal/Alertness: Delayed responses to stimuli Following Commands: Follows multistep commands with increased time;Follows multistep commands with repitition Attention Span: Appears intact Memory: Appears intact Safety Judgement: Decreased awareness of need for assistance;Decreased awareness of need for safety Problem Solving: Assistance required to generate solutions;Assistance required to identify errors made;Assistance required to correct errors made;Decreased awareness of errors Insights: Decreased awareness of deficits Initiation: Requires cues for some Sequencing: Requires cues for some Cognition Comment: Required increased time to process information this date. Activities of Daily Living See AM note for ADLs Mobility Sit to Stand Assistance Level: Contact guard assist Skilled Clinical Factors: Min verbal cuing for hand placement. Stand to Sit Assistance Level: Contact guard assist Skilled Clinical Factors: Min verbal cuing for hand placement. Demos controlled descend. Functional Mobility Device: Rolling walker Activity: (Small steps from w/c to recliner chair) Assistance Level: Contact guard assist Skilled Clinical Factors: Verbal cues for safety with RW. OT Exercises Motor Control/Coordination: PM: OT facilitated pts engagement FMC activity of small peg mosaic task to increase FMC in BUE during daily activities. Pt tolerated well. Pt completed ADL boards button, sipper, lacing, and buckeles with increased time. Pt reports increase difficutly with buttons. Assessment Assessment Activity Tolerance: Patient tolerated treatment well Discharge Recommendations: Continue to assess pending progress;Home with assist PRN Patient Education Education Education Given To: Patient;Family Education Provided: Role of Therapy;Plan of Care;Equipment;Transfer Training Education Provided Comments: Spouse inquiring about grab bars around the toilet this PM. Family reports that seo are to far apart to use a grab bar on the wall. OT educated pt/family on options. Family/patient interested in toilet safety frame. Educated on 4 foot safety frame more sturdy than a 2 foot safety frame with Good understanding. All questions answered at this time. Education Method: Verbal Barriers to Learning: Cognition Education Outcome: Verbalized understanding;Demonstrated understanding;Continued education needed OT Equipment Recommendations Other: TBD Safety Devices Safety Devices in place: Yes Type of devices: All fall risk precautions in place;Call light within reach;Chair alarm in place;Gait belt;Left in chair Goals Patient Goals Patient goals : To walk Short Term Goals Time Frame for Short Term Goals: Within 7-10 days, pt will Short Term Goal 1: perform functional transfers/mobility during self care tasks with Mod A, least restrictive device, and Good safety Short Term Goal 2: perform upper body bathing/dressing tasks with Min A and Good adherence to cervical precautions Short Term Goal 3: perform lower body bathing/dressing/toileting tasks with Mod A and adaptive equipment as needed Short Term Goal 4: tolerate standing for 5+ minutes during self care/functional activity with Mod A Short Term Goal 5: actively participate in 30+ minutes of therapeutic exercise/functional activity to increase overall strength/endurance needed for ADLs/IADLs Personal Fitness Manager Goals Time Frame for Personal Fitness Manager Goals : By discharge, pt will Group Home Goal 1: perform functional transfers/mobility during self care tasks with CGA, least restrictive device, and Good safety Personal Fitness Manager Goal 2: perform upper body bathing/dressing tasks with SBA and Good adherence to cervical precautions Group Home Goal 3: perform lower body bathing/dressing/toileting tasks with CGA and adaptive equipment as needed Personal Fitness Manager Goal 4: tolerate standing for 10+ minutes during self care/functional activity with CGA Personal Fitness Manager Goal 5: OT to further assess service parts coordinator strength and fine motor coordination and notify OTR to update goal as appropriate Group Home Goal 6: perform self feeding task with Mod I Plan Occupational Therapy Plan Times Per Week: 5-7 Times Per Day: Twice a day Current Treatment Recommendations: Balance training, Functional mobility training, Wheelchair mobility training, Patient/Caregiver education & training, Safety education & training, Pain management, Self-Care / ADL, Equipment evaluation, education, & procurement, Home management training, Coordination training, Endurance training, Strengthening 04/28/23 1445 OT Individual Minutes Time In 1445 Time Out 1537 Minutes 52 Time Code Minutes Timed Code Treatment Minutes 52 Minutes Images from the original note were not included. [facility] Internal Medicine Agustin Frausto MD; Seven Connor MD; Mariano Han MD; MD Мария Cahnd MD; Dylon Anthony MD [facility] Internal Medicine IN-PATIENT SERVICE [facility] CONSULTATION / HISTORY AND PHYSICAL EXAMINATION Date: 04/28/2023 Patient name: Medina Sena Date of admission: 04/22/2023 7:51 PM Account: [id number] Date of : 1960 PCP: Efraín Li MD Room: 2608/2608-01 Code Status: Full Code Physician Requesting Consult: Joe Schilling MD Reason for Consult: Medical management Chief Complaint: No chief complaint on file. Cervical stenosis with myelopathy, status post surgery History Obtained From: 62-year-old female with underlying history of anemia, neuropathy, osteoporosis, major depression, was admitted to [place] in April 16 for cervical stenosis with myelopathy, treated with dose increased to C6 posterior surgical decompression and fusion by Dr. Brooks. Patient will be wearing the c-collar when she is out of the bed, admitted to inpatient rehab for further strengthening and mobility History of Present Illness: Past Medical History: Past Medical History: Diagnosis Date Agoraphobia Depression Diverticular disease IBS (irritable bowel syndrome) SEEMA (iron deficiency anemia) Neuropathy Osteoporosis Panic disorder Spastic quadriparesis (HCC) 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) Under care of service provider 04/03/2023 pcp-efraín hamm-last visit nov 2022 Under care of service provider 04/03/2023 lhyxx-vzlcx-feylssb-last visit feb 2023 Under care of service provider 04/03/2023 neurologist- Dr. Conti- last visit feb 2023 Wears glasses Past Surgical History: Past Surgical History: Procedure Laterality Date APPENDECTOMY BREAST BIOPSY BREAST SURGERY Left CERVICAL FUSION N/A 04/16/2023 C3-6 POSTERIOR CERVICAL DECOMPRESSION FUSION performed by Bev Brooks DO at [facility] OR CERVICAL SPINE SURGERY [address] [place] [address] CERVICAL SPINE SURGERY 04/16/2023 C3-6 POSTERIOR CERVICAL DECOMPRESSION FUSION CHOLECYSTECTOMY COLONOSCOPY HYSTERECTOMY (CERVIX STATUS UNKNOWN) BSO TONSILLECTOMY AND ADENOIDECTOMY Medications Prior to Admission: Prior to Admission medications Medication Sig Start Date End Date Taking? Authorizing Provider baclofen (LIORESAL) 10 MG tablet Take 1 tablet by mouth 3 times daily for 14 days 04/19/23 05/03/23 Oscar Marie, MEDIA EXECUTIVE - OBSTETRICS SCRUB NURSE CALCIUM GUMMIES 250-100-500 MG-UNIT CHEW Take 3 gums by mouth daily ProviderAbdi MD escitalopram (LEXAPRO) 20 MG tablet Take 1 tablet by mouth daily Abdi Powers MD buPROPion (WELLBUTRIN XL) 150 MG extended release tablet Take 1 tablet by mouth every morning Abdi Powers MD lurasidone (LATUDA) 80 MG TABS tablet Take 1 tablet by mouth Daily with supper ProviderAbdi MD Allergies: Patient has no known allergies. Social History: Tobacco: reports that she has never smoked. She has never used smokeless tobacco. Alcohol: reports that she does not currently use alcohol. Drug Use: reports that she does not currently use drugs. Family History: Family History Problem Relation Age of Onset Heart Disease Mother Diabetes Father Review of Systems: Positive and Negative as described in HPI. Physical Exam: BP (!) 140/79 Pulse 93 Temp 98.6 F (37 C) (Oral) Resp 20 Ht 1.575 m (5' 2.01 ) Wt 62.6 kg (138 lb) SpO2 100% BMI 25.23 kg/m Temp (24hrs), Av.6 F (37 C), Min:98.6 F (37 C), Max:98.6 F (37 C) No results for input(s): POCGLU in the last 72 hours. No intake or output data in the 24 hours ending 04/28/23 1602 General Appearance: alert, well appearing, and in no acute distress Mental status: oriented to person, place, and time with normal affect Cervical collar in place Mouth: mucous membranes moist Neck: supple, no carotid bruits, thyroid not palpable Lungs: Bilateral equal air entry, clear to ausculation, no wheezing, rales or rhonchi, normal effort Cardiovascular: normal rate, regular rhythm, no murmur, gallop, rub. Abdomen: Soft, nontender, nondistended, normal bowel sounds, no hepatomegaly or splenomegaly Neurologic: Mild weakness in the lower extremity Skin: No gross lesions, rashes, bruising or bleeding on exposed skin area Extremities: peripheral pulses palpable, no pedal edema or calf pain with palpation Investigations: Laboratory Testing: No results found for this or any previous visit (from the past 24 hour(s)). Imaging/Diagonstics: XR CERVICAL SPINE (2-3 VIEWS) Result Date: 04/17/2023 Postsurgical change. No complication. Assessment : Hospital Problems Last Modified POA * (Principal) Cervical disc disease with myelopathy 04/22/2023 Yes Plan: 63-year-old female acute inpatient rehab for cervical stenosis with myelopathy status post C 3 through 6 posterior decompression fusion done by Dr. Brooks on April 16. Admitted for further strengthening and mobility, Spasticity, on baclofen Major depression, on Lexapro and Latuda, Panic disorder, home medications, Labs, radiology, medications, vitals reviewed, DVT prophylaxis with Lovenox, Full CODE STATUS, Thank you for consultation 04/28 Seen examined [id number]-vpoh, Labs, radiology, medications, vitals reviewed, Blood pressure much better today Lipid profile reviewed, low HDL Abnormal LFTs, improving Anemia, hemoglobin 11.2 no active bleeding Working with physical therapy Patient, has dysuria, ordering UA with reflex Consultations: IP CONSULT TO DIETITIAN IP CONSULT TO SOCIAL WORK IP CONSULT TO INTERNAL MEDICINE Cortney Rebollar MD 04/28/2023 4:02 PM Copy sent to Efraín Hammer MD Please note that this chart was generated using voice recognition [employer] dictation software. Although every effort was made to ensure the accuracy of this automated cashier credit, some errors in cashier credit may have occurred. Physical Medicine & Rehabilitation Progress Note 04/28/2023 12:02 PM CC: Ambulatory and ADL dysfunction due to cervical stenosis with myelopathy/tetraparesis Subjective: Feels well. Seen in gym. Denies difficulty bowels or bladder ROS: Denies fevers, chills, sweats. No chest pain, palpitations, lightheadedness. Denies coughing, wheezing or shortness of breath. Denies abdominal pain, nausea, diarrhea or constipation. No new areas of joint pain. Denies new areas of numbness or weakness. Denies new anxiety or depression issues. No new skin problems. Rehabilitation: PT: Restrictions/Precautions: General Precautions, Fall Risk Implants present? : Metal implants Spinal Precautions: Cervical Precautions. Other position/activity restrictions: 04/16/23 - C3-6 POSTERIOR CERVICAL DECOMPRESSION FUSION. activity as tolerated, no lifting over 5 lbs Required Braces or Orthoses Cervical: c-collar Transfers Sit to Stand: Contact guard assistance, Minimal Assistance Stand to Sit: Contact guard assistance Bed to Chair: Minimal assistance (Slight posterior lean if not using device; cues for positioning c improved return.) Stand Pivot Transfers: Contact guard assistance (w/RW) Squat Pivot Transfers: Minimal Assistance (slight posterior lean as pt's right foot slips fwd) Comment: With sit to stand transfer pt's feet tend to slide out in front of her. With wrtier educating pt to scoot hips fwd and hinge fwd at her hips keeping her feet bent under her pt able to stand with CGA-if feet are blocked. Ambulation Surface: Level tile Device: Rolling Walker Other Apparatus: (headline writer pulling wheelchair behind) Assistance: Contact guard assistance Quality of Gait: LLE presents with increase tone. Slow to flex at hip/knee during amb scuffing floor. Gait Deviations: Slow Nati, Decreased step length, Decreased step height, Decreased head and trunk rotation Distance: 152t Comments: cues for increase hip/knee flexion with good but fleeting return More Ambulation?: Yes OT: ADL Feeding: Stand by assistance Feeding Skilled Clinical Factors: pt required assistance to open containers on breakfast tray and cut food, pt then able to self feed with utensils Grooming: Stand by assistance Grooming Skilled Clinical Factors: completed oral hygiene while [facility], setup of items within reach for ease of task UE Bathing: Stand by assistance UE Bathing Skilled Clinical Factors: verbal cues for cervical precautions with Good understanding, completed seated in w/c LE Bathing: Dependent/Total LE Bathing Skilled Clinical Factors: standing in [facility] with 1-2 person assistance to wash yuko area; TA to wash B feet UE Dressing: Maximum assistance UE Dressing Skilled Clinical Factors: TA to don and adjust c-collar to ensure proper fit, pt threads LUE into button down shirt, A to thread R, A to manage buttons LE Dressing: Dependent/Total LE Dressing Skilled Clinical Factors: TA to thread BLEs into brief/pants, standing in with 2 person assist to pull up over hips; TA for TEDs and socks Toileting: Dependent/Total Toileting Skilled Clinical Factors: TA for clothing management while standing in with 1-2 person assistance, TA for hygiene Additional Comments: OTR facilitated pt engagement in self care tasks while seated sinkside in high back w/c. Pt required total assistance to don/doff c-collar, and frequent verbal cues for cervical precautions. C-collar remained on throughout evaluation when out of bed, except was doffed while seated in w/c during hygiene. Pt demos decreased fine motor coordination and tremors in BUE requiring assistance to manage self care containers. Pt is also limited by balance, endurance, BLE extensor tone, and pain impacting performance in self care tasks. Skin Care: Soap and water Balance Sitting Balance: Minimal assistance (unsupported sitting at edge of bed with c-collar donned, slight posterior loss of balance with Min A to correct; RUE on bedrail to assist with trunk balance) Standing Balance: Dependent/Total (Max A x2 w/RW, Mod-Min A x2 in SS) Standing Balance Time: 1-2 minutes Activity: functional transfers, ADLs Comment: pt initially stands with RW and Max A x2 due to extensor tone on BLEs and posterior lean; pt then trials Jean [place] Stedy with Mod-Min A x2 Functional Mobility Functional - Mobility Device: Wheelchair Activity: To/from bathroom Assist Level: Dependent/Total Functional Mobility Comments: pt does not self propel Bed mobility Rolling to Left: Minimal assistance Rolling to Right: Stand by assistance (bed flat used, HR) Supine to Sit: Stand by assistance (HOB elevated as pt has an adjustable bed at home. No HR's.) Sit to Supine: Moderate assistance (assist with BLE's only, flat mat with 2 pillows) Scooting: Stand by assistance Bed Mobility Comments: head of bed slightly elevated for comfort. Pt's and headline writer molly'tiara bed mobility. Encouragement to actively use BLE independently for bed mobility. Educated on safe techniques. Transfers Sit to stand: 2 Person assistance, Maximum assistance Stand to sit: 2 Person assistance, Maximum assistance Transfer Comments: Max A x2 with RW; Mod-Min A x2 in Jean Pierre Stedy Toilet Transfers Toilet - Technique: (using Jean Pierre Stedy) Equipment Used: Standard toilet Toilet Transfer: Dependent/Total Toilet Transfers Comments: using Jean [place] Stedy [address]: Objective: BP (!) 140/79 Pulse 93 Temp 98.6 F (37 C) (Oral) Resp 20 Ht 1.575 m (5' 2.01 ) Wt 62.6 kg (138 lb) SpO2 100% BMI 25.23 kg/m I Body mass index is 25.23 kg/m . I Wt Readings from Last 1 Encounters: 04/22/23 62.6 kg (138 lb) Temp (24hrs), Av.6 F (37 C), Min:98.6 F (37 C), Max:98.6 F (37 C) GEN: well developed, well nourished, no acute distress HEENT: Normocephalic atraumatic, EOMI, mucous membranes pink and moist CV: RRR, no murmurs, rubs or gallops PULM: CTAB, no rales or rhonchi. Respirations WNL and unlabored ABD: soft, NT, ND, +BS and equal NEURO: A&O x3. Sensation intact to light touch. MSK: 4/5 upper extremities, 4/5 right lower extremity 3+/5 left lower extremity EXTREMITIES: No calf tenderness to palpation bilaterally. No edema BLEs SKIN: warm dry and intact with good turgor cervical spine incision with suture reaction no drainage no change PSYCH: appropriately interactive. Affect WNL. Medications Scheduled Meds: baclofen 10 mg Oral TID buPROPion 150 mg Oral QAM enoxaparin 40 mg SubCUTAneous Daily escitalopram 20 mg Oral Daily lurasidone 80 mg Oral Dinner polyethylene glycol 17 g Oral Daily Continuous Infusions: dextrose PRN Meds:.glucose, dextrose bolus OR dextrose bolus, glucagon (rDNA), dextrose, oxyCODONE-acetaminophen OR oxyCODONE-acetaminophen, magnesium hydroxide, acetaminophen, senna, bisacodyl Diagnostics: CBC: No results for input(s): WBC , RBC , HGB , HCT , MCV , RDW , PLT in the last 72 hours. BMP: No results for input(s): NA , K , CL , CO2 , PHOS , BUN , CREATININE , CA in the last 72 hours. BNP: No results for input(s): BNP in the last 72 hours. PT/INR: No results for input(s): PROTIME , INR in the last 72 hours. APTT: No results for input(s): APTT in the last 72 hours. CARDIAC ENZYMES: No results for input(s): CKMB , CKMBINDEX , TROPONINT in the last 72 hours. Invalid input(s): CKTOTAL;3 FASTING LIPID PANEL: Lab Results Component Value Date CHOL 160 04/26/2023 HDL 37 (L) 04/26/2023 TRIG 140 04/26/2023 LIVER PROFILE: Recent Labs 04/26/23 0703 AST 36* ALT 64* BILIDIR 0.1 BILITOT 0.5 ALKPHOS 122* I/O (24Hr): No intake or output data in the 24 hours ending 04/28/23 1202 Glu last 24 hour No results for input(s): POCGLU in the last 72 hours. No results for input(s): CLARITYU , COLORU , PHUR , SPECGRAV , PROTEINU , RBCUA , BLOODU , BACTERIA , NITRU , WBCUA , LEUKOCYTESUR , YEAST , GLUCOSEU , BILIRUBINUR in the last 72 hours. Impression/Plan: Cervical stenosis with myelopathy: s/p C3-6 posterior decompression and fusion 04/16/[address] Brooks. Cervical collar when out of bed. OK to remove for hygiene and when eating/drinking. PT/OT for gait, mobility, strengthening, endurance, ADLs, and self care. Pain-has tylenol prn, Percocet prn. Encouraged her to medicate prior to therapies., Advised to minimize Percocet, consider changing Percocet to oxycodone to minimize Tylenol noted only using Percocet twice a day Tetraparesis: PT/OT treating Hyperkalemia: on 3 doses Lokelma per IM. Improved - Monitoring. HTN: IM following Transaminitis: IM following. Improved on repeat testing. Will repeat again in a few days Spasticity: on baclofen TID Depression: on Lexapro, Latuda, Wellbutrin Panic disorder: on medications above IBS/Bowel Management: Miralax daily, senokot prn, dulcolax prn. Has milk of magnesia prn. 04/27 DVT Prophylaxis: low molecular weight heparin, SCD's while in bed, and JUSTIN's during the day Internal medicine for medical management Follow up: PCP 1-2 weeks, Dr. Cecilia Ogden MD This note is created with the assistance of a speech recognition program. While intending to generate a document that actually reflects the content of the visit, the document can still have some errors including those of syntax and sound a like substitutions which may escape proof reading. In such instances, actual meaning can be extrapolated by contextual diversion Images from the original note were not included. [facility] Internal Medicine Agustin Frausto MD; Seven Connor MD; Mariano Han MD; MD Мария Chand MD; Dylon Anthony MD [facility] Internal Medicine IN-PATIENT SERVICE [facility] CONSULTATION / HISTORY AND PHYSICAL EXAMINATION Date: 04/27/2023 Patient name: Medina Sena Date of admission: 04/22/2023 7:51 PM Account: [id number] Date of : 1960 PCP: Efraín Li MD Room: [address] [place] [address] Code Status: Full Code Physician Requesting Consult: Joe Schilling MD Reason for Consult: Medical management Chief Complaint: No chief complaint on file. Cervical stenosis with myelopathy, status post surgery History Obtained From: 62-year-old female with underlying history of anemia, neuropathy, osteoporosis, major depression, was admitted to [place] in April 16 for cervical stenosis with myelopathy, treated with dose increased to C6 posterior surgical decompression and fusion by Dr. Brooks. Patient will be wearing the c-collar when she is out of the bed, admitted to inpatient rehab for further strengthening and mobility History of Present Illness: Past Medical History: Past Medical History: Diagnosis Date Agoraphobia Depression Diverticular disease IBS (irritable bowel syndrome) SEEMA (iron deficiency anemia) Neuropathy Osteoporosis Panic disorder Spastic quadriparesis (HCC) 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) Under care of service provider 04/03/2023 [facility]last visit nov 2022 Under care of service provider 04/03/2023 [facility]-last visit feb 2023 Under care of service provider 04/03/2023 neurologist- Dr. Conti- last visit feb 2023 Wears glasses Past Surgical History: Past Surgical History: Procedure Laterality Date APPENDECTOMY BREAST BIOPSY BREAST SURGERY Left CERVICAL FUSION N/A 04/16/2023 C3-6 POSTERIOR CERVICAL DECOMPRESSION FUSION performed by Bev Brooks DO at [facility] OR CERVICAL SPINE SURGERY [address] [place] [address]- [facility] CERVICAL SPINE SURGERY 04/16/2023 C3-6 POSTERIOR CERVICAL DECOMPRESSION FUSION CHOLECYSTECTOMY COLONOSCOPY HYSTERECTOMY (CERVIX STATUS UNKNOWN) BSO TONSILLECTOMY AND ADENOIDECTOMY Medications Prior to Admission: Prior to Admission medications Medication Sig Start Date End Date Taking? Authorizing Provider baclofen (LIORESAL) 10 MG tablet Take 1 tablet by mouth 3 times daily for 14 days 04/19/23 05/03/23 Oscar Marie, MEDIA EXECUTIVE - OBSTETRICS SCRUB NURSE CALCIUM GUMMIES 250-100-500 MG-UNIT CHEW Take 3 gums by mouth daily Abdi Powers MD escitalopram (LEXAPRO) 20 MG tablet Take 1 tablet by mouth daily Abdi Powers MD buPROPion (WELLBUTRIN XL) 150 MG extended release tablet Take 1 tablet by mouth every morning Abdi Powers MD lurasidone (LATUDA) 80 MG TABS tablet Take 1 tablet by mouth Daily with supper Provider, MD Abdi Allergies: Patient has no known allergies. Social History: Tobacco: reports that she has never smoked. She has never used smokeless tobacco. Alcohol: reports that she does not currently use alcohol. Drug Use: reports that she does not currently use drugs. Family History: Family History Problem Relation Age of Onset Heart Disease Mother Diabetes Father Review of Systems: Positive and Negative as described in HPI. Physical Exam: BP 132/78 Pulse 82 Temp 98.2 F (36.8 C) (Oral) Resp 18 Ht 1.575 m (5' 2.01 ) Wt 62.6 kg (138 lb) SpO2 96% BMI 25.23 kg/m Temp (24hrs), Av.4 F (36.9 C), Min:98.2 F (36.8 C), Max:98.6 F (37 C) Recent Labs 04/25/23 1143 POCGLU 92 No intake or output data in the 24 hours ending 04/27/23 1806 General Appearance: alert, well appearing, and in no acute distress Mental status: oriented to person, place, and time with normal affect Cervical collar in place Mouth: mucous membranes moist Neck: supple, no carotid bruits, thyroid not palpable Lungs: Bilateral equal air entry, clear to ausculation, no wheezing, rales or rhonchi, normal effort Cardiovascular: normal rate, regular rhythm, no murmur, gallop, rub. Abdomen: Soft, nontender, nondistended, normal bowel sounds, no hepatomegaly or splenomegaly Neurologic: Mild weakness in the lower extremity Skin: No gross lesions, rashes, bruising or bleeding on exposed skin area Extremities: peripheral pulses palpable, no pedal edema or calf pain with palpation Investigations: Laboratory Testing: No results found for this or any previous visit (from the past 24 hour(s)). Imaging/Diagonstics: XR CERVICAL SPINE (2-3 VIEWS) Result Date: 04/17/2023 Postsurgical change. No complication. Assessment : Hospital Problems Last Modified POA * (Principal) Cervical disc disease with myelopathy 04/22/2023 Yes Plan: 63-year-old female acute inpatient rehab for cervical stenosis with myelopathy status post C 3 through 6 posterior decompression fusion done by Dr. Brooks on April 16. Admitted for further strengthening and mobility, Spasticity, on baclofen Major depression, on Lexapro and Latuda, Panic disorder, home medications, Labs, radiology, medications, vitals reviewed, DVT prophylaxis with Lovenox, Full CODE STATUS, Thank you for consultation 04/27 Seen examined [id number], Labs, radiology, medications, vitals reviewed, Blood pressure much better today Lipid profile reviewed, low HDL Abnormal LFTs, improving Anemia, hemoglobin 11.2 no active bleeding Working with physical therapy Consultations: IP CONSULT TO DIETITIAN IP CONSULT TO SOCIAL WORK IP CONSULT TO INTERNAL MEDICINE Cortney Rebollar MD 04/27/2023 6:06 PM Copy sent to Efraín Hammer MD Please note that this chart was generated using voice recognition [employer] dictation software. Although every effort was made to ensure the accuracy of this automated cashier credit, some errors in cashier credit may have occurred. Physical Therapy Facility/Department: [facility] Physical Therapy NAME: Medina Sena : 1960 (62 y.o.) CODE STATUS: Full Code Date of Service: 04/27/23 Past Medical History: Diagnosis Date Agoraphobia Depression Diverticular disease IBS (irritable bowel syndrome) SEEMA (iron deficiency anemia) Neuropathy Osteoporosis Panic disorder Spastic quadriparesis (HCC) 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) Under care of service provider 04/03/2023 pcp-efraín [place]-last visit nov 2022 Under care of service provider 04/03/2023 hllyr-bmfdu-obfmyuz-last visit feb 2023 Under care of service provider 04/03/2023 neurologist- Dr. Bej- last visit feb 2023 Wears glasses Past Surgical History: Procedure Laterality Date APPENDECTOMY BREAST BIOPSY BREAST SURGERY Left CERVICAL FUSION N/A 04/16/2023 C3-6 POSTERIOR CERVICAL DECOMPRESSION FUSION performed by Bev Brooks DO at [facility] OR CERVICAL SPINE SURGERY [address] [place] [address] CERVICAL SPINE SURGERY 04/16/2023 C3-6 POSTERIOR CERVICAL DECOMPRESSION FUSION CHOLECYSTECTOMY COLONOSCOPY HYSTERECTOMY (CERVIX STATUS UNKNOWN) BSO TONSILLECTOMY AND ADENOIDECTOMY Chart Reviewed: Yes Patient assessed for rehabilitation services?: Yes Additional Pertinent Hx: Medina Sena is a 62 y.o. right-handed female with history of cervical stenosis, IBS, depression, panic disorder admitted to [facility] on 04/16/2023. She initially presented for elective surgical intervention for cervical stenosis with myelopathy. She underwent C3-C6 posterior decompression and fusion on 04/16/23 (Dr. Brooks). She has a c-collar when out of bed. She reports ongoing posterior neck pain. She also notes continued numbness in all limbs. She feels weakest in the right upper limb and left lower limb. She states that she has ongoing shaking/muscle spasms in the bilateral lower limbs, sometimes at rest and sometimes with activity. She declines having any home or outpatient therapies previously for her condition. Admitted to [facility] 04/22/23 Family / Caregiver Present: No Referring Practitioner: Qamar Blackman MD Referral Date : 04/22/23 Diagnosis: stenosis of cervical spine General Comment Comments: C-collar donned at begining of therapy session. Restrictions: Restrictions/Precautions: General Precautions;Fall Risk Required Braces or Orthoses Cervical: c-collar Position Activity Restriction Spinal Precautions: No Lifting Spinal Precautions: Cervical Precautions. Other position/activity restrictions: 04/16/23 - C3-6 POSTERIOR CERVICAL DECOMPRESSION FUSION. activity as tolerated, no lifting over 5 lbs Functional Mobility Bed mobility Rolling to Right: Stand by assistance (bed flat used, HR) Supine to Sit: Contact guard assistance (log roll technique) Sit to Supine: Moderate assistance (assist with BLE's only, flat mat with 2 pillows) Scooting: Stand by assistance (Hips to EOB and fwd on mat table) Transfers Sit to Stand: Minimal Assistance (Pt reports some increased shoulder pain when pushing from seat.) Stand to Sit: Contact guard assistance (Slow, steady, demonstrating G eccentric control.) Stand Pivot Transfers: Minimal Assistance;Contact guard assistance (Slight posterior lean intermittently.Min A progressing to CGA) Comment: With sit to stand transfer pt's feet tend to slide out in front of her. With wrtier educating pt to scoot hips fwd and hinge fwd at her hips keeping her feet bent under her pt able to stand with CGA-if feet are blocked. Environmental Mobility Ambulation Surface: Level tile Device: Rolling Walker Assistance: Contact guard assistance Quality of Gait: LLE presents with increase tone. Slow to flex at hip/knee during amb scuffing floor. Improved REJI on this date compared to previous date. First couple steps were step-to pattern progressing to step through. Pt veers to R, vc's to correct Gait Deviations: Slow Nati;Decreased step length;Decreased step height;Decreased head and trunk rotation Distance: 164ft Ambulation 2 Surface - 2: level tile Device 2: Rolling Walker Assistance 2: Contact guard assistance Quality of Gait 2: same as above. Cues to increase LLE step height with good but fleeting return Gait Deviations: Slow Nati;Decreased step length;Decreased step height Distance: 152ft Stairs/Curb Stairs?: Yes Stairs # Steps : 5 Stairs Height: 6 (and 4 ) Rails: Bilateral Assistance: Minimal assistance Comment: Pt educated in step to sequencing for safety. Able to ascend 4 and 6 steps with CGA only. Pt lacking eccentric control decending 6 steps requiring min A due to increase posterior lean. PT Exercises A/AROM Exercises: Supine (B) LE ex x 10. 2# wt on RLE only, LLE AROM- pt reports increase discomfort in L knee with flexion motion.(right in the joint) Pressure Relief Exercises: STS x5 from EOM without assist from UE's. -Wrtier blocking pts feet- CGA from 20 surface height. Several STS completed from pt's w/c throughtout am/pm session. Dynamic Standing Balance Exercises: standing in // bars performing LE ex: 2min 49sec x 1, [id number] x 1 Motor Control/Coordination: step ups on 4 box F/L x 10 ea-// bars for UE support, High/low tacos step over in // bars-completed step to pattern, reciprocal, and lateral. Standing Open/Closed Kinetic Chain Exercises: // bars: standing (B) LE x 10 Activity Tolerance Activity Tolerance: Patient tolerated treatment well Assessment Discharge Recommendations: Patient would benefit from continued therapy after discharge PT D/C Equipment Other: TBD PT Equipment Recommendations Other: TBD GOALS Patient Goals Patient Goals : To walk Short Term Goals Time Frame for Short Term Goals: 5-7 days Short Term Goal 1: Pt to demo mobility min to mod x1 with safe technique. Short Term Goal 2: Pt to perform transfers STS/pivots min to mod x1 with good technique using RW. Short Term Goal 3: Pt to amb 10'-20' with min to mod x1 and wheelchair follow. Short Term Goal 4: Pt to improve posture to GOOD. Short Term Goal 5: Pt to improve static/dynamic sitting balance to GOOD with 0-1 UE support. Group Home Goals Time Frame for Personal Fitness Manager Goals : by DC Personal Fitness Manager Goal 1: Pt to improve bed mobility to SBA to CGA with head of bed elevated and good technique. Group Home Goal 2: Pt to perform all transfers with least restrictive device CGA x1. Personal Fitness Manager Goal 3: Pt to amb 25' min to mod x1 on level surfaces and varied terrain. Personal Fitness Manager Goal 4: Pt to propel w/c 50' on level surfaces with BLE only, min x1. Personal Fitness Manager Goal 5: Pt to improve BLE strength by 1 MMG. Additional Goals?: Yes nursing home goal 6: Pt to improve standing balance to FAIR+/GOOD- to reduce fall risk for functional mobility. intermission coordinator goal 7: Pt to demo HEP with good technique nursing home goal 8: Pt to complete family training, including floor transfer with min assist of 1. nursing home goal 9: Pt to tolerate standing up to 5 minutes (static/dynamic) assist of 1. PLAN OF CARE Frequency: 1-2 treatment sessions per day, 5-7 days per week Physical Therapy Plan General Plan: 60-120 minutes of therapy at least 5 out of 7 days a week Specific Instructions for Next Treatment: standing tolerance, transfers, therex Current Treatment Recommendations: Strengthening;Balance training;Functional mobility training;Transfer training;Endurance training;Neuromuscular re-education;Home exercise program;Safety education & training;Patient/Caregiver education & training;Equipment evaluation, education, & procurement;Therapeutic activities;Gait training;Wheelchair mobility training;ROM;Positioning Safety Devices Type of Devices: All fall risk precautions in place;Patient at risk for falls;Call light within reach;Gait belt;Chair alarm in place;Heels elevated for pressure relief;Left in chair Therapy Time 04/27/23 1201 04/27/23 1536 PT Individual Minutes Time In 0915 1455 Time Out 1015 1530 Minutes 60 35 Sonja Diallo RIANA Roman, 04/27/23 at 3:43 PM Physical Medicine & Rehabilitation Progress Note 04/27/2023 2:18 PM CC: Ambulatory and ADL dysfunction due to cervical stenosis with myelopathy/tetraparesis Subjective: Feels well. Seen in gym. Denies difficulty bowels or bladder ROS: Denies fevers, chills, sweats. No chest pain, palpitations, lightheadedness. Denies coughing, wheezing or shortness of breath. Denies abdominal pain, nausea, diarrhea or constipation. No new areas of joint pain. Denies new areas of numbness or weakness. Denies new anxiety or depression issues. No new skin problems. Rehabilitation: PT: Restrictions/Precautions: General Precautions, Fall Risk Implants present? : Metal implants Spinal Precautions: Cervical Precautions. Other position/activity restrictions: 04/16/23 - C3-6 POSTERIOR CERVICAL DECOMPRESSION FUSION. activity as tolerated, no lifting over 5 lbs Required Braces or Orthoses Cervical: c-collar Transfers Sit to Stand: Minimal Assistance (Pt reports some increased shoulder pain when pushing from seat.) Stand to Sit: Contact guard assistance (Slow, steady, demonstrating G eccentric control.) Bed to Chair: Minimal assistance (Slight posterior lean if not using device; cues for positioning c improved return.) Stand Pivot Transfers: Minimal Assistance, Contact guard assistance (Slight posterior lean intermittently.Min A progressing to CGA) Comment: With sit to stand transfer pt's feet tend to slide out in front of her. With wrtier educating pt to scoot hips fwd and hinge fwd at her hips keeping her feet bent under her pt able to stand with CGA-if feet are blocked. Ambulation Surface: Level tile Device: Rolling Walker Other Apparatus: (headline writer pulling wheelchair behind) Assistance: Contact guard assistance Quality of Gait: LLE presents with increase tone. Slow to flex at hip/knee during amb. Improved REJI on this date compared to previous date. First couple steps were step-to pattern progressing to step through. Pt veers to R, vc's to correct Gait Deviations: Slow Nati, Decreased step length, Decreased step height, Decreased head and trunk rotation Distance: 164ft Comments: Cues for wider base of support, increased L knee flexion c G return. More Ambulation?: Yes OT: ADL Feeding: Stand by assistance Feeding Skilled Clinical Factors: pt required assistance to open containers on breakfast tray and cut food, pt then able to self feed with utensils Grooming: Stand by assistance Grooming Skilled Clinical Factors: completed oral hygiene while [facility], setup of items within reach for ease of task UE Bathing: Stand by assistance UE Bathing Skilled Clinical Factors: verbal cues for cervical precautions with Good understanding, completed seated in w/c LE Bathing: Dependent/Total LE Bathing Skilled Clinical Factors: standing in [facility] with 1-2 person assistance to wash yuko area; TA to wash B feet UE Dressing: Maximum assistance UE Dressing Skilled Clinical Factors: TA to don and adjust c-collar to ensure proper fit, pt threads LUE into button down shirt, A to thread R, A to manage buttons LE Dressing: Dependent/Total LE Dressing Skilled Clinical Factors: TA to thread BLEs into brief/pants, standing in SS with 2 person assist to pull up over hips; TA for TEDs and socks Toileting: Dependent/Total Toileting Skilled Clinical Factors: TA for clothing management while standing in with 1-2 person assistance, TA for hygiene Additional Comments: OTR facilitated pt engagement in self care tasks while seated sinkside in high back w/c. Pt required total assistance to don/doff c-collar, and frequent verbal cues for cervical precautions. C-collar remained on throughout evaluation when out of bed, except was doffed while seated in w/c during hygiene. Pt demos decreased fine motor coordination and tremors in BUE requiring assistance to manage self care containers. Pt is also limited by balance, endurance, BLE extensor tone, and pain impacting performance in self care tasks. Skin Care: Soap and water Balance Sitting Balance: Minimal assistance (unsupported sitting at edge of bed with c-collar donned, slight posterior loss of balance with Min A to correct; RUE on bedrail to assist with trunk balance) Standing Balance: Dependent/Total (Max A x2 w/RW, Mod-Min A x2 in SS) Standing Balance Time: 1-2 minutes Activity: functional transfers, ADLs Comment: pt initially stands with RW and Max A x2 due to extensor tone on BLEs and posterior lean; pt then trials [place] Stedy with Mod-Min A x2 Functional Mobility Functional - Mobility Device: Wheelchair Activity: To/from bathroom Assist Level: Dependent/Total Functional Mobility Comments: pt does not self propel Bed mobility Rolling to Left: Minimal assistance Rolling to Right: Stand by assistance (bed flat used, HR) Supine to Sit: Contact guard assistance (log roll technique) Sit to Supine: Unable to assess Scooting: Stand by assistance (Hips to EOB and fwd on mat table) Bed Mobility Comments: head of bed slightly elevated for comfort. Pt's and headline writer molly'tiara bed mobility. Encouragement to actively use BLE independently for bed mobility. Educated on safe techniques. Transfers Sit to stand: 2 Person assistance, Maximum assistance Stand to sit: 2 Person assistance, Maximum assistance Transfer Comments: Max A x2 with RW; Mod-Min A x2 in Jean [place] Stedy Toilet Transfers Toilet - Technique: (using Jean Pierre Stedy) Equipment Used: Standard toilet Toilet Transfer: Dependent/Total Toilet Transfers Comments: using Jean [place] Stedy [address]: Objective: BP 132/78 Pulse 82 Temp 98.2 F (36.8 C) (Oral) Resp 18 Ht 1.575 m (5' 2.01 ) Wt 62.6 kg (138 lb) SpO2 96% BMI 25.23 kg/m I Body mass index is 25.23 kg/m . I Wt Readings from Last 1 Encounters: 04/22/23 62.6 kg (138 lb) Temp (24hrs), Av.4 F (36.9 C), Min:98.2 F (36.8 C), Max:98.6 F (37 C) GEN: well developed, well nourished, no acute distress HEENT: Normocephalic atraumatic, EOMI, mucous membranes pink and moist CV: RRR, no murmurs, rubs or gallops PULM: CTAB, no rales or rhonchi. Respirations WNL and unlabored ABD: soft, NT, ND, +BS and equal NEURO: A&O x3. Sensation intact to light touch. MSK: 4/5 upper extremities, 4/5 right lower extremity 3+/5 left lower extremity EXTREMITIES: No calf tenderness to palpation bilaterally. No edema BLEs SKIN: warm dry and intact with good turgor cervical spine incision with suture reaction no drainage PSYCH: appropriately interactive. Affect WNL. Medications Scheduled Meds: baclofen 10 mg Oral TID buPROPion 150 mg Oral QAM enoxaparin 40 mg SubCUTAneous Daily escitalopram 20 mg Oral Daily lurasidone 80 mg Oral Dinner polyethylene glycol 17 g Oral Daily Continuous Infusions: dextrose PRN Meds:.glucose, dextrose bolus OR dextrose bolus, glucagon (rDNA), dextrose, oxyCODONE-acetaminophen OR oxyCODONE-acetaminophen, magnesium hydroxide, acetaminophen, senna, bisacodyl Diagnostics: CBC: No results for input(s): WBC , RBC , HGB , HCT , MCV , RDW , PLT in the last 72 hours. BMP: Recent Labs 04/25/23 0620 NA 137 K 4.1 CL 102 CO2 28 BUN 18 CREATININE 0.9 BNP: No results for input(s): BNP in the last 72 hours. PT/INR: No results for input(s): PROTIME , INR in the last 72 hours. APTT: No results for input(s): APTT in the last 72 hours. CARDIAC ENZYMES: No results for input(s): CKMB , CKMBINDEX , TROPONINT in the last 72 hours. Invalid input(s): CKTOTAL;3 FASTING LIPID PANEL: Lab Results Component Value Date CHOL 160 04/26/2023 HDL 37 (L) 04/26/2023 TRIG 140 04/26/2023 LIVER PROFILE: Recent Labs 04/26/23 0703 AST 36* ALT 64* BILIDIR 0.1 BILITOT 0.5 ALKPHOS 122* I/O (24Hr): No intake or output data in the 24 hours ending 04/27/23 1418 Glu last 24 hour Recent Labs 04/25/23 1143 POCGLU 92 No results for input(s): CLARITYU , COLORU , PHUR , SPECGRAV , PROTEINU , RBCUA , BLOODU , BACTERIA , NITRU , WBCUA , LEUKOCYTESUR , YEAST , GLUCOSEU , BILIRUBINUR in the last 72 hours. Impression/Plan: Cervical stenosis with myelopathy: s/p C3-6 posterior decompression and fusion 04/16/[address] Brooks. Cervical collar when out of bed. OK to remove for hygiene and when eating/drinking. PT/OT for gait, mobility, strengthening, endurance, ADLs, and self care. Pain-has tylenol prn, Percocet prn. Encouraged her to medicate prior to therapies., Advised to minimize Percocet, consider changing Percocet to oxycodone to minimize Tylenol Tetraparesis: PT/OT treating Hyperkalemia: on 3 doses Lokelma per IM. Improved - Monitoring. HTN: IM following Transaminitis: IM following. Improved on repeat testing. Will repeat again in a few days Spasticity: on baclofen TID Depression: on Lexapro, Latuda, Wellbutrin Panic disorder: on medications above IBS/Bowel Management: Miralax daily, senokot prn, dulcolax prn. Has milk of magnesia prn. DVT Prophylaxis: low molecular weight heparin, SCD's while in bed, and JUSTIN's during the day Internal medicine for medical management Follow up: PCP 1-2 weeks, Dr. Cecilia Ogden MD This note is created with the assistance of a speech recognition program. While intending to generate a document that actually reflects the content of the visit, the document can still have some errors including those of syntax and sound a like substitutions which may escape proof reading. In such instances, actual meaning can be extrapolated by contextual diversion Physical Therapy Facility/Department: [facility] Treatment note NAME: Medina Sena : 1960 (62 y.o.) CODE STATUS: Full Code Date of Service: 04/26/23 Past Medical History: Diagnosis Date Agoraphobia Depression Diverticular disease IBS (irritable bowel syndrome) SEEMA (iron deficiency anemia) Neuropathy Osteoporosis Panic disorder Spastic quadriparesis (HCC) 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) Under care of service provider 04/03/2023 pcp-efraín hamm-last visit nov 2022 Under care of service provider 04/03/2023 yieyn-rkxzi-meyqbsm-last visit feb 2023 Under care of service provider 04/03/2023 neurologist- Dr. Conti- last visit feb 2023 Wears glasses Past Surgical History: Procedure Laterality Date APPENDECTOMY BREAST BIOPSY BREAST SURGERY Left CERVICAL FUSION N/A 04/16/2023 C3-6 POSTERIOR CERVICAL DECOMPRESSION FUSION performed by Bev Brooks DO at [facility] OR CERVICAL SPINE SURGERY [facility] CERVICAL SPINE SURGERY 04/16/2023 C3-6 POSTERIOR CERVICAL DECOMPRESSION FUSION CHOLECYSTECTOMY COLONOSCOPY HYSTERECTOMY (CERVIX STATUS UNKNOWN) BSO TONSILLECTOMY AND ADENOIDECTOMY Chart Reviewed: Yes Additional Pertinent Hx: Medina Sena is a 62 y.o. right-handed female with history of cervical stenosis, IBS, depression, panic disorder admitted to [facility] on 04/16/2023. She initially presented for elective surgical intervention for cervical stenosis with myelopathy. She underwent C3-C6 posterior decompression and fusion on 04/16/23 (Dr. Brooks). She has a c-collar when out of bed. She reports ongoing posterior neck pain. She also notes continued numbness in all limbs. She feels weakest in the right upper limb and left lower limb. She states that she has ongoing shaking/muscle spasms in the bilateral lower limbs, sometimes at rest and sometimes with activity. She declines having any home or outpatient therapies previously for her condition. Admitted to [facility] 04/22/23 Family / Caregiver Present: No Referring Practitioner: Qamar Blackman MD Diagnosis: stenosis of cervical spine Restrictions: Restrictions/Precautions: General Precautions;Fall Risk Required Braces or Orthoses Cervical: c-collar Position Activity Restriction Spinal Precautions: No Lifting Other position/activity restrictions: 04/16/23 - C3-6 POSTERIOR CERVICAL DECOMPRESSION FUSION. activity as tolerated, no lifting over 5 lbs SUBJECTIVE Subjective: Pt in bed upon arrival in AM and recliner in PM, agreeable to therapy Pain: Pt reports 10/10 pain in neck ans shoulders in AM OBJECTIVE Functional Mobility Bed mobility Supine to Sit: Moderate assistance (at trunk) Sit to Supine: Unable to assess Transfers Sit to Stand: Minimal Assistance;Maximum Assistance (Min A in // bars; Max A from recliner) Stand to Sit: Contact guard assistance;Maximum Assistance (CGA in // bars; Max A to WC) Stand Pivot Transfers: Maximum Assistance Environmental Mobility Ambulation Surface: Level tile Device: Rolling Walker Assistance: Moderate assistance Quality of Gait: small steps, more use of R>L, decreased B knee flexion, requires sequencing Gait Deviations: Slow Ntai;Decreased step length;Decreased step height;Decreased head and trunk rotation;Deviated path Distance: 24ft Comments: pt with narrow REJI requiring headline writer to have foot placed between pts feet in order for pt to take wider steps. Constant verbal cueing to increase step length with poor follow through Ambulation 2 Surface - 2: level tile Device 2: Parallel Bars Assistance 2: Minimal assistance;Contact guard assistance (initially Min A progressing to CGA) Gait Deviations: Slow Nati;Decreased step length;Decreased step height Distance: 8ft FWD/BWD x4 with seated rest breaks in vetween Comments: headline writer educated and cued pt to take wider and longer steps as well as bending knees when advancing legs foward with good follow through Stairs/Curb Stairs?: No PT Exercises Exercise Treatment: stand pivot transfer from WC to recliner with Max A x1 in AM; stand pivot transfer from recliner <->WC in PM. bed mobility in AM and toilet transfer with SS in AM Resistive Exercises: Seated bilateral LEs, x20 reps, #1 R, A/AROM L LE: march, long-arc quads, ankle pumps; hip adduction vs ball; hamstring curls and hip abduction, each vs. orange/light resistance band. (assist for full L knee extension) Dynamic Standing Balance Exercises: standing in // bars performing hamstring curls with L LE x10 reps, pt complaining of pain with activity. Perfomed standing marches B LE x10 reps each in AM Standing Open/Closed Kinetic Chain Exercises: standing B LE exercises in // bars CGA x10 reps ( 3-way hip, marches, and mini squats) in PM seated rest breaks PRN ASSESSMENT Activity Tolerance Activity Tolerance: Patient tolerated treatment well;Patient limited by fatigue GOALS Patient Goals Patient Goals : To walk Short Term Goals Time Frame for Short Term Goals: 5-7 days Short Term Goal 1: Pt to demo mobility min to mod x1 with safe technique. Short Term Goal 2: Pt to perform transfers STS/pivots min to mod x1 with good technique using RW. Short Term Goal 3: Pt to amb 10'-20' with min to mod x1 and wheelchair follow. Short Term Goal 4: Pt to improve posture to GOOD. Short Term Goal 5: Pt to improve static/dynamic sitting balance to GOOD with 0-1 UE support. Personal Fitness Manager Goals Time Frame for Group Home Goals : by DC Personal Fitness Manager Goal 1: Pt to improve bed mobility to SBA to CGA with head of bed elevated and good technique. Personal Fitness Manager Goal 2: Pt to perform all transfers with least restrictive device CGA x1. Personal Fitness Manager Goal 3: Pt to amb 25' min to mod x1 on level surfaces and varied terrain. Group Home Goal 4: Pt to propel w/c 50' on level surfaces with BLE only, min x1. Personal Fitness Manager Goal 5: Pt to improve BLE strength by 1 MMG. Additional Goals?: Yes intermission coordinator goal 6: Pt to improve standing balance to FAIR+/GOOD- to reduce fall risk for functional mobility. intermission coordinator goal 7: Pt to demo HEP with good technique nursing home goal 8: Pt to complete family training, including floor transfer with min assist of 1. nursing home goal 9: Pt to tolerate standing up to 5 minutes (static/dynamic) assist of 1. PLAN OF CARE Frequency: 1-2 treatment sessions per day, 5-7 days per week Physical Therapy Plan General Plan: 60-120 minutes of therapy at least 5 out of 7 days a week Specific Instructions for Next Treatment: standing tolerance, transfers, therex Current Treatment Recommendations: Strengthening;Balance training;Functional mobility training;Transfer training;Endurance training;Neuromuscular re-education;Home exercise program;Safety education & training;Patient/Caregiver education & training;Equipment evaluation, education, & procurement;Therapeutic activities;Gait training;Wheelchair mobility training;ROM;Positioning Safety Devices Type of Devices: All fall risk precautions in place;Patient at risk for falls;Call light within reach;Gait belt;Nurse notified;Bed alarm in place;Left in bed Restraints Restraints Initially in Place: No Therapy Time 04/26/23 0817 04/26/23 1536 PT Individual Minutes Time In 0807 1505 Time Out 09 1536 Minutes 59 31 Roopa Arechiga PTA, 04/26/23 at 5:14 PM 04/26/23 1322 Encounter Summary Encounter Overview/Reason Volunteer Encounter Service Provided For: Patient Referral/Consult From: Gage Last Encounter 04/26/23 Complexity of Encounter Low Spiritual/Emotional needs Type Spiritual Support Rituals, Rites and Sacraments Type Protestant Communion Assessment/Intervention/Outcome Intervention Prayer (assurance of)/[place] Dear Providers, This patient is considered borderline risk with a calculated ASCVD score of 6.7%. At this time, no statin therapy will be initiated due to patient currently having no other ASCVD risk enhancers. Please view the lipid panel results below for further information: Lab Results Component Value Date CHOL 160 04/26/2023 TRIG 140 04/26/2023 HDL 37 (L) 04/26/2023 Please reach out to inpatient pharmacy via [phone], or to PGY-1 Diesel Truck Mechanic, Toña Harris [phone], with further questions or concerns. Thank you, [facility] Inpatient [facility] Toña Harris RP PGY-1 Diesel Truck Mechanic References: Kathrin LOPEZ, Junior RS, Chano DINERO, et al. 2019 ACC/AHA Guideline on the Primary Prevention of Cardiovascular Disease: A Report of the [place] [employer]/[place] [employer] Task Force on Clinical Practice Guidelines. Circulation. 2019;140(11):y095-883. Physical Medicine & Rehabilitation Progress Note Subjective: 62 year-old female with cervical stenosis with myelopathy/tetraparesis. Patient is observed with OT today. Her pain continues to improve. No new issues with sleep, appetite, bowel. Having some stress incontinence. ROS: Denies fevers, chills, sweats. No chest pain, palpitations, lightheadedness. Denies coughing, wheezing or shortness of breath. Denies abdominal pain, nausea, diarrhea or constipation. No new areas of joint pain. Denies new areas of numbness or weakness. Denies new anxiety or depression issues. No new skin problems. Rehabilitation: PT: Bed mobility Rolling to Left: Minimal assistance Rolling to Right: Moderate assistance Supine to Sit: Moderate assistance (at trunk) Sit to Supine: Unable to assess Scooting: Dependent/Total, 2 Person assistance (to HOB) Bed Mobility Comments: head of bed slightly elevated for comfort. Pt's and headline writer rosa bed mobility. Encouragement to actively use BLE independently for bed mobility. Educated on safe techniques. Transfers Sit to Stand: Minimal Assistance, Maximum Assistance (Min A in // bars; Max A from recliner) Stand to Sit: Contact guard assistance, Maximum Assistance (CGA in // bars; Max A to WC) Bed to Chair: Moderate assistance, 2 Person Assistance Stand Pivot Transfers: Maximum Assistance Comment: STS with SS Min A; STS with no device MAx A x1 Ambulation Surface: Level tile Device: Rolling Walker Assistance: Moderate assistance Quality of Gait: small steps, more use of R>L, decreased B knee flexion, requires sequencing Gait Deviations: Slow Nati, Decreased step length, Decreased step height, Decreased head and trunk rotation, Deviated path Distance: 24ft Comments: pt with narrow REJI requiring headline writer to have foot placed between pts feet in order for pt to take wider steps. Constant verbal cueing to increase step length with poor follow through More Ambulation?: Yes Ambulation 2 Surface - 2: level tile Device 2: Parallel Bars Other Apparatus 2: Wheelchair follow Assistance 2: Minimal assistance, Contact guard assistance (initially Min A progressing to CGA) Gait Deviations: Slow Nati, Decreased step length, Decreased step height Distance: 8ft FWD/BWD x4 with seated rest breaks in vetween Comments: headline writer educated and cued pt to take wider and longer steps as well as bending knees when advancing legs foward with good follow through OT: Grooming/Oral Hygiene Assistance Level: Stand by assist Skilled Clinical Factors: SBA/close SUP for face washing and oral hygiene. Items places within reach for ease. All completed while seated at sink in wheelchair, A for washing/brushing/stying hair. Upper Extremity Bathing Assistance Level: Stand by assist Skilled Clinical Factors: SBA/close SUP. c-collar doffed for hyiene while seated in high top w/c. Pt demo's G adhereance to no bending/twisting neck throughout Lower Extremity Bathing Assistance Level: Maximum assistance Skilled Clinical Factors: d/t time contraints pt req A for washing LE below knees and buttock area. Pt able to standing at sink MIN Ax1 with no LOB Upper Extremity Dressing Assistance Level: Maximum assistance Skilled Clinical Factors: A to doff c-collar, with vc pt able to don c-collar with R side strapped. VC on tech on donning open long sleeved shirt with buttons- threading weaker UE first- pt able to thread L UE with verbal cuing then required assist to bring around trunk and effectively thread R UE. A needed with buttons. Lower Extremity Dressing Assistance Level: Maximum assistance Skilled Clinical Factors: d/t time contraints A to thread BLE and place over hips. Pt able to standing at sink with CGA/MIN A x1 Putting On/Taking Off Footwear Assistance Level: Moderate assistance Skilled Clinical Factors: AM: Footwear was already donned. PM: Area Operations Manager introduced taxation inspector, sock aid, and foot funnel. Pt. participated in doffing of gripper socks using taxation inspector- requiring verbal cuing and increased time. Area Operations Manager assisted with TEDs. Pt. attempted to use figure 4 technique for donning of gripper socks but was uncuessful at this time- headline writer provided assist for L foot, sock aid was used for donning of sock of R foot- pt requiring demonstration and then verbal cuing. Toileting Assistance Level: Dependent Skilled Clinical Factors: Completed during AM and PM sessions. AM: Pt. able to assist very minimally with clothing management while standing in jean pierre stedy. PM: Pt. was able to manage pants and brief down before transferring to toilet, then assist for clothing management on R side only after standing up from toilet. DEP for hygiene after BM at this time. Toilet Transfers Technique: (Use of jean pierre stedy.) Equipment: Standard toilet, Grab bars Assistance Level: Dependent Skilled Clinical Factors: Completed during AM and PM sessions. Jean Pierre stedy used for transfer. Pt. is CGA/Carol for sit/stand. SPEECH: Objective: BP (!) 145/73 Pulse (!) 102 Temp 98.6 F (37 C) (Oral) Resp 16 Ht 1.575 m (5' 2.01 ) Wt 62.6 kg (138 lb) SpO2 99% BMI 25.23 kg/m GEN: Well developed, well nourished, in NAD HEENT: NCAT. PERRL. EOMI. Mucous membranes pink and moist. Cervical collar in place PULM: Clear to ausculation. No rales or rhonchi. Respirations WNL and unlabored. CV: tachycardic rate regular rhythm. No murmurs or gallops. GI: Abdomen soft. Nontender. Non-distended. BS + and equal. NEUROLOGICAL: A&O x3. Sensation intact to light touch. . MSK: Functional ROM all extremities but with weakness impairing ROM LLE. Motor testing 4/5 vanessa muscles BUEs.. 4/5 vanessa muscles RLE. 3+/5 vanessa muscles LLE SKIN: Warm dry and intact. Good turgor. Posterior cervical spine incision with dressing in place. EXTREMITIES: No calf tenderness to palpation. No edema BLEs. PSYCH: Mood WNL. Appropriately interactive. Affect WNL. Diagnostics: CBC: No results for input(s): WBC , RBC , HGB , HCT , MCV , RDW , PLT in the last 72 hours. BMP: Recent Labs 04/24/23 1206 04/25/23 0620 NA 136 137 K 4.5 4.1 CL 97* 102 CO2 28 28 BUN 20 18 CREATININE 1.2* 0.9 GLUCOSE 100* 124* BNP: No results for input(s): BNP in the last 72 hours. PT/INR: No results for input(s): PROTIME , INR in the last 72 hours. APTT: No results for input(s): APTT in the last 72 hours. CARDIAC ENZYMES: No results for input(s): CKMB , CKMBINDEX , TROPONINT in the last 72 hours. Invalid input(s): CKTOTAL;3 troponins FASTING LIPID PANEL: Lab Results Component Value Date CHOL 160 04/26/2023 HDL 37 (L) 04/26/2023 TRIG 140 04/26/2023 LIVER PROFILE: Recent Labs 04/26/23 0703 AST 36* ALT 64* BILIDIR 0.1 BILITOT 0.5 ALKPHOS 122* Latest Reference Range & Units 04/23/23 06:07 Albumin 3.5 - 5.2 g/dL 3.5 Alk Phos 35 - 104 U/L 122 (H) ALT 5 - 33 U/L 100 (H) AST <32 U/L 72 (H) BILIRUBIN TOTAL 0.3 - 1.2 mg/dL 0.4 Bilirubin, Direct <0.3 mg/dL 0.1 Bilirubin, Indirect 0.0 - 1.0 mg/dL 0.3 Total Protein 6.4 - 8.3 g/dL 6.1 (L) (H): Data is abnormally high (L): Data is abnormally low Current Medications: Current Facility-Administered Medications: glucose chewable tablet 16 g, 4 tablet, Oral, PRN dextrose bolus 10% 125 mL, 125 mL, IntraVENous, PRN OR dextrose bolus 10% 250 mL, 250 mL, IntraVENous, PRN glucagon injection 1 mg, 1 mg, SubCUTAneous, PRN dextrose 10 % infusion, , IntraVENous, Continuous PRN baclofen (LIORESAL) tablet 10 mg, 10 mg, Oral, TID buPROPion (WELLBUTRIN XL) extended release tablet 150 mg, 150 mg, Oral, QAM enoxaparin (LOVENOX) injection 40 mg, 40 mg, SubCUTAneous, Daily escitalopram (LEXAPRO) tablet 20 mg, 20 mg, Oral, Daily lurasidone (LATUDA) tablet 80 mg, 80 mg, Oral, Dinner oxyCODONE-acetaminophen (PERCOCET) 5-325 MG per tablet 1 tablet, 1 tablet, Oral, Q6H PRN OR oxyCODONE-acetaminophen (PERCOCET) 5-325 MG per tablet 2 tablet, 2 tablet, Oral, Q6H PRN polyethylene glycol (GLYCOLAX) packet 17 g, 17 g, Oral, Daily magnesium hydroxide (MILK OF MAGNESIA) 400 MG/5ML suspension 30 mL, 30 mL, Oral, Daily PRN acetaminophen (TYLENOL) tablet 650 mg, 650 mg, Oral, Q4H PRN senna (SENOKOT) tablet 17.2 mg, 2 tablet, Oral, Daily PRN bisacodyl (DULCOLAX) suppository 10 mg, 10 mg, Rectal, Daily PRN Impression/Plan: Impaired ADLs, gait, and mobility due to: Cervical stenosis with myelopathy: s/p C3-6 posterior decompression and fusion 04/16/[address] Brooks. Cervical collar when out of bed. OK to remove for hygiene and when eating/drinking. PT/OT for gait, mobility, strengthening, endurance, ADLs, and self care. Has tylenol prn, Percocet prn. Encouraged her to medicate prior to therapies. Tetraparesis: PT/OT treating Hyperkalemia: on 3 doses Lokelma per IM. Improved - Monitoring. HTN: IM following Transaminitis: IM following. Improved on repeat testing. Will repeat again in a few days Spasticity: on baclofen TID Depression: on Lexapro, Latuda Panic disorder: on medications above IBS/Bowel Management: Miralax daily, senokot prn, dulcolax prn. Has milk of magnesia prn. DVT Prophylaxis: low molecular weight heparin, SCD's while in bed, and JUSTIN's during the day Internal medicine for medical management Follow up: PCP 1-2 weeks, Dr. Brooks This note is created with the assistance of a speech recognition program. While intending to generate a document that actually reflects the content of the visit, the document can still have some errors including those of syntax and sound a like substitutions which may escape proof reading. In such instances, actual meaning can be extrapolated by contextual diversion. 04/25/23 1905 Encounter Summary Encounter Overview/Reason Volunteer Encounter Service Provided For: Patient Referral/Consult From: Rounding Last Encounter 04/25/23 Complexity of Encounter Low Spiritual/Emotional needs Type Spiritual Support Rituals, Rites and Sacraments Type Protestant Communion Assessment/Intervention/Outcome Intervention Prayer (assurance of)/[place] Physical Therapy Facility/Department: [facility] NAME: Medina Sena : 1960 (62 y.o.) CODE STATUS: Full Code Date of Service: 04/25/23 Past Medical History: Diagnosis Date Agoraphobia Depression Diverticular disease IBS (irritable bowel syndrome) SEEMA (iron deficiency anemia) Neuropathy Osteoporosis Panic disorder Spastic quadriparesis (HCC) 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) Under care of service provider 04/03/2023 pcp-efraín hamm-last visit nov 2022 Under care of service provider 04/03/2023 [id number]-last visit feb 2023 Under care of service provider 04/03/2023 neurologist- Dr. Conti- last visit feb 2023 Wears glasses Past Surgical History: Procedure Laterality Date APPENDECTOMY BREAST BIOPSY BREAST SURGERY Left CERVICAL FUSION N/A 04/16/2023 C3-6 POSTERIOR CERVICAL DECOMPRESSION FUSION performed by Bev Brooks DO at [facility] OR CERVICAL SPINE SURGERY [address] [place] [address]- [facility] CERVICAL SPINE SURGERY 04/16/2023 C3-6 POSTERIOR CERVICAL DECOMPRESSION FUSION CHOLECYSTECTOMY COLONOSCOPY HYSTERECTOMY (CERVIX STATUS UNKNOWN) BSO TONSILLECTOMY AND ADENOIDECTOMY Chart Reviewed: Yes Additional Pertinent Hx: Medina Sena is a 62 y.o. right-handed female with history of cervical stenosis, IBS, depression, panic disorder admitted to [facility] on 04/16/2023. She initially presented for elective surgical intervention for cervical stenosis with myelopathy. She underwent C3-C6 posterior decompression and fusion on 04/16/23 (Dr. Brooks). She has a c-collar when out of bed. She reports ongoing posterior neck pain. She also notes continued numbness in all limbs. She feels weakest in the right upper limb and left lower limb. She states that she has ongoing shaking/muscle spasms in the bilateral lower limbs, sometimes at rest and sometimes with activity. She declines having any home or outpatient therapies previously for her condition. Admitted to [facility] 04/22/23 Family / Caregiver Present: No Referring Practitioner: Qamar Blackman MD Diagnosis: stenosis of cervical spine Restrictions: Restrictions/Precautions: General Precautions;Fall Risk Required Braces or Orthoses Cervical: c-collar Position Activity Restriction Spinal Precautions: No Lifting Other position/activity restrictions: 04/16/23 - C3-6 POSTERIOR CERVICAL DECOMPRESSION FUSION. activity as tolerated, no lifting over 5 lbs SUBJECTIVE Subjective: Pt in bed upon arrival in AM and recliner in PM, agreeable to therapy Pain: Pt reports 10/10 pain in neck ans shoulders in AM OBJECTIVE Functional Mobility Bed mobility Supine to Sit: Moderate assistance (at trunk) Sit to Supine: Unable to assess Transfers Sit to Stand: Minimal Assistance;Maximum Assistance (Min A in // bars; Max A from recliner) Stand to Sit: Contact guard assistance;Maximum Assistance (CGA in // bars; Max A to WC) Stand Pivot Transfers: Maximum Assistance Environmental Mobility Ambulation Surface: Level tile Device: Rolling Walker Assistance: Moderate assistance Quality of Gait: small steps, more use of R>L, decreased B knee flexion, requires sequencing Gait Deviations: Slow Nati;Decreased step length;Decreased step height;Decreased head and trunk rotation;Deviated path Distance: 24ft Comments: pt with narrow REJI requiring headline writer to have foot placed between pts feet in order for pt to take wider steps. Constant verbal cueing to increase step length with poor follow through Ambulation 2 Surface - 2: level tile Device 2: Parallel Bars Assistance 2: Minimal assistance;Contact guard assistance (initially Min A progressing to CGA) Gait Deviations: Slow Nati;Decreased step length;Decreased step height Distance: 8ft FWD/BWD x4 with seated rest breaks in vetween Comments: headline writer educated and cued pt to take wider and longer steps as well as bending knees when advancing legs foward with good follow through Stairs/Curb Stairs?: No PT Exercises Exercise Treatment: stand pivot transfer from WC to recliner with Max A x1 in AM; stand pivot transfer from recliner <->WC in PM. bed mobility in AM and toilet transfer with SS in AM Resistive Exercises: seated B LE exercises x20 reps with #1.5 on R LE and ornage tband Dynamic Standing Balance Exercises: standing in // bars performing hamstring curls with L LE x10 reps, pt complaining of pain with activity. Perfomed standing marches B LE x10 reps each in AM Standing Open/Closed Kinetic Chain Exercises: standing B LE exercises in // bars CGA x10 reps ( 3-way hip, marches, and mini squats) in PM seated rest breaks PRN ASSESSMENT Activity Tolerance Activity Tolerance: Patient tolerated treatment well;Patient limited by fatigue Assessment Treatment Diagnosis: impaired functional mobility 2* weakness Discharge Recommendations: Patient would benefit from continued therapy after discharge PT D/C Equipment Other: TBD PT Equipment Recommendations Other: TBD GOALS Patient Goals Patient Goals : To walk Short Term Goals Time Frame for Short Term Goals: 5-7 days Short Term Goal 1: Pt to demo mobility min to mod x1 with safe technique. Short Term Goal 2: Pt to perform transfers STS/pivots min to mod x1 with good technique using RW. Short Term Goal 3: Pt to amb 10'-20' with min to mod x1 and wheelchair follow. Short Term Goal 4: Pt to improve posture to GOOD. Short Term Goal 5: Pt to improve static/dynamic sitting balance to GOOD with 0-1 UE support. Group Home Goals Time Frame for Group Home Goals : by DC Personal Fitness Manager Goal 1: Pt to improve bed mobility to SBA to CGA with head of bed elevated and good technique. Group Home Goal 2: Pt to perform all transfers with least restrictive device CGA x1. Personal Fitness Manager Goal 3: Pt to amb 25' min to mod x1 on level surfaces and varied terrain. Group Home Goal 4: Pt to propel w/c 50' on level surfaces with BLE only, min x1. Group Home Goal 5: Pt to improve BLE strength by 1 MMG. Additional Goals?: Yes nursing home goal 6: Pt to improve standing balance to FAIR+/GOOD- to reduce fall risk for functional mobility. nursing home goal 7: Pt to demo HEP with good technique intermission coordinator goal 8: Pt to complete family training, including floor transfer with min assist of 1. intermission coordinator goal 9: Pt to tolerate standing up to 5 minutes (static/dynamic) assist of 1. PLAN OF CARE Physical Therapy Plan General Plan: 60-120 minutes of therapy at least 5 out of 7 days a week Specific Instructions for Next Treatment: standing tolerance, transfers, therex Current Treatment Recommendations: Strengthening;Balance training;Functional mobility training;Transfer training;Endurance training;Neuromuscular re-education;Home exercise program;Safety education & training;Patient/Caregiver education & training;Equipment evaluation, education, & procurement;Therapeutic activities;Gait training;Wheelchair mobility training;ROM;Positioning Safety Devices Type of Devices: All fall risk precautions in place;Patient at risk for falls;Call light within reach;Gait belt;Nurse notified;Bed alarm in place;Left in bed Restraints Restraints Initially in Place: No 04/25/23 1000 04/25/23 1502 PT Individual Minutes Time In 0757 1410 Time Out 0902 1446 Minutes 65 36 Eunice Poonam, MANAGER PMO, 04/25/23 at 3:11 PM Dear Providers, Due to the increased risk of metabolic abnormalities of atypical antipsychotics or second-generation antipsychotics (SGA) a lipid panel has been ordered using an approved pharmacist driven [facility] P[facility]T Protocol for appropriate monitoring of atypical antipsychotic therapy. Please reach out to inpatient pharmacy via [phone], or to PGY-1 Diesel Truck Mechanic, Toña Harris [phone], with further questions or concerns. Thank you, [facility] Inpatient Pharmacy Toña Harris [facility] PGY-1 Diesel Truck Mechanic Physical Medicine & Rehabilitation Progress Note Subjective: 62 year-old female with cervical stenosis with myelopathy/tetraparesis. Patient is observed with OT today. She is having some issues with stress incontinence. Pain is improving and responding to prn medication. ROS: Denies fevers, chills, sweats. No chest pain, palpitations, lightheadedness. Denies coughing, wheezing or shortness of breath. Denies abdominal pain, nausea, diarrhea or constipation. No new areas of joint pain. Denies new areas of numbness or weakness. Denies new anxiety or depression issues. No new skin problems. Rehabilitation: PT: Bed mobility Rolling to Left: Minimal assistance Rolling to Right: Moderate assistance Supine to Sit: Moderate assistance, Maximum assistance (x1 at trunk) Sit to Supine: Moderate assistance, Maximum assistance, 2 Person assistance Scooting: Dependent/Total, 2 Person assistance (to HOB) Bed Mobility Comments: head of bed slightly elevated for comfort. Pt's and headline writer molly'tiara bed mobility. Encouragement to actively use BLE independently for bed mobility. Educated on safe techniques. Transfers Sit to Stand: Minimal Assistance, Maximum Assistance (Min A in // bars; Max A from recliner) Stand to Sit: Contact guard assistance, Maximum Assistance (CGA in // bars; Max A to WC) Bed to Chair: Moderate assistance, 2 Person Assistance Stand Pivot Transfers: Maximum Assistance Comment: STS with SS Min A; STS with no device MAx A x1 Ambulation Surface: Level tile Device: Parallel Bars Assistance: Moderate assistance Quality of Gait: small steps, more use of R>L, decreased B knee flexion, requires sequencing Gait Deviations: Slow Nati, Decreased step length, Decreased step height, Decreased head and trunk rotation, Deviated path Distance: 8ft FWD/BWD x2 (seated rest breaks in between) Comments: pt with narrow REJI requiring headline writer to have foot placed between pts feet in order for pt to take wider steps. Constant verbal cueing to increase step length with poor follow through More Ambulation?: Yes Ambulation 2 Surface - 2: level tile Device 2: Rolling Walker Other Apparatus 2: Wheelchair follow Assistance 2: Moderate assistance Gait Deviations: Slow Nati, Decreased step length, Decreased step height Distance: 8ft Comments: headline writer behind pt for support. Area Operations Manager placing foot between pts feet in order for pt to increase her REJI. Pt requesting to sit d/t R leg feeling weak and L leg feeling numb OT: Grooming/Oral Hygiene Assistance Level: Stand by assist Skilled Clinical Factors: items places within reach for ease. Pt completes oral/skin care seated sink level, A for brushing/stying hair Upper Extremity Bathing Assistance Level: Stand by assist Skilled Clinical Factors: c-collar doffed for hyiene while seated in high top w/c. Pt demo's G adhereance to no bending/twisting neck throughout Lower Extremity Bathing Assistance Level: Maximum assistance Skilled Clinical Factors: d/t time contraints pt req A for washing LE below knees and buttock area. Pt able to standing at sink MIN Ax1 with no LOB Upper Extremity Dressing Assistance Level: Maximum assistance Skilled Clinical Factors: A to doff c-collar, with vc pt able to don c-collar with R side strapped. VC on tech on donning shirt with A to place over head and manage around trunk seated in w/c Lower Extremity Dressing Assistance Level: Maximum assistance Skilled Clinical Factors: d/t time contraints A to thread BLE and place over hips. Pt able to standing at sink with CGA/MIN A x1 Putting On/Taking Off Footwear Assistance Level: Dependent Skilled Clinical Factors: d/t time constraints TA for TEDs and footies SPEECH: Objective: BP 135/62 Pulse 91 Temp 98.1 F (36.7 C) Resp 14 Ht 1.575 m (5' 2.01 ) Wt 62.6 kg (138 lb) SpO2 96% BMI 25.23 kg/m GEN: Well developed, well nourished, in NAD HEENT: NCAT. PERRL. EOMI. Mucous membranes pink and moist. Cervical collar in place PULM: Clear to ausculation. No rales or rhonchi. Respirations WNL and unlabored. CV: Regular rate rhythm. No murmurs or gallops. GI: Abdomen soft. Nontender. Non-distended. BS + and equal. NEUROLOGICAL: A&O x3. Sensation intact to light touch. . MSK: Functional ROM all extremities but with weakness impairing ROM LLE. Motor testing 4/5 vanessa muscles BUEs.. 4/5 vanessa muscles RLE. 3+/5 vanessa muscles LLE SKIN: Warm dry and intact. Good turgor. Posterior cervical spine incision with dressing in place. EXTREMITIES: No calf tenderness to palpation. No edema BLEs. PSYCH: Mood WNL. Appropriately interactive. Affect WNL. Diagnostics: CBC: Recent Labs 04/23/23 0607 WBC 8.1 RBC 3.70* HGB 11.2* HCT 34.1* MCV 92.3 RDW 13.5 PLT 276 BMP: Recent Labs 04/23/23 0607 04/24/23 1206 04/25/23 0620 NA 138 136 137 K 5.5* 4.5 4.1 CL 101 97* 102 CO2 29 28 28 BUN 21 20 18 CREATININE 1.1* 1.2* 0.9 GLUCOSE 114* 100* 124* BNP: No results for input(s): BNP in the last 72 hours. PT/INR: No results for input(s): PROTIME , INR in the last 72 hours. APTT: No results for input(s): APTT in the last 72 hours. CARDIAC ENZYMES: No results for input(s): CKMB , CKMBINDEX , TROPONINT in the last 72 hours. Invalid input(s): CKTOTAL;3 troponins FASTING LIPID PANEL:No results found for: CHOL , HDL , TRIG LIVER PROFILE: Recent Labs 04/23/23 0607 AST 72* ALT 100* BILIDIR 0.1 BILITOT 0.4 ALKPHOS 122* Comprehensive metabolic panel 12/17/2022 Specimen: Blood - Venous blood specimen (specimen) Component Ref Range & Units 4 mo ago Comments Glucose 65 - 99 mg/dL 75 Fasting reference interval BUN 7 - 25 mg/dL 33 High Creatinine 0.50 - 1.05 mg/dL 1.00 EGFR > OR = 60 mL/min/1.73m2 63 BUN/CREATININE RATIO 6 - 22 (calc) 33 High Sodium 135 - 146 mmol/L 138 Potassium, Bld 3.5 - 5.3 mmol/L 4.4 Chloride 98 - 110 mmol/L 102 Carbon Dioxide 20 - 32 mmol/L 26 Calcium 8.6 - 10.4 mg/dL 9.2 PROTEIN, TOTAL 6.1 - 8.1 g/dL 6.3 ALBUMIN 3.6 - 5.1 g/dL 4.1 GLOBULIN 1.9 - 3.7 g/dL (calc) 2.2 ALBUMIN/GLOBULIN RATIO 1.0 - 2.5 (calc) 1.9 BILIRUBIN, TOTAL 0.2 - 1.2 mg/dL 1.0 ALKALINE PHOSPHATASE 37 - 153 U/L 93 AST 10 - 35 U/L 15 ALT 6 - 29 U/L 45 High Current Medications: Current Facility-Administered Medications: glucose chewable tablet 16 g, 4 tablet, Oral, PRN dextrose bolus 10% 125 mL, 125 mL, IntraVENous, PRN OR dextrose bolus 10% 250 mL, 250 mL, IntraVENous, PRN glucagon injection 1 mg, 1 mg, SubCUTAneous, PRN dextrose 10 % infusion, , IntraVENous, Continuous PRN baclofen (LIORESAL) tablet 10 mg, 10 mg, Oral, TID buPROPion (WELLBUTRIN XL) extended release tablet 150 mg, 150 mg, Oral, QAM enoxaparin (LOVENOX) injection 40 mg, 40 mg, SubCUTAneous, Daily escitalopram (LEXAPRO) tablet 20 mg, 20 mg, Oral, Daily lurasidone (LATUDA) tablet 80 mg, 80 mg, Oral, Dinner oxyCODONE-acetaminophen (PERCOCET) 5-325 MG per tablet 1 tablet, 1 tablet, Oral, Q6H PRN OR oxyCODONE-acetaminophen (PERCOCET) 5-325 MG per tablet 2 tablet, 2 tablet, Oral, Q6H PRN polyethylene glycol (GLYCOLAX) packet 17 g, 17 g, Oral, Daily magnesium hydroxide (MILK OF MAGNESIA) 400 MG/5ML suspension 30 mL, 30 mL, Oral, Daily PRN acetaminophen (TYLENOL) tablet 650 mg, 650 mg, Oral, Q4H PRN senna (SENOKOT) tablet 17.2 mg, 2 tablet, Oral, Daily PRN bisacodyl (DULCOLAX) suppository 10 mg, 10 mg, Rectal, Daily PRN Impression/Plan: Impaired ADLs, gait, and mobility due to: Cervical stenosis with myelopathy: s/p C3-6 posterior decompression and fusion 04/16/[address] Brooks. Cervical collar when out of bed. OK to remove for hygiene and when eating/drinking. PT/OT for gait, mobility, strengthening, endurance, ADLs, and self care. Has tylenol prn, Percocet prn. Encouraged her to medicate prior to therapies. Tetraparesis: PT/OT treating Hyperkalemia: on 3 doses Lokelma per IM. Improved - Monitoring. HTN: IM following Transaminitis: IM following. Will repeat LFTs Spasticity: on baclofen TID Depression: on Lexapro, Latuda Panic disorder: on medications above IBS/Bowel Management: Miralax daily, senokot prn, dulcolax prn. Has milk of magnesia prn. DVT Prophylaxis: low molecular weight heparin, SCD's while in bed, and JUSTIN's during the day Internal medicine for medical management Follow up: PCP 1-2 weeks, Dr. Brooks Patient's care discussed in interdisciplinary team conference today. Medical decision making high regarding continued inpatient rehabilitation hospitalization and discharge planning. 50 minutes spent today in coordination of care, review of medical records including consulting services management and recommendations, medications, and lab results. This note is created with the assistance of a speech recognition program. While intending to generate a document that actually reflects the content of the visit, the document can still have some errors including those of syntax and sound a like substitutions which may escape proof reading. In such instances, actual meaning can be extrapolated by contextual diversion. [facility] Occupational Therapy Daily Treatment Note Date: 04/24/23 Patient Name: Medina Sena Room: 2608/2608-01 Account: [id number] : 1960 (62 y.o.) Gender: female Referring Practitioner: Joe Schilling MD Diagnosis: Cervical disc disease with myelopathy Additional Pertinent Hx: Per PM&R consult: Medina Sena is a 62 y.o. right-handed female with history of cervical stenosis, IBS, depression, panic disorder admitted to [facility] on 04/16/2023. She initially presented for elective surgical intervention for cervical stenosis with myelopathy. She underwent C3-C6 posterior decompression and fusion on 04/16/23 (Dr. Brooks). She has a c-collar when out of bed. She reports ongoing posterior neck pain. She also notes continued numbness in all limbs. She feels weakest in the right upper limb and left lower limb. She states that she has ongoing shaking/muscle spasms in the bilateral lower limbs, sometimes at rest and sometimes with activity. She declines having any home or outpatient therapies previously for her condition. Treatment Diagnosis: impaired self care status Past Medical History: has a past medical history of Agoraphobia, Depression, Diverticular disease, IBS (irritable bowel syndrome), SEEMA (iron deficiency anemia), Neuropathy, Osteoporosis, Panic disorder, Spastic quadriparesis (HCC), 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), Under care of service provider, Under care of service provider, Under care of service provider, and Wears glasses. Past Surgical History: has a past surgical history that includes Appendectomy; Breast biopsy; Cervical spine surgery (2003); Colonoscopy; Cholecystectomy; Hysterectomy; Tonsillectomy and adenoidectomy; Breast surgery (Left); Cervical spine surgery (04/16/2023); and cervical fusion (N/A, 04/16/2023). Restrictions Restrictions/Precautions Restrictions/Precautions: General Precautions, Fall Risk Required Braces or Orthoses?: Yes Implants present? : Metal implants (cervical fusion) Required Braces or Orthoses Cervical: c-collar (please wear aspen cervical collar while out of bed or sitting upright. Okay to remove while eating, showering, and sleeping) Position Activity Restriction Spinal Precautions: No Lifting (greater than 5 lbs) Other position/activity restrictions: 04/16/23 - C3-6 POSTERIOR CERVICAL DECOMPRESSION FUSION. activity as tolerated, no lifting over 5 lbs Vitals Vital Signs O2 Device: None (Room air) Subjective Subjective Subjective: It's weird trying do this (don shirt) i'm use to someone else doing it Pain Assessment Pain Assessment: 0-10 Pain Level: 8 Pain Location: Shoulder Pain Orientation: Right;Left;Posterior Pain Type: Acute pain;Surgical pain Objective Cognition Overall Orientation Status: Within Functional Limits Orientation Level: Oriented to person;Oriented to place;Oriented to situation;Oriented to time;Oriented X4 Cognition Overall Cognitive Status: Exceptions Arousal/Alertness: Delayed responses to stimuli Following Commands: Follows multistep commands with increased time;Follows multistep commands with repitition Attention Span: Appears intact Memory: Appears intact Safety Judgement: Decreased awareness of need for assistance;Decreased awareness of need for safety Problem Solving: Assistance required to generate solutions;Assistance required to identify errors made;Assistance required to correct errors made;Decreased awareness of errors Insights: Decreased awareness of deficits Initiation: Requires cues for some Sequencing: Requires cues for some Activities of Daily Living Feeding Assistance Level: Set-up Skilled Clinical Factors: per pt report Grooming/Oral Hygiene Assistance Level: Stand by assist Skilled Clinical Factors: items places within reach for ease. Pt completes oral/skin care seated sink level, A for brushing/stying hair Upper Extremity Bathing Assistance Level: Stand by assist Skilled Clinical Factors: c-collar doffed for hyiene while seated in high top w/c. Pt demo's G adhereance to no bending/twisting neck throughout Lower Extremity Bathing Assistance Level: Maximum assistance Skilled Clinical Factors: d/t time contraints pt req A for washing LE below knees and buttock area. Pt able to standing at sink MIN Ax1 with no LOB Upper Extremity Dressing Assistance Level: Maximum assistance Skilled Clinical Factors: A to doff c-collar, with vc pt able to don c-collar with R side strapped. VC on tech on donning shirt with A to place over head and manage around trunk seated in w/c Lower Extremity Dressing Assistance Level: Maximum assistance Skilled Clinical Factors: d/t time contraints A to thread BLE and place over hips. Pt able to standing at sink with CGA/MIN A x1 Putting On/Taking Off Footwear Assistance Level: Dependent Skilled Clinical Factors: d/t time constraints TA for TEDs and footies Mobility Sit to Stand Assistance Level: Minimal assistance Skilled Clinical Factors: MIN/CGA Ax1 using sink for UE support, cues for hand placement Stand to Sit Assistance Level: Minimal assistance Skilled Clinical Factors: MIN/CGA Ax1 using sink for UE support, cues for hand placement Functional Mobility Device: Wheelchair Activity: To/From bathroom;To/From therapy gym Assistance Level: Dependent Skilled Clinical Factors: did not self propel Left Hand Strength - Manufacturing Analyst (lbs) Handle Setting 2: 21.7 (22,23,20) (35-57) Right Hand Strength - Manufacturing Analyst (lbs) Handle Setting 2: 23.3 (29,20,21) (35-57) Fine Motor Skills Left 9-Hole Peg Test: Impaired Left 9 Hole Peg Test Time (secs): 41 Right 9-Hole Peg Test: Impaired Right 9 Hole Peg Test Time (secs): 72 Fine Motor Comment: Normal 19-28s Assessment Assessment Activity Tolerance: Patient tolerated treatment well;Patient limited by fatigue Discharge Recommendations: Continue to assess pending progress;Home with assist PRN Patient Education Education Education Given To: Patient Education Provided: Role of Therapy;Plan of Care;Precautions;ADL Function;Safety;Transfer Training Education Method: Verbal;Demonstration Barriers to Learning: Cognition Education Outcome: Verbalized understanding;Demonstrated understanding OT Equipment Recommendations Other: TBD Goals Patient Goals Patient goals : To walk Short Term Goals Time Frame for Short Term Goals: Within 7-10 days, pt will Short Term Goal 1: perform functional transfers/mobility during self care tasks with Mod A, least restrictive device, and Good safety Short Term Goal 2: perform upper body bathing/dressing tasks with Min A and Good adherence to cervical precautions Short Term Goal 3: perform lower body bathing/dressing/toileting tasks with Mod A and adaptive equipment as needed Short Term Goal 4: tolerate standing for 5+ minutes during self care/functional activity with Mod A Short Term Goal 5: actively participate in 30+ minutes of therapeutic exercise/functional activity to increase overall strength/endurance needed for ADLs/IADLs Group Home Goals Time Frame for Group Home Goals : By discharge, pt will Group Home Goal 1: perform functional transfers/mobility during self care tasks with CGA, least restrictive device, and Good safety Personal Fitness Manager Goal 2: perform upper body bathing/dressing tasks with SBA and Good adherence to cervical precautions Group Home Goal 3: perform lower body bathing/dressing/toileting tasks with CGA and adaptive equipment as needed Personal Fitness Manager Goal 4: tolerate standing for 10+ minutes during self care/functional activity with CGA Group Home Goal 5: OT to further assess service parts coordinator strength and fine motor coordination and notify OTR to update goal as appropriate Group Home Goal 6: perform self feeding task with Mod I Plan Occupational Therapy Plan Times Per Week: 5-7 Times Per Day: Twice a day Current Treatment Recommendations: Balance training, Functional mobility training, Wheelchair mobility training, Patient/Caregiver education & training, Safety education & training, Pain management, Self-Care / ADL, Equipment evaluation, education, & procurement, Home management training, Coordination training, Endurance training, Strengthening 04/24/23 0901 04/24/23 1415 OT Individual Minutes Time In 0901 1415 Time Out 1009 1441 Minutes 68 26 Physical Therapy Facility/Department: [facility] NAME: Medina Sena : 1960 (62 y.o.) CODE STATUS: Full Code Date of Service: 04/24/23 Past Medical History: Diagnosis Date Agoraphobia Depression Diverticular disease IBS (irritable bowel syndrome) SEEMA (iron deficiency anemia) Neuropathy Osteoporosis Panic disorder Spastic quadriparesis (HCC) 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) Under care of service provider 04/03/2023 pcp-efraín levy [place]-last visit nov 2022 Under care of service provider 04/03/2023 cdakj-vjihj-[id number]-last visit feb 2023 Under care of service provider 04/03/2023 neurologist- Dr. Conti- last visit feb 2023 Wears glasses Past Surgical History: Procedure Laterality Date APPENDECTOMY BREAST BIOPSY BREAST SURGERY Left CERVICAL FUSION N/A 04/16/2023 C3-6 POSTERIOR CERVICAL DECOMPRESSION FUSION performed by Bev Brooks DO at [facility] OR CERVICAL SPINE SURGERY 2003 [facility] CERVICAL SPINE SURGERY 04/16/2023 C3-6 POSTERIOR CERVICAL DECOMPRESSION FUSION CHOLECYSTECTOMY COLONOSCOPY HYSTERECTOMY (CERVIX STATUS UNKNOWN) BSO TONSILLECTOMY AND ADENOIDECTOMY Chart Reviewed: Yes Additional Pertinent Hx: Medina Sena is a 62 y.o. right-handed female with history of cervical stenosis, IBS, depression, panic disorder admitted to [facility] on 04/16/2023. She initially presented for elective surgical intervention for cervical stenosis with myelopathy. She underwent C3-C6 posterior decompression and fusion on 04/16/23 (Dr. Brooks). She has a c-collar when out of bed. She reports ongoing posterior neck pain. She also notes continued numbness in all limbs. She feels weakest in the right upper limb and left lower limb. She states that she has ongoing shaking/muscle spasms in the bilateral lower limbs, sometimes at rest and sometimes with activity. She declines having any home or outpatient therapies previously for her condition. Admitted to [facility] 04/22/23 Family / Caregiver Present: No Referring Practitioner: Qamar Balckman MD Diagnosis: stenosis of cervical spine Restrictions: Restrictions/Precautions: General Precautions;Fall Risk Required Braces or Orthoses Cervical: c-collar (please wear aspen cervical collar while out of bed or sitting upright. Okay to remove while eating, showering, and sleeping) Position Activity Restriction Spinal Precautions: No Lifting (greater than 5 lbs) Other position/activity restrictions: 04/16/23 - C3-6 POSTERIOR CERVICAL DECOMPRESSION FUSION. activity as tolerated, no lifting over 5 lbs SUBJECTIVE Subjective: Pt in recliner upon arrival in AM and WC in PM, agreeable to therapy Pain: Pt reports 9/10 pain in neck ans shoulders in AM OBJECTIVE Functional Mobility Transfers Sit to Stand: Minimal Assistance;Maximum Assistance (Min A in // bars; Max A from recliner) Stand to Sit: Contact guard assistance;Maximum Assistance (CGA in // bars; Max A to WC) Environmental Mobility Ambulation Surface: Level tile Device: Parallel Bars Assistance: Moderate assistance Quality of Gait: small steps, more use of R>L, decreased B knee flexion, requires sequencing Gait Deviations: Slow Nati;Decreased step length;Decreased step height;Decreased head and trunk rotation;Deviated path Distance: 8ft FWD/BWD x2 (seated rest breaks in between) Comments: pt with narrow REJI requiring headline writer to have foot placed between pts feet in order for pt to take wider steps. Constant verbal cueing to increase step length with poor follow through More Ambulation?: Yes Ambulation 2 Surface - 2: level tile Device 2: Rolling Walker Other Apparatus 2: Wheelchair follow Assistance 2: Moderate assistance Gait Deviations: Slow Nati;Decreased step length;Decreased step height Distance: 8ft Comments: headline writer behind pt for support. Area Operations Manager placing foot between pts feet in order for pt to increase her REJI. Pt requesting to sit d/t R leg feeling weak and L leg feeling numb Stairs/Curb Stairs?: No PT Exercises Exercise Treatment: stand pivot transfer from recliner to WC with Max A x1 in AM; stand pivot transfer from WC<-> Nustep with Max A x1 Resistive Exercises: seated B LE exercises x15 reps with #1.5 on R LE and ornage tband Pressure Relief Exercises: STS x4 in // bars in AM; STS from WC x2 in PM Dynamic Sitting Balance Exercises: seated balloon tap ~ 4 minutes SBA Static Standing Balance Exercises: standing tolerance x4 in // bars (2 minutes 5 seconds, 1 minute 50 seconds and ~3-4 minutes x2) Exercise Equipment: NuSTep L1 seat 5 x10 minutes- required assiatnce for L foot placement throguhout ASSESSMENT Vitals Pulse: (!) 106 BP: (!) 150/84 BP Location: Left upper arm BP Method: Automatic MAP (Calculated): 106 Activity Tolerance Activity Tolerance: Patient tolerated treatment well;Patient limited by fatigue Assessment Treatment Diagnosis: impaired functional mobility 2* weakness Discharge Recommendations: Patient would benefit from continued therapy after discharge PT D/C Equipment Other: TBD PT Equipment Recommendations Other: TBD GOALS Patient Goals Patient Goals : To walk Short Term Goals Time Frame for Short Term Goals: 5-7 days Short Term Goal 1: Pt to demo mobility min to mod x1 with safe technique. Short Term Goal 2: Pt to perform transfers STS/pivots min to mod x1 with good technique using RW. Short Term Goal 3: Pt to amb 10'-20' with min to mod x1 and wheelchair follow. Short Term Goal 4: Pt to improve posture to GOOD. Short Term Goal 5: Pt to improve static/dynamic sitting balance to GOOD with 0-1 UE support. Group Home Goals Time Frame for Group Home Goals : by DC Personal Fitness Manager Goal 1: Pt to improve bed mobility to SBA to CGA with head of bed elevated and good technique. Group Home Goal 2: Pt to perform all transfers with least restrictive device CGA x1. Group Home Goal 3: Pt to amb 25' min to mod x1 on level surfaces and varied terrain. Group Home Goal 4: Pt to propel w/c 50' on level surfaces with BLE only, min x1. Personal Fitness Manager Goal 5: Pt to improve BLE strength by 1 MMG. Additional Goals?: Yes nursing home goal 6: Pt to improve standing balance to FAIR+/GOOD- to reduce fall risk for functional mobility. intermission coordinator goal 7: Pt to demo HEP with good technique intermission coordinator goal 8: Pt to complete family training, including floor transfer with min assist of 1. intermission coordinator goal 9: Pt to tolerate standing up to 5 minutes (static/dynamic) assist of 1. PLAN OF CARE Physical Therapy Plan General Plan: 60-120 minutes of therapy at least 5 out of 7 days a week Specific Instructions for Next Treatment: standing tolerance, transfers, therex Current Treatment Recommendations: Strengthening;Balance training;Functional mobility training;Transfer training;Endurance training;Neuromuscular re-education;Home exercise program;Safety education & training;Patient/Caregiver education & training;Equipment evaluation, education, & procurement;Therapeutic activities;Gait training;Wheelchair mobility training;ROM;Positioning Safety Devices Type of Devices: All fall risk precautions in place;Patient at risk for falls;Call light within reach;Gait belt;Nurse notified;Bed alarm in place;Left in bed Restraints Restraints Initially in Place: No 04/24/23 1000 04/24/23 1515 PT Individual Minutes Time In [id number] 1308 Time Out 0901 1343 Minutes 64 35 Eunice Levin PTA, 04/24/23 at 3:16 PM 04/24/23 1411 Encounter Summary Encounter Overview/Reason Volunteer Encounter Service Provided For: Patient Referral/Consult From: Rounding Last Encounter 04/24/23 Complexity of Encounter Low Spiritual/Emotional needs Type Spiritual Support Rituals, Rites and Sacraments Type Protestant Communion Assessment/Intervention/Outcome Intervention Prayer (assurance of)/[place] Plan and Referrals Plan/Referrals Provided reading/devotional materials (patient received ashes) Area Operations Manager was able to visit patient during therapy, while taking a short rest break prayer was offered and ashes distributed. Patient stated that she will have good support at home from family and friends. Spiritual care will continue to offer emotional and spiritual support. 04/24/23 1330 Encounter Summary Encounter Overview/Reason Spiritual/Emotional Needs Service Provided For: Patient Referral/Consult From: [facility] Spouse;Family members Last Encounter 04/24/23 Complexity of Encounter Low Spiritual/Emotional needs Type Spiritual Support Assessment/Intervention/Outcome Assessment Calm;Coping;Hopeful Intervention Active listening;Discussed illness injury and it s impact;Explored/Affirmed feelings, thoughts, concerns;Nurtured Hope;Prayer (assurance of)/[place];Read/Provided Scripture;Sustaining Presence/Ministry of presence Outcome Acceptance;Engaged in conversation;Expressed Gratitude;Receptive Physical Medicine & Rehabilitation Progress Note Subjective: 62 year-old female with cervical stenosis with myelopathy/tetraparesis. Patient is having problems with hypertension and pain in the cervical spine incision, requiring pain medications. She feels her pain is responding to prn medication and she is medicating prior to therapies. No new issues with sleep, appetite. ROS: Denies fevers, chills, sweats. No chest pain, palpitations, lightheadedness. Denies coughing, wheezing or shortness of breath. Denies abdominal pain, nausea, diarrhea or constipation. No new areas of joint pain. Denies new areas of numbness or weakness. Denies new anxiety or depression issues. No new skin problems. Rehabilitation: PT: Bed mobility Rolling to Left: Minimal assistance Rolling to Right: Moderate assistance Supine to Sit: Moderate assistance, Maximum assistance (x1 at trunk) Sit to Supine: Moderate assistance, Maximum assistance, 2 Person assistance Scooting: Dependent/Total, 2 Person assistance (to HOB) Bed Mobility Comments: head of bed slightly elevated for comfort. Pt's and headline writer molly'tiara bed mobility. Encouragement to actively use BLE independently for bed mobility. Educated on safe techniques. Transfers Sit to Stand: Minimal Assistance, Maximum Assistance (Min A in // bars; Max A from recliner) Stand to Sit: Contact guard assistance, Maximum Assistance (CGA in // bars; Max A to WC) Bed to Chair: Moderate assistance, 2 Person Assistance Stand Pivot Transfers: Maximum Assistance Comment: STS with SS Min A; STS with no device MAx A x1 Ambulation Surface: Level tile Device: Parallel Bars Assistance: Moderate assistance Quality of Gait: small steps, more use of R>L, decreased B knee flexion, requires sequencing Gait Deviations: Slow Nati, Decreased step length, Decreased step height, Decreased head and trunk rotation, Deviated path Distance: 8ft FWD/BWD x2 (seated rest breaks in between) Comments: Pt requires max cues for sequencing and technique for safety. present for hands on assist and training. OT: Grooming/Oral Hygiene Assistance Level: Stand by assist Skilled Clinical Factors: items places within reach for ease. Pt completes oral/skin care seated sink level, A for brushing/stying hair Upper Extremity Bathing Assistance Level: Stand by assist Skilled Clinical Factors: c-collar doffed for hyiene while seated in high top w/c. Pt az Horner adhereance to no bending/twisting neck throughout Lower Extremity Bathing Assistance Level: Maximum assistance Skilled Clinical Factors: d/t time contraints pt req A for washing LE below knees and buttock area. Pt able to standing at sink MIN Ax1 with no LOB Upper Extremity Dressing Assistance Level: Maximum assistance Skilled Clinical Factors: A to doff c-collar, with vc pt able to don c-collar with R side strapped. VC on tech on donning shirt with A to place over head and manage around trunk seated in w/c Lower Extremity Dressing Assistance Level: Maximum assistance Skilled Clinical Factors: d/t time contraints A to thread BLE and place over hips. Pt able to standing at sink with CGA/MIN A x1 Putting On/Taking Off Footwear Assistance Level: Dependent Skilled Clinical Factors: d/t time constraints TA for TEDs and footies SPEECH: Objective: BP (!) 150/84 Pulse (!) 106 Temp 98.1 F (36.7 C) Resp 18 Ht 1.575 m (5' 2.01 ) Wt 62.6 kg (138 lb) SpO2 98% BMI 25.23 kg/m GEN: Well developed, well nourished, in NAD HEENT: NCAT. PERRL. EOMI. Mucous membranes pink and moist. Cervical collar in place PULM: Clear to ausculation. No rales or rhonchi. Respirations WNL and unlabored. CV: Regular rate rhythm. No murmurs or gallops. GI: Abdomen soft. Nontender. Non-distended. BS + and equal. NEUROLOGICAL: A&O x3. Sensation intact to light touch. . MSK: Functional ROM all extremities but with weakness impairing ROM LLE. Motor testing 4/5 vanessa muscles BUEs.. 4/5 vanessa muscles RLE. 3+/5 vanessa muscles LLE SKIN: Warm dry and intact. Good turgor. Posterior cervical spine incision with dressing in place. EXTREMITIES: No calf tenderness to palpation. No edema BLEs. PSYCH: Mood WNL. Appropriately interactive. Affect WNL. Diagnostics: CBC: Recent Labs 04/23/23 0607 WBC 8.1 RBC 3.70* HGB 11.2* HCT 34.1* MCV 92.3 RDW 13.5 PLT 276 BMP: Recent Labs 04/23/23 0607 04/24/23 1206 NA 138 136 K 5.5* 4.5 CL 101 97* CO2 29 28 BUN 21 20 CREATININE 1.1* 1.2* GLUCOSE 114* 100* BNP: No results for input(s): BNP in the last 72 hours. PT/INR: No results for input(s): PROTIME , INR in the last 72 hours. APTT: No results for input(s): APTT in the last 72 hours. CARDIAC ENZYMES: No results for input(s): CKMB , CKMBINDEX , TROPONINT in the last 72 hours. Invalid input(s): CKTOTAL;3 troponins FASTING LIPID PANEL:No results found for: CHOL , HDL , TRIG LIVER PROFILE: Recent Labs 04/23/23 0607 AST 72* ALT 100* BILIDIR 0.1 BILITOT 0.4 ALKPHOS 122* Current Medications: Current Facility-Administered Medications: insulin lispro (HUMALOG) injection vial 0-4 Units, 0-4 Units, SubCUTAneous, TID WC insulin lispro (HUMALOG) injection vial 0-4 Units, 0-4 Units, SubCUTAneous, Nightly glucose chewable tablet 16 g, 4 tablet, Oral, PRN dextrose bolus 10% 125 mL, 125 mL, IntraVENous, PRN OR dextrose bolus 10% 250 mL, 250 mL, IntraVENous, PRN glucagon injection 1 mg, 1 mg, SubCUTAneous, PRN dextrose 10 % infusion, , IntraVENous, Continuous PRN sodium zirconium cyclosilicate (LOKELMA) oral suspension 5 g, 5 g, Oral, TID baclofen (LIORESAL) tablet 10 mg, 10 mg, Oral, TID buPROPion (WELLBUTRIN XL) extended release tablet 150 mg, 150 mg, Oral, QAM enoxaparin (LOVENOX) injection 40 mg, 40 mg, SubCUTAneous, Daily escitalopram (LEXAPRO) tablet 20 mg, 20 mg, Oral, Daily lurasidone (LATUDA) tablet 80 mg, 80 mg, Oral, Dinner oxyCODONE-acetaminophen (PERCOCET) 5-325 MG per tablet 1 tablet, 1 tablet, Oral, Q6H PRN OR oxyCODONE-acetaminophen (PERCOCET) 5-325 MG per tablet 2 tablet, 2 tablet, Oral, Q6H PRN polyethylene glycol (GLYCOLAX) packet 17 g, 17 g, Oral, Daily magnesium hydroxide (MILK OF MAGNESIA) 400 MG/5ML suspension 30 mL, 30 mL, Oral, Daily PRN acetaminophen (TYLENOL) tablet 650 mg, 650 mg, Oral, Q4H PRN senna (SENOKOT) tablet 17.2 mg, 2 tablet, Oral, Daily PRN bisacodyl (DULCOLAX) suppository 10 mg, 10 mg, Rectal, Daily PRN Impression/Plan: Impaired ADLs, gait, and mobility due to: Cervical stenosis with myelopathy: s/p C3-6 posterior decompression and fusion 04/16/[address] Brooks. Cervical collar when out of bed. OK to remove for hygiene and when eating/drinking. PT/OT for gait, mobility, strengthening, endurance, ADLs, and self care. Has tylenol prn, Percocet prn. Encouraged her to medicate prior to therapies. Tetraparesis: PT/OT treating Hyperkalemia: on 3 doses Lokelma per IM. Improved today. Monitoring. HTN: IM following Spasticity: on baclofen TID Depression: on Lexapro, Latuda Panic disorder: on medications above IBS/Bowel Management: Miralax daily, senokot prn, dulcolax prn. Has milk of magnesia prn. DVT Prophylaxis: low molecular weight heparin, SCD's while in bed, and JUSTIN's during the day Internal medicine for medical management Follow up: PCP 1-2 weeks, Dr. Brooks This note is created with the assistance of a speech recognition program. While intending to generate a document that actually reflects the content of the visit, the document can still have some errors including those of syntax and sound a like substitutions which may escape proof reading. In such instances, actual meaning can be extrapolated by contextual diversion. Occupational Therapy [facility] Occupational Therapy Evaluation Date: 04/23/23 Patient Name: Medina Sena Room: 2608/2608-01 Account: [id number] : 1960 (62 y.o.) Gender: female Referring Practitioner: Joe Schilling MD Diagnosis: Cervical disc disease with myelopathy Additional Pertinent Hx: Per PM&R consult: Medina Sena is a 62 y.o. right-handed female with history of cervical stenosis, IBS, depression, panic disorder admitted to [facility] on 04/16/2023. She initially presented for elective surgical intervention for cervical stenosis with myelopathy. She underwent C3-C6 posterior decompression and fusion on 04/16/23 (Dr. Brooks). She has a c-collar when out of bed. She reports ongoing posterior neck pain. She also notes continued numbness in all limbs. She feels weakest in the right upper limb and left lower limb. She states that she has ongoing shaking/muscle spasms in the bilateral lower limbs, sometimes at rest and sometimes with activity. She declines having any home or outpatient therapies previously for her condition. Treatment Diagnosis: impaired self care status Past Medical History: has a past medical history of Agoraphobia, Depression, Diverticular disease, IBS (irritable bowel syndrome), SEEMA (iron deficiency anemia), Neuropathy, Osteoporosis, Panic disorder, Spastic quadriparesis (HCC), 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), Under care of service provider, Under care of service provider, Under care of service provider, and Wears glasses. Past Surgical History: has a past surgical history that includes Appendectomy; Breast biopsy; Cervical spine surgery (2003); Colonoscopy; Cholecystectomy; Hysterectomy; Tonsillectomy and adenoidectomy; Breast surgery (Left); Cervical spine surgery (04/16/2023); and cervical fusion (N/A, 04/16/2023). Restrictions Restrictions/Precautions: General Precautions, Fall Risk Required Braces or Orthoses?: Yes Implants present? : Metal implants (cervical fusion) Required Braces or Orthoses Cervical: c-collar (Please wear aspen cervical collar while out of bed or sitting upright. Okay to remove while eating, showering, and sleeping) Position Activity Restriction Spinal Precautions: No Lifting (greater than 5 lbs) Other position/activity restrictions: 04/16/23 - C3-6 POSTERIOR CERVICAL DECOMPRESSION FUSION. activity as tolerated, no lifting over 5 lbs Vitals Vitals O2 Device: None (Room air) Subjective Subjective: In regards to therapy goal, pt states To walk Comments: KERRI cross[place] pt for occupational therapy. Pt agreeable to participate and pleasant/cooperative throughout. Pain: pt denies pain at rest Social/Functional History Social/Functional History Lives With: Family (,2 adult daughters, 1 son who has autism) Type of Home: House Home Layout: One level, Laundry in basement Home Access: Stairs to enter without rails (for the last 5 mos pt has been using w/c and bumps pt up steps in w/c, pt does not climb) Entrance Stairs - Number of Steps: 3 NASH Bathroom Shower/Tub: Walk-in shower, Shower chair without back, Doors Bathroom Toilet: Standard Bathroom Equipment: Grab bars in shower, Shower chair (metal GB) Bathroom Accessibility: Wheelchair accessible, Walker accessible Home Equipment: Wheelchair-manual, Walker, 4 wheeled, Long-handled shoehorn Has the patient had two or more falls in the past year or any fall with injury in the past year?: No (1 fall within the last 6 mos due to weakness last month attempting to go to bathroom when no one was home) Receives Help From: Family ADL Assistance: Needs assistance (pt states feeds pt meals; assists with UB/LB dressing, showering, and toileting for the last 5 mos due to weakness and dec fine motor coordination) Homemaking Assistance: Needs assistance ( has been doing) Homemaking Responsibilities: No (family completes) Ambulation Assistance: Non-ambulatory (since november 2022, pt does not propel manual w/c; pt was independent in ambulation w/o device prior to nov 2022) Transfer Assistance: Needs assistance ( performs face to face stand-pivot transfers to all surfaces. Daughters help sometimes) Active Rock Wool Applicator: No Patient's Rock Wool Applicator Info: family drives- transfers pt into vehicle Mode of Transportation: SUV, Truck Occupation: Retired Type of Occupation: [employer] Leisure & Hobbies: reading, watching TV, 3 dogs at home IADL Comments: hardwood and carpet antione at home; pt sleeps in adjustable bed without rails Additional Comments: Pt states is in good health and able to provide 24hr assistance. 2 adult daughters work time clock mechanic day shift/evenings at SN[employer], however available on weekends. Pt states she was independent in ADLs/IADLs prior to november 2022 when she woke up one morning with intense neck and shoulder pain. Unable to state how pain started.No home therapies prior to admit. Objective Vision Vision: Impaired Vision Exceptions: Wears glasses at all times Hearing Hearing: Within functional limits Sensation Overall Sensation Status: Impaired (pt reports chronic numbness/tingling in B hands/feet, has improved since surgery) Observation/Palpation Observation: tone observed in LLE, aspen collar donned for entire PT eval and fit checked Cognition Overall Orientation Status: Within Functional Limits Orientation Level: Oriented to person, Oriented to place, Oriented to situation, Oriented to time, Oriented X4 Cognition Overall Cognitive Status: Exceptions Arousal/Alertness: Delayed responses to stimuli Following Commands: Follows multistep commands with increased time, Follows multistep commands with repitition Attention Span: Appears intact Memory: Appears intact Safety Judgement: Decreased awareness of need for assistance, Decreased awareness of need for safety Problem Solving: Assistance required to generate solutions, Assistance required to identify errors made, Assistance required to correct errors made, Decreased awareness of errors Insights: Decreased awareness of deficits Initiation: Requires cues for some Sequencing: Requires cues for some Activities of Daily Living Feeding: Stand by assistance Feeding Skilled Clinical Factors: pt required assistance to open containers on breakfast tray and cut food, pt then able to self feed with utensils Grooming: Stand by assistance Grooming Skilled Clinical Factors: completed oral hygiene while seated in highback w/c, setup of items within reach for ease of task UE Bathing: Stand by assistance UE Bathing Skilled Clinical Factors: verbal cues for cervical precautions with Good understanding, completed seated in w/c LE Bathing: Dependent/Total LE Bathing Skilled Clinical Factors: standing in Jean Pierre Stedy with 1-2 person assistance to wash yuko area; TA to wash B feet UE Dressing: Maximum assistance UE Dressing Skilled Clinical Factors: TA to don and adjust c-collar to ensure proper fit, pt threads LUE into button down shirt, A to thread R, A to manage buttons LE Dressing: Dependent/Total LE Dressing Skilled Clinical Factors: TA to thread BLEs into brief/pants, standing in SS with 2 person assist to pull up over hips; TA for TEDs and socks Toileting: Dependent/Total Toileting Skilled Clinical Factors: TA for clothing management while standing in SS with 1-2 person assistance, TA for hygiene Additional Comments: OTR facilitated pt engagement in self care tasks while seated sinkside in high back w/c. Pt required total assistance to don/doff c-collar, and frequent verbal cues for cervical precautions. C-collar remained on throughout evaluation when out of bed, except was doffed while seated in w/c during hygiene. Pt demos decreased fine motor coordination and tremors in BUE requiring assistance to manage self care containers. Pt is also limited by balance, endurance, BLE extensor tone, and pain impacting performance in self care tasks. OT scores Eating Assistance Needed: Supervision or touching assistance CARE Score: 4 Discharge Goal: Independent Oral Hygiene Assistance Needed: Supervision or touching assistance CARE Score: 4 Discharge Goal: Independent Toileting Hygiene Assistance needed: Dependent CARE Score: 1 Discharge Goal: Supervision or touching assistance Shower/Bathe Self Assistance Needed: Dependent CARE Score: 1 Discharge Goal: Supervision or touching assistance Lower Body Dressing Assistance Needed: Dependent CARE Score: 1 Discharge Goal: Supervision or touching assistance Putting On/Taking Off Footwear Assistance Needed: Dependent CARE Score: 1 Discharge Goal: Supervision or touching assistance Toilet Transfer Assistance needed: Dependent CARE Score: 1 Discharge Goal: Supervision or touching assistance UE Function LUE AROM (degrees) LUE AROM : WFL LUE General AROM: shoulder assessed only to 90 degrees due to cervical precautions Tone RUE RUE Tone: Normotonic LUE Strength L Hand General: 4/5 LUE Strength Comment: shoulder/elbow/wrist not tested due to cervical/lifting precautions RUE AROM (degrees) RUE AROM : WFL RUE General AROM: shoulder assessed only to 90 degrees due to cervical precautions Right Hand AROM (degrees) Right Hand AROM: WFL Tone LUE LUE Tone: Normotonic RUE Strength R Hand General: 4/5 RUE Strength Comment: shoulder/elbow/wrist not tested due to cervical/lifting precautions Fine Motor Skills/Coordination Hand Dominance Hand Dominance: Right Coordination Movements Are Fluid And Coordinated: No Coordination and Movement Description: Fine motor impairments, Gross motor impairments, Tremors, Right UE, Left UE Mobility Bed mobility Supine to Sit: Maximum assistance (pt able to progress BLEs to edge of bed, Max A for trunk progression; c-collar donned while supine) Sit to Supine: Unable to assess (pt retired in bedside chair) Scooting: Maximal assistance (to progress hips to edge of bed with bed pad) Balance Sitting Balance: Minimal assistance (unsupported sitting at edge of bed with c-collar donned, slight posterior loss of balance with Min A to correct; RUE on bedrail to assist with trunk balance) Standing Balance: Dependent/Total (Max A x2 w/RW, Mod-Min A x2 in SS) Standing Balance Time: 1-2 minutes Activity: functional transfers, ADLs Comment: pt initially stands with RW and Max A x2 due to extensor tone on BLEs and posterior lean; pt then trials Jean [place] Stedy with Mod-Min A x2 Transfers Sit to stand: 2 Person assistance, Maximum assistance Stand to sit: 2 Person assistance, Maximum assistance Transfer Comments: Max A x2 with RW; Mod-Min A x2 in Jean [place] Stedy Toilet Transfers Toilet - Technique: (using Jean Pierre Stedy) Equipment Used: Standard toilet Toilet Transfer: Dependent/Total Toilet Transfers Comments: using Jean Pierre Bunch and 2 person assist Functional Mobility Functional - Mobility Device: Wheelchair Activity: To/from bathroom Assist Level: Dependent/Total Functional Mobility Comments: pt does not self propel Assessment Activity Tolerance Activity Tolerance: Patient Tolerated treatment well Assessment Performance deficits / Impairments: Decreased functional mobility , Decreased ADL status, Decreased endurance, Decreased balance, Decreased high-level IADLs, Decreased fine motor control, Decreased coordination, Decreased posture, Decreased strength, Decreased sensation, Decreased cognition Treatment Diagnosis: impaired self care status Prognosis: Good Decision Making: High Complexity Discharge Recommendations: Continue to assess pending progress, Home with assist PRN Patient Education Education Education Given To: Patient, Family Education Provided: Role of Therapy, Plan of Care, Precautions, ADL Function, Safety, Transfer Training Education Provided Comments: importance of wearing C-collar, cervical precautions, safety awareness, daily routine with OT while on acute rehab Education Method: Verbal, Demonstration Barriers to Learning: Cognition Education Outcome: Verbalized understanding, Demonstrated understanding OT Equipment Recommendations Other: TBD Safety Devices Type of Devices: All fall risk precautions in place, Patient at risk for falls, Call light within reach, Gait belt, Nurse notified, Bed alarm in place, Left in bed Restraints Restraints Initially in Place: No Goals Patient Goals Patient goals : To walk Short Term Goals Time Frame for Short Term Goals: Within 7-10 days, pt will Short Term Goal 1: perform functional transfers/mobility during self care tasks with Mod A, least restrictive device, and Good safety Short Term Goal 2: perform upper body bathing/dressing tasks with Min A and Good adherence to cervical precautions Short Term Goal 3: perform lower body bathing/dressing/toileting tasks with Mod A and adaptive equipment as needed Short Term Goal 4: tolerate standing for 5+ minutes during self care/functional activity with Mod A Short Term Goal 5: actively participate in 30+ minutes of therapeutic exercise/functional activity to increase overall strength/endurance needed for ADLs/IADLs Personal Fitness Manager Goals Time Frame for Group Home Goals : By discharge, pt will Group Home Goal 1: perform functional transfers/mobility during self care tasks with CGA, least restrictive device, and Good safety Group Home Goal 2: perform upper body bathing/dressing tasks with SBA and Good adherence to cervical precautions Personal Fitness Manager Goal 3: perform lower body bathing/dressing/toileting tasks with CGA and adaptive equipment as needed Group Home Goal 4: tolerate standing for 10+ minutes during self care/functional activity with CGA Group Home Goal 5: OT to further assess service parts coordinator strength and fine motor coordination and notify OTR to update goal as appropriate Group Home Goal 6: perform self feeding task with Mod I Plan Occupational Therapy Plan Times Per Week: 5-7 Times Per Day: Twice a day Current Treatment Recommendations: Balance training, Functional mobility training, Wheelchair mobility training, Patient/Caregiver education & training, Safety education & training, Pain management, Self-Care / ADL, Equipment evaluation, education, & procurement, Home management training, Coordination training, Endurance training, Strengthening OT Individual Minutes Time In: 0803 Time Out: 948 Minutes: 106 Physical Therapy Facility/Department: [facility] NAME: Medina Sena : 1960 (62 y.o.) CODE STATUS: Full Code Date of Service: 04/23/23 Past Medical History: Diagnosis Date Agoraphobia Depression Diverticular disease IBS (irritable bowel syndrome) SEEMA (iron deficiency anemia) Neuropathy Osteoporosis Panic disorder Spastic quadriparesis (HCC) 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) Under care of service provider 04/03/2023 pcp-efraín hamm-last visit nov 2022 Under care of service provider 04/03/2023 [id number]-last visit feb 2023 Under care of service provider 04/03/2023 neurologist- Dr. Conti- last visit feb 2023 Wears glasses Past Surgical History: Procedure Laterality Date APPENDECTOMY BREAST BIOPSY BREAST SURGERY Left CERVICAL FUSION N/A 04/16/2023 C3-6 POSTERIOR CERVICAL DECOMPRESSION FUSION performed by Bev Brooks DO at [facility] OR CERVICAL SPINE SURGERY [address] [place] [address] CERVICAL SPINE SURGERY 04/16/2023 C3-6 POSTERIOR CERVICAL DECOMPRESSION FUSION CHOLECYSTECTOMY COLONOSCOPY HYSTERECTOMY (CERVIX STATUS UNKNOWN) BSO TONSILLECTOMY AND ADENOIDECTOMY Chart Reviewed: Yes Additional Pertinent Hx: Medina Sena is a 62 y.o. right-handed female with history of cervical stenosis, IBS, depression, panic disorder admitted to [facility] on 04/16/2023. She initially presented for elective surgical intervention for cervical stenosis with myelopathy. She underwent C3-C6 posterior decompression and fusion on 04/16/23 (Dr. Brooks). She has a c-collar when out of bed. She reports ongoing posterior neck pain. She also notes continued numbness in all limbs. She feels weakest in the right upper limb and left lower limb. She states that she has ongoing shaking/muscle spasms in the bilateral lower limbs, sometimes at rest and sometimes with activity. She declines having any home or outpatient therapies previously for her condition. Admitted to [facility] 04/22/23 Family / Caregiver Present: No Referring Practitioner: Qamar Blackman MD Diagnosis: stenosis of cervical spine Restrictions: Restrictions/Precautions: General Precautions;Fall Risk Required Braces or Orthoses Cervical: c-collar (Please wear aspen cervical collar while out of bed or sitting upright. Okay to remove while eating, showering, and sleeping) Position Activity Restriction Spinal Precautions: No Lifting (greater than 5 lbs) Other position/activity restrictions: 04/16/23 - C3-6 POSTERIOR CERVICAL DECOMPRESSION FUSION. activity as tolerated, no lifting over 5 lbs SUBJECTIVE Subjective: Pt in upon arrival, agreeable to therapy Pain: Pt reports 8/10 pain in neck OBJECTIVE Vision Vision: Impaired Vision Exceptions: Wears glasses at all times Hearing Hearing: Within functional limits Functional Mobility Bed mobility Rolling to Left: Minimal assistance Sit to Supine: Moderate assistance;Maximum assistance;2 Person assistance Scooting: Dependent/Total;2 Person assistance (to HOB) Transfers Sit to Stand: Minimal Assistance;Maximum Assistance Stand to Sit: Contact guard assistance;Maximum Assistance Stand Pivot Transfers: Maximum Assistance Comment: STS with SS Min A; STS with no device MAx A x1 Environmental Mobility Stairs/Curb Stairs?: No PT Exercises Exercise Treatment: stand pivot transfer from to bed with Max A x1 Resistive Exercises: seated B LE exercises x15 reps with #1.5 and ornage yanciand Functional Mobility Circuit Training: STS x3 with SS. Standing tolerance while in SS 4 minutes x1 and 1 minute 25 seconds x1 Dynamic Standing Balance Exercises: while standing in SS, lifting 1 UE to reach outside REJI x8 reps on each UE. cueing for posture ASSESSMENT Activity Tolerance Activity Tolerance: Patient tolerated treatment well;Patient limited by fatigue Assessment Treatment Diagnosis: impaired functional mobility 2* weakness Discharge Recommendations: Patient would benefit from continued therapy after discharge PT D/C Equipment Other: TBD PT Equipment Recommendations Other: TBD GOALS Patient Goals Patient Goals : To walk Short Term Goals Time Frame for Short Term Goals: 5-7 days Short Term Goal 1: Pt to demo mobility min to mod x1 with safe technique. Short Term Goal 2: Pt to perform transfers STS/pivots min to mod x1 with good technique using RW. Short Term Goal 3: Pt to amb 10'-20' with min to mod x1 and wheelchair follow. Short Term Goal 4: Pt to improve posture to GOOD. Short Term Goal 5: Pt to improve static/dynamic sitting balance to GOOD with 0-1 UE support. Personal Fitness Manager Goals Time Frame for Group Home Goals : by DC Personal Fitness Manager Goal 1: Pt to improve bed mobility to SBA to CGA with head of bed elevated and good technique. Group Home Goal 2: Pt to perform all transfers with least restrictive device CGA x1. Group Home Goal 3: Pt to amb 25' min to mod x1 on level surfaces and varied terrain. Group Home Goal 4: Pt to propel w/c 50' on level surfaces with BLE only, min x1. Personal Fitness Manager Goal 5: Pt to improve BLE strength by 1 MMG. Additional Goals?: Yes nursing home goal 6: Pt to improve standing balance to FAIR+/GOOD- to reduce fall risk for functional mobility. nursing home goal 7: Pt to demo HEP with good technique intermission coordinator goal 8: Pt to complete family training, including floor transfer with min assist of 1. intermission coordinator goal 9: Pt to tolerate standing up to 5 minutes (static/dynamic) assist of 1. PLAN OF CARE Physical Therapy Plan General Plan: 60-120 minutes of therapy at least 5 out of 7 days a week Specific Instructions for Next Treatment: standing tolerance, transfers, therex Current Treatment Recommendations: Strengthening;Balance training;Functional mobility training;Transfer training;Endurance training;Neuromuscular re-education;Home exercise program;Safety education & training;Patient/Caregiver education & training;Equipment evaluation, education, & procurement;Therapeutic activities;Gait training;Wheelchair mobility training;ROM;Positioning Safety Devices Type of Devices: All fall risk precautions in place;Patient at risk for falls;Call light within reach;Gait belt;Nurse notified;Bed alarm in place;Left in bed Restraints Restraints Initially in Place: No 04/23/23 1500 PT Individual Minutes Time In 1259 Time Out 1346 Minutes 47 Eunice Levin, MANAGER PMO, 04/23/23 at 3:30 PM Physical Therapy Facility/Department: [facility] Physical Therapy Initial Assessment Name: Medina Sena : 1960 Date of Service: 04/23/2023 Discharge Recommendations: Patient would benefit from continued therapy after discharge PT Equipment Recommendations Other: TBD Patient Diagnosis(es): There were no encounter diagnoses. 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 Past Surgical History: has a past surgical history that includes Appendectomy; Breast biopsy; Cervical spine surgery (2003); Colonoscopy; Cholecystectomy; Hysterectomy; Tonsillectomy and adenoidectomy; Breast surgery (Left); Cervical spine surgery (04/16/2023); and cervical fusion (N/A, 04/16/2023). Assessment Assessment: Pt is 2 assist currently for mobility. Pt was 1 assist of at home since November 2022. Pt would benefit from intense rehab to be able to improve her level of function for more independence at home. Treatment Diagnosis: impaired functional mobility 2* weakness Specific Instructions for Next Treatment: standing tolerance, transfers, therex Therapy Prognosis: Good;Fair Decision Making: Medium Complexity Exam: ROM, MMT, bed mobility, transfers, amb, balance, endurance Clinical Presentation: Pt cooperative, motivated, pleasant Barriers to Learning: none Requires PT Follow-Up: Yes Activity Tolerance Activity Tolerance: Patient tolerated treatment well;Patient limited by fatigue Plan Physical Therapy Plan General Plan: 60-120 minutes of therapy at least 5 out of 7 days a week Specific Instructions for Next Treatment: standing tolerance, transfers, therex Current Treatment Recommendations: Strengthening, Balance training, Functional mobility training, Transfer training, Endurance training, Neuromuscular re-education, Home exercise program, Safety education & training, Patient/Caregiver education & training, Equipment evaluation, education, & procurement, Therapeutic activities, Gait training, Wheelchair mobility training, ROM, Positioning Safety Devices Type of Devices: All fall risk precautions in place, Patient at risk for falls, Call light within reach, Gait belt, Nurse notified, Chair alarm in place, Left in chair (KERRI Bunch) Restraints Restraints Initially in Place: No Restrictions Restrictions/Precautions Restrictions/Precautions: General Precautions, Fall Risk Required Braces or Orthoses?: Yes Implants present? : Metal implants (cervical fusion) Required Braces or Orthoses Cervical: c-collar (Please wear aspen cervical collar while out of bed or sitting upright. Okay to remove while eating, showering, and sleeping) Position Activity Restriction Spinal Precautions: No Lifting (greater than 5 lbs) Other position/activity restrictions: 04/16/23 - C3-6 POSTERIOR CERVICAL DECOMPRESSION FUSION. activity as tolerated, no lifting over 5 lbs Subjective Pain: Pt reports 8/10 pain in neck General Chart Reviewed: Yes Patient assessed for rehabilitation services?: Yes Additional Pertinent Hx: Medina Sena is a 62 y.o. right-handed female with history of cervical stenosis, IBS, depression, panic disorder admitted to [facility] on 04/16/2023. She initially presented for elective surgical intervention for cervical stenosis with myelopathy. She underwent C3-C6 posterior decompression and fusion on 04/16/23 (Dr. Brooks). She has a c-collar when out of bed. She reports ongoing posterior neck pain. She also notes continued numbness in all limbs. She feels weakest in the right upper limb and left lower limb. She states that she has ongoing shaking/muscle spasms in the bilateral lower limbs, sometimes at rest and sometimes with activity. She declines having any home or outpatient therapies previously for her condition. Admitted to [facility] 04/22/23 Family / Caregiver Present: Yes () Referring Practitioner: Qamar Blackman MD Referral Date : 04/22/23 Diagnosis: stenosis of cervical spine Follows Commands: Within Functional Limits Subjective Subjective: Pt in recliner, agreeable to PT evaluation. RN is ALPHONSO Social/Functional History Social/Functional History Lives With: Family (,2 adult daughters, 1 son who has autism) Type of Home: House Home Layout: One level, Laundry in basement Home Access: Stairs to enter without rails (for the last 5 mos pt has been using w/c and bumps pt up steps in w/c, pt does not climb) Entrance Stairs - Number of Steps: 3 NASH Bathroom Shower/Tub: Walk-in shower, Shower chair without back, Doors Bathroom Toilet: Standard Bathroom Equipment: Grab bars in shower, Shower chair (metal GB) Bathroom Accessibility: Wheelchair accessible, Walker accessible Home Equipment: Wheelchair-manual, Walker, 4 wheeled, Long-handled shoehorn Has the patient had two or more falls in the past year or any fall with injury in the past year?: No (1 fall within the last 6 mos due to weakness last month attempting to go to bathroom when no one was home) Receives Help From: Family ADL Assistance: Needs assistance (pt states feeds pt meals; assists with UB/LB dressing, showering, and toileting for the last 5 mos due to weakness and dec fine motor coordination) Homemaking Assistance: Needs assistance ( has been doing) Homemaking Responsibilities: No (family completes) Ambulation Assistance: Non-ambulatory (since november 2022, pt does not propel manual w/c; pt was independent in ambulation w/o device prior to nov 2022) Transfer Assistance: Needs assistance ( performs face to face stand-pivot transfers to all surfaces. Daughters help sometimes) Active Rock Wool Applicator: No Patient's Rock Wool Applicator Info: family drives- transfers pt into vehicle Mode of Transportation: SUV, Truck Occupation: Retired Type of Occupation: [employer] Leisure & Hobbies: reading, watching TV, 3 dogs at home IADL Comments: hardwood and carpet antione at home; pt sleeps in adjustable bed without rails Additional Comments: Pt states is in good health and able to provide 24hr assistance. 2 adult daughters work time clock mechanic day shift/evenings at [employer], however available on weekends. Pt states she was independent in ADLs/IADLs prior to november 2022 when she woke up one morning with intense neck and shoulder pain. Unable to state how pain started.No home therapies prior to admit. Vision/Hearing Vision Vision: Impaired Vision Exceptions: Wears glasses at all times Hearing Hearing: Within functional limits Cognition Orientation Overall Orientation Status: Within Functional Limits Orientation Level: Oriented to person;Oriented to place;Oriented to situation;Oriented to time;Oriented X4 Objective Pulse: 95 Heart Rate Source: Monitor BP: (!) 143/80 BP Location: Right Arm BP Method: Automatic Patient Position: Semi fowlers MAP (Calculated): 101 Respirations: 16 O2 Device: None (Room air) Temp: 98.3 F (36.8 C) Observation/Palpation Observation: tone observed in LLE, aspen collar donned for entire PT eval and fit checked AROM RLE (degrees) RLE AROM: WFL AROM LLE (degrees) LLE AROM : Exceptions LLE General AROM: requires assist due to tone L Hip Flexion (0-125): AAROM WFL L Hip ABduction (0-45): 0-25 AROM L Knee Flexion (0-145): 0-45 AROM due to tone L Knee Extension (0): 0 L Ankle Dorsiflexion (0-20): 0-10 L Ankle Plantar Flexion (0-45): 0-25 AROM RUE (degrees) RUE General AROM: See OT AROM LUE (degrees) LUE General AROM: See OT Strength RLE Strength RLE: WFL Comment: Grossly3+ to 4-/5 Strength LLE Strength LLE: Exception L Hip Flexion: 3-/5 L Hip ABduction: 3-/5 L Hip ADduction: 2+/5 L Knee Extension: 3+/5 L Ankle Dorsiflexion: 3-/5 L Ankle Plantar Flexion: 3-/5 Strength RUE Comment: See OT Strength LUE Comment: See OT Tone RLE RLE Tone: Hypertonic Tone Description: unable to relax, appears some extensor tone Tone LLE LLE Tone: Hypertonic Tone Description: unable to relax, appears some extensor tone Sensation Overall Sensation Status: Impaired (pt reports chronic numbness/tingling in B hands/feet, has improved since surgery) Bed mobility Rolling to Right: Moderate assistance Supine to Sit: Moderate assistance;Maximum assistance (x1 at trunk) Sit to Supine: Moderate assistance;2 Person assistance;Maximum assistance (mod to max x2) Scooting: Moderate assistance Bed Mobility Comments: head of bed slightly elevated for comfort. Pt's and headline writer molly'tiara bed mobility. Encouragement to actively use BLE independently for bed mobility. Educated on safe techniques. Transfers Sit to Stand: Moderate Assistance;2 Person Assistance Stand to Sit: Moderate Assistance;2 Person Assistance Bed to Chair: Moderate assistance;2 Person Assistance Stand Pivot Transfers: Moderate Assistance;2 Person Assistance Comment: Pt transfers from recliner to bed, bed to wheelchair with 2 assist and RW. Max cues and sequencing. Pt retires in recliner chair for lunch. Ambulation Surface: Level tile Device: Rolling Walker Assistance: Moderate assistance;2 Person assistance Quality of Gait: small steps, more use of R>L, decreased B knee flexion, requires sequencing Gait Deviations: Slow Nati;Decreased step length;Decreased step height;Decreased head and trunk rotation;Deviated path Distance: [address], recliner to bed, bed to wheelchair Comments: Pt requires max cues for sequencing and technique for safety. present for hands on assist and training. Stairs/Curb Stairs?: No Balance Posture: Fair Sitting - Static: Fair Sitting - Dynamic: Fair;- Standing - Static: Poor Standing - Dynamic: Poor Comments: HIGH FALL RISK, standing balance with RW and 2 assist. 2 UE support for sitting balance at edge of bed. Goals Short Term Goals Time Frame for Short Term Goals: 5-7 days Short Term Goal 1: Pt to demo mobility min to mod x1 with safe technique. Short Term Goal 2: Pt to perform transfers STS/pivots min to mod x1 with good technique using RW. Short Term Goal 3: Pt to amb 10'-20' with min to mod x1 and wheelchair follow. Short Term Goal 4: Pt to improve posture to GOOD. Short Term Goal 5: Pt to improve static/dynamic sitting balance to GOOD with 0-1 UE support. Group Home Goals Time Frame for Group Home Goals : by DC Personal Fitness Manager Goal 1: Pt to improve bed mobility to SBA to CGA with head of bed elevated and good technique. Group Home Goal 2: Pt to perform all transfers with least restrictive device CGA x1. Personal Fitness Manager Goal 3: Pt to amb 25' min to mod x1 on level surfaces and varied terrain. Group Home Goal 4: Pt to propel w/c 50' on level surfaces with BLE only, min x1. Personal Fitness Manager Goal 5: Pt to improve BLE strength by 1 MMG. Additional Goals?: Yes nursing home goal 6: Pt to improve standing balance to FAIR+/GOOD- to reduce fall risk for functional mobility. nursing home goal 7: Pt to demo HEP with good technique intermission coordinator goal 8: Pt to complete family training, including floor transfer with min assist of 1. nursing home goal 9: Pt to tolerate standing up to 5 minutes (static/dynamic) assist of 1. Patient Goals Patient Goals : To walk Education Patient Education Education Given To: Patient;Family Education Provided: Role of Therapy;Plan of Care;Precautions;Transfer Training;Family Education;Equipment;Fall Prevention Strategies Education Method: Verbal;Demonstration Barriers to Learning: None Education Outcome: Continued education needed Therapy Time Individual Concurrent Group Co-treatment Time In 1110 Time Out 1210 Minutes 60 Timed Code Treatment Minutes: 45 Minutes Kayy Triana PT 04/23/23 1124 Encounter Summary Encounter Overview/[employer] Encounter Service Provided For: Patient Referral/Consult From: Gage Last Encounter 04/23/23 Complexity of Encounter Low Spiritual/Emotional needs Type Spiritual Support Rituals, Rites and Sacraments Type Sacrament of Sick (04/23/23) Images from the original note were not included. ACUTE INPATIENT REHABILITATION ADMISSION [facility] Patient Name: Medina Sena Date of Admit: 04/22/2023 Time of Arrival: 1950 Patient admitted to the Acute Inpatient Rehabilitation Unit via Stretcher Patient oriented to room, unit and fall prevention safety measures. Education provided on the rehabilitation routine and therapy schedules. Drug / Medication Regimen Review Admitting medication orders compared with acute stay medications; home medication list reviewed with patient/family. Medication Issues Identified ? No If Yes, Check All That Apply [] Allergy to medication [] Drug interactions (drug/drug, drug/food, drug/disease interactions) [] Duplicate drug [] Omission (drug missing from prescribed regimen) [] Non adherence [] Adverse reaction [] Wrong patient, drug, dose, route, time error [] Ineffective drug therapy High-Risk Drug Classes: Use and Indication Check if the patient is taking any medications by pharmacological classification If yes, check if there is an indication noted for all meds in the drug class Antipsychotic Yes If yes: indication noted? [x] If no indication noted, follow up with provider for order clarification Anticoagulant Yes If yes: indication noted? [x] Antibiotic No If yes: indication noted? [] Opioid Yes If yes: indication noted? [x] Antiplatelet No If yes: indication noted? [] Hypoglycemic (Including Insulin) No If yes: indication noted? [] Attending Physical Medicine & Rehabilitation (PM&R) Admitting Order Review Admission orders reviewed with Acute Inpatient Rehabilitation Attending PM&R Physician: Joe Schilling MD Skin Assessment Skin assessment performed by two nurses: all active alterations in skin integrity, wounds, lines, drains and airways assessed, measured, recorded and reconciled. Refer to LDA avatar and LDA flowsheet for additional information. Nurse 1 Completing Skin Assessment Katya Saucedo Rn Nurse 2 Completing Skin Assessment Katherine Diallo RN Active pressure injuries or complex wounds identified? No If yes: contact provider for wound care consult order [] Admission Weight Patient's Weight Upon Admission 138 lb Bowel and Bladder Functional Assessment Prior history of bladder problems: stress incontinence Number of pads used per day: 4 Frequency of night time voidin times Fluid intake volume and pattern: TBD Last Bowel Movement 04/21/23 Prior history of bowel problems: No If Yes, Check All That Apply []Incontinence []Frequent Diarrhea []Constipation []Hemorrhoids []Diverticulitis []Bowel Surgery Pain Assessment Over the past 5 days, how much of the time has pain made it hard for you to sleep at night? Occasionally Over the past 5 days, how often have you limited your participation in rehabilitation therapy sessions due to pain? Occasionally Over the past 5 days, how often have you limited your day-to-day activities (excluding rehabilitation therapy session)? Occasionally Special Treatments, Procedures, and Programs Check all of the following treatments, procedures, and programs that apply on admission. Cancer Treatments Chemotherapy No If Yes, Check All That Apply []IV Chemotherapy []Oral Chemotherapy []Chemotherapy Radiation No Respiratory Therapies Oxygen Therapy No If Yes, Check All That Apply []Continuous []Intermittent []High-Concentration Suctioning No If Yes, Check All That Apply []Scheduled []As Needed Tracheostomy Care No Invasive Mechanical Ventilator (Ventilator or Respirator) No If Yes, Check All That Apply []Non-invasive Mechanical Ventilator []BiPap []CPAP Other IV Medications No If Yes, Check All That Apply []IV Vasoactive Medications []IV Antibiotics []IV Anticoagulation []Other IV Medications Transfusions No Dialysis No If Yes, Check All That Apply []Hemodialysis []Peritoneal Dialysis IV Access No If Yes, Check All That Apply []Peripheral []Midline [](PICC, tunneled, port) Admission folder with the following documents provided to patient/responsible democrat: 1. [facility] Acute Rehabilitation [facility] Individualized Disclosure Statement 2. Data Collection Information Summary for Patients in Inpatient Rehabilitation Facilities 3. Privacy Act Statement - Health Care Records Care plan was created with patient/responsible democrat input and goals were agreed upon. Please refer to the admission navigator for further information. documented in this encounter [facility] 05-02-2023 Hospital Discharge instructions Cory Sims MSW, CUSTOMER ACCOUNT SPECIALIST - 05/02/2023 11:35 PM EST Continuity of Care Form Patient Name: Medina Sena : 1960 Admit date: 04/22/2023 Discharge date: 05/03/2023 Code Status Order: Full Code Advance Directives: Admitting Physician: Joe Schilling MD PCP: Efraín Li MD Discharging Nurse: Dee Vieira LPN Discharging Hospital Unit/Room#: 2608/2608-01 Discharging Unit Emergency Contact: Extended Emergency Contact Information Primary Emergency Contact: John Otero Mobile Relation: Spouse Preferred language: Namibian Timekeeper needed? No Secondary Emergency Contact: Bruna Sena Mobile Relation: Child Past Surgical History: Past Surgical History: Procedure Laterality Date APPENDECTOMY BREAST BIOPSY BREAST SURGERY Left CERVICAL FUSION N/A 04/16/2023 C3-6 POSTERIOR CERVICAL DECOMPRESSION FUSION performed by Bev Brooks DO at [facility] OR CERVICAL SPINE SURGERY [address] [place] [address] CERVICAL SPINE SURGERY 04/16/2023 C3-6 POSTERIOR CERVICAL DECOMPRESSION FUSION CHOLECYSTECTOMY COLONOSCOPY HYSTERECTOMY (CERVIX STATUS UNKNOWN) BSO TONSILLECTOMY AND ADENOIDECTOMY Immunization History: Immunization History Administered Date(s) Administered COVID-19, PFIZER PURPLE top, DILUTE for use, (age 12 y+), 30mcg/0.3mL 06/09/2020, 06/30/2020 Active Problems: Patient Active Problem List Diagnosis Code 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) M48.02, G99.2 Cervical disc disease with myelopathy M50.00 Isolation/Infection: Isolation No Isolation Patient Infection Status None to display Nurse Assessment: Last Vital Signs: BP 132/66 Pulse 86 Temp 98.6 F (37 C) Resp 18 Ht 1.575 m (5' 2.01 ) Wt 62.6 kg (138 lb) SpO2 99% BMI 25.23 kg/m Last documented pain score (0-10 scale): Pain Level: 4 Last Weight: Wt Readings from Last 1 Encounters: 04/22/23 62.6 kg (138 lb) Mental Status: alert IV Access: - None Nursing Mobility/ADLs: Walking Assisted Transfer Assisted Bathing Assisted Dressing Assisted Toileting Assisted Feeding Assisted Instrumentation Technician Assisted Med Delivery whole Wound Care Documentation and Therapy: Incision 04/16/23 Neck Posterior (Active) Dressing Status Other (Comment) 05/02/231929 Dressing Change Due 04/23/23 04/23/231948 Incision Cleansed Not Cleansed 05/02/231929 Dressing/Treatment Open to air 04/29/232014 Closure Open to air 05/02/23 193 Margins Approximated 05/02/231929 Incision Assessment Dry 05/02/231929 Drainage Amount None (dry) 05/02/23 193 Odor None 05/02/231929 Yuko-incision Assessment Intact;Other (Comment) 05/02/231929 Number of days: 16 Elimination: Continence: Bowel: Yes Bladder: Yes Urinary Catheter: None Colostomy/Ileostomy/Ileal Conduit: No Date of Last BM: 05/02/2023 No intake or output data in the 24 hours ending 05/02/23 2335 No intake/output data recorded. Safety Concerns: At Risk for Falls Impairments/Disabilities: None Nutrition Therapy: Current Nutrition Therapy: - Oral Diet: General Routes of Feeding: Oral Liquids: No restrictions Daily Fluid Restriction: no Last Modified Barium Swallow with Video (Video Swallowing Test): not done Treatments at the Time of Hospital Discharge: Respiratory Treatments: none Oxygen Therapy: is not on home oxygen therapy. Ventilator: - No ventilator support Rehab Therapies: PT. OT Weight Bearing Status/Restrictions: No weight bearing restrictions Other Medical Equipment (for information only, NOT a DME order): walker Other Treatments: none Patient's personal belongings (please select all that are sent with patient): Glasses, clothes, shoes RN SIGNATURE: CASE MANAGEMENT/SOCIAL WORK SECTION Inpatient Status Date: Readmission Risk Assessment Score: Readmission Risk Risk of Unplanned Readmission: 13 Discharging to Facility/ Agency Name: [facility] [address] [facility] [address] Fax Address: Phone: Fax: Dialysis Facility (if applicable) Name: Address: Dialysis Schedule: Phone: Fax: House Fellow/Specification Manager signature: PHYSICIAN SECTION Prognosis: Good Condition at Discharge: Stable Rehab Potential (if transferring to Rehab): Good Recommended Labs or Other Treatments After Discharge: Physical and occupational therapy for ongoing functional deficits related to cervical stenosis with myelopathy s/p C3-C6 decompression and fusion. Nursing for medication management. Physician Certification: I certify the above information and transfer of Medina Sena is necessary for the continuing treatment of the diagnosis listed and that she requires Home Care for less than 30 days. Update Admission H&P: No change in H&P PHYSICIAN SIGNATURE: documented in this encounter [facility] 04-22-2023 History of Present illness Narrative Physical Medicine & Rehabilitation Progress Note 04/22/2023 10:29 AM CC: Ambulatory and ADL dysfunction due to cervical stenosis with neuropathy status post C3 6 posterior decompression and fusion 2/6 with tetraparesis/spasticity Neurosurgery-J Uvalda collar continue Lovenox Subjective: No complaints. present. Sitting in chair. Uvalda collar in place. ROS: Denies fevers, chills, sweats. No chest pain, palpitations, lightheadedness. Denies coughing, wheezing or shortness of breath. Denies abdominal pain, nausea, diarrhea or constipation. No new areas of joint pain. Denies new areas of numbness or weakness. Denies new anxiety or depression issues. No new skin problems. Rehabilitation: PT: Restrictions/Precautions: General Precautions Spinal Precautions: Cervical Precautions. Other position/activity restrictions: 04/16/23 - C3-6 POSTERIOR CERVICAL DECOMPRESSION FUSION. activity as tolerated, no lifting over 5 lbs, purewick Required Braces or Orthoses Cervical: c-collar Transfers Sit to Stand: Moderate Assistance, 2 Person Assistance (rocking fwd motion x3. UEs on RW. Encouraging increased trunk flexion.) Stand to Sit: Moderate Assistance, 2 Person Assistance (Pt requires tactile and verbal cues to bend at hips to sit at EOB.) Stand Pivot Transfers: Maximum Assistance Comment: Assessed standing from EOB to RW with UEs on RW laminating press operator and blocking B feet to keep B knees bent. Demo and verbal cues given prior to standing w/ rocking motion x 3. Pt required modAx2 to maintain static standing 2 trials x 1.5-2 mins at RW d/t posterior lean which improved from previous session. Verbal and tactile cues to decrease lean against bed. Ambulation Comments: Pt does not ambulate at baseline 04/21 Bed mobility Supine to Sit: 2 Person assistance;Maximum assistance Sit to Supine: 2 Person assistance;Maximum assistance Scooting: Maximal assistance Bed Mobility Comments: Pt able to maintain sitting at EOB with Carol progressing to CGA once positioned x 20 mins. Transfers Sit to Stand: Moderate Assistance;2 Person Assistance (rocking fwd motion x3. UEs on RW. Encouraging increased trunk flexion.) Stand to Sit: Moderate Assistance;2 Person Assistance (Pt requires tactile and verbal cues to bend at hips to sit at EOB.) Comment: Assessed standing from EOB to RW with UEs on RW laminating press operator and blocking B feet to keep B knees bent. Demo and verbal cues given prior to standing w/ rocking motion x 3. Pt required modAx2 to maintain static standing 2 trials x 1.5-2 mins at RW d/t posterior lean which improved from previous session. Verbal and tactile cues to decrease lean against bed. Ambulation Comments: Pt does not ambulate at baseline OT: ADL Feeding: Minimal assistance, Verbal cueing, Beverage management Feeding Skilled Clinical Factors: Sitting upright in recliner. Max Cues to maintain cervical precautions. Grooming: Verbal cueing, Increased time to complete, Contact guard assistance Grooming Skilled Clinical Factors: Pt completed oral hygiene while seated EOB with CGA for sitting balance throughout, pt demos ability to sequence task with increased time. Required increased time d/t FM coordination deficits, however demos ability to stabilize item with L hand and unscrew/screw using R hand. Required assist to hold emsis up to mouth to adhere to cervical precautions. UE Bathing: Moderate assistance LE Bathing: Maximum assistance UE Dressing: Increased time to complete, Verbal cueing, Moderate assistance UE Dressing Skilled Clinical Factors: To doff and redon clean gown. LE Dressing: Dependent/Total LE Dressing Skilled Clinical Factors: assist to don socks this date Toileting: Maximum assistance Functional Mobility: Moderate assistance, Adaptive equipment, Increased time to complete Functional Mobility Skilled Clinical Factors: Pt completed weight shifting between BLEs while standing EOB in preparation for functional mobility task using RW for support and MOD Ax2 to maintain balance throughout d/t extensor tone and decreased balance/strength. Required verbal/tactile cues to maintain full upright position with good return. No steps taken this date d/t poor standing balance, however no LOB noted during weight shifting. Additional Comments: Nursing OK'd for OT tx this date, pt agreeable to therapy. Pt engaged in bed mobility, functional transfers, grooming/FM task, and retired to supine in bed with all needs met and call light within reach, nursing notified. Pt demos trunk and BLE extension during sitting EOB, required verbal/tactile cues to correct with fair return: LUE worse than RUE. Pt demos FM coordination deficits during oral hygiene task, however able to complete with increased time. Further ADL care tasks not done this date d/t session focused on sitting/standing balance and FM coordination. Skin Care: Bath wipes 04/21 ADL Grooming: Verbal cueing;Increased time to complete;Contact guard assistance Grooming Skilled Clinical Factors: Pt completed oral hygiene while seated EOB with CGA for sitting balance throughout, pt demos ability to sequence task with increased time. Required increased time d/t FM coordination deficits, however demos ability to stabilize item with L hand and unscrew/screw using R hand. Required assist to hold emsis up to mouth to adhere to cervical precautions. Functional Mobility: Moderate assistance;Adaptive equipment;Increased time to complete ST: Objective: BP (!) 141/78 Pulse 99 Temp 98.6 F (37 C) (Oral) Resp 18 Ht 1.575 m (5' 2 ) Wt 59 kg (130 lb) SpO2 99% BMI 23.78 kg/m I Body mass index is 23.78 kg/m . I Wt Readings from Last 1 Encounters: 04/16/23 59 kg (130 lb) Temp (24hrs), Av.3 F (36.8 C), Min:98.1 F (36.7 C), Max:98.6 F (37 C) GEN: well developed, well nourished, no acute distress HEENT: Normocephalic atraumatic, EOMI, mucous membranes pink and moist, Uvalda collar CV: RRR, no murmurs, rubs or gallops PULM: CTAB, no rales or rhonchi. Respirations WNL and unlabored ABD: soft, NT, ND, +BS and equal NEURO: A&O x3. Decreased to light touch right upper and lower extremity compared to left. Delayed response time fluent speech MSK: Spasticity possible contracture left ankle, at least 4/5 bilateral upper extremities right ankle limited range of motion left ankle able to partially straight leg raise right greater than left some improved strength bilateral upper and distal lower extremity able to partially straight leg raise EXTREMITIES: No calf tenderness to palpation bilaterally. No edema BLEs SKIN: warm dry and intact with good turgor PSYCH: appropriately interactive. Affect WNL. Medications Scheduled Meds: magnesium hydroxide 30 mL Oral Daily bisacodyl 10 mg Rectal Daily baclofen 10 mg Oral TID buPROPion 150 mg Oral QAM escitalopram 20 mg Oral Daily lurasidone 80 mg Oral Dinner sodium chloride flush 5-40 mL IntraVENous 2 times per day acetaminophen 650 mg Oral Q6H famotidine 20 mg Oral Daily Or famotidine (PEPCID) injection 20 mg IntraVENous Daily polyethylene glycol 17 g Oral Daily enoxaparin 40 mg SubCUTAneous Daily Continuous Infusions: sodium chloride PRN Meds:.sodium chloride flush, sodium chloride, oxyCODONE OR oxyCODONE, ondansetron OR ondansetron Diagnostics: CBC: No results for input(s): WBC , RBC , HGB , HCT , MCV , RDW , PLT in the last 72 hours. BMP: No results for input(s): NA , K , CL , CO2 , PHOS , BUN , CREATININE , CA in the last 72 hours. BNP: No results for input(s): BNP in the last 72 hours. PT/INR: No results for input(s): PROTIME , INR in the last 72 hours. APTT: No results for input(s): APTT in the last 72 hours. CARDIAC ENZYMES: No results for input(s): CKMB , CKMBINDEX , TROPONINT in the last 72 hours. Invalid input(s): CKTOTAL;3 FASTING LIPID PANEL:No results found for: CHOL , HDL , TRIG LIVER PROFILE: No results for input(s): AST , ALT , ALB , BILIDIR , BILITOT , ALKPHOS in the last 72 hours. I/O (24Hr): Intake/Output Summary (Last 24 hours) at 04/22/2023 1029 Last data filed at 04/22/2023 0413 Gross per 24 hour Intake 600 ml Output 1000 ml Net -400 ml Glu last 24 hour No results for input(s): POCGLU in the last 72 hours. No results for input(s): CLARITYU , COLORU , PHUR , SPECGRAV , PROTEINU , RBCUA , BLOODU , BACTERIA , NITRU , WBCUA , LEUKOCYTESUR , YEAST , GLUCOSEU , BILIRUBINUR in the last 72 hours. Social/Functional History Lives With: Family ( and 2 adult daughters) Type of Home: House Home Layout: One level Home Access: Stairs to enter without rails ( bumps pt up steps in wheelchair) Entrance Stairs - Number of Steps: 3 Bathroom Shower/Tub: Walk-in shower, Shower chair with back Bathroom Toilet: Standard Home Equipment: Walker, rolling, Wheelchair-manual (Pt uses wheelchair) Receives Help From: Family ADL Assistance: Needs assistance ( assists with all ADL tasks. Pt able to self feed with utensils sometimes once food cut up by ) Homemaking Assistance: Needs assistance Homemaking Responsibilities: No (family performs) Ambulation Assistance: Non-ambulatory (since November 2022) Transfer Assistance: Needs assistance ( performs face to face stand-pivot transfers to all surfaces. 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 assists with all ADL tasks and transfers. pt has been non-ambulatory for ~5 months Impression: Cervical stenosis with myelopathy s/p C3-C6 posterior decompression and fusion on 04/16 Tetraparesis Spasticity-baclofen IBS/GERD-Pepcid Depression-Wellbutrin, Lexapro, Latuda Panic disorder Pain-Toradol, Roxicodone Recommendations: Diagnosis: Cervical stenosis with myelopathy s/p C3-C6 posterior decompression and fusion Therapy: Has PT/OT needs Medical Necessity: As above Support: Lives with , supportive family Rehab Recommendation: Would benefit acute inpatient rehabilitation when medical ready to return back to baseline level wheelchair level family very supportive DVT Prophylaxis: Lovenox Qamar Ogden MD This note is created with the assistance of a speech recognition program. While intending to generate a document that actually reflects the content of the visit, the document can still have some errors including those of syntax and sound a like substitutions which may escape proof reading. In such instances, actual meaning can be extrapolated by contextual diversion Neurosurgery JOHNNIE/Resident Daily Progress Note No chief complaint on file. 04/22/2023 7:56 AM Chart reviewed. No acute events overnight. No new complaints. Vitals: 04/21/23 2246 04/22/23 0000 04/22/23 0202 04/22/23 0413 BP: (!) 142/75 135/72 132/68 (!) 146/71 Pulse: (!) 105 (!) 104 92 86 Resp: 16 18 15 12 Temp: TempSrc: SpO2: Weight: Height: PE: AOx3 Motor L deltoid 4/5; R deltoid 5/5 L biceps 4/5; R biceps 5/5 L triceps 4/5; R triceps 5/5 L wrist extension 4/5; R wrist extension 4/5 L intrinsics 4/5; R intrinsics 4/5 L iliopsoas 4/5 , R iliopsoas 5/5 L quadriceps 5/5; R quadriceps 5/5 L Dorsiflexion 3/5; R dorsiflexion 5/5 L Plantarflexion 3/5; R plantarflexion 5/5 L EHL 3/5; R EHL 5/5 Sensation: numbness BLE Incision: posterior cervical dressing, c/d/i Lab Results Component Value Date WBC 10.4 04/17/2023 HGB 12.4 04/17/2023 HCT 37.9 04/17/2023 PLT 206 04/17/2023 NA 135 04/17/2023 K 4.6 04/17/2023 CL 106 04/17/2023 CREATININE 0.7 04/17/2023 BUN 16 04/17/2023 CO2 19 (L) 04/17/2023 INR 1.1 04/03/2023 A/P 62 y.o. female who presents with stenosis of cervical spine with myelopathy. POD 6 s/p C3-6 posterior cervical decompression fusion - activity as tolerated, PT and OT - cervical collar when OOB ok to remove while eating drinking - pain control, baclofen 10mg TID - bowel regimen - Lovenox and SCDs for DVT prophylaxis - encourage IS - discharge planning- PM&R consulted for IP rehab- precert started 04/19 Please contact neurosurgery with any changes in patients neurologic status. Oscar Marie CNP 04/22/23 7:56 AM Neurosurgery JOHNNIE/Resident Daily Progress Note CC:No chief complaint on file. 04/21/2023 5:57 AM Chart reviewed. No acute events overnight. No new complaints. Passing flatus, tolerating diet, urinating without issues, worked with therapy on 04/19 Vitals: 04/20/23 1200 04/20/23 1328 04/20/23 1358 04/20/23 2100 BP: (!) 144/80 (!) 147/69 Pulse: 99 95 Resp: 15 20 15 27 Temp: 98.1 F (36.7 C) 98 F (36.7 C) TempSrc: Oral Oral SpO2: 92% 97% Weight: Height: PE: AOx3 Motor L deltoid 4/5; R deltoid 5/5 L biceps 4/5; R biceps 5/5 L triceps 4/5; R triceps 5/5 L wrist extension 4/5; R wrist extension 4/5 L intrinsics 4/5; R intrinsics 4/5 L iliopsoas 4/5 , R iliopsoas 5/5 L quadriceps 5/5; R quadriceps 5/5 L Dorsiflexion 3-4/5; R dorsiflexion 5/5 L Plantarflexion 3-4/5; R plantarflexion 5/5 L EHL 3-4/5; R EHL 5/5 Sensation: numbness BLE Incision: CDI Lab Results Component Value Date WBC 10.4 04/17/2023 HGB 12.4 04/17/2023 HCT 37.9 04/17/2023 PLT 206 04/17/2023 NA 135 04/17/2023 K 4.6 04/17/2023 CL 106 04/17/2023 CREATININE 0.7 04/17/2023 BUN 16 04/17/2023 CO2 19 (L) 04/17/2023 INR 1.1 04/03/2023 A/P 62 y.o. female who presents with stenosis of cervical spine with myelopathy. POD#5 s/p C3-6 posterior cervical decompression fusion - activity as tolerated, PT and OT - cervical collar when OOB ok to remove while eating drinking - pain control, baclofen 10mg TID - bowel regimen - Lovenox and SCDs for DVT prophylaxis - encourage IS - discharge planning- PM&R consulted for IP rehab- precert started 04/19 Please contact neurosurgery with any changes in patients neurologic status. Oscar Oliva CNP 04/21/23 5:57 AM Neurosurgery JOHNNIE/Resident Daily Progress Note CC:No chief complaint on file. 04/20/2023 8:04 AM Chart reviewed. No acute events overnight. No new complaints. Pain improved, tolerating diet, working with PT and OT, afebrile Vitals: 04/19/23 2000 04/20/23 0000 04/20/23 0400 04/20/23 0800 BP: 130/78 130/71 (!) 148/125 (!) 148/77 Pulse: (!) 103 93 93 (!) 102 Resp: Temp: 98.2 F (36.8 C) 98.1 F (36.7 C) 98.8 F (37.1 C) 98.4 F (36.9 C) TempSrc: Oral Oral Oral Oral SpO2: 95% 97% 93% 100% Weight: Height: PE: AOx3 Motor L deltoid 4/5; R deltoid 5/5 L biceps 4/5; R biceps 5/5 L triceps 4/5; R triceps 5/5 L wrist extension 4/5; R wrist extension 4/5 L intrinsics 4/5; R intrinsics 4/5 L iliopsoas 4/5 , R iliopsoas 5/5 L quadriceps 5/5; R quadriceps 5/5 L Dorsiflexion 4/5; R dorsiflexion 5/5 L Plantarflexion 4/5; R plantarflexion 5/5 L EHL 4/5; R EHL 5/5 Sensation: diminished LUE and BLE Incision: CDI Lab Results Component Value Date WBC 10.4 04/17/2023 HGB 12.4 04/17/2023 HCT 37.9 04/17/2023 PLT 206 04/17/2023 NA 135 04/17/2023 K 4.6 04/17/2023 CL 106 04/17/2023 CREATININE 0.7 04/17/2023 BUN 16 04/17/2023 CO2 19 (L) 04/17/2023 INR 1.1 04/03/2023 A/P 62 y.o. female who presents with stenosis of cervical spine with myelopathy. POD#4 s/p C3-6 posterior cervical decompression fusion - activity as tolerated, PT and OT - cervical collar when OOB ok to remove while eating drinking - pain control, baclofen 10mg TID - bowel regimen - Lovenox and SCDs for DVT prophylaxis - encourage IS - discharge planning- PM&R consulted for IP rehab- precert started 04/19 Please contact neurosurgery with any changes in patients neurologic status. Oscar Oliva CNP 04/20/23 8:04 AM [facility] PROGRESS NOTE Shift date: 04/19/2023 Shift day: Saturday Shift # 2 Room # [id number] Name: Medina Sena Anabaptism: Protestant Place of latter-day: [facility] Referral: Routine Visit Admit Date & Time: 04/16/2023 8:28 AM Assessment: Medina Sena is a 62 y.o. female in the hospital. Patient appeared calm and coping sitting in hospital chair post procedural. Intervention: Area Operations Manager introduced self and title as wood science professor. Patient did not appear to mind wood science professor presence and engaged in conversation. Patient appeared coping and hopeful when discussing a recent procedure and the road ahead. Bullet Assembly Press Setter Operator provided a supportive presence through active listening and words of affirmation. Outcome: Patient appeared receptive to wood science professor visit. Plan: Chaplains will remain available to offer spiritual and emotional support as needed. . [facility] [phone] Occupational Therapy Facility/Department: [address] NEUR[facility] ICU Occupational Therapy Daily Treatment Note Name: Medina Sena : 1960 Date of Service: 04/19/2023 Discharge Recommendations: Patient would benefit from continued therapy after discharge OT Equipment Recommendations ADL Assistive Devices: Gait Belt Patient Diagnosis(es): The encounter diagnosis was Acute post-operative pain. 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 Past Surgical History: has a past surgical history that includes Appendectomy; Breast biopsy; Cervical spine surgery (2003); Colonoscopy; Cholecystectomy; Hysterectomy; Tonsillectomy and adenoidectomy; Breast surgery (Left); Cervical spine surgery (04/16/2023); and cervical fusion (N/A, 04/16/2023). Assessment Performance deficits / Impairments: Decreased functional mobility ;Decreased ADL status;Decreased endurance;Decreased balance;Decreased high-level IADLs;Decreased fine motor control;Decreased coordination;Decreased posture;Decreased strength Assessment: Pt requires signifcant assistance to perform nearly all ADL tasks. reports assisting with ADL's at baseline and can offer 24/ support at discharge. Pt would benefit from continued therapy to increase IND and safety in self care prior to discharge from acute setting. Prognosis: Fair Decision Making: High Complexity Plan Occupational Therapy Plan Times Per Week: 4x/week Current Treatment Recommendations: Balance training, Functional mobility training, Wheelchair mobility training, Patient/Caregiver education & training, Safety education & training, Pain management, Self-Care / ADL, Equipment evaluation, education, & procurement, Home management training, Coordination training Restrictions Restrictions/Precautions Restrictions/Precautions: General Precautions Required Braces or Orthoses?: Yes Required Braces or Orthoses Cervical: c-collar (when out of bed) Position Activity Restriction Spinal Precautions: Cervical Precautions. Other position/activity restrictions: 04/16/23 - C3-6 POSTERIOR CERVICAL DECOMPRESSION FUSION. activity as tolerated Subjective General Patient assessed for rehabilitation services?: Yes Family / Caregiver Present: Yes General Comment Comments: RN okayed for therapy. pt agreeable and cooperative throughout. pt reports 7/10 pain at surgical site. RN present and aware. c-collar placed on pt in bed and pt able to progress with session. Social/Functional History Social/Functional History Lives With: Family ( and 2 adult daughters) Type of Home: House Home Layout: One level Home Access: Stairs to enter without rails ( bumps pt up steps in wheelchair) Entrance Stairs - Number of Steps: 3 Bathroom Shower/Tub: Walk-in shower, Shower chair with back Bathroom Toilet: Standard Home Equipment: Walker, rolling, Wheelchair-manual (Pt uses wheelchair) Receives Help From: Family ADL Assistance: Needs assistance ( assists with all ADL tasks. Pt able to self feed with utensils sometimes once food cut up by ) Homemaking Assistance: Needs assistance Homemaking Responsibilities: No (family performs) Ambulation Assistance: Non-ambulatory (since November 2022) Transfer Assistance: Needs assistance ( performs face to face stand-pivot transfers to all surfaces. 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 assists with all ADL tasks and transfers. pt has been non-ambulatory for ~5 months Objective Safety Devices Type of Devices: All fall risk precautions in place;Patient at risk for falls;Call light within reach;Gait belt;Nurse notified;Left in chair;Heels elevated for pressure relief Restraints Restraints Initially in Place: No Balance Sitting: With support Standing: Impaired (x2 trials (1-2 mins); Max x2 progressing to Max X1 Assist with RW) Toilet Transfers Toilet Transfer: Unable to assess ADL Feeding: Minimal assistance;Verbal cueing;Beverage management Feeding Skilled Clinical Factors: Sitting upright in recliner. Max Cues to maintain cervical precautions. Grooming: Minimal assistance;Verbal cueing;Increased time to complete Grooming Skilled Clinical Factors: Sitting upright in recliner, Assist and Max cues for hand hygiene, facial hygiene, oral hygiene (max Cues to maintain C-precautions). UE Dressing: Increased time to complete;Verbal cueing;Moderate assistance UE Dressing Skilled Clinical Factors: To doff and redon clean gown. Additional Comments: Max Cues to maintain cervical precautions // integrate safety. Activity Tolerance Activity Tolerance: Patient limited by endurance Activity Tolerance Comments: pt c/o some dizziness with standing. BP WFL Bed mobility Supine to Sit: Unable to assess Sit to Supine: Unable to assess Scooting: Unable to assess Bed Mobility Comments: Pt in at start & end of tx. // Max Assist to scoot forward (in recliner); Max X2 Assist to scoot backward (in recliner); Mod Assist to maintain static // dynamic sitting at edge of chair (2 trials, total of ~30 mins) during functional task participation with OT and PT. Transfers Stand Pivot Transfers: Unable to assess Sit to stand: 2 Person assistance;Maximum assistance Stand to sit: Maximum assistance;2 Person assistance Transfer Comments: Max X2 progressing to Max X1 Assist + Min X1 Assist; Using RW. Max Cues task initiation & motor planning // accurate technique & safety. Significant increase in time & effort, High posterior lean. Vision Vision: Impaired (Glasses) Hearing Hearing: Within functional limits Cognition Overall Cognitive Status: Exceptions Arousal/Alertness: Delayed responses to stimuli Following Commands: Follows one step commands with increased time;Follows one step commands with repetition Safety Judgement: Decreased awareness of need for assistance;Decreased awareness of need for safety Problem Solving: Assistance required to generate solutions;Assistance required to identify errors made;Assistance required to correct errors made;Decreased awareness of errors Insights: Decreased awareness of deficits Initiation: Requires cues for some Sequencing: Requires cues for all Cognition Comment: Decreased carryover // maintenance of cervical precautions. Goals Short Term Goals Time Frame for Short Term Goals: By discharge; Pt will Short Term Goal 1: Maintain sitting balance 3+ mins Min A to engage in functional tasks Short Term Goal 2: Complete bed mobility with Mod A Short Term Goal 3: Demo Good safety throughout session without cuing Short Term Goal 4: Engage in UB ADL's with Min A and AE/modified techniques as needed Short Term Goal 5: particiapte in 10+ mins C activities to BUE to increase functional performance in self care Therapy Time Individual Concurrent Group Co-treatment Time In 1017 Time Out 1126 Minutes 69 Timed Code Treatment Minutes: 38 Minutes (ADL + TherAct) JULIO CESAR Palomares OTR/L Physical Therapy Facility/Department: [address] [facility] Physical Therapy Daily Treatment Note Name: Medina Sena : 1960 Date of Service: 04/19/2023 Discharge Recommendations: Patient would benefit from continued therapy after discharge Further therapy recommended at discharge.The patient should be able to tolerate at least 3 hours of therapy per day over 5 days or 15 hours over 7 days. This patient may benefit from a Physical Medicine and Rehab consult. PT Equipment Recommendations Equipment Needed: No (continue to assess pending placement.) Patient Diagnosis(es): The encounter diagnosis was Acute post-operative pain. 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 Past Surgical History: has a past surgical history that includes Appendectomy; Breast biopsy; Cervical spine surgery (2003); Colonoscopy; Cholecystectomy; Hysterectomy; Tonsillectomy and adenoidectomy; Breast surgery (Left); Cervical spine surgery (04/16/2023); and cervical fusion (N/A, 04/16/2023). Assessment Body Structures, Functions, Activity Limitations Requiring Skilled Therapeutic Intervention: Decreased functional mobility ;Decreased strength;Decreased endurance;Decreased balance Assessment: Pt required maxAx1, minAx1 to stand from EOC to RW. Pt required maxA to maintain static standing at RW d/t heavy posterior lean w/o righting reactions noted and spasticity. Pt is currently unsafe to return to prior living arrangements. Pt would benefit from continued acute PT to address deficits. Therapy Prognosis: Good Activity Tolerance Activity Tolerance: Patient limited by endurance Activity Tolerance Comments: pt c/o some dizziness with standing. BP WFL Plan Physical Therapy Plan General Plan: (5x/wk) Current Treatment Recommendations: Strengthening, Balance training, Functional mobility training, Transfer training, Endurance training, Neuromuscular re-education, Home exercise program, Safety education & training, Patient/Caregiver education & training, Equipment evaluation, education, & procurement, Therapeutic activities Safety Devices Type of Devices: All fall risk precautions in place, Patient at risk for falls, Call light within reach, Gait belt, Nurse notified, Left in chair, Heels elevated for pressure relief Restraints Restraints Initially in Place: No Restrictions Restrictions/Precautions Restrictions/Precautions: General Precautions Required Braces or Orthoses?: Yes Required Braces or Orthoses Cervical: c-collar (when out of bed) Position Activity Restriction Other position/activity restrictions: 04/16/23 - C3-6 POSTERIOR CERVICAL DECOMPRESSION FUSION. activity as tolerated Subjective General Patient assessed for rehabilitation services?: Yes Response To Previous Treatment: Patient with no complaints from previous session. Family / Caregiver Present: Yes (spouse) Follows Commands: Within Functional Limits General Comment Comments: RN and pt agreeable to PT. pt alert in recliner upon arrival. C Collar on upon arrival. Co treatment with OT. Pt repositioned at end of session for comfort with B LEs elevated. Pt pleasant and cooperative. Spoke with RN about cervical precautions and use of foam support while supine. Subjective Subjective: Pt reports pain in posterior neck near surgical site 06/18. Pt having some dizziness with standing, but recovers with sitting in recliner; RN notified. Vision/Hearing Vision Vision: Impaired (Glasses) Cognition Cognition Overall Cognitive Status: Exceptions Arousal/Alertness: Delayed responses to stimuli Following Commands: Follows one step commands with increased time;Follows one step commands with repetition Safety Judgement: Decreased awareness of need for assistance;Decreased awareness of need for safety Problem Solving: Assistance required to generate solutions;Assistance required to identify errors made;Assistance required to correct errors made;Decreased awareness of errors Insights: Decreased awareness of deficits Initiation: Requires cues for some Sequencing: Requires cues for all Cognition Comment: flat affect. soft spoken Objective Bed mobility Supine to Sit: Unable to assess Sit to Supine: Unable to assess Bed Mobility Comments: Pt in recliner throughout session. Pt required maxA to scoot fwd in recliner and maxA x 2 to scoot bwd into recliner. Pt required modA to maintain sitting at EOC x ~30 mins. B LEs spastic into knee extension when sitting back into recliner, but B knees bent when positioning pt fwd to EOC. Transfers Sit to Stand: 2 Person Assistance;Minimal Assistance;Maximum Assistance (Carol x 1 and maxAx1. UEs on RW to stand to promote trunk flexion.) Stand to Sit: 2 Person Assistance;Minimal Assistance;Maximum Assistance (Tactile and verbal cues at R hip to promote hip flexion to descend into recliner and reach for recliner arm with R UE.) Comment: Assessed standing from EOC to RW x 2 trials with maxA to maintain x 1-2 mins d/t heavy posterior lean w/o righting reactions noted. Pt able to retro step towards recliner with maxA to weightshift with constant verbal cues for sequencing. Pt had dizziness with static standing. Pt spastic with mobility. Ambulation Comments: Pt does not ambulate at baseline Balance Posture: Fair Sitting - Static: Poor;+ Sitting - Dynamic: Poor;+ Standing - Static: Poor Comments: Assessed standing at RW and sitting at EOC Exercise Treatment: Long sitting in recliner: AAROM/PROM L LE and AAROM/AROM to R LE: B ankle pumps, B heel slides, B hip abd/add x 10 reps. B gastro stretch x 3, 20s hold. Static Sitting Balance Exercises: Sat EOC intermittently ~30 mins with modA to maintain fwd trunk flexion. noted extensor spasticity OutComes Score AM-PAC - Mobility AM-[facility] Basic Mobility - Inpatient How much help is needed turning from your back to your side while in a flat bed without using bedrails?: Total How much help is needed moving from lying on your back to sitting on the side of a flat bed without using bedrails?: Total How much help is needed moving to and from a bed to a chair?: Total How much help is needed standing up from a chair using your arms?: Total How much help is needed walking in hospital room?: Total How much help is needed climbing 3-5 steps with a railing?: Total [facility] Inpatient Mobility Raw Score : 6 [facility] Inpatient T-Scale Score : 23.55 Mobility Inpatient CMS 0-100% Score: 100 Mobility Inpatient CMS G-Code Modifier : CN Goals Short Term Goals Time Frame for Short Term Goals: 14 visits Short Term Goal 1: Pt will improve sitting balance to SBA Short Term Goal 2: Pt will transfer face to face Carol MARCEL directions. Short Term Goal 3: Pt will be SBA in all bed mobility tasks Education Patient Education Education Given To: Patient;Family Education Provided: Role of Therapy;Plan of Care;Equipment;Family Education;Precautions;Transfer Training Education Provided Comments: Tactile and verbal cues given with transfers to decrease extensor spasticity. Verbal cues for safety throughout session. Education Method: Verbal Barriers to Learning: Cognition Education Outcome: Continued education needed Co- treatment with OT warranted secondary to decreased patient safety and independence with functional mobility requiring skilled physical assistance of two professionals to simultaneously address individualized discipline goals. PT is addressing standing and sitting balance , while OT is addressing their individualized functional mobility/self-care task. Therapy Time Individual Concurrent Group Co-treatment Time In 1017 Time Out 1119 Minutes 62 Timed Code Treatment Minutes: 38 Minutes SWATHI PARRY PTA Physical Medicine & Rehabilitation Progress Note 04/19/2023 10:29 AM CC: Ambulatory and ADL dysfunction due to cervical stenosis with neuropathy status post C3 6 posterior decompression and fusion 04/16 with tetraparesis/spasticity Neurosurgery-ROMULO Drain removed today, given Toradol x 1 for pain, on baclofen and Lovenox Subjective: No complaints. present. Sitting in chair. Uvalda collar in place. ROS: Denies fevers, chills, sweats. No chest pain, palpitations, lightheadedness. Denies coughing, wheezing or shortness of breath. Denies abdominal pain, nausea, diarrhea or constipation. No new areas of joint pain. Denies new areas of numbness or weakness. Denies new anxiety or depression issues. No new skin problems. Rehabilitation: PT: Restrictions/Precautions: General Precautions Other position/activity restrictions: 04/16/23 - C3-6 POSTERIOR CERVICAL DECOMPRESSION FUSION. activity as tolerated Required Braces or Orthoses Cervical: c-collar (when out of bed) Transfers Sit to Stand: Maximum Assistance Stand to Sit: Maximum Assistance Stand Pivot Transfers: Maximum Assistance Comment: Bed to chair w/ face to face transfer. Stand-pivot performed to the R. Pt requires verbal and tactile cues for foot placement prior to transfer. D/t spasticity pt is unable to flex L knee for symmetric positioning of BLE. Ambulation Comments: Pt does not ambulate at baseline Bed mobility Supine to Sit: Moderate assistance;2 Person assistance Sit to Supine: Moderate assistance;2 Person assistance Bed Mobility Comments: HOB elevated ~40 degrees. Transfers Sit to Stand: Maximum Assistance Stand to Sit: Maximum Assistance Stand Pivot Transfers: Maximum Assistance Comment: Bed to chair w/ face to face transfer. Stand-pivot performed to the R. Pt requires verbal and tactile cues for foot placement prior to transfer. D/t spasticity pt is unable to flex L knee for symmetric positioning of BLE. Ambulation Comments: Pt does not ambulate at baseline Balance Posture: Fair Sitting - Static: +;Poor Sitting - Dynamic: Poor;+ Standing - Static: Poor Comments: Sitting balance modA d/t posterior lean, standing balance maxA assessed Face to Face. OT: ADL Feeding: Minimal assistance, Setup Grooming: Maximum assistance Grooming Skilled Clinical Factors: assist to brush hair and secure in elastic this date UE Bathing: Moderate assistance LE Bathing: Maximum assistance UE Dressing: Maximum assistance UE Dressing Skilled Clinical Factors: assist to don and adjust c-collar this date. educated on proper fit and adjusting collar LE Dressing: Dependent/Total LE Dressing Skilled Clinical Factors: assist to don socks this date Toileting: Maximum assistance Additional Comments: pt with decreased balance, FMC, cervical percautions and increased BLE tone limiting functional performance Skin Care: Bath wipes Bed mobility Supine to Sit: Moderate assistance, 2 Person assistance Sit to Supine: Moderate assistance, 2 Person assistance Bed Mobility Comments: HOB elevated ~[address]: Objective: BP (!) 137/95 Pulse (!) 104 Temp 98.2 F (36.8 C) (Oral) Resp 24 Ht 1.575 m (5' 2 ) Wt 59 kg (130 lb) SpO2 99% BMI 23.78 kg/m I Body mass index is 23.78 kg/m . I Wt Readings from Last 1 Encounters: 04/16/23 59 kg (130 lb) Temp (24hrs), Av.2 F (36.8 C), Min:97.9 F (36.6 C), Max:98.4 F (36.9 C) GEN: well developed, well nourished, no acute distress HEENT: Normocephalic atraumatic, EOMI, mucous membranes pink and moist, Uvalda collar CV: RRR, no murmurs, rubs or gallops PULM: CTAB, no rales or rhonchi. Respirations WNL and unlabored ABD: soft, NT, ND, +BS and equal NEURO: A&O x3. Decreased to light touch right upper and lower extremity compared to left. Delayed response time fluent speech MSK: Spasticity possible contracture left ankle, at least 4/5 bilateral upper extremities right ankle limited range of motion left ankle able to partially straight leg raise right greater than left EXTREMITIES: No calf tenderness to palpation bilaterally. No edema BLEs SKIN: warm dry and intact with good turgor PSYCH: appropriately interactive. Affect WNL. Medications Scheduled Meds: baclofen 10 mg Oral TID buPROPion 150 mg Oral QAM escitalopram 20 mg Oral Daily lurasidone 80 mg Oral Dinner sodium chloride flush 5-40 mL IntraVENous 2 times per day acetaminophen 650 mg Oral Q6H famotidine 20 mg Oral Daily Or famotidine (PEPCID) injection 20 mg IntraVENous Daily polyethylene glycol 17 g Oral Daily enoxaparin 40 mg SubCUTAneous Daily Continuous Infusions: sodium chloride PRN Meds:.sodium chloride flush, sodium chloride, oxyCODONE OR oxyCODONE, ondansetron OR ondansetron, magnesium hydroxide, bisacodyl Diagnostics: CBC: Recent Labs 04/17/23 0308 WBC 10.4 RBC 4.05 HGB 12.4 HCT 37.9 MCV 93.6 RDW 12.6 PLT 206 BMP: Recent Labs 04/17/23 0308 NA 135 K 4.6 CL 106 CO2 19* BUN 16 CREATININE 0.7 BNP: No results for input(s): BNP in the last 72 hours. PT/INR: No results for input(s): PROTIME , INR in the last 72 hours. APTT: No results for input(s): APTT in the last 72 hours. CARDIAC ENZYMES: No results for input(s): CKMB , CKMBINDEX , TROPONINT in the last 72 hours. Invalid input(s): CKTOTAL;3 FASTING LIPID PANEL:No results found for: CHOL , HDL , TRIG LIVER PROFILE: No results for input(s): AST , ALT , ALB , BILIDIR , BILITOT , ALKPHOS in the last 72 hours. I/O (24Hr): Intake/Output Summary (Last 24 hours) at 04/19/2023 1029 Last data filed at 04/19/2023 0700 Gross per 24 hour Intake -- Output 2485 ml Net -2485 ml Glu last 24 hour No results for input(s): POCGLU in the last 72 hours. No results for input(s): CLARITYU , COLORU , PHUR , SPECGRAV , PROTEINU , RBCUA , BLOODU , BACTERIA , NITRU , WBCUA , LEUKOCYTESUR , YEAST , GLUCOSEU , BILIRUBINUR in the last 72 hours. Social/Functional History Lives With: Family ( and 2 adult daughters) Type of Home: House Home Layout: One level Home Access: Stairs to enter without rails ( bumps pt up steps in wheelchair) Entrance Stairs - Number of Steps: 3 Bathroom Shower/Tub: Walk-in shower, Shower chair with back Bathroom Toilet: Standard Home Equipment: Walker, rolling, Wheelchair-manual (Pt uses wheelchair) Receives Help From: Family ADL Assistance: Needs assistance ( assists with all ADL tasks. Pt able to self feed with utensils sometimes once food cut up by ) Homemaking Assistance: Needs assistance Homemaking Responsibilities: No (family performs) Ambulation Assistance: Non-ambulatory (since November 2022) Transfer Assistance: Needs assistance ( performs face to face stand-pivot transfers to all surfaces. 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 assists with all ADL tasks and transfers. pt has been non-ambulatory for ~5 months Impression: Cervical stenosis with myelopathy s/p C3-C6 posterior decompression and fusion on 04/16 Tetraparesis Spasticity-baclofen IBS/GERD-Pepcid Depression-Wellbutrin, Lexapro, Latuda Panic disorder Pain-Toradol, Roxicodone Recommendations: Diagnosis: Cervical stenosis with myelopathy s/p C3-C6 posterior decompression and fusion Therapy: Has PT/OT needs Medical Necessity: As above Support: Lives with , supportive family Rehab Recommendation: The patient will benefit from acute inpatient rehabilitation once medically stable per primary service. Anticipate she will be able to tolerate 3 hours of therapy per day in rehabilitation. The patient requires multidisciplinary rehabilitation treatment including medical management by a PM&R physician, 24 hour rehabilitation nursing, physical therapy, occupational therapy, /- speech therapy, rehabilitation social work, and nutrition services. Patient and family also require education in post-hospital precautions and home exercise routine, adaptive techniques and deficit compensation strategies, strengthening and conditioning, equipment prescription and instructions in use. DVT Prophylaxis: Lovenox Qamar Ogden MD This note is created with the assistance of a speech recognition program. While intending to generate a document that actually reflects the content of the visit, the document can still have some errors including those of syntax and sound a like substitutions which may escape proof reading. In such instances, actual meaning can be extrapolated by contextual diversion Neurosurgery JOHNNIE/Resident Daily Progress Note No chief complaint on file. 04/19/2023 9:37 AM Chart reviewed. No acute events overnight. No new complaints. Reports muscle pain to shoulder area. Toradol x1 given for better pain control. Tolerating oral diet. Up to chair with jean pierre steady this AM. Vitals: 04/19/23 0400 04/19/23 0721 04/19/23 0809 04/19/23 0849 BP: (!) 143/74 (!) 137/95 Pulse: 92 (!) 104 Resp: Temp: 98.3 F (36.8 C) 98.2 F (36.8 C) TempSrc: Oral Oral SpO2: 95% 99% Weight: Height: PE: AOx3 Motor L deltoid 4/5; R deltoid 5/5 L biceps 4+/5; R biceps 5/5 L triceps 4+/5; R triceps 5/5 L wrist extension 4/5; R wrist extension 4+/5 L intrinsics 4/5; R intrinsics 4+/5 LLE rigid-limited iliopsoas exam R iliopsoas 5/5 L quadriceps 5/5; R quadriceps 5/5 L Dorsiflexion 3/5; R dorsiflexion 5/5 L Plantarflexion 3/5; R plantarflexion 5/5 Sensation decrease sensation to the LUE Drain output ROMULO drain 10 ml/12h Incision posterior cervical dressing, intact Lab Results Component Value Date WBC 10.4 04/17/2023 HGB 12.4 04/17/2023 HCT 37.9 04/17/2023 PLT 206 04/17/2023 NA 135 04/17/2023 K 4.6 04/17/2023 CL 106 04/17/2023 CREATININE 0.7 04/17/2023 BUN 16 04/17/2023 CO2 19 (L) 04/17/2023 INR 1.1 04/03/2023 A/P 62 y.o. female who presents with stenosis of cervical spine with myelopathy. POD 3 s/p C3-6 posterior cervical decompression fusion - activity as tolerated, PT and OT - cervical collar when OOB - discontinue ROMULO drain today - pain control, baclofen 10mg TID - bowel regimen - Lovenox and SCDs for DVT prophylaxis - encourage IS - discharge planning- PM&R consulted for IP rehab Please contact neurosurgery with any changes in patients neurologic status. Oscar Marie CNP 04/19/23 9:37 AM Physical Medicine & Rehabilitation Progress Note Admitting Physician: Bev Brooks DO Primary Care Provider: Efraín Li MD Chief Complaint: Cervical stenosis with myelopathy Brief History: This is a follow up to the initial consult on Ms. Medina Sena who is a 62 y.o. right handed female admitted to [facility] on 04/16/2023. She initially presented for elective surgical intervention for cervical stenosis with myelopathy. She underwent C3-C6 posterior decompression and fusion on 04/16/23 (Dr. Brooks). She has a c-collar when out of bed. Subjective: She reports ongoing posterior neck pain. She feels like the left lower limb is a little bit stronger today than yesterday. ROS: Review of Systems Constitutional: Negative for fever. Musculoskeletal: Positive for neck pain. Neurological: Positive for weakness. Rehabilitation: Physical Therapy Restrictions/Precautions: General Precautions Other position/activity restrictions: 04/16/23 - C3-6 POSTERIOR CERVICAL DECOMPRESSION FUSION. activity as tolerated Required Braces or Orthoses Cervical: c-collar (when out of bed) Bed mobility Supine to Sit: Moderate assistance, 2 Person assistance Sit to Supine: Moderate assistance, 2 Person assistance Bed Mobility Comments: HOB elevated ~40 degrees. Transfers Sit to Stand: Maximum Assistance Stand to Sit: Maximum Assistance Stand Pivot Transfers: Maximum Assistance Comment: Bed to chair w/ face to face transfer. Stand-pivot performed to the R. Pt requires verbal and tactile cues for foot placement prior to transfer. D/t spasticity pt is unable to flex L knee for symmetric positioning of BLE. Ambulation Comments: Pt does not ambulate at baseline Occupational Therapy ADL Feeding: Minimal assistance, Setup Grooming: Maximum assistance Grooming Skilled Clinical Factors: assist to brush hair and secure in elastic this date UE Bathing: Moderate assistance LE Bathing: Maximum assistance UE Dressing: Maximum assistance UE Dressing Skilled Clinical Factors: assist to don and adjust c-collar this date. educated on proper fit and adjusting collar LE Dressing: Dependent/Total LE Dressing Skilled Clinical Factors: assist to don socks this date Toileting: Maximum assistance Additional Comments: pt with decreased balance, FMC, cervical percautions and increased BLE tone limiting functional performance Skin Care: Bath wipes Speech Therapy Current Medications: Current Facility-Administered Medications: baclofen (LIORESAL) tablet 10 mg, 10 mg, Oral, TID buPROPion (WELLBUTRIN XL) extended release tablet 150 mg, 150 mg, Oral, QAM escitalopram (LEXAPRO) tablet 20 mg, 20 mg, Oral, Daily lurasidone (LATUDA) tablet 80 mg, 80 mg, Oral, Dinner sodium chloride flush 0.9 % injection 5-40 mL, 5-40 mL, IntraVENous, 2 times per day sodium chloride flush 0.9 % injection 5-40 mL, 5-40 mL, IntraVENous, PRN 0.9 % sodium chloride infusion, , IntraVENous, PRN acetaminophen (TYLENOL) tablet 650 mg, 650 mg, Oral, Q6H oxyCODONE (ROXICODONE) immediate release tablet 5 mg, 5 mg, Oral, Q4H PRN OR oxyCODONE (ROXICODONE) immediate release tablet 10 mg, 10 mg, Oral, Q4H PRN HYDROmorphone (DILAUDID) injection 0.5 mg, 0.5 mg, IntraVENous, Q3H PRN OR HYDROmorphone (DILAUDID) injection 1 mg, 1 mg, IntraVENous, Q3H PRN famotidine (PEPCID) tablet 20 mg, 20 mg, Oral, Daily OR famotidine (PEPCID) 20 mg in sodium chloride (PF) 0.9 % 10 mL injection, 20 mg, IntraVENous, Daily ondansetron (ZOFRAN-ODT) disintegrating tablet 4 mg, 4 mg, Oral, Q8H PRN OR ondansetron (ZOFRAN) injection 4 mg, 4 mg, IntraVENous, Q6H PRN polyethylene glycol (GLYCOLAX) packet 17 g, 17 g, Oral, Daily magnesium hydroxide (MILK OF MAGNESIA) 400 MG/5ML suspension 30 mL, 30 mL, Oral, Daily PRN bisacodyl (DULCOLAX) suppository 10 mg, 10 mg, Rectal, Daily PRN enoxaparin (LOVENOX) injection 40 mg, 40 mg, SubCUTAneous, Daily Objective: BP 129/65 Pulse (!) 102 Temp 98.2 F (36.8 C) (Oral) Resp 14 Ht 1.575 m (5' 2 ) Wt 59 kg (130 lb) SpO2 96% BMI 23.78 kg/m GEN: Well developed, well nourished, no acute distress HEENT: Normocephalic, atraumatic. EOM grossly intact. Hearing grossly intact. Mucous membranes pink and moist. RESP: Normal breath sounds with no wheezing, rales, or rhonchi. Respirations WNL and unlabored. CV: Regular rate and rhythm. No murmurs, rubs, or gallops. ABD: Soft, non-distended, BS+ and equal. NEURO: Alert. Mildly delayed response time. Speech fluent. Sensation to light touch decreased in the right upper and lower limbs compared to the left. Nonsustained clonus with passive right ankle dorsiflexion. Spasticity with possible contracture in the left ankle plantarflexors. MSK: Muscle bulk is normal bilaterally. Strength 4+/5 in the bilateral upper limbs. Strength 4+/5 with right ankle dorsiflexion and plantarflexion. Decreased ROM in the left ankle. LIMBS: No edema in bilateral lower limbs. SKIN: Warm and dry with good turgor. PSYCH: Mood WNL. Affect WNL. Appropriately interactive. Diagnostics: CBC: Recent Labs 04/17/23 0308 WBC 10.4 RBC 4.05 HGB 12.4 HCT 37.9 MCV 93.6 RDW 12.6 PLT 206 BMP: Recent Labs 04/17/23 0308 NA 135 K 4.6 CL 106 CO2 19* BUN 16 CREATININE 0.7 BNP: No results for input(s): BNP in the last 72 hours. PT/INR: No results for input(s): PROTIME , INR in the last 72 hours. APTT: No results for input(s): APTT in the last 72 hours. CARDIAC ENZYMES: No results for input(s): CKMB , CKMBINDEX , TROPONINT in the last 72 hours. Invalid input(s): CKTOTAL;3 FASTING LIPID PANEL:No results found for: CHOL , HDL , TRIG LIVER PROFILE: No results for input(s): AST , ALT , ALB , BILIDIR , BILITOT , ALKPHOS in the last 72 hours. Reviewed notes from neurosurgery, PT, OT. Impression: Cervical stenosis with myelopathy s/p C3-C6 posterior decompression and fusion on 04/16 Tetraparesis Spasticity IBS Depression Panic disorder Recommendations: Diagnosis: Cervical stenosis with myelopathy s/p C3-C6 posterior decompression and fusion Therapy: Has PT/OT needs Medical Necessity: As above Support: Lives with Rehab Recommendation: The patient will benefit from acute inpatient rehabilitation once medically stable per primary service. Anticipate she will be able to tolerate 3 hours of therapy per day in rehabilitation. The patient requires multidisciplinary rehabilitation treatment including medical management by a PM&R physician, 24 hour rehabilitation nursing, physical therapy, occupational therapy, /- speech therapy, rehabilitation social work, and nutrition services. Patient and family also require education in post-hospital precautions and home exercise routine, adaptive techniques and deficit compensation strategies, strengthening and conditioning, equipment prescription and instructions in use. DVT Prophylaxis: Lovenox Neurosurgery JOHNNIE/Resident Daily Progress Note No chief complaint on file. 04/18/2023 7:53 AM Chart reviewed. No acute events overnight. Pain controlled with pain medications. Tolerating oral diet. Stood and pivot yesterday with therapy. Vitals: 04/17/23 1939 04/18/23 0000 04/18/23 0400 04/18/23 0430 BP: (!) 140/72 130/62 136/72 Pulse: 79 77 84 Resp: 13 12 15 18 Temp: 98.2 F (36.8 C) 98.1 F (36.7 C) 98.1 F (36.7 C) TempSrc: Oral Oral Oral SpO2: 96% 98% Weight: Height: PE: AOx3 Motor L deltoid 4/5; R deltoid 5/5 L biceps 4+/5; R biceps 5/5 L triceps 4+/5; R triceps 5/5 L wrist extension 4/5; R wrist extension 4+/5 L intrinsics 4/5; R intrinsics 4+/5 LLE rigid-limited iliopsoas exam R iliopsoas 5/5 L quadriceps 5/5; R quadriceps 5/5 L Dorsiflexion 3/5; R dorsiflexion 5/5 L Plantarflexion 3/5; R plantarflexion 5/5 Sensation decrease sensation to the LUE Drain output ROMULO drain 60 ml/12h Incision posterior cervical dressing, intact Lab Results Component Value Date WBC 10.4 04/17/2023 HGB 12.4 04/17/2023 HCT 37.9 04/17/2023 PLT 206 04/17/2023 NA 135 04/17/2023 K 4.6 04/17/2023 CL 106 04/17/2023 CREATININE 0.7 04/17/2023 BUN 16 04/17/2023 CO2 19 (L) 04/17/2023 INR 1.1 04/03/2023 Radiology XR CERVICAL SPINE (2-3 VIEWS) Result Date: 04/17/2023 EXAMINATION: 3 XRAY VIEWS OF THE CERVICAL SPINE 04/17/2023 9:40 am COMPARISON: None. HISTORY: ORDERING SYSTEM PROVIDED HISTORY: followup postop; UPRIGHT AP AND LATERAL TECHNOLOGIST PROVIDED HISTORY: followup postop; UPRIGHT AP AND LATERAL followup postop; UPRIGHT AP AND LATERAL Status post C3-6 decompression/fusion Reason for Exam: aap and left lateral sitting uprt on stretcher FINDINGS: Posterior fixation extending from the C3 to the C6 level. Anterior cervical spine fixation extending from the C6 to the C7 level. Laminectomy defects at the C3 through C6 levels. There is reversal the normal cervical spine lordosis. Bridging osteophytes at multiple levels in the cervical spine. Vertebral body heights are maintained. Prevertebral soft tissues are within normal limits. Postsurgical change. No complication. A/P 62 y.o. female who presents with stenosis of cervical spine with myelopathy. POD 2 s/p C3-6 posterior cervical decompression fusion - activity as tolerated, PT and OT - cervical collar when OOB - continue ROMULO drain, monitor output - pain control, baclofen 10mg TID - bowel regimen - Lovenox and SCDs for DVT prophylaxis - encourage IS - discharge planning- PM&R consulted for IP rehab Please contact neurosurgery with any changes in patients neurologic status. Oscar Marie CNP 04/18/23 7:53 AM Physical Therapy Facility/Department: [address] [facility] Physical Therapy Initial Assessment Name: Medina Sena : 1960 Date of Service: 04/17/2023 Medina Sena is a 62 y.o. female who presents for PAT appointment. Patient reports that in November 2022 she woke up with neck and bilateral shoulder pain and that within 24 hours her arms, hands, legs and feet became numb and was unable to walk. She has been non-ambulatory since and has been using wheelchair and require assistance with ADLs. She is accompanied by her today. She reports she no longer has been having the neck and shoulder pain. She denies known injury or trauma. Discharge Recommendations: Further therapy recommended at discharge.The patient should be able to tolerate at least 3 hours of therapy per day over 5 days or 15 hours over 7 days. This patient may benefit from a Physical Medicine and Rehab consult. PT Equipment Recommendations Equipment Needed: No Patient Diagnosis(es): There were no encounter diagnoses. 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 Past Surgical History: has a past surgical history that includes Appendectomy; Breast biopsy; Cervical spine surgery (2003); Colonoscopy; Cholecystectomy; Hysterectomy; Tonsillectomy and adenoidectomy; Breast surgery (Left); Cervical spine surgery (04/16/2023); and cervical fusion (N/A, 04/16/2023). Assessment Body Structures, Functions, Activity Limitations Requiring Skilled Therapeutic Intervention: Decreased functional mobility ;Decreased strength;Decreased endurance;Decreased balance Assessment: Pt modA+2 in bed mobility, maxA+1 in face to face stand pivot transfer. Pt does stand-pivot transfers face to face at baseline w/ spouse assisting. Spouse reporting pulling on pt's axillas, educated spouse to acquire and use a gait belt to reduce strain on cervical neck post-surgery as well as improve control of hip extension during stand-pivot transfer. Pt is currently unsafe to return to prior living arraingements. Pt would benefit from continued acute PT to address deficits. Therapy Prognosis: Good Decision Making: Medium Complexity Requires PT Follow-Up: Yes Activity Tolerance Activity Tolerance: Patient limited by fatigue;Patient limited by endurance Plan Physical Therapy Plan General Plan: (5x/wk) Current Treatment Recommendations: Strengthening, Balance training, Functional mobility training, Transfer training, Endurance training, Neuromuscular re-education, Home exercise program, Safety education & training, Patient/Caregiver education & training, Equipment evaluation, education, & procurement, Therapeutic activities Safety Devices Type of Devices: All fall risk precautions in place, Patient at risk for falls, Call light within reach, Gait belt, Nurse notified, Left in chair Restraints Restraints Initially in Place: No Restrictions Restrictions/Precautions Restrictions/Precautions: General Precautions Required Braces or Orthoses?: Yes Required Braces or Orthoses Cervical: c-collar (when out of bed) Position Activity Restriction Other position/activity restrictions: 04/16/23 - C3-6 POSTERIOR CERVICAL DECOMPRESSION FUSION. activity as tolerated Subjective General Chart Reviewed: No Patient assessed for rehabilitation services?: Yes Response To Previous Treatment: Not applicable Family / Caregiver Present: No Follows Commands: Within Functional Limits General Comment Comments: RN and pt agreeable to PT. pt alert in bed upon arrival. Co-Eval w/ OT. C-Collar donned in supine prior to mobility. Subjective Subjective: Pt reports pain in posterior neck near surgical site, does not quantify. Pt repositioned at end of session for comfort. Social/Functional History Social/Functional History Lives With: Family ( and 2 adult daughters) Type of Home: House Home Layout: One level Home Access: Stairs to enter without rails ( bumps pt up steps in wheelchair) Entrance Stairs - Number of Steps: 3 Bathroom Shower/Tub: Walk-in shower, Shower chair with back Bathroom Toilet: Standard Home Equipment: Walker, rolling, Wheelchair-manual (Pt uses wheelchair) Receives Help From: Family ADL Assistance: Needs assistance ( assists with all ADL tasks. Pt able to self feed with utensils sometimes once food cut up by ) Homemaking Assistance: Needs assistance Homemaking Responsibilities: No (family performs) Ambulation Assistance: Non-ambulatory (since November 2022) Transfer Assistance: Needs assistance ( performs face to face stand-pivot transfers to all surfaces. 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 assists with all ADL tasks and transfers. pt has been non-ambulatory for ~5 months Vision/Hearing Vision Vision: Impaired (Glasses) Hearing Hearing: Within functional limits Cognition Orientation Overall Orientation Status: Within Functional Limits Cognition Overall Cognitive Status: WFL Objective Gross Assessment Tone: Abnormal (R Quadricep tone 2/4, L Quadricep tone 3/4 (Modified Roxanna Scale)) AROM RLE (degrees) RLE AROM: WFL AROM LLE (degrees) LLE AROM : Exceptions LLE General AROM: Dorsiflexion lacking ~20 degrees from neutral AROM and PROM. Knee flexion AROM ~45 degrees flexion, PROM WFL. AROM RUE (degrees) RUE General AROM: See OT AROM LUE (degrees) LUE General AROM: See OT Strength RLE R Hip Flexion: 4-/5 R Knee Extension: 4-/5 R Ankle Dorsiflexion: 4-/5 R Ankle Plantar flexion: 4-/5 Strength LLE L Hip Flexion: 4-/5 L Knee Extension: 4-/5 L Ankle Dorsiflexion: 2/5 L Ankle Plantar Flexion: 4-/5 Strength RUE Comment: See OT Strength LUE Comment: See OT Bed mobility Supine to Sit: Moderate assistance;2 Person assistance Sit to Supine: Moderate assistance;2 Person assistance Bed Mobility Comments: HOB elevated ~40 degrees. Transfers Sit to Stand: Maximum Assistance Stand to Sit: Maximum Assistance Stand Pivot Transfers: Maximum Assistance Comment: Bed to chair w/ face to face transfer. Stand-pivot performed to the R. Pt requires verbal and tactile cues for foot placement prior to transfer. D/t spasticity pt is unable to flex L knee for symmetric positioning of BLE. Ambulation Comments: Pt does not ambulate at baseline Balance Posture: Fair Sitting - Static: +;Poor Sitting - Dynamic: Poor;+ Standing - Static: Poor Comments: Sitting balance modA d/t posterior lean, standing balance maxA assessed Face to Face. AM-PAC - Mobility AM-PAC Basic Mobility - Inpatient How much help is needed turning from your back to your side while in a flat bed without using bedrails?: Total How much help is needed moving from lying on your back to sitting on the side of a flat bed without using bedrails?: Total How much help is needed moving to and from a bed to a chair?: Total How much help is needed standing up from a chair using your arms?: Total How much help is needed walking in hospital room?: Total How much help is needed climbing 3-5 steps with a railing?: Total AM-PAC Inpatient Mobility Raw Score : 6 AM-PAC Inpatient T-Scale Score : 23.55 Mobility Inpatient CMS 0-100% Score: 100 Mobility Inpatient CMS G-Code Modifier : CN Goals Short Term Goals Time Frame for Short Term Goals: 14 visits Short Term Goal 1: Pt will improve sitting balance to SBA Short Term Goal 2: Pt will transfer face to face Carol MARCEL directions. Short Term Goal 3: Pt will be SBA in all bed mobility tasks Education Patient Education Education Given To: Patient Education Provided: Role of Therapy;Plan of Care;Equipment;Family Education;Precautions Education Provided Comments: Educated on alterations of stand-pivot transfers to reduce strain on BUE and subsequently cervical spine. Education Method: Demonstration;Verbal Barriers to Learning: None Education Outcome: Verbalized understanding;Demonstrated understanding Therapy Time Individual Concurrent Group Co-treatment Time In 1330 Time Out 1408 Minutes 38 Timed Code Treatment Minutes: 23 Minutes Rl Feldman PT Occupational Therapy Facility/Department: [address] [facility] Occupational Therapy Initial Assessment Name: Medina Sena : 1960 Date of Service: 04/17/2023 Procedure: C3-6 POSTERIOR CERVICAL DECOMPRESSION FUSION Discharge Recommendations: Patient would benefit from continued therapy after discharge OT Equipment Recommendations Equipment Needed: Yes Mobility Devices: ADL Assistive Devices ADL Assistive Devices: Gait Belt Further therapy recommended at discharge.The patient should be able to tolerate at least 3 hours of therapy per day over 5 days or 15 hours over 7 days. This patient may benefit from a Physical Medicine and Rehab consult. Patient Diagnosis(es): There were no encounter diagnoses. 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 Past Surgical History: has a past surgical history that includes Appendectomy; Breast biopsy; Cervical spine surgery (2003); Colonoscopy; Cholecystectomy; Hysterectomy; Tonsillectomy and adenoidectomy; Breast surgery (Left); Cervical spine surgery (04/16/2023); and cervical fusion (N/A, 04/16/2023). Assessment Performance deficits / Impairments: Decreased functional mobility ;Decreased ADL status;Decreased endurance;Decreased balance;Decreased high-level IADLs;Decreased fine motor control;Decreased coordination;Decreased posture;Decreased strength Assessment: Pt requires signifcant assistance to perform nearly all ADL tasks. reports assisting with ADL's at baseline and can offer 01/10 support at discharge. Pt would benefit from continued therapy to increase IND and safety in self care prior to discharge from acute setting. Prognosis: Fair Decision Making: High Complexity REQUIRES OT FOLLOW-UP: Yes Activity Tolerance Activity Tolerance: Patient Tolerated treatment well Plan Occupational Therapy Plan Times Per Week: 4x/week Current Treatment Recommendations: Balance training, Functional mobility training, Wheelchair mobility training, Patient/Caregiver education & training, Safety education & training, Pain management, Self-Care / ADL, Equipment evaluation, education, & procurement, Home management training, Coordination training Restrictions Restrictions/Precautions Restrictions/Precautions: General Precautions Required Braces or Orthoses?: Yes Required Braces or Orthoses Cervical: c-collar (when out of bed) Position Activity Restriction Other position/activity restrictions: 04/16/23 - C3-6 POSTERIOR CERVICAL DECOMPRESSION FUSION. activity as tolerated Subjective General Patient assessed for rehabilitation services?: Yes Family / Caregiver Present: Yes ( present throughout evaluation) General Comment Comments: RN okayed for therapy. pt agreeable and cooperative throughout. pt reports 7/10 pain at surgical site. RN present and aware. c-collar placed on pt in bed and pt able to progress with session. Social/Functional History Social/Functional History Lives With: Family ( and 2 adult daughters) Type of Home: House Home Layout: One level Home Access: Stairs to enter without rails ( bumps pt up steps in wheelchair) Entrance Stairs - Number of Steps: 3 Bathroom Shower/Tub: Walk-in shower, Shower chair with back Bathroom Toilet: Standard Home Equipment: Walker, rolling, Wheelchair-manual (Pt uses wheelchair) Receives Help From: Family ADL Assistance: Needs assistance ( assists with all ADL tasks. Pt able to self feed with utensils sometimes once food cut up by ) Homemaking Assistance: Needs assistance Homemaking Responsibilities: No (family performs) Ambulation Assistance: Non-ambulatory (since November 2022) Transfer Assistance: Needs assistance ( performs face to face stand-pivot transfers to all surfaces. Daughters help sometimes) Active Rock Wool Applicator: No Patient's Rock Wool Applicator Info: family drives- transfers pt into vehicle Mode of Transportation: SUV, Truck Occupation: Retired Type of Occupation: [employer] Additional Comments: Family provides 24/7 assist at baseline. assists with all ADL tasks and transfers. pt has been non-ambulatory for ~5 months Objective Safety Devices Type of Devices: All fall risk precautions in place;Patient at risk for falls;Call light within reach;Gait belt;Nurse notified;Left in chair Restraints Restraints Initially in Place: No Bed Mobility Training Bed Mobility Training: Yes Overall Level of Assistance: Moderate assistance;Assist X2 Interventions: Verbal cues Supine to Sit: Moderate assistance;Assist X2 Sit to Supine: (up in chair at end of session) Scooting: Maximum assistance Balance Sitting: Impaired (Mod A to maintain EOB d/t posterior lean) Standing: Impaired (Max A for face to face transfer) Transfer Training Transfer Training: Yes Overall Level of Assistance: Maximum assistance (Face to face stand-pivot bed<>chair) Interventions: Verbal cues Sit to Stand: Maximum assistance Stand to Sit: Maximum assistance Stand Pivot Transfers: Maximum assistance Bed to Chair: Maximum assistance Gait Gait Training: No (pt non-ambulatory at baseline) AROM: Within functional limits (B shoulders tested to 90 degrees flexion only d/t sx) Strength: Generally decreased, functional (3+/5 BUE grossly) Coordination: Generally decreased, functional (Pt is R handed with grossly decreased FMC through R hand. L fingers take extended period of time to reach full extension) Tone: Abnormal (high tone through BLE) ADL Feeding: Minimal assistance;Setup Grooming: Maximum assistance Grooming Skilled Clinical Factors: assist to brush hair and secure in elastic this date UE Bathing: Moderate assistance LE Bathing: Maximum assistance UE Dressing: Maximum assistance UE Dressing Skilled Clinical Factors: assist to don and adjust c-collar this date. educated on proper fit and adjusting collar LE Dressing: Dependent/Total LE Dressing Skilled Clinical Factors: assist to don socks this date Toileting: Maximum assistance Additional Comments: pt with decreased balance, FMC, cervical percautions and increased BLE tone limiting functional performance Activity Tolerance Activity Tolerance: Patient limited by fatigue;Patient limited by endurance Vision Vision: Impaired (Glasses) Hearing Hearing: Within functional limits Cognition Overall Cognitive Status: WFL Orientation Overall Orientation Status: Within Functional Limits Education Given To: Patient;Family Education Provided: Role of Therapy;Plan of Care;Precautions;Transfer Training Education Provided Comments: role of therapy, plan of are, cervical percautions, use of gait belt for transfers for pt and 's safety during healing period, wear schedule of c-collar, how to don and adjust c-collar Education Method: Verbal;Demonstration;Teach Back Barriers to Learning: None Education Outcome: Verbalized understanding;Continued education needed AM-PAC - ADL [facility] Daily Activity - Inpatient How much help is needed for putting on and taking off regular lower body clothing?: Total How much help is needed for bathing (which includes washing, rinsing, drying)?: A Lot How much help is needed for toileting (which includes using toilet, bedpan, or urinal)?: A Lot How much help is needed for putting on and taking off regular upper body clothing?: A Lot How much help is needed for taking care of personal grooming?: A Lot How much help for eating meals?: A Little AM-PAC Inpatient Daily Activity Raw Score: 12 AM-PAC Inpatient ADL T-Scale Score : 30.6 ADL Inpatient CMS 0-100% Score: 66.57 ADL Inpatient [facility] G-Code Modifier : CL Goals Short Term Goals Time Frame for Short Term Goals: By discharge; Pt will Short Term Goal 1: Maintain sitting balance 3+ mins Min A to engage in functional tasks Short Term Goal 2: Complete bed mobility with Mod A Short Term Goal 3: Demo Good safety throughout session without cuing Short Term Goal 4: Engage in UB ADL's with Min A and AE/modified techniques as needed Short Term Goal 5: particiapte in 10+ mins [facility] activities to BUE to increase functional performance in self care Therapy Time Individual Concurrent Group Co-treatment Time In 1330 Time Out 1408 Minutes 38 Co-eval w/PT Timed Code Treatment Minutes: 8 Minutes Maame Gonzalez OTR/L Assessment: Patient was sitting up in her chair when wood science professor visited. Family was present and open to spiritual care. Patient was in good spirit and seemed to have strong sarita in God and in the power of prayer. Patient said she raised Protestant and a member of [facility]. Patient received sacrament of anointing of the sick. Intervention: Bullet Assembly Press Setter Operator provided ministry of presence, offered support and prayed with patient and family. Outcome: Patient and family expressed appreciation for the anointing and blessing they received. Plan: Follow up visits recommended for ongoing assessment of patient's condition and for more spiritual and emotional support. Neurosurgery JOHNNIE/Resident Daily Progress Note No chief complaint on file. \ 04/17/2023 6:43 AM Chart reviewed. No acute events overnight. No new complaints. Baclofen ordered TID, ROMULO drain with 140cc/12 hours. Patient wheelchair bound at baseline. Denies any nausea, headaches, or changes in vision. Denies any increasing numbness and tingling from baseline, but does state there has been no improvement yet. Tolerating regular diet. Vitals: 04/17/23 0114 04/17/23 0144 04/17/23 0400 04/17/23 0612 BP: (!) 144/72 Pulse: 75 Resp: 17 18 12 15 Temp: 98.1 F (36.7 C) TempSrc: Oral SpO2: 96% Weight: Height: PE: AOx3 Motor RUE 5/5 with the exception of bilateral laminating press operator 4+/5 LUE 4+/5 throughout, generalized weakness left greater than right Positive hoffmans to BUE RLE 5/5 LLE incredibly rigid, 3/5 DF and PF Positive bilateral clonus Hyperreflexia 3+ to BLE Sensation: decrease sensation to the LUE Drain output 140mL/12 hrs, 230mL since surgery Incision: CDI Lab Results Component Value Date WBC 10.4 04/17/2023 HGB 12.4 04/17/2023 HCT 37.9 04/17/2023 PLT 206 04/17/2023 NA 135 04/17/2023 K 4.6 04/17/2023 CL 106 04/17/2023 CREATININE 0.7 04/17/2023 BUN 16 04/17/2023 CO2 19 (L) 04/17/2023 INR 1.1 04/03/2023 A/P 62 y.o. female who presents with stenosis of cervical spine with myelopathy. POD #1 s/p C3-6 posterior cervical decompression fusion - C-collar when OOB - Neuro checks Q4H - Maintain drain, document output - Baclofen 10mg TID - PM&R consult placed - Okay for PT/OT - X-ray cervical spine pending - Lovenox and SCDs for DVT prophylaxis Please contact neurosurgery with any changes in patients neurologic status. Pharmacy Note Renal Dose Adjustment Medina Sena is a 62 y.o. female. Pharmacist assessment of renally cleared medications. No results for input(s): BUN in the last 72 hours. No results for input(s): CREATININE in the last 72 hours. Estimated Creatinine Clearance: 37 mL/min (A) (based on SCr of 1.2 mg/dL (H)). Height: Ht Readings from Last 1 Encounters: 04/16/23 1.575 m (5' 2 ) Weight: Wt Readings from Last 1 Encounters: 04/16/23 59 kg (130 lb) The following medication dose has been adjusted based upon renal function per P&T Guidelines: Famotidine adjusted to 20mg daily. -Hawk Campos PharmD, BCPS 04/16/2023 8:19 PM Neurosurgery Post op Progress Note SUBJECTIVE: Status post: #1 C3-6 decompression/fusion. Patient seen while in recovery. Rigid c-collar remains in place. Patient has a history of spastic quadriplegia. She is a nonambulator. She is essentially wheelchair-bound. Patient is able to move all 4 extremities upon command. Both upper and lower extremities to the left side appear to be weaker. She denies the presence of any headache, nausea or emesis. The pain to the surgical site of her back appears to be well-controlled OBJECTIVE Physical exam VITALS: Vitals: 04/16/23 1830 BP: (!) 177/85 Pulse: 99 Resp: 16 Temp: SpO2: 100% INTAKE: Intake/Output Summary (Last 24 hours) at 04/16/2023 1848 Last data filed at 04/16/2023 1820 Gross per 24 hour Intake 1000 ml Output 350 ml Net 650 ml Voiding: No history of bowel or bladder incontinence. URINARY CATHETER OUTPUT ([place]): No [place]le catheter. DRAIN/TUBE OUTPUT: ROMULO drain noted to the surgical site. Drain appears to be working. [place] contains approximately 20 mL of blood. No evidence of DVT seen on physical exam. Neurological exam reveals Responds to voice and Responds to tactile stimuli alert, oriented x3, affect appropriate, moves all extremities well, and no involuntary movements alert, oriented, normal speech, no focal findings or movement disorder noted, cranial nerves II through XII intact. the upper and lower extremities weakness noted: Both left and right upper extremity demonstrates +4/5 service parts coordinator strength/thumb extension, finger opposition/abduction. Left lower extremity demonstrates weak dorsiflexion. Ankle clonus is noted. Hyperreflexia to both lower extremities is noted. Wound Post op wound: posterior cervical spine well approximated incision clean, dry, and no drainage Closed w/ stacey, overlying incision has bacitracin ointment and an island dressing. Data LABS: Lab Results Component Value Date WBC 8.0 04/03/2023 HGB 13.9 04/03/2023 HCT 41.0 04/03/2023 MCV 88.7 04/03/2023 PLT 244 04/03/2023 Lab Results Component Value Date NA 140 04/03/2023 K 4.2 04/03/2023 CL 105 04/03/2023 CO2 23 04/03/2023 Lab Results Component Value Date BUN 20 04/03/2023 Lab Results Component Value Date CREATININE 1.2 (H) 04/03/2023 ASSESSMENT AND PLAN 1. Okay to admit patient from recovery to floor if stable. 2. 24 hours of IV antibiotics and appropriate analgesics for pain. 3. Consultations to both physical therapy and Occupational Therapy. 4. Will start chemical DVT prophylaxis i.e. Lovenox postop day 1. For now SCDs. 5. Okay to remove cervical collar when in bed. Cervical collar is to be placed on whenever patient is out of bed. 6. Regular diet as tolerated. 7. Will obtain radiographs of the cervical spine, tomorrow ,both AP and lateral upright views if possible. 8. We will continue to closely follow this patient while she remains in house Pt/pt's updated on delay in OR start time due to emergency case. Needs addressed and met. Pt updated on possible delay in start time. Pt assisted onto bedpan to void without issues and pericare done. Call light within pt's reach. Pt's remains at bedside. Pt with abnormal U/A from PAT visit. Left message at Dr. Brooks's office and faxed results. documented in this encounter [facility] [place] 04-19-2023 Hospital Discharge instructions Oscar Marie, MEDIA EXECUTIVE - OBSTETRICS SCRUB NURSE - 04/19/2023 9:41 AM EST Images from the original note were not included. Posterior Cervical Decompression and Fusion Surgery Discharge Instructions Thank you for choosing [facility] for your surgical needs. The following instructions will help to ensure your comfort and that you are well prepared after your surgery. Post-Operative Visit: The office is located at: [facility] [address], [address], [place] [address] Please also call your primary care physician to schedule an appointment for further evaluation and care. Diet: You may resume your regular diet. Be sure to eat a well-balanced diet. Protein promotes wound healing. Pain medication and decreased activity can cause constipation. Drink 8-10 glasses of water a day, eat fresh fruits and vegetables, and add prunes, raisins and bran cereals to your diet if you do become constipated. A stool softener taken 1-2 times a day is helpful. Dulcolax suppositories or Fleets enemas are also available without a prescription. Call our office if the problem continues. Activity and Exercise: No driving until you are seen in the office. Avoid riding in a car for the first two weeks until you come to the office to have your stacey removed. Start taking short, frequent walks in the beginning. [place], more frequent walks throughout the day are more beneficial than one long walk each day. You may gradually increase the distance; as tolerated. Your brace will help give support to your muscles while you walk. If your pain increases, you may be walking too much or too far. Try backing off for a day or two and then resume slowly. If physical therapy has been prescribed, you are not to perform range of motion, flexion, extension or lateral bending. No lifting greater than 5 lbs (gallon of milk) for first few weeks after surgery. No pushing, pulling, or overhead work. No baths, swimming or hot tub until you discuss this with your doctor. Brace: Please wear cervical collar as much as possible. Okay to remove while sleeping, showering and eating. Incision Care and Hygiene: Your incision may be may be closed with sutures Steri-strips, stacey, or glue. -The Steri-strips will fall off on their own in 7-10 days -The stacey or sutures should be removed about 2 weeks after surgery. If they are not removed please call the clinic to have them removed. -The glue will dissolve over time No ointments or lotions on the incision It is OK to shower 3-4 days after surgery. Let water run over the incision. Gently pat the incision dry with a clean towel, do not rub. Leave incision site open to air. Pain Management: Do not take NSAID medications (Ibuprofen, Naprosyn, etc.) or Klein-2 inhibitors (Celebrex, etc.) for 10 weeks following surgery. You will be given a prescription for pain medication. Our hope is that you will eventually be weaned off all pain medications. Try not to take the pain medicine unless you need to. If you feel that you do not need something that strong, you may use regular or extra-strength Tylenol instead. DO NOT drink alcohol, drive or operate heavy machinery while taking your pain medications. Notify the office if your pain is not controlled or you need a medication refill before your appointment. Blood Thinning Medication: If you were previously on any blood thinning medications (Clopidogrel, Warfarin, aspirin, etc.) that haven t been restarted, you may resume in 1 weeks following your surgery. YOU SHOULD CALL THE OFFICE AT [phone] IF YOU HAVE ANY OF THE FOLLOWING: Increased pain or pain not relieved with current medications Increased difficulty with swallowing If you notice any signs of infection such as bleeding, redness, swelling, tenderness, odor, drainage or opening of the incision. Please check your incisions twice daily. Fevers greater than 101.5 degrees Flu-like symptoms, chills, shakes, chest pain, shortness of breath, nausea, vomiting, diarrhea New or increased pain, numbness or tingling in the arms or legs, as well as new or increased balance or coordination issues. New difficulty with urinating or holding your bladder or your bowels *If you are unable to contact someone at the office and your symptoms persist or increase, call 911 or go to the emergency department. Gabbie Schneider RN - 04/22/2023 1:09 PM EST Continuity of Care Form Patient Name: Medina Sena : 1960 Admit date: 04/16/2023 Discharge date: 04/22/2023 Code Status Order: Full Code Advance Directives: Advance Care Flowsheet Documentation Date/Time Healthcare Directive Type of Healthcare Directive Copy in Chart Healthcare Agent Appointed Healthcare Agent's Name Healthcare Agent's Phone Number 04/16/23 0902 No, patient does not have an advance directive for healthcare treatment -- -- -- -- -- Admitting Physician: Bev Brooks DO PCP: Efraín Li MD Discharging Nurse: [facility] Discharging Hospital Unit/Room#: 0119/0119-01 Discharging Unit Phone Number: [phone] Emergency Contact: Extended Emergency Contact Information Primary Emergency Contact: John Otero Mobile Relation: Spouse Preferred language: Namibian Timekeeper needed? No Secondary Emergency Contact: Bruna Sena Mobile Relation: Child Past Surgical History: Past Surgical History: Procedure Laterality Date APPENDECTOMY BREAST BIOPSY BREAST SURGERY Left CERVICAL FUSION N/A 04/16/2023 C3-6 POSTERIOR CERVICAL DECOMPRESSION FUSION performed by Bev Brooks DO at [facility] OR CERVICAL SPINE SURGERY [address] [place] [address] CERVICAL SPINE SURGERY 04/16/2023 C3-6 POSTERIOR CERVICAL DECOMPRESSION FUSION CHOLECYSTECTOMY COLONOSCOPY HYSTERECTOMY (CERVIX STATUS UNKNOWN) BSO TONSILLECTOMY AND ADENOIDECTOMY Immunization History: Immunization History Administered Date(s) Administered COVID-19, PFIZER PURPLE top, DILUTE for use, (age 12 y+), 30mcg/0.3mL 06/09/2020, 06/30/2020 Active Problems: Patient Active Problem List Diagnosis Code 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) M48.02, G99.2 Isolation/Infection: Isolation No Isolation Patient Infection Status None to display Nurse Assessment: Last Vital Signs: BP (!) 141/78 Pulse 99 Temp 98.6 F (37 C) (Oral) Resp 18 Ht 1.575 m (5' 2 ) Wt 59 kg (130 lb) SpO2 99% BMI 23.78 kg/m Last documented pain score (0-10 scale): Pain Level: 0 Last Weight: Wt Readings from Last 1 Encounters: 04/16/23 59 kg (130 lb) Mental Status: oriented, alert, coherent, logical, thought processes intact, and able to concentrate and follow conversation IV Access: - None Nursing Mobility/ADLs: Walking Assisted Transfer Assisted Bathing Dependent Dressing Dependent Toileting Assisted Feeding Assisted Instrumentation Technician Assisted Med Delivery whole Wound Care Documentation and Therapy: Incision 04/16/23 Neck Posterior (Active) Dressing Status Clean;Dry;Intact 04/22/23 0800 Dressing Change Due 04/23/23 04/22/23 0800 Incision Cleansed Not Cleansed 04/22/23 0800 Dressing/Treatment Silver dressing 04/16/23 1900 Closure [place] 04/22/23 0800 Margins Approximated 04/22/23 0800 Drainage Amount None (dry) 04/22/23 0800 Odor None 04/22/23 0800 Number of days: 5 Elimination: Continence: Bowel: Yes Bladder: Yes Urinary Catheter: None Colostomy/Ileostomy/Ileal Conduit: No Date of Last BM: 04/21/2023 Intake/Output Summary (Last 24 hours) at 04/22/2023 1253 Last data filed at 04/22/2023 1236 Gross per 24 hour Intake 1080 ml Output 1450 ml Net -370 ml I/O last 3 completed shifts: In: 1080 [P.O.:1080] Out: 2800 [Urine:2800] Safety Concerns: At Risk for Falls Impairments/Disabilities: None Nutrition Therapy: Current Nutrition Therapy: - Oral Diet: General Routes of Feeding: Oral Liquids: Thin Liquids Daily Fluid Restriction: no Last Modified Barium Swallow with Video (Video Swallowing Test): not done Treatments at the Time of Hospital Discharge: Respiratory Treatments: none Oxygen Therapy: is not on home oxygen therapy. Ventilator: - No ventilator support Rehab Therapies: Physical Therapy and Occupational Therapy Weight Bearing Status/Restrictions: No weight bearing restrictions Other Medical Equipment (for information only, NOT a DME order): wheelchair and walker Other Treatments: none Patient's personal belongings (please select all that are sent with patient): None RN SIGNATURE: CASE MANAGEMENT/SOCIAL WORK SECTION Inpatient Status Date: 04/16/2023 Readmission Risk Assessment Score: Readmission Risk Risk of Unplanned Readmission: 9 Discharging to Facility/ Agency Name: Address: Phone: Fax: Dialysis Facility (if applicable) Name: Address: Dialysis Schedule: Phone: Fax: House Fellow/Specification Manager signature: {Esignature:[id number]} PHYSICIAN SECTION Prognosis: {Prognosis:8665950791} Condition at Discharge: { Patient Condition:823228708} Rehab Potential (if transferring to Rehab): {Prognosis:8781351175} Recommended Labs or Other Treatments After Discharge: Physician Certification: I certify the above information and transfer of Medina Sena is necessary for the continuing treatment of the diagnosis listed and that she requires {Admit to Appropriate Level of Care:53429} for {GREATER/LESS:752927062} 30 days. Update Admission H&P: {CHP DME Changes in HandP:087669521} PHYSICIAN SIGNATURE: {Esignature:[id number]} documented in this encounter [facility] [place] 04-03-2023 History of Present illness Narrative Anesthesia Focused Assessment Upcoming surgery: 04/16/2023 C3-7 POSTERIOR CERVICAL DECOMPRESSION FUSION ( DEBORA SPINE TABLE, PRONE, PRABHAKAR HEADHOLDER, C-ARM, SYNTHES) Bev Brooks, DO Hx of anesthesia complications: no Family hx of anesthesia complications: no METS functional capacity: -Moderate/Excellent >4 + Covid-19 test in last 8 weeks? no Symptoms/Hospitalization?: STOP-BANG Sleep Apnea Questionnaire SNORE loudly (heard through closed doors)? No TIRED, fatigued, sleepy during daytime? No OBSERVED stopping breathing during sleep? No High blood PRESSURE or being treated? No BMI over 35? No AGE over 50? Yes NECK circumference over 16 ? No GENDER (male)? No Total one High risk 5-8 Intermediate risk 3-4 Low risk 0-2 BEATRIZ: no If yes, machine?: Type 1 DM: no T2DM: no Coronary Artery Disease: no Hypertension: no Defib / AICD / Pacemaker: no Preliminary PAT EKG: Normal sinus rhythm, left axis deviation, incomplete right bundle branch block Patient denies cardiac history. Denies any prior cardiac testing, besides an EKG years ago . She denies any cardiopulmonary complaints. Renal Failure: no If yes, on dialysis?: Active smoker: no Drinks Alcohol: no Illicit drugs: no Dentition: benign, reports left upper tooth extracted recently Past Medical History: Diagnosis Date Agoraphobia Depression Diverticular disease IBS (irritable bowel syndrome) SEEMA (iron deficiency anemia) Neuropathy Osteoporosis Panic disorder Spastic quadriparesis (HCC) 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) Under care of service provider 04/03/2023 pcp-efraín hamm-last visit nov 2022 Under care of service provider 04/03/2023 eoulo-prbtt-ngbfluq-last visit feb 2023 Under care of service provider 04/03/2023 neurologist- Dr. Conti- last visit feb 2023 Wears glasses Patient was evaluated in PAT & anesthesia guidelines were applied. NPO guidelines, medication instructions and scheduled arrival time were reviewed with patient. I advised patient/patient family to please contact surgeons office, ahead of time if possible, if any new signs or symptoms of illness, infection, rash, etc. Patient/ patient family verbalize understanding. Anesthesia contacted: yes I spoke with Dr. Raymond. Patient history and pertinent findings reviewed (as documented above in bold). No further orders. ALFREDO TRINIDAD CNP Electronically signed 04/03/2023 at 10:01 AM documented in this encounter [facility] [place] 03-27-2023 Hospital Discharge instructions Syeda Ware APRN - CNP - 03/27/2023 1:12 PM EST Pre-operative Instructions NOTHING to eat or drink after midnight the night prior to surgery (This includes gum, candy, mints, chewing tobacco, etc). Smoking cessation is always advised. Please arrive at the surgery center (Entrance B) by 8:40 AM on 04/16/2023 (or as directed by your surgeon's office). See Directons to Surgery Center on next page. Please take only the following medication(s) the day of surgery with a small sip of water: If applicable: -Use/bring daily inhalers with you -Do not take diabetic medications on the day of surgery. Please stop any blood thinning medications DIRECTED BY PRESCRIBING PROVIDER! : Failure to stop these medications as instructed (too soon or too late) may result in injury to you, or your surgery may need to be rescheduled. Below is a list of some examples for your reference. Antiplatelets : (stop blood cells (called platelets) from sticking together and forming a blood clot): Aspirin (Bufferin, Ecotrin), Clopidogrel (Plavix), Ticagrelor (Brilinta), Prasugrel (Effient), Dipyridamole/aspirin (Aggrenox), Ticlopidine (Ticlid), Eptifibatide (Integrilin) Anticoagulants: (slow down your body's process of making clots): Warfarin (Coumadin), Rivaroxaban (Xarelto), Dabigatran (Pradaxa), Apixaban (Eliquis), Edoxaban (Savaysa), Heparin/Enoxaparin (Lovenox), Fondaparinux (Arixtra) NSAIDS: Aspirin (Bufferin, Ecotrin), Ibuprofen (Motrin, Nuprin,Advil), Naproxen (Aleve),Meloxicam (Mobic), Celecoxib (Celebrex), Diclofenac (Voltaren), Etodolac (Lodine), Indomethacin, Ketorolac, Nabumetone, Oxaprozin (Daypro), Piroxicam (Feldene), Excedrin (has aspirin in it) Herbals/supplements: Bromelain, Cinnamon, Cayenne Pepper, Dong quai (female ginseng), Fish oil, Garlic, Debbie,Ginkgo biloba, Grape seed extract, Turmeric, Vitamin E, etc....) You may continue the rest of your medications through the night before surgery unless instructed otherwise. PLEASE NOTE: THE ABOVE (IF ANY) DISCONTINUED MEDS MAY ONLY BE FROM CLEANING UP THE MED LIST AND WERE NOT ACTUALLY CANCELLED; SEE CHART FOR DETAILS AND ALWAYS CHECK WITH PRESCRIBING PROVIDER BEFORE DISCONTINUING ANY MEDICATIONS Signature (Provider) Signature (Patient) Day of Surgery/Procedure As a patient at [facility] you can expect quality medical and nursing care that is centered on your individual needs. Our goal is to make your surgical experience as comfortable as possible Directions to the Surgery Center The surgery Center at [facility] is located in the Emergency Room parking lot on [facility] or there is additional parking across the street. The address is [address] [place] [address]. Please check in at the Surgery Center upon arrival. Patient Instructions In case of any illness please contact your surgeons office for instructions prior to coming to the hospital. Due to current restrictions you are only allowed 2 adults to be with you. Masks are to be worn and screening will take place on arrival. Bring your current list of medications, vitamins, herbals and anything you might take on an as needed basis. It is important we have a correct list with dosages and frequencies. Please verify your list with your medications at home or bring all of your bottles with you. If you have been given a blood band be sure to bring it with you on the day of surgery. Do not put it on or close the clasp. Use and bring any inhalers if you are currently using one. It is ok to brush your teeth but do not swallow any water. You may be required to provide a urine sample upon your arrival to the pre-op area, so please take this into consideration prior to using the restroom. No jewelry or piercing's to be worn into surgery because you might be injured because of them. No contact lenses to be worn. It is ok to wear your glasses in pre op but they will be removed prior to going into the operating room. Dentures/partials will likely need to be removed in pre op depending on your type of anesthesia, please do not use adhesives on the day of surgery. Bathe as instructed with the special soap given to you. No lotions, powders or creams after bathing. Wear loose comfortable clothing / shoes that are easy to get on and off over wounds or casts. If you are going to be admitted after surgery please bring your Cpap or BiPap if you have it at home. Keep patient belongings to a minimum and leave valuables at home. If you are staying overnight with us, please bring a SMALL bag of personal items. We cannot accommodate large items, like suitcases. If you are going home after anesthesia or sedation then you must have a responsible adult with you to take you home and to be with you for the first 24 hours after surgery. If you do not have someone to stay with you your surgery might get cancelled. Please contact your surgeon's office to see if other arrangements can be made if you can not find someone to stay with you. If you have any other questions on the day of surgery please contact [phone] or [phone] If you have any other questions regarding your procedure/surgery please call your surgeon's office. documented [facility] this encounter [facility] + Plan note No data available for this section [facility] Evaluation note Diagnosis Abnormal urinalysis Other nonspecific finding on examination of urine 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) documented in this encounter [facility] Diagnosis 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)- Primary Acute post-operative pain documented in this encounter [email or web address]* Diagnosis Cervical disc disease with myelopathy- Primary Intervertebral cervical disc disorder with myelopathy, cervical region Acute post-operative pain Cervical disc disease with myelopathy Intervertebral cervical disc disorder with myelopathy, cervical region 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) documented in this encounter [email or web address]* Diagnosis Neuropathy- Primary Mononeuritis of unspecified site Hyperreflexia Abnormal reflex Medicare annual wellness visit, subsequent- Primary ACP (advance care planning) Other specified counseling Screening for malignant neoplasm of colon Estrogen deficiency Other ovarian failure Vitamin B6 deficiency Other iron deficiency anemia Abnormal findings on diagnostic imaging of liver and biliary tract Hypertriglyceridemia (CMS/HCC) Pure hyperglyceridemia Neuropathy Mononeuritis of unspecified site Cervical disc disease with myelopathy Hyperreflexia Abnormal reflex Nonintractable 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 status epilepticus (CMS/HCC) Stenosis of cervical spine with myelopathy (CMS/HCC) Irritable bowel syndrome with alternating bowel habits Atrophic vaginitis Postmenopausal atrophic vaginitis Age-related osteoporosis without current pathological fracture (CMS/HCC) Narrowing of intervertebral disc space Degeneration of intervertebral disc, site unspecified Abnormal mammogram Abnormal mammogram, unspecified Decreased estrogen level History of hysterectomy Acquired absence of both cervix and uterus Major depressive disorder with single episode, in full remission (CMS/HCC) Panic disorder with agoraphobia (CMS/HCC) Agoraphobia with panic disorder Status post bilateral salpingo-oophorectomy (BSO) Syncope and collapse Encounter for screening mammogram for malignant neoplasm of breast Bipolar disorder, current episode mixed, severe, with psychotic features (CMS/HCC) 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 Unspecified cord compression (CMS/HCC) [facility] No data available for this section [facility] No data available for this section [facility] Summary Purpose Family History No Family History Records FoundNo Family History Records FoundNo Family History Records FoundNo Family History Records Found No data available for this section No Family History Records FoundNo Family History Records FoundNo Family History Records FoundNo Family History Records FoundNo Family History Records FoundNo Family History Records FoundNo Family History Records FoundNo Family History Records Found No data available for this section No Family History Records FoundNo Family History Records FoundNo Family History Records FoundNo Family History Records FoundNo Family History Records FoundNo Family History Records FoundNo Family History Records FoundNo Family History Records FoundNo Family History Records FoundNo Family History Records Found Advance Directives No Advanced Directives Records FoundLatest Code Status on File Code Status Date Activated Date Inactivated Comments Full Code 04/16/2023 8:03 PM Healthcare Agents on File Name Relationship Healthcare Agent Relationshi p Communication John Otero Spouse Primary Decision Maker Bruna Sena Child Secondary Decision Maker Cecilia García Child Supplemental (Ot her) Decision Maker Documents on File Type Date Recorded Patient Vessel Scrapper Helper Expl anation ACP-Advance Directive 04/23/2023 3:21 PM Latest Code Status on File Code Status Date Activated Date Inactivated Comments Full Code 04/22/2023 7:52 PM Code Status History Code Status Date Activated Date Inactivated Comments Full Code 04/16/2023 8:03 PM 04/22/2023 7:51 PM Healthcare Agents on File Name Relationship Healthcare Agent Relationshi p Communication John Otero Spouse Primary Decision Maker Bruna Olmoshbun Child Secondary Decision Maker Cecilia Drown Child Supplemental (Ot her) Decision Maker Latest Code Status on File Code Status Date Activated Date Inactivated Comments Full Code 04/22/2023 7:52 PM 05/03/2023 2:08 PM Healthcare Agents on File Name Relationship Healthcare Agent Relationshi p Communication John Otero Spouse Primary Decision Maker Bruna Olmoshbun Child Secondary Decision Maker Cecilia Drown Child Supplemental (Ot her) Decision Maker Additional Source Comments INFORMATION SOURCE (unrecogn ized section and content) DATE CREATED AUTHOR 07/28/2021 [facility] dical Specialist DATE CREATED AUTHOR AUTHOR'S ORGANIZ ATION 08/17/2022 [facility] DATE CREATED AUTHOR AUTHOR'S ORGANIZ ATION 05/08/2023 [facility] DATE CREATED AUTHOR AUTHOR'S ORGANIZ ATION 06/08/2023 [facility] DATE CREATED AUTHOR AUTHOR'S ORGANIZ ATION 09/08/2023 [facility] DATE CREATED AUTHOR AUTHOR'S ORGANIZ ATION 10/15/2023 [facility] DATE CREATED AUTHOR AUTHOR'S ORGANIZ ATION 11/15/2023 [facility] DATE CREATED AUTHOR AUTHOR'S ORGANIZ ATION 05/27/2024 [facility] DATE CREATED AUTHOR AUTHOR'S ORGANIZ ATION 05/29/2024 [facility] DATE CREATED AUTHOR AUTHOR'S ORGANIZ ATION 05/31/2024 [facility] DATE CREATED AUTHOR AUTHOR'S ORGANIZ ATION 06/08/2024 [facility] dical Specialists EPIC Patient Care team informatio n (unrecognized section and content) Human Resources Administrator Relationship Specialty Start Date End Date Efraín Li MD [address] [place] [address] PCP - General Internal Medicine 03/27/23 Human Resources Administrator Relationship Specialty Start Date End Date Efraín Li MD [address] [place] [address] PCP - General Internal Medicine 03/27/23 Human Resources Administrator Relationship Specialty Start Date End Date Efraín Li MD [address] [place] [address] PCP - General Internal Medicine 03/27/23 Human Resources Administrator Relationship Specialty Start Date End Date Efraín Li MD [address] [place] [address] PCP - General Internal Medicine 03/27/23 Human Resources Administrator Relationship Specialty Start Date End Date Efraín Li MD [address] [place] [address] PCP - General Internal Medicine 03/27/23 Human Resources Administrator Relationship Specialty Start Date End Date Efraín Li MD [address] [place] [address] PCP - [employer] 06/09/22 Efraín Li MD [address] [place] [address] PCP - General Internal Medicine 07/17/22 Human Resources Administrator Relationship Specialty Start Date End Date Efraín Li MD [address] [place] [address] PCP - [employer] 06/09/22 Efraín Li MD [address] [place] [address] PCP - General Internal Medicine 07/17/22 Reason for Visit (unrecogniz ed section and content) Specialty Diagnoses / Procedures Referred By Contac t Referred To Contact Diagnoses 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) 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) [M48.02, G99.2] Procedures AL ARTHRD PST/PSTLAT TQ 1NTRSPC CRV BELW C2 SEGMENT AL ARTHRODESIS PST/PSTLAT TQ 1NTRSPC EA ADDL NTRSPC AL ARTHRODESIS PST/PSTLAT TQ 1NTRSPC EA ADDL NTRSPC AL ARTHRODESIS PST/PSTLAT TQ 1NTRSPC EA ADDL NTRSPC AL POSTERIOR SEGMENTAL INSTRUMENTATION 7-12 VRT SEG AL LAMINECTOMY W/O FFD > 2 VERT SEG CERVICAL AL ALLOGRAFT FOR SPINE SURGERY ONLY MORSELIZED AL AUTOGRAFT SPINE SURGERY LOCAL FROM SAME INCISION C3-7 POSTERIOR CERVICAL DECOMPRESSION FUSION ( [place] SPINE TABLE, PRONE, [employer] HEADHOLDER, C-ARM, SYNTHES) Bev Brooks, DO [address] [facility] [address] [place] [address] [facility] [address] [place] [address] Referral ID Status Reason Start Date Expiration Date Visits Re quested Visits Authorized [id number] 1 1 Reason Comments Medicare Annual Wellness Visit Subsequen t Ordered Prescriptions (unrec ognized section and content) Prescription Sig Dispensed Refills Start Date End Da te baclofen (LIORESAL) 10 MG tablet Take 1 tablet by mouth 3 times daily for 14 days 42 tablet 0 04/19/2023 05/03/2023 oxyCODONE (ROXICODONE) 5 MG immediate release tabletIndications:Acute post-operative pain Take 1-2 tablets by mouth every 6 hours as needed for Pain for up to 7 days. Max Daily Amount: 40 mg 56 tablet 0 04/19/2023 04/26/2023 Prescription Sig Dispensed Refills Start Date End Da te baclofen (LIORESAL) 10 MG tablet Take 1 tablet by mouth 3 times daily 90 tablet 0 05/02/2023 polyethylene glycol (GLYCOLAX) 17 g packet Take 1 packet by mouth daily as needed for Constipation 0 05/02/2023 lurasidone (LATUDA) 80 MG TABS tablet Take 1 tablet by mouth Daily with supper 30 tablet 0 05/02/2023 escitalopram (LEXAPRO) 20 MG tablet Take 1 tablet by mouth daily 30 tablet 0 05/02/2023 buPROPion (WELLBUTRIN XL) 150 MG extended release tablet Take 1 tablet by mouth every morning 30 tablet 0 05/02/2023 acetaminophen (TYLENOL) 325 MG tablet Take 2 tablets by mouth every 6 hours as needed for Pain 0 05/02/2023 oxyCODONE-acetaminophe n (PERCOCET) 5-325 MG per tabletIndications: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 Max Daily Amount: 4 tablets 28 tablet 0 05/02/2023 05/09/2023 Scheduled Active and Recently Administ ered Medications (unrecognized section and content) Medication Order 04/20/2023 04/21/2023 04/22/2023 acetaminophen (TYLENOL) tablet 650 mg 650 mg, Oral, EVERY 6 HOURS, First dose on Sat04/16/23 at 2030, Until Discontinued, Maximum dose of acetaminophen is 4000 mg from all sources in 24 hours., Post-op 0253 (Given - Provider: Sarah Anderson RN)0756 (Given - Provider: Tom Angeles RN)1426 (Given - Provider: Tom Angeles RN)2107 (Given - Provider: CHRISTI DUENAS) 0656 (Not Given - Provider: Gabbie Schneider RN - Reason: Other)0819 (Given - Provider: Gabbie Schneider RN)1354 (Given - Provider: Gabbie Schneider RN)1947 (Given - Provider: Melani Morejon RN) 0223 (Not Given - Provider: Melani Morejon RN - Reason: Other - Comment: pt asleep)0813 (Given - Provider: Gabbie Schneider RN)1343 (Given - Provider: Gabbie Schneider RN)2030 (Due) baclofen (LIORESAL) tablet 10 mg 10 mg, Oral, 3 TIMES DAILY, First dose on Sat04/17/23 at 0900, Until Discontinued 0756 (Given - Provider: Tom Angeles RN)1426 (Given - Provider: Tom Angeles RN)2108 (Given - Provider: CHRISTI DUENAS) 0819 (Given - Provider: Gabbie Schneider RN)1354 (Given - Provider: Gabbie Schneider RN)1947 (Given - Provider: Melani Morejon RN) 0814 (Given - Provider: Gabbie Schneider RN)1343 (Given - Provider: Gabbie Schneider RN)2100 (Due) bisacodyl (DULCOLAX) suppository 10 mg 10 mg, Rectal, DAILY, First dose (after last modification) on Sat04/21/23 at 0930, Until Discontinued, Second line therapy for constipation, After 24 hours, if no result from first line PRN therapy, give second line therapy in combination with first line therapy., Post-op 0915 (Given - Provider: Gabbie Schneider RN) 0732 (Not Given - Provider: Gabbie Schneider RN - Reason: Other) buPROPion (WELLBUTRIN XL) extended release tablet 150 mg 150 mg, Oral, EVERY MORNING, First dose on Sat04/17/23 at 0900, Until Discontinued, Do not crush or break., Post-op 0756 (Given - Provider: Tom Angeles RN) 0820 (Given - Provider: Gabbie Schneider RN) 0813 (Given - Provider: Gabbie Schneider RN) enoxaparin (LOVENOX) injection 40 mg 40 mg, SubCUTAneous, DAILY, First dose on Sat04/17/23 at 0900, Until Discontinued, Indication of Use: Prophylaxis-DVT/PE, Administer by deep subCUTAneous injection with pt lying down. Alternate injection sites on abdominal wall. Do not rub site after injection. Check with provider prior to any invasive procedure., Post-op 0755 (Given - Provider: Tom Angeles RN) 0818 (Given - Provider: Gabbie Schneider RN) 0813 (Given - Provider: Gabbie Schneider RN) escitalopram (LEXAPRO) tablet 20 mg 20 mg, Oral, DAILY, First dose on Sat04/16/23 at 2030, Until Discontinued, Post-op 0756 (Given - Provider: Tom Angeles RN) 0819 (Given - Provider: Gabbie Schneider RN) 0814 (Given - Provider: Gabbie Schneider RN) famotidine (PEPCID) 20 mg in sodium chloride (PF) 0.9 % 10 mL injection(Linked Group 1) 20 mg, IntraVENous, DAILY, First dose on Sat04/16/23 at 2030, Until Discontinued, Administer if oral route cannot be used, Post-op 0756 (See Alternative - Provider: Tom Angeles RN) 0819 (See Alternative - Provider: Gabbie Schneider RN) 0814 (See Alternative - Provider: Gabbie Schneider RN) famotidine (PEPCID) tablet 20 mg(Linked Group 1) 20 mg, Oral, DAILY, First dose on Sat04/16/23 at 2030, Until Discontinued, Post-op 0756 (Given - Provider: Tom Angeles RN) 0819 (Given - Provider: Gabbie Schneider RN) 0814 (Given - Provider: Gabbie Schneider, KERRI) lurasidone (LATUDA) tablet 80 mg 80 mg, Oral, DAILY WITH DINNER, First dose on Sat04/16/23 at 2030, Until Discontinued, Adiminister with food., Post-op 1746 (Given - Provider: Tom Angeles RN) 1628 (Given - Provider: Gabbie Schneider, KERRI) 1648 (Given - Provider: Gabbie Schneider, KERRI) magnesium hydroxide (MILK OF MAGNESIA) 400 MG/5ML suspension 30 mL 30 mL, Oral, DAILY, First dose (after last modification) on Sat04/21/23 at 0930, Until Discontinued, First line therapy for constipation., Post-op 0915 (Given - Provider: Gabbie Schneider RN) 0732 (Not Given - Provider: Gabbie Schneider RN - Reason: Other) polyethylene glycol (GLYCOLAX) packet 17 g 17 g, Oral, DAILY, First dose on Sat04/16/23 at 2030, Until Discontinued, Post-op 0755 (Given - Provider: Tom Angeles RN) 0818 (Given - Provider: Gabbie Schneider RN) 0732 (Not Given - Provider: Gabbie Schneider RN - Reason: Other) sodium chloride flush 0.9 % injection 5-40 mL 5-40 mL, IntraVENous, EVERY 12 HOURS SCHEDULED (2 times per day), First dose on Sat04/16/23 at 2100, Until Discontinued, For Line Patency: Peripheral IV = 5 mL; Midline or Central Line = 10 mL/lumen. If following IV push medication, administer flush at same rate as the IV push. Flush volume is determined by type of infusion therapy being given. For non-viscous solutions use: Peripheral IV = 5 mL Midline or Central Line = 10 mL/lumen For viscous solutions (i.e. blood components, parenteral nutrition, contrast media, or after obtaining blood sample) use: Peripheral IV = 10 mL Midline or Central Line = 20 mL/lumen, Post-op 0756 (Given - Provider: Tom Angeles RN)2107 (Given - Provider: CHRISTI DUENAS) 0820 (Given - Provider: Gabbie Schneider RN)1947 (Given - Provider: Melani Morejon RN) 0814 (Given - Provider: Gabbie Schneider RN)2100 (Due) PRN Medication Order 04/20/2023 04/21/2023 04/22/2023 0.9 % sodium chloride infusion IntraVENous, at 5-250 mL/hr, PRN, if patient receiving piggyback infusions and maintenance fluids are not ordered OR KVO fluids to protect IV site / prevent frequent line interruptions/ long duration, Starting on Sat04/16/23 at 2002, For piggyback infusion, administer at same rate as piggyback for a total of 25 mL. Enter 25 mL into dose field and piggyback rate into rate field of order. If piggyback is infusing at a rate less than 100 mL/hr, enter 25 mL into dose field and 100 mL/hr into rate field of order. For KVO fluids, enter rate of 20 mL/hr or less into rate field of order., Post-op ondansetron (ZOFRAN) injection 4 mg(Linked Group 2) 4 mg, IntraVENous, EVERY 6 HOURS PRN, Starting on Sat04/16/23 at 2002, Until Discontinued, Nausea, Vomiting, Administer if oral route cannot be used., Post-op ondansetron (ZOFRAN-ODT) disintegrating tablet 4 mg(Linked Group 2) 4 mg, Oral, EVERY 8 HOURS PRN, Starting on Sat04/16/23 at 2002, Until Discontinued, Nausea, Vomiting, Post-op oxyCODONE (ROXICODONE) immediate release tablet 10 mg(Linked Group 3) 10 mg, Oral, EVERY 4 HOURS PRN, Starting on Sat04/16/23 at 2002, Until Discontinued, Pain Severe (7-10), Post-op 1328 (See Alternative - Provider: Tom Angeles RN) 0646 (See Alternative - Provider: Melani Morejon RN)1017 (See Alternative - Provider: Gabbie Schneider RN)1648 (See Alternative - Provider: Gabbie Schneider RN) oxyCODONE (ROXICODONE) immediate release tablet 5 mg(Linked Group 3) 5 mg, Oral, EVERY 4 HOURS PRN, Starting on Sat04/16/23 at 2002, Until Discontinued, Pain Moderate (4-6), Post-op 1328 (Given - Provider: Tom Angeles RN) 0646 (Given - Provider: Melani Morejon RN)1017 (Given - Provider: Gabbie Schneider, KERRI)1648 (Given - Provider: Gabbie Schneider RN) sodium chloride flush 0.9 % injection 5-40 mL 5-40 mL, IntraVENous, PRN, Starting on Sat04/16/23 at 2002, Until Discontinued, Line Care, After every IV line use, For Line Patency: Peripheral IV = 5 mL; Midline or Central Line = 10 mL/lumen. If following IV push medication, administer flush at same rate as the IV push. Flush volume is determined by type of infusion therapy being given. For non-viscous solutions use: Peripheral IV = 5 mL Midline or Central Line = 10 mL/lumen For viscous solutions (i.e. blood components, parenteral nutrition, contrast media, or after obtaining blood sample) use: Peripheral IV = 10 mL Midline or Central Line = 20 mL/lumen, Post-op Linked Groups Order Group 1: famotidine (PEPCID) tablet 20 mgJump to med 20 mg, Oral, DAILY, First dose on Sat04/16/23 at 2030, Until Discontinued, Post- op Or famotidine (PEPCID) 20 mg in sodium chloride (PF) 0.9 % 10 mL injectionJump to med 20 mg, IntraVENous, DAILY, First dose on Sat04/16/23 at 2029, Until Discontinued
Administer if oral route cannot be used
Post-op Group 2: ondansetron (ZOFRAN-ODT) disintegrating tablet 4 mgJump to med 4 mg, Oral, EVERY 8 HOURS PRN, Starting on Sat04/16/23 at 2002, Until Discontinued, Nausea, Vomiting, Post-op Or ondansetron (ZOFRAN) injection 4 mgJump to med 4 mg, IntraVENous, EVERY 6 HOURS PRN, Starting on Sat04/16/23 at 2002, Until Discontinued, Nausea, Vomiting
Administer if oral route cannot be used.
Post-op Group 3: oxyCODONE (ROXICODONE) immediate release tablet 5 mgJump to med 5 mg, Oral, EVERY 4 HOURS PRN, Starting on Sat04/16/23 at 2002, Until Discontinued, Pain Moderate (4-6), Post-op Or oxyCODONE (ROXICODONE) immediate release tablet 10 mgJump to med 10 mg, Oral, EVERY 4 HOURS PRN, Starting on Sat04/16/23 at 2002, Until Discontinued, Pain Severe (7-10), Post-op Scheduled Medication Order 05/01/2023 05/02/2023 05/03/2023 baclofen (LIORESAL) tablet 10 mg 10 mg, Oral, 3 TIMES DAILY, First dose (after last modification) on Sat04/22/23 at 2100, Until Discontinued 0804 (Given - Provider: Subha Dill RN)1419 (Given - Provider: Maryann Beard RN)2109 (Given - Provider: Huey Garcia RN) 0747 (Given - Provider: Subha Dill RN)1255 (Given - Provider: uSbha Dill RN)220 (Given - Provider: Huey Garcia RN) 0729 (Given - Provider: Dee Navarrete LPN)1400 (Due)2100 (Due) buPROPion (WELLBUTRIN XL) extended release tablet 150 mg 150 mg, Oral, EVERY MORNING, First dose (after last modification) on Sat04/23/23 at 0900, Until Discontinued, Do not crush or break., Post-op 0806 (Given - Provider: Subha Dill RN) 0748 (Given - Provider: Subha Dill RN) 0729 (Given - Provider: Dee Navarrete LPN) enoxaparin (LOVENOX) injection 40 mg 40 mg, SubCUTAneous, DAILY, First dose (after last modification) on Sat04/23/23 at 0900, Until Discontinued, Indication of Use: Prophylaxis-DVT/PE, Administer by deep subCUTAneous injection with pt lying down. Alternate injection sites on abdominal wall. Do not rub site after injection. Check with provider prior to any invasive procedure., Post-op 08 (Given - Provider: Subha Dill RN) 0747 (Given - Provider: Subha Dill RN) 0729 (Given - Provider: Dee Navarrete LPN) escitalopram (LEXAPRO) tablet 20 mg 20 mg, Oral, DAILY, First dose (after last modification) on Sat04/23/23 at 0900, Until Discontinued, Post-op 08 (Given - Provider: Subha Dill RN) 0747 (Given - Provider: Subha Dill RN) 0729 (Given - Provider: Dee Navarrete LPN) lurasidone (LATUDA) tablet 80 mg 80 mg, Oral, DAILY WITH DINNER, First dose (after last modification) on Sat04/23/23 at 1730, Until Discontinued, Adiminister with food., Post-op 163 (Given - Provider: Maryann Beard RN) 163 (Given - Provider: Subha Dill RN) 1730 (Due) polyethylene glycol (GLYCOLAX) packet 17 g 17 g, Oral, DAILY, First dose (after last modification) on Sat04/23/23 at 0900, Until Discontinued, Post-op 08 (Given - Provider: Subha Dill RN) 0747 (Given - Provider: Subha Dill RN) 3246 (Given - Provider: Dee Navarrete LPN) PRN Medication Order 05/01/2023 05/02/2023 05/03/2023 acetaminophen (TYLENOL) tablet 650 mg 650 mg, Oral, EVERY 4 HOURS PRN, Starting on Sat04/22/23 at 1952, Until Discontinued, Pain Mild (1-3), Fever, Fever >100.5 F (38 C), Maximum dose of acetaminophen is 4000 mg from all sources in 24 hours. bisacodyl (DULCOLAX) suppository 10 mg 10 mg, Rectal, DAILY PRN, Starting on Sat04/22/23 at 1952, Until Discontinued, Constipation, TO BE GIVEN AFTER THERAPY COMPLETED FOR THE DAY dextrose 10 % infusion IntraVENous, at 100 mL/hr, CONTINUOUS PRN, if blood glucose remains LESS THAN 70 mg/dL after 2 dextrose 10% intravenous boluses or administration of glucagon, Starting on Sat04/24/23 at 1358, If blood glucose fails to stabilize after 2 dextrose 10% intravenous boluses or glucagon administration, start dextrose 10% infusion at 100 mL/hour and repeat blood glucose at 30 and 60 minutes. If blood glucose is GREATER THAN 70 mg/dL after 60 minutes, discontinue dextrose 10% infusion. dextrose bolus 10% 125 mL(Linked Group 1) 125 mL, IntraVENous, at 937.5 mL/hr, Administer over 8 Minutes, PRN, Other, Blood glucose 40 - 69 mg/dL and patient NOT ALERT or NPO, Starting on Sat04/24/23 at 1358, Repeat blood glucose in 15 minutes. If blood glucose remains LESS THAN 70 mg/dL, repeat treatment and recheck blood glucose in 15 minutes x 2. If using glycemic management system, dose as instructed per system. If blood glucose remains LESS THAN 70 mg/dL after 2 intravenous boluses start dextrose 10% at 100 mL/hour and notify provider. dextrose bolus 10% 250 mL(Linked Group 1) 250 mL, IntraVENous, at 937.5 mL/hr, Administer over 16 Minutes, PRN, Other, Blood glucose LESS THAN 40 mg/dL and patient NOT ALERT or NPO, Starting on Sat04/24/23 at 1358, Repeat blood glucose in 15 minutes. If blood glucose remains LESS THAN 70 mg/dL, repeat treatment and recheck blood glucose in 15 minutes x 2. If using glycemic management system, dose as instructed per system. If blood glucose remains LESS THAN 70 mg/dL after 2 intravenous boluses start dextrose 10% at 100 mL/hour and notify provider. glucagon injection 1 mg 1 mg, SubCUTAneous, PRN, Starting on Sat04/24/23 at 1358, Until Discontinued, Low blood sugar, Blood glucose LESS THAN 70 mg/dL and patient NOT ALERT or NPO and does not have IV access., After administration, attempt intravenous access and start dextrose 10% at 100 mL/hr. Repeat blood glucose in 15 minutes x 2 and notify provider. glucose chewable tablet 16 g 16 g (4 tablet), Oral, PRN, Starting on Sat04/24/23 at 1358, Until Discontinued, Low blood sugar, If blood glucose is LESS THAN 70 mg/dL and patient is alert and tolerating oral. Give 4 tablets (16g) Repeat blood glucose in 15 minutes. If blood glucose is LESS THAN 70 mg/dL, repeat treatment and recheck blood glucose in 15 minutes x 2. If blood glucose remains LESS THAN 70 mg/dL, notify provider. magnesium hydroxide (MILK OF MAGNESIA) 400 MG/5ML suspension 30 mL 30 mL, Oral, DAILY PRN, Starting on Sat04/22/23 at 1952, Until Discontinued, Constipation oxyCODONE-acetaminophen (PERCOCET) 5-325 MG per tablet 1 tablet(Linked Group 2) 1 tablet, Oral, EVERY 6 HOURS PRN, Starting on Sat04/22/23 at 1952, Until Discontinued, Pain Mild (1-3), Pain Moderate (4-6), Maximum dose of acetaminophen is 4000 mg from all sources in 24 hours. 0804 (See Alternative - Provider: Subha Dill RN)2108 (Given - Provider: Huey Garcia, KERRI) 0655 (See Alternative - Provider: Huey Garcia, KERRI)2200 (See Alternative - Provider: Huey Garcia RN) oxyCODONE-acetaminophen (PERCOCET) 5-325 MG per tablet 2 tablet(Linked Group 2) 2 tablet, Oral, EVERY 6 HOURS PRN, Starting on Sat04/22/23 at 1952, Until Discontinued, Pain Severe (7-10), Maximum dose of acetaminophen is 4000 mg from all sources in 24 hours. 0804 (Given - Provider: Subha Dill RN)2108 (See Alternative - Provider: Huey Garcia, RN) 0655 (Given - Provider: Huey Garcia, KERRI)2200 (Given - Provider: Huey Garcia, RN) senna (SENOKOT) tablet 17.2 mg 17.2 mg (2 tablet), Oral, DAILY PRN, Starting on Sat04/22/23 at 1952, Until Discontinued, Constipation, First line therapy for constipation Linked Groups Order Group 1: dextrose bolus 10% 125 mLJump to med 125 mL, IntraVENous, at 937.5 mL/hr, Administer over 8 Minutes, PRN, Other, Blood glucose 40 - 69 mg/dL and patient NOT ALERT or NPO, Starting on Sat04/24/23 at 1358
Repeat blood glucose in 15 minutes. If blood glucose remains LESS THAN 70 mg/dL, repeat treatment and recheck blood glucose in 15 minutes x 2. If using glycemic management system, dose as instructed per system. If blood glucose remains LESS THAN 70 mg/dL after 2 intravenous boluses start dextrose 10% at 100 mL/hour and notify provider.
Or dextrose bolus 10% 250 mLJump to med 250 mL, IntraVENous, at 937.5 mL/hr, Administer over 16 Minutes, PRN, Other, Blood glucose LESS THAN 40 mg/dL and patient NOT ALERT or NPO, Starting on Sat04/24/23 at 1358
Repeat blood glucose in 15 minutes. If blood glucose remains LESS THAN 70 mg/dL, repeat treatment and recheck blood glucose in 15 minutes x 2. If using glycemic management system, dose as instructed per system. If blood glucose remains LESS THAN 70 mg/dL after 2 intravenous boluses start dextrose 10% at 100 mL/hour and notify provider.
Group 2: oxyCODONE-acetaminophen (PERCOCET) 5-325 MG per tablet 1 tabletJump to med 1 tablet, Oral, EVERY 6 HOURS PRN, Starting on Sat04/22/23 at 1952, Until Discontinued, Pain Mild (1-3), Pain Moderate (4-6)
Maximum dose of acetaminophen is 4000 mg from all sources in 24 hours.
Or oxyCODONE-acetaminophen (PERCOCET) 5-325 MG per tablet 2 tabletJump to med 2 tablet, Oral, EVERY 6 HOURS PRN, Starting on Sat04/22/23 at 1952, Until Discontinued, Pain Severe (7-10)
Maximum dose of acetaminophen is 4000 mg from all sources in 24 hours.
FOR RECORDS PERTAINING TO PATIENTS WHO ARE [...] BE BASED ON THE PRIMARY CLINICAL RECORDS. [facility]. provides no warranty or guarantee of the accuracy or completeness of information in this document.
== END 2024-06-16 10:01 | disposition home or self-care (01) ==
LOC: MAMMO 10:01
PROVIDERS: PCP Internal Medicine; Visit Provider Physician Assistant
DX: Z12.31 Encounter for screening mammogram for malignant neoplasm of breast (principal); E28.39 Other primary ovarian failure
CPT/HCPCS: 77063; 77067; 77080